=== PATIENT | male | born 1945 | race Caucasian/White ===

== ENCOUNTER 2018-03-26 10:48 | Inpatient (IN) ==
[2018-03-28] MEDS ORDERED: Dextrose 50% in Water 50 ML Vial IV.PUSH PRN
[2018-03-28] MEDS ORDERED: Acetaminophen 500 MG Tablet PO PRN
[2018-03-28] MEDS ORDERED: Sodium Chloride 0.9% Irr Bot 500 ML, ceFAZolin Inj 500 MG IRRIGATION SCH ×2
[2018-03-28] MEDS ORDERED: Sodium Chlor 0.9% Inj 77.5 ML, Papaverine Inj 60 MG, Nitroglycerin Inj 100 MCG, dilTIAZ... IRRIGATION SCH ×3
[2018-03-28] MEDS ORDERED: Metoprolol Tartrate 25 MG Tablet PO SCH
[2018-03-28] MEDS ORDERED: Insulin Regular (For Infusion) 100 UNIT in Sodium Chlor 0.9% Inj 99 ML IV.CONT PRN ×2
[2018-03-28] MEDS ORDERED: ceFAZolin 2 GM Premix Inj 2 GM/50 ML PIGGYBACK IV.SIG SCH
[2018-03-28] MEDS ORDERED: Chlorhexidine 4% Topical 120 APPLIC/120 ML Bottle TOPICAL SCH
[2018-03-28] MEDS: Methocarbamol 500 MG Tablet PO SCH ×3 (05:06→21:10)
[2018-03-28] MEDS: Metoprolol Tartrate 25 MG Tablet PO SCH ×2 (08:56→21:09)
[2018-03-28] MEDS: Aspirin 325 MG Tablet PO SCH (08:56)
[2018-03-28] MEDS: Heparin - SQ 10,000 UNITS/ML Vial SQ SCH ×2 (08:57→21:11)
--- NOTE | 2018-03-28 14:24 | P.PNCA ---
Subjective Interval history: Follow up for Dr. Lopez Overall doing well Did have a short episode of chest pain last night Physical Exam Vital signs: Vital Signs 03/28/18 00:00 03/28/18 02:15 03/28/18 03:00 Temperature 98 F Pulse Rate 60 60 65 Respiratory Rate 18 Blood Pressure 142/94 H Pulse Oximetry 97 03/28/18 04:00 03/28/18 05:00 03/28/18 06:00 Temperature 98 F Pulse Rate 70 72 74 Respiratory Rate 18 Blood Pressure 155/87 H Pulse Oximetry 97 03/28/18 07:00 03/28/18 08:00 03/28/18 09:00 Temperature 97.6 F Pulse Rate 76 69 71 Respiratory Rate 18 Blood Pressure 139/76 Pulse Oximetry 03/28/18 10:00 03/28/18 11:00 03/28/18 12:00 Temperature 97.6 F Pulse Rate 71 63 67 Respiratory Rate 18 Blood Pressure 148/76 H Pulse Oximetry 98 03/28/18 13:00 03/28/18 14:00 Temperature Pulse Rate 71 75 Respiratory Rate Blood Pressure Pulse Oximetry Intake & Output 03/27/18 03/28/18 03/28/18 18:59 06:59 18:59 Intake Total 240 / 240 Output Total 700 / 700 Balance -460 / -460 Weight 106.4 kg Intake: Oral 240 / 240 Output: Urine 700 / 700 Other: # Bowel Movements 0 Narrative: GENERAL: NAD, AAOx3 SKIN: Warm and dry. HEAD: Atraumatic. Normocephalic. EYES: Pupils equal and round. No scleral icterus. No injection or drainage. ENT: No nasal bleeding or discharge. Mucous membranes pink and moist. NECK: Trachea midline. No JVD. CARDIOVASCULAR: Regular rate and rhythm. RESPIRATORY: No accessory muscle use. Clear to auscultation. Breath sounds equal bilaterally. GASTROINTESTINAL: Abdomen soft, non-tender, nondistended. Hepatic and splenic margins not palpable. MUSCULOSKELETAL: Extremities without clubbing, cyanosis, or edema. No obvious deformities. Right femoral with no hematoma/bruit NEUROLOGICAL: Awake and alert. No obvious cranial nerve deficits. Motor grossly within normal limits. Five out of 5 muscle strength in the arms and legs. Normal speech. PSYCHIATRIC: Appropriate mood and affect; insight and judgment normal. Assessment and Plan - Assessment (1) CAD (coronary artery disease) Code(s): I25.10 - Atherosclerotic heart disease of [place] coronary artery without angina pectoris Status: Acute (2) Unstable angina Code(s): I20.0 - Unstable angina Status: Acute (3) NSTEMI (non-ST elevated myocardial infarction) Code(s): I21.4 - Non-ST elevation (NSTEMI) myocardial infarction Status: Acute (4) Multi-vessel coronary artery stenosis Code(s): I25.10 - Atherosclerotic heart disease of [place] coronary artery without angina pectoris Status: Acute (5) Hx of CABG Code(s): Z95.1 - Presence of aortocoronary bypass graft Status: Acute - Plan 1) CAD/NSTEMI Hx of CABG (1/3 grafts patent) Cardiac cath by Dr. Lopez Unable to intervene Plan for repeat CABG by Dr. Sylvester Planned for Thursday 2) Chest pain Unsure if last night was anginal, some what atyipcal but we know he has disease If further pain, then will need heparin drip and possible nitro drip
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
[2018-03-29] MEDS: Methocarbamol 500 MG Tablet PO SCH ×3 (06:25→22:22)
[2018-03-29] MEDS: Metoprolol Tartrate 25 MG Tablet PO SCH ×2 (08:55→22:22)
[2018-03-29] MEDS: Lisinopril 20 MG Tablet PO SCH (08:55)
[2018-03-29] MEDS: Aspirin 325 MG Tablet PO SCH (08:55)
[2018-03-29] MEDS: Heparin - SQ 10,000 UNITS/ML Vial SQ SCH ×2 (08:56→22:23)
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
--- NOTE | 2018-03-29 11:56 | P.PNCA ---
Subjective Interval history: No chest pain/SOB overnight Up to the chair, resting comfortably Physical Exam Vital signs: Vital Signs 03/28/18 12:00 03/28/18 13:00 03/28/18 14:00 Temperature Pulse Rate 67 71 75 Respiratory Rate Blood Pressure Pulse Oximetry 03/28/18 15:00 03/28/18 16:00 03/28/18 17:00 Temperature 97.7 F Pulse Rate 72 75 66 Respiratory Rate 18 Blood Pressure 153/89 H Pulse Oximetry 98 03/28/18 18:00 03/28/18 19:00 03/28/18 19:21 Temperature 98.4 F Pulse Rate 84 62 62 Respiratory Rate 16 Blood Pressure 122/68 Pulse Oximetry 99 03/28/18 20:00 03/28/18 21:00 03/28/18 22:00 Temperature Pulse Rate 72 66 77 Respiratory Rate Blood Pressure Pulse Oximetry 03/28/18 23:00 03/28/18 23:33 03/29/18 00:00 Temperature 97.8 F Pulse Rate 68 67 60 Respiratory Rate 18 Blood Pressure 148/87 H Pulse Oximetry 97 03/29/18 01:00 03/29/18 02:00 03/29/18 03:00 Temperature Pulse Rate 60 54 L 55 L Respiratory Rate Blood Pressure Pulse Oximetry 03/29/18 03:13 03/29/18 04:00 03/29/18 05:00 Temperature 97.7 F Pulse Rate 59 L 54 L 73 Respiratory Rate 18 Blood Pressure 143/80 H Pulse Oximetry 97 03/29/18 06:00 03/29/18 07:00 03/29/18 08:00 Temperature 97.8 F Pulse Rate 56 L 56 L 60 Respiratory Rate 18 Blood Pressure 138/84 Pulse Oximetry 03/29/18 09:00 03/29/18 10:00 03/29/18 11:00 Temperature 97.4 F L Pulse Rate 77 74 62 Respiratory Rate 18 Blood Pressure 138/87 Pulse Oximetry 95 Intake & Output 03/28/18 03/29/18 03/29/18 18:59 06:59 18:59 Intake Total 600 / 600 480 / 480 Balance 600 / 600 480 / 480 Weight 106.1 kg Intake: Oral 600 / 600 480 / 480 Other: # Voids 2 4 # Bowel Movements 0 Narrative: GENERAL: NAD, AAOx3 SKIN: Warm and dry. HEAD: Atraumatic. Normocephalic. EYES: Pupils equal and round. No scleral icterus. No injection or drainage. ENT: No nasal bleeding or discharge. Mucous membranes pink and moist. NECK: Trachea midline. No JVD. CARDIOVASCULAR: Regular rate and rhythm. RESPIRATORY: No accessory muscle use. Clear to auscultation. Breath sounds equal bilaterally. GASTROINTESTINAL: Abdomen soft, non-tender, nondistended. Hepatic and splenic margins not palpable. MUSCULOSKELETAL: Extremities without clubbing, cyanosis, or edema. No obvious deformities. NEUROLOGICAL: Awake and alert. No obvious cranial nerve deficits. Motor grossly within normal limits. Five out of 5 muscle strength in the arms and legs. Normal speech. PSYCHIATRIC: Appropriate mood and affect; insight and judgment normal. Assessment and Plan - Assessment (1) CAD (coronary artery disease) Code(s): I25.10 - Atherosclerotic heart disease of [place] coronary artery without angina pectoris Status: Acute (2) Unstable angina Code(s): I20.0 - Unstable angina Status: Acute (3) NSTEMI (non-ST elevated myocardial infarction) Code(s): I21.4 - Non-ST elevation (NSTEMI) myocardial infarction Status: Acute (4) Multi-vessel coronary artery stenosis Code(s): I25.10 - Atherosclerotic heart disease of [place] coronary artery without angina pectoris Status: Acute (5) Hx of CABG Code(s): Z95.1 - Presence of aortocoronary bypass graft Status: Acute - Plan 1) CAD/NSTEMI Hx of CABG (1/3 grafts patent) Cardiac cath by Dr. Lopez Unable to intervene Plan for repeat CABG by Dr. Sylvester Planned for tomorrow 2) Chest pain If further pain, then will need heparin drip and possible nitro drip
--- NOTE | 2018-03-29 13:01 | P.PNCA ---
- Note Subjective/Hospital Course:: 73-year-old gentleman with history of coronary artery bypass graft, hypertension , and hyperlipidemia, been experiencing chest pain for the past several days, pressure-like, moderate, relieved with nitroglycerin, also had some shortness of breath. He Denied fever, chills, cough, GI or bleeding, PND, orthopnea, syncope or dizziness. PAST MEDICAL HISTORY: CABG in 2007. He also has a history of permanent pacemaker, hypertension, polyp removed. cath: LAD has severe diffuse disease up to 95% in the proximal segment, occluded after the first diagonal artery. First diagonal artery has an ostial 95% stenosis There is filling of what appears to be a high OM/ramus which is a 4.0 mm vessel with retrograde filling into what appears to probably be the more distal segment of the occluded vein graft. Also, there is [id number] collaterals to the AV groove, left circumflex which supplies a small to medium- sized posterolateral artery, 1.5-2 mm. left to right collaterals to the right PDA from antegrade injection of the left main and also from antegrade injections of the CO[place] via the LAD. CONCLUSION: 1. [id number] myocardial infarction, culprit occluded vein graft to obtuse marginal which is indeterminate 2. Severe 3-vessel coronary artery disease as detailed above. 3. One of three grafts patent as detailed above. 4. Low-end normal left ventricular systolic function at 50% with mild hypokinesis of the posterior wall. 03/29/18 pt denies chest await PFT / carotid US 40% [place] ICA stable for surgery in am Objective:: Vital Signs - 24 hr 03/28/18 13:00 03/28/18 14:00 03/28/18 15:00 Temperature 97.7 F Pulse Rate 71 75 72 Respiratory Rate 18 Blood Pressure 153/89 H Pulse Oximetry 98 03/28/18 16:00 03/28/18 17:00 03/28/18 18:00 Temperature Pulse Rate 75 66 84 Respiratory Rate Blood Pressure Pulse Oximetry 03/28/18 19:00 03/28/18 19:21 03/28/18 20:00 Temperature 98.4 F Pulse Rate 62 62 72 Respiratory Rate 16 Blood Pressure 122/68 Pulse Oximetry 99 03/28/18 21:00 03/28/18 22:00 03/28/18 23:00 Temperature Pulse Rate 66 77 68 Respiratory Rate Blood Pressure Pulse Oximetry 03/28/18 23:33 03/29/18 00:00 03/29/18 01:00 Temperature 97.8 F Pulse Rate 67 60 60 Respiratory Rate 18 Blood Pressure 148/87 H Pulse Oximetry 97 03/29/18 02:00 03/29/18 03:00 03/29/18 03:13 Temperature 97.7 F Pulse Rate 54 L 55 L 59 L Respiratory Rate 18 Blood Pressure 143/80 H Pulse Oximetry 97 03/29/18 04:00 03/29/18 05:00 03/29/18 06:00 Temperature Pulse Rate 54 L 73 56 L Respiratory Rate Blood Pressure Pulse Oximetry 03/29/18 07:00 03/29/18 08:00 03/29/18 09:00 Temperature 97.8 F Pulse Rate 56 L 60 77 Respiratory Rate 18 Blood Pressure 138/84 Pulse Oximetry 03/29/18 10:00 03/29/18 11:00 03/29/18 12:00 Temperature 97.4 F L Pulse Rate 74 62 81 Respiratory Rate 18 Blood Pressure 138/87 Pulse Oximetry 95 GENERAL: A&O x 3 SKIN: Warm and dry. HEAD: Normocephalic. EYES: No scleral icterus. No injection or drainage. NECK: Supple, trachea midline. No JVD or lymphadenopathy. CARDIOVASCULAR: Regular rate and rhythm without murmurs, gallops, or rubs. RESPIRATORY: Breath sounds equal bilaterally. No accessory muscle use. GASTROINTESTINAL: Abdomen soft, non-tender, nondistended. MUSCULOSKELETAL: No cyanosis, or edema. BACK: Nontender without obvious deformity. No CVA tenderness. Result Diagrams: 03/27/18 05:37 03/27/18 05:37 - Plan (2) Unstable angina Plan:: ASA, statin , BB stop ISA for surgery surgery scheduled for 03/30 Redo sternotomy / CABG
[2018-03-30] MEDS ORDERED: Chlorhexidine Gluconate 2% 1 Pack (2 Cloths) TOPICAL SCH (05:15)
[2018-03-30] MEDS ORDERED: Sodium Chlor 0.9% Inj 500 ML IV.SIG SCH (06:00)
[2018-03-30] MEDS: Methocarbamol 500 MG Tablet PO SCH ×3 (06:15→21:41)
[2018-03-30] MEDS ORDERED: Heparin - SQ 10,000 UNITS/ML Vial SQ ONE ×2 (06:29→12:00)
[2018-03-30] MEDS ORDERED: MethylPREDNISolone Sod Succinate Inj 125 MG/2 ML Vial ONE ×2 (06:29→06:31)
[2018-03-30] MEDS ORDERED: ceFAZolin 2 GM Premix Inj 2 GM/50 ML PIGGYBACK IV.SIG ONE (06:30)
[2018-03-30] MEDS: Metoprolol Tartrate 25 MG Tablet PO SCH (10:13)
[2018-03-30] MEDS: Aspirin 325 MG Tablet PO SCH (10:13)
[2018-03-30] MEDS: Heparin - SQ 10,000 UNITS/ML Vial SQ SCH ×2 (10:13→21:41)
[2018-03-30] MEDS: Lisinopril 20 MG Tablet PO SCH (10:13)
[2018-03-30] MEDS ORDERED: Glycopyrrolate 0.2 MG/ML Vial IV.PUSH ONE (12:00)
[2018-03-30] MEDS ORDERED: Sodium Chlor 0.9% Inj 250 ML IV.SIG ONE (12:00)
[2018-03-30] MEDS ORDERED: Norepinephrine Inj 4 MG/4 ML Ampul IV.CONT ONE (12:00)
[2018-03-30] MEDS ORDERED: Dexmedetomidine Inj 200 MCG/2 ML Vial IV.CONT ONE (12:00)
[2018-03-30] MEDS ORDERED: Protamine Sulfate Inj 250 MG/25 ML Vial IV.PUSH ONE (12:00)
[2018-03-30] MEDS ORDERED: Sodium Chlor 0.9% Inj 200 ML IV.SIG ONE (12:00)
[2018-03-30] MEDS ORDERED: Phenylephrine/NS 1000 MCG/10ML Syringe IV.PUSH ONE (12:00)
[2018-03-30] MEDS ORDERED: Normosol-R pH 7.4 Inj 2,000 ML IV.CONT ONE (12:00)
[2018-03-30] MEDS ORDERED: Tranexamic Acid Inj 1,000 MG/10 ML Ampul IV.PUSH ONE (12:00)
[2018-03-30] MEDS ORDERED: Esmolol Bolus Inj 100 MG/10 ML Vial IV.PUSH ONE (12:00)
[2018-03-30] MEDS ORDERED: Lidocaine PF 1% Inj 5 ML Syringe INFILTRATN ONE ×2 (12:00)
[2018-03-30] MEDS ORDERED: Post-op Orders (for Pharmacy) OTHER STA (14:25)
[2018-03-30] MEDS ORDERED: Insulin Regular (For Infusion) 100 UNIT in Sodium Chlor 0.9% Inj 99 ML IV.CONT PRN (14:25)
[2018-03-30] MEDS ORDERED: hydrALAZINE HCl Inj 20 MG/ML Vial IV.PUSH PRN (14:25)
[2018-03-30] MEDS ORDERED: Magnesium Sulfate Inj 2 GM in Sodium Chlor 0.9% Inj 96 ML IV.SIG PRN ×4 (14:25)
[2018-03-30] MEDS ORDERED: RESP: Racemic Epinephrine 2.25% 0.5 ML Neb NEB PRN (14:25)
[2018-03-30] MEDS ORDERED: Clevidipine Inj 25 MG/50 ML VIAL IV.CONT PRN (14:25)
[2018-03-30] MEDS ORDERED: Dextrose 50% in Water 50 ML Vial IV.PUSH PRN (14:25)
[2018-03-30] MEDS ORDERED: Dexmedetomidine Inj 200 MCG/50 ML INFUS..BTL IV.CONT PRN (14:25)
[2018-03-30] MEDS ORDERED: Calcium Chloride Inj 1 GM in Sodium Chlor 0.9% Inj 100 ML IV.SIG PRN (14:25)
[2018-03-30] MEDS ORDERED: Albumin Human 5% Inj 250 ML IV.SIG PRN (14:25)
[2018-03-30] MEDS ORDERED: Potassium Chlor 20 mEq Premix 20 MEQ/100 ML PIGGYBACK IV.SIG PRN ×3 (14:25)
[2018-03-30] MEDS ORDERED: Calcium Chloride Inj 1 GM/10 ML Syringe IV.PUSH PRN (14:25)
[2018-03-30] MEDS ORDERED: Metoprolol Inj 5 MG/5 ML Vial IV.PUSH PRN (14:25)
--- NOTE | 2018-03-30 14:48 | P.OP ---
- Preoperative Diagnosis (1) CAD (coronary artery disease) (2) Hx of CABG (3) Multi-vessel coronary artery stenosis (4) NSTEMI (non-ST elevated myocardial infarction) - Postoperative Diagnosis (1) CAD (coronary artery disease) (2) Hx of CABG (3) Multi-vessel coronary artery stenosis (4) NSTEMI (non-ST elevated myocardial infarction) Date of procedure: 03/30/18 Procedure: REDO CABG x 3 SVG to PDA - good SVG to RI - fair SVG to D1 - fair EVH PAYAL Anesthesia: GETA Surgeon: Xochitl Sylvester MD Home Economist Consumer Service: Pavan Flores Operation and Findings: The risks, benefits, complications, treatment options, and expected outcomes were discussed with the patient. The possibilities of reaction to medication, pulmonary aspiration, perforation of viscus, bleeding, recurrent infection, the need for additional procedures, failure to diagnose a condition, and creating a complication requiring transfusion or operation were discussed with the patient. The patient concurred with the proposed plan, giving informed consent. The site of surgery properly noted/marked. The patient was taken to Operating Room, identified as Galen Hankins and the procedure verified as REDO CABG, EVH, PAYAL. A Time Out was held and the above information confirmed. Standard monitoring lines and Swenson catheter were placed. General anesthesia was induced. The patient was prepped and draped in a sterile fashion. The prior sternotomy incision was incised and electrocautery used to carry the dissection to the sternum. The previous wires were isolated and cut. They were left in place as a guide for the oscillating saw. After completing the sternotomy, the sternal tables were isolated from the mediastinum using electrocautery and blunt dissection. Dense adhesions were encountered in the mediastinum and surrounding the heart. The patient's previous vein grafts and COOPER graft were carefully isolated and not manipulated. Left greater saphenous vein was procured from the left leg using a minimally invasive endoscopic technique. The vein was prepared for anastomosis and the leg wound was irrigated and closed in 2 layers. The patient was heparinized for cardiopulmonary bypass and the heart was instrumented for cardiopulmonary bypass in the usual manner. Antegrade blood cardioplegia was employed. The patient was placed on cardiopulmonary bypass. Dissection was completed with the patient on pump due to some hypotension and ischemia. An aortic cross-clamp was applied and the heart was arrested using cold blood cardioplegia. The COOPER was temporarily occluded with an atraumatic clamp during the crossclamp period. Antegrade cardioplegia was administered after he each anastomosis. After adequate arrest, the distal right coronary circulation was investigated and the distal PDA was opened with a Atka blade and found to be a 1.5 millimeter good target. Saphenous vein was approximated to the PDA artery using a running 7 0 Prolene suture. The graft was measured for length and orientation and the proximal anastomosis was constructed to the ascending aorta using a running 5 0 Prolene suture after creating an aortotomy with a 5 millimeter punch. The Ramus Intermedius was opened with a Atka blade and found to be a 1 millimeter fair target with diffuse disease. Saphenous vein was approximated to the RI artery using a running 7 0 Prolene suture. The graft was measured for length and orientation and the proximal anastomosis was constructed to the ascending aorta using a running 5 0 Prolene suture after creating an aortotomy with a 5 millimeter punch.The 1st diagonal artery was then opened with a Atka blade and found to be a 1 millimeter fair target with diffuse disease. Saphenous vein was approximated to the D1 artery using a running 7 0 Prolene suture. The graft was measured for length and orientation and the patient received a hotshot dose of cardioplegia. The aorta was vented and the proximal anastomosis to the D1 graft was accomplished using a running 5 0 Prolene suture after creating an aortotomy was a 5 millimeter punch. The cross-clamp was removed and all proximal and distal anastomoses were examined for hemostasis. The patient was weaned from cardiopulmonary bypass. Protamine was given. There was no adverse reaction. Decannulation was carried out without incident. Wound was checked for hemostasis which was obtained using electrocautery. A 36 Bah[place]ian mediastinal and 2- 32 [place]amian bilateral pleural chest tubes were placed and secured to the skin with 0 silk suture. The sternum was closed with stainless steel wire. The fascia was closed with 1. PDS. The subcutaneous tissue was closed using a running 2-0 Vicryl suture. The skin was closed with 4-0 Monocryl. Sterile dressings were placed. At the end of the operation, all sponge, instruments, and needle counts were correct. The patient was transferred to the CVICU in stable condition. Findings: Diffuse CAD, no suitable OM targets XC: 101 min CPB: 172 min Drains: mediastinal x 1 pleural x 2 Complications: none Disposition: {to CVICU in stable condition
[2018-03-30] MEDS ORDERED: fentaNYL Citrate Inj 250 MCG/5 ML Ampul ONE ×2 (15:36→15:37)
--- NOTE | 2018-03-30 16:36 | XR ---
EXAM DATE: 03/30/2018 4:17 PM EDT AGE/SEX: 73 years / Male INDICATIONS: Status post CABG. CLINICAL DATA: This is the patient's subsequent encounter. Patient reports that signs and symptoms h ave been present for 1 day and indicates a pain score of Nonresponsive. MEDICAL/SURGICAL HISTORY: Hypertension. . CABG. Pacemaker. COMPAR[place] [facility] [place]. . FINDINGS: A single AP view of the chest demonstrates previous CABG. Mild cardiomegaly. Left perihilar and left basilar patchy densities. Endotracheal tube 4.5 cm above the kerry. Nasogastric tube with tip in sto mach. Right jugular line tip in the SVC. Bilateral chest tubes without pneumothorax. Left-sided pacem mika with 2 intact leads The cardiomediastinal contours are unremarkable. Osseous structures are int act. CONCLUSION: 1. Status post CABG. 2. Left perihilar and left lower lobe densities, likely atelectasis. 3. Support lines and tubes as described above. Electronically signed by: Cabrera Petty MD 03/30/2018 4:35 PM EDT
[2018-03-30] MEDS: fentaNYL Citrate Inj 100 MCG/2 ML Ampul IV.PUSH PRN ×3 (17:00→23:26)
--- NOTE | 2018-03-30 17:22 | P.PN ---
Subjective Interval history: Follow up for multivessel CAD s/p CABG x 3 today. Patient is currently doing well. No acute concerns. Patient's family is at bedside. No fever, chills. Hemodynamically stable. Physical Exam Vital signs: Vital Signs 03/29/18 17:52 03/29/18 19:00 03/29/18 20:00 Temperature 97.9 F Pulse Rate 67 70 72 Respiratory Rate 16 Blood Pressure 138/79 Pulse Oximetry 96 03/29/18 21:00 03/29/18 22:00 03/29/18 23:00 Temperature 98.0 F Pulse Rate 64 65 68 Respiratory Rate 15 Blood Pressure 146/88 H Pulse Oximetry 96 03/30/18 00:00 03/30/18 01:00 03/30/18 02:00 Temperature Pulse Rate 58 L 60 70 Respiratory Rate Blood Pressure Pulse Oximetry 03/30/18 03:00 03/30/18 04:00 03/30/18 05:00 Temperature Pulse Rate 71 67 71 Respiratory Rate Blood Pressure Pulse Oximetry 03/30/18 05:21 03/30/18 06:00 03/30/18 15:00 Temperature 97.9 F 98.5 F Pulse Rate 63 65 79 Respiratory Rate 17 16 Blood Pressure 143/83 H 119/65 Pulse Oximetry 92 L 03/30/18 15:08 03/30/18 16:18 03/30/18 17:16 Temperature Pulse Rate 68 Respiratory Rate 18 16 18 Blood Pressure Pulse Oximetry 95 95 Intake & Output 03/29/18 03/30/18 03/30/18 18:59 06:59 18:59 Intake Total 240 / 240 240 / 240 3900 / 3900 Output Total 200 / 200 1999 / 1999 Balance 240 / 240 40 / 40 1900 / 1900 Weight 104 kg Intake: IV 150 / 150 Ofirmev Inj 1,000 mg In 100 ml 100 / 100 @ 400 mls/hr IV.SIG Q6H MIKE Rx# :[id number] Ancef 2 GM Premix Inj 2 gm In 50 / 50 50 ml @ 150 mls/hr IV.SIG FINISHING TUNNEL OPERATOR MIKE Rx#:[id number] Oral 240 / 240 240 / 240 Anesthesia Amount 3000 / 3000 Cell Saver Amount 750 / 750 Output: Urine 200 / 200 Estimated Blood Loss 1400 / 1400 Urine Amount (Catheter) 600 / 600 Indwelling Temp Sensing 600 / 600 Catheter Other: # Voids 1 Narrative: GENERAL: Alert, NAD. SKIN: Warm and dry. HEAD: Normocephalic. EYES: No scleral icterus. No injection or drainage. NECK: Supple, trachea midline. No JVD or lymphadenopathy. CARDIOVASCULAR: Regular rate and rhythm without murmurs, gallops, or rubs. s/p CABG. RESPIRATORY: Breath sounds equal bilaterally. No accessory muscle use. GASTROINTESTINAL: Abdomen soft, non-tender, nondistended. MUSCULOSKELETAL: No cyanosis, or edema. BACK: Nontender without obvious deformity. No CVA tenderness. - Urinary Catheter Management Indwelling Temp Sensing Catheter Cath placed during this visit: yes Reason for continuing: Hourly intake/output Insertion date: 03/30/18 Insertion time: 07:40 Results - Labs CBC & Chem 7: 03/27/18 05:37 03/27/18 05:37 Laboratory Results - last 24 hr 03/28/18 03/30/18 03/30/18 04:24 08:06 16:04 POC Glucose 146 H Blood Type O Positive Antibody Screen Negative MTS Gel Crossmatch See Detail See Detail Bld Prod Order Comment 03/30/18 17:04 POC Glucose 122 H Blood Type Antibody Screen MTS Gel Crossmatch Bld Prod Order Comment - Imaging Impressions Chest X-Ray 03/30/18 14:25 CONCLUSION: 1. Status post CABG. 2. Left perihilar and left lower lobe densities, likely atelectasis. 3. Support lines and tubes as described above. - Procedures Cardiac catheterization Assessment and Plan - Assessment (1) NSTEMI (non-ST elevated myocardial infarction) Code(s): I21.4 - Non-ST elevation (NSTEMI) myocardial infarction Status: Acute (2) Multi-vessel coronary artery stenosis Code(s): I25.10 - Atherosclerotic heart disease of [place] coronary artery without angina pectoris Status: Acute - Plan 73-year-old white male being admitted for suspected NSTEMI. Cardiac cath showed multivessel CAD. Patient subsequently underwent CABG x3. Multivessel Coronary artery disease NSTEMI -Cardiac catheterization shows three-vessel disease not amenable for PCI. -Status post CABG x 3 on 03/30/2017. -Continue aspirin 81mg, Lipitor 40mg HS and Lopressor Acute kidney injury - ISA inhibitor on hold for now. Creatinine around 1.30. - Avoid nephrotoxins. 1.30 may be the baseline, we may consider re-starting. Full code.
--- NOTE | 2018-03-30 19:16 | P.PNCA ---
Subjective Interval history: Follow up for Dr. Lopez No events overnight s/p CABG x3 Extubated Physical Exam Vital signs: Vital Signs 03/29/18 20:00 03/29/18 21:00 03/29/18 22:00 Temperature Pulse Rate 72 64 65 Respiratory Rate Blood Pressure Pulse Oximetry 03/29/18 23:00 03/30/18 00:00 03/30/18 01:00 Temperature 98.0 F Pulse Rate 68 58 L 60 Respiratory Rate 15 Blood Pressure 146/88 H Pulse Oximetry 96 03/30/18 02:00 03/30/18 03:00 03/30/18 04:00 Temperature Pulse Rate 70 71 67 Respiratory Rate Blood Pressure Pulse Oximetry 03/30/18 05:00 03/30/18 05:21 03/30/18 06:00 Temperature 97.9 F Pulse Rate 71 63 65 Respiratory Rate 17 Blood Pressure 143/83 H Pulse Oximetry 03/30/18 15:00 03/30/18 15:08 03/30/18 16:18 Temperature 98.5 F Pulse Rate 79 Respiratory Rate 16 18 16 Blood Pressure 119/65 Pulse Oximetry 92 L 95 95 03/30/18 17:16 03/30/18 18:00 Temperature Pulse Rate 68 Respiratory Rate 18 Blood Pressure Pulse Oximetry 95 Intake & Output 03/30/18 03/30/18 03/31/18 06:59 18:59 06:59 Intake Total 240 / 240 4000 / 4000 Output Total 200 / 200 2630 / 2630 Balance 40 / 40 1370 / 1370 Weight 104 kg Intake: IV 250 / 250 Ofirmev Inj 1,000 mg In 100 ml 100 / 100 @ 400 mls/hr IV.SIG Q6H MIKE Rx# :[id number] KCl 20 mEq Premix Inj 20 meq In 100 / 100 100 ml @ 50 mls/hr IV.SIG PRN PRN Rx#:[id number] Ancef 2 GM Premix Inj 2 gm In 50 / 50 50 ml @ 150 mls/hr IV.SIG ENTRY CLERK MIKE Rx#:[id number] Oral 240 / 240 Anesthesia Amount 3000 / 3000 Cell Saver Amount 750 / 750 Output: Urine 200 / 200 Estimated Blood Loss 1400 / 1400 Urine Amount (Catheter) 1000 / 1000 Indwelling Temp Sensing 1000 / 1000 Catheter Gastric Drainage 0 / 0 Oral Orogastric Tube 0 / 0 Chest Tube Drainage 230 / 230 Anterior Y Connected 230 / 230 Other: # Voids 1 # Bowel Movements 0 - Constitutional no acute distress - Routine HEENT Exam Head: Present: normocephalic, atraumatic Eye: Present: EOMI, PERRL ENT: Present: mucous membranes moist - Routine Neck Exam Present: supple. Absent: JVD - Detailed Chest Wall Exam Comments: Sternotomy clean/dry - Routine Respiratory Exam Present: CTA bilaterally. Absent: accessory muscle use - Routine Cardiovascular Exam Present: RRR, S1, S2 - Routine Abdominal Exam Present: soft, normoactive bowel sounds. Absent: tenderness, guarding - Routine Extremities Exam Absent: cyanosis, clubbing, edema - Routine Skin Exam Present: intact, dry. Absent: cyanosis, erythema - Routine Neurological Exam Present: alert, oriented X3, CN II-XII intact - Routine Psychiatric Exam Present: normal affect - Urinary Catheter Management Indwelling Temp Sensing Catheter Cath placed during this visit: yes Reason for continuing: Hourly intake/output Insertion date: 03/30/18 Insertion time: 07:40 Assessment and Plan - Assessment (1) CAD (coronary artery disease) Code(s): I25.10 - Atherosclerotic heart disease of [place] coronary artery without angina pectoris Status: Acute (2) Unstable angina Code(s): I20.0 - Unstable angina Status: Acute (3) NSTEMI (non-ST elevated myocardial infarction) Code(s): I21.4 - Non-ST elevation (NSTEMI) myocardial infarction Status: Acute (4) Multi-vessel coronary artery stenosis Code(s): I25.10 - Atherosclerotic heart disease of [place] coronary artery without angina pectoris Status: Acute (5) Hx of CABG Code(s): Z95.1 - Presence of aortocoronary bypass graft Status: Acute - Plan 1) CAD/NSTEMI s/p CABG x3 POD #0 SVG to PDA SVG to Ramus SVG to Diagonal Previous Hx of CABG (1/3 grafts patent) COOPER to LAD patent 2) Supportive care 3) ASA/Statin/ISA Eventual BB therapy
[2018-03-31 04:33] LABS: Baso % (Auto) 0.2 % (0.0-2.0); Hematocrit 35.3 % (39.0-51.0); Hemoglobin 11.6 gm/dL (13.0-17.0); Lymph # (Auto) 0.9 th/mm3 (1.0-4.8); Lymph % (Auto) 8.1 % (9.0-44.0); Mean Corpuscular HGB Conc 32.8 % (32.0-36.0); Mean Corpuscular Hemoglobin 30.3 pg (27.0-34.0); Mean Corpuscular Volume 92.4 fL (80.0-100.0); Mean Platelet Volume 8.4 fL (7.0-11.0); Mono % (Auto) 9.5 % (0.0-8.0); Neut % (Auto) 82.2 % (16.0-70.0); Platelet Count 132 th/mm3 (150-450); Red Blood Count 3.82 mil/mm3 (4.50-5.90); Red Cell Distribution Width 15.1 % (11.6-17.2); White Blood Count 10.9 th/mm3 (4.0-11.0)
[2018-03-31 05:02] LABS: Calcium 8.5 mg/dL (8.5-10.1); Carbon Dioxide 22.3 meq/L (21.0-32.0); Magnesium 2.1 mg/dL (1.5-2.5); Potassium 4.4 meq/L (3.5-5.1)
--- NOTE | 2018-03-31 05:35 | XR ---
EXAM DATE: 03/31/2018 4:58 AM EDT AGE/SEX: 73 years / Male INDICATIONS: Status post CABG. CLINICAL DATA: This is the patient's subsequent encounter. Patient reports that signs and symptoms h ave been present for 4 - 6 days and indicates a pain score of 5/10. MEDICAL/SURGICAL HISTORY: Cardiovascular disease. CABG. COMPARISON: [facility], CHEST 1V SINGLE AP, 03/30/2018. . FINDINGS: Interval extubation. Bilateral chest tubes stable in position. Right internal jugular catheter tip pr ojects over the distal superior vena cava. Increasing consolidation in the left lower lung, now with loss of delineation of the entire left hemidiaphragm. Patchy areas of infiltrate in the right lower l adilene are also more prominent. Stable cardiomegaly. CONCLUSION: Increasing consolidation in the left lower lung and patchy infiltrates in the right lower lung. Electronically signed by: Johnnie Cutler MD 03/31/2018 5:34 AM EDT
[2018-03-31] MEDS: fentaNYL Citrate Inj 100 MCG/2 ML Ampul IV.PUSH PRN ×4 (05:41→15:20)
[2018-03-31] MEDS: Methocarbamol 500 MG Tablet PO SCH ×3 (06:27→21:07)
--- NOTE | 2018-03-31 09:42 | RSPPFT ---
DATE OF PROCEDURE: 03/29/18 COMMENTS: Spirometry shows FVC of 3.1 at 70% of predicted, FEV1 of 2.8 at 81%, FEV1/FVC ratio is normal. Flow is normal at FEF 25, FEF 50, FEF 75 and FEF 25-75. Flow volume loop indicates a normal pattern. IMPRESSION: 1. Normal spirometry. 2. Post-bronchodilator study was not done. MTDD
[2018-03-31] MEDS ORDERED: Acetaminophen 325 MG Tablet PO PRN (09:47)
[2018-03-31] MEDS ORDERED: Insulin Regular (For Infusion) 100 UNIT in Sodium Chlor 0.9% Inj 99 ML IV.CONT PRN (09:47)
[2018-03-31] MEDS ORDERED: Dextrose 50% in Water 50 ML Vial IV.PUSH PRN ×3 (09:47→10:29)
[2018-03-31] MEDS ORDERED: fentaNYL Citrate Inj 100 MCG/2 ML Ampul IV.PUSH PRN (09:47)
[2018-03-31] MEDS ORDERED: Sod Phosphate/Sod Biphosphate (Adult) Enema 133 ML Bottle RECTAL PRN (09:56)
[2018-03-31] MEDS ORDERED: Bisacodyl 10 MG Supp RECTAL PRN (09:56)
--- NOTE | 2018-03-31 10:03 | P.PN ---
Subjective Interval history: Follow up for multivessel CAD s/p CABG x 3. Patient is currently sitting in his chair. Complains of back pain. No fever or chills. No chest pain, shortness of breath. Physical Exam Vital signs: Vital Signs 03/30/18 15:00 03/30/18 15:08 03/30/18 16:18 Temperature 98.5 F Pulse Rate 79 Respiratory Rate 16 18 16 Blood Pressure 119/65 Pulse Oximetry 92 L 95 95 03/30/18 17:16 03/30/18 18:00 03/30/18 19:00 Temperature 97.4 F L Pulse Rate 68 79 Respiratory Rate 18 18 Blood Pressure 118/65 Pulse Oximetry 95 97 03/30/18 20:57 03/30/18 21:43 03/30/18 23:00 Temperature 98.5 F Pulse Rate 76 79 Respiratory Rate 18 18 18 Blood Pressure 133/82 Pulse Oximetry 98 03/31/18 00:30 03/31/18 03:00 03/31/18 03:07 Temperature Pulse Rate 84 Respiratory Rate 18 18 Blood Pressure Pulse Oximetry 03/31/18 03:20 03/31/18 03:55 03/31/18 07:50 Temperature 98.6 F Pulse Rate 85 86 Respiratory Rate 18 22 Blood Pressure 125/66 Pulse Oximetry 95 03/31/18 09:42 Temperature Pulse Rate Respiratory Rate 16 Blood Pressure Pulse Oximetry Intake & Output 03/30/18 03/31/18 03/31/18 18:59 06:59 18:59 Intake Total 4000 / 4000 1300 / 1300 200 / 200 Output Total 2630 / 2630 730 / 730 Balance 1370 / 1370 570 / 570 200 / 200 Weight 109.5 kg Intake: IV 250 / 250 1150 / 1150 200 / 200 Ofirmev Inj 1,000 mg In 100 ml 100 / 100 190 / 190 100 / 100 @ 400 mls/hr IV.SIG Q6H MIKE Rx# :[id number] Buminate 5% Inj 250 ML @ 250 250 / 250 mls/hr IV.SIG UNSCH PRN Rx#: [id number] Calcium Chloride Inj 1 GM In NS 110 / 110 Inj 100 ML @ 100 mls/hr IV.SIG PRN PRN Rx#:[id number] LR 1000 mL Inj 500 ML @ 500 mls 500 / 500 /hr IV.SIG .Q1H PRN Rx#: [id number] KCl 20 mEq Premix Inj 20 meq In 100 / 100 100 ml @ 50 mls/hr IV.SIG PRN PRN Rx#:[id number] Ancef 2 GM Premix Inj 2 gm In 50 / 50 50 ml @ 150 mls/hr IV.SIG SEO EXPERT MIKE Rx#:[id number] Ancef Inj 1,000 MG In NS Inj 100 / 100 100 / 100 100 ML @ 200 mls/hr IV.SIG Q8H MIKE Rx#:[id number] Oral 150 / 150 Anesthesia Amount 3000 / 3000 Cell Saver Amount 750 / 750 Output: Estimated Blood Loss 1400 / 1400 Urine Amount (Catheter) 1000 / 1000 730 / 730 Indwelling Temp Sensing 1000 / 1000 730 / 730 Catheter Gastric Drainage 0 / 0 Oral Orogastric Tube 0 / 0 Chest Tube Drainage 230 / 230 Anterior Y Connected 230 / 230 Other: # Bowel Movements 0 Narrative: GENERAL: Alert, NAD. SKIN: Warm and dry. HEAD: Normocephalic. EYES: No scleral icterus. No injection or drainage. NECK: Supple, trachea midline. No JVD or lymphadenopathy. CARDIOVASCULAR: Regular rate and rhythm without murmurs, gallops, or rubs. s/p CABG. RESPIRATORY: Breath sounds equal bilaterally. No accessory muscle use. GASTROINTESTINAL: Abdomen soft, non-tender, nondistended. MUSCULOSKELETAL: No cyanosis, or edema. BACK: Nontender without obvious deformity. No CVA tenderness. - Urinary Catheter Management Indwelling Temp Sensing Catheter Cath placed during this visit: yes, but has since been removed by the nurse Reason for continuing: Decision to DC catheter Insertion date: 03/30/18 Insertion time: 07:40 Removal date: 03/31/18 Removal time: 05:15 Results - Labs CBC & Chem 7: 03/31/18 04:08 03/31/18 04:08 Laboratory Results - last 24 hr 03/28/18 03/30/18 03/30/18 04:24 08:06 16:04 WBC RBC Hgb Hct MCV MCH MCHC RDW Plt Count MPV Prelim Diff (Auto) Neut % (Auto) Lymph % (Auto) [place] % (Auto) Eos % (Auto) Baso % (Auto) Neut # (Auto) Lymph # (Auto) [place] # (Auto) Eos # (Auto) Baso # (Auto) WBC Differential Diff Scan Differential Comment Sodium Potassium Chloride Carbon Dioxide Anion Gap BUN Creatinine Estimated GFR POC Glucose 146 H Random Glucose Calcium Magnesium Blood Type O Positive Antibody Screen Negative MTS Gel Crossmatch See Detail See Detail Bld Prod Order Comment 03/30/18 03/30/18 03/30/18 17:04 17:58 19:31 WBC RBC Hgb Hct MCV MCH MCHC RDW Plt Count MPV Prelim Diff (Auto) Neut % (Auto) Lymph % (Auto) [place] % (Auto) Eos % (Auto) Baso % (Auto) Neut # (Auto) Lymph # (Auto) [place] # (Auto) Eos # (Auto) Baso # (Auto) WBC Differential Diff Scan Differential Comment Sodium Potassium Chloride Carbon Dioxide Anion Gap BUN Creatinine Estimated GFR POC Glucose 122 H 108 112 H Random Glucose Calcium Magnesium Blood Type Antibody Screen MTS Gel Crossmatch Bld Prod Order Comment 03/30/18 03/30/18 03/30/18 20:38 22:28 23:31 WBC RBC Hgb Hct MCV MCH MCHC RDW Plt Count MPV Prelim Diff (Auto) Neut % (Auto) Lymph % (Auto) [place] % (Auto) Eos % (Auto) Baso % (Auto) Neut # (Auto) Lymph # (Auto) [place] # (Auto) Eos # (Auto) Baso # (Auto) WBC Differential Diff Scan Differential Comment Sodium Potassium Chloride Carbon Dioxide Anion Gap BUN Creatinine Estimated GFR POC Glucose 165 H 133 H 114 H Random Glucose Calcium Magnesium Blood Type Antibody Screen MTS Gel Crossmatch Bld Prod Order Comment 03/31/18 03/31/18 03/31/18 02:03 03:18 04:08 WBC 10.9 RBC 3.82 L Hgb 11.6 L Hct 35.3 L MCV 92.4 MCH 30.3 MCHC 32.8 RDW 15.1 Plt Count 132 L MPV 8.4 Prelim Diff (Auto) Slide review pending Neut % (Auto) 82.2 H Lymph % (Auto) 8.1 L [place] % (Auto) 9.5 H Eos % (Auto) 0.0 Baso % (Auto) 0.2 Neut # (Auto) 9.0 H Lymph # (Auto) 0.9 L [place] # (Auto) 1.0 H Eos # (Auto) 0.0 Baso # (Auto) 0.0 WBC Differential . Diff Scan Auto diff confirmed Differential Comment . Sodium Potassium Chloride Carbon Dioxide Anion Gap BUN Creatinine Estimated GFR POC Glucose 99 94 Random Glucose Calcium Magnesium Blood Type Antibody Screen MTS Gel Crossmatch Bld Prod Order Comment 03/31/18 03/31/18 03/31/18 04:08 06:23 07:23 WBC RBC Hgb Hct MCV MCH MCHC RDW Plt Count MPV Prelim Diff (Auto) Neut % (Auto) Lymph % (Auto) [place] % (Auto) Eos % (Auto) Baso % (Auto) Neut # (Auto) Lymph # (Auto) [place] # (Auto) Eos # (Auto) Baso # (Auto) WBC Differential Diff Scan Differential Comment Sodium 141 Potassium 4.4 Chloride 107 Carbon Dioxide 22.3 Anion Gap 12 BUN 21 H Creatinine 1.40 H Estimated GFR 50 L POC Glucose 142 H 170 H Random Glucose 111 H Calcium 8.5 Magnesium 2.1 Blood Type Antibody Screen MTS Gel Crossmatch Bld Prod Order Comment - Imaging Impressions Chest X-Ray 03/30/18 14:25 CONCLUSION: 1. Status post CABG. 2. Left perihilar and left lower lobe densities, likely atelectasis. 3. Support lines and tubes as described above. Chest X-Ray 03/31/18 05:00 CONCLUSION: Increasing consolidation in the left lower lung and patchy infiltrates in the right lower lung. - Procedures Echocardiogram The left ventricular systolic function is normal with an estimated ejection fraction in the range of 55-60%. Trace mitral valve regurgitation. There is trace tricuspid valve regurgitation. CABG x 3 on 03/30/2018. Assessment and Plan - Assessment (1) NSTEMI (non-ST elevated myocardial infarction) Code(s): I21.4 - Non-ST elevation (NSTEMI) myocardial infarction Status: Acute (2) Multi-vessel coronary artery stenosis Code(s): I25.10 - Atherosclerotic heart disease of [place] coronary artery without angina pectoris Status: Acute - Plan 73-year-old white male being admitted for suspected NSTEMI. Cardiac cath showed multivessel CAD. Patient subsequently underwent CABG x3. Multivessel Coronary artery disease NSTEMI -Cardiac catheterization shows three-vessel disease not amenable for PCI. -Status post CABG x 3 on 03/30/2017. -Continue aspirin 81mg, Lipitor 40mg HS and Lopressor Acute kidney injury - ISA inhibitor on hold for now. - Avoid nephrotoxins. Creatinine 1.40 today. Back pain - will initiate Percocet 7.5mg Q4hrs PRN Full code. Ambulation. Pharmacological prophylaxis when okay with cardiothoracic surgery.
--- NOTE | 2018-03-31 10:49 | P.PNCA ---
- Note Subjective/Hospital Course: 73-year-old gentleman with history of coronary artery bypass graft, hypertension, and hyperlipidemia, been experiencing chest pain for the past several days, pressure-like, moderate, relieved with nitroglycerin. cath report : multi vessel disease / EF 50% PAST MEDICAL HISTORY: CABG in 2007. He also has a history of permanent pacemaker, DDD lower rate 50 hypertension, polyp removed, CKD baseline creatinine 1.3 surgery 03/30 REDO CABG x 3 SVG to PDA - good SVG to RI - fair SVG to D1 - fair EVH extubated after surgery / 2 pleural tubes / one mediastinal tubes 03/31 painful , no toradol with CKD OOB pulm toileting pain med control transfer to stepdown Objective: Vital Signs - 24 hr 03/30/18 15:00 03/30/18 15:08 03/30/18 16:18 Temperature 98.5 F Pulse Rate 79 Respiratory Rate 16 18 16 Blood Pressure 119/65 Pulse Oximetry 92 L 95 95 03/30/18 17:16 03/30/18 18:00 03/30/18 19:00 Temperature 97.4 F L Pulse Rate 68 79 Respiratory Rate 18 18 Blood Pressure 118/65 Pulse Oximetry 95 97 03/30/18 20:57 03/30/18 21:43 03/30/18 23:00 Temperature 98.5 F Pulse Rate 76 79 Respiratory Rate 18 18 18 Blood Pressure 133/82 Pulse Oximetry 98 03/31/18 00:30 03/31/18 03:00 03/31/18 03:07 Temperature Pulse Rate 84 Respiratory Rate 18 18 Blood Pressure Pulse Oximetry 03/31/18 03:20 03/31/18 03:55 03/31/18 07:50 Temperature 98.6 F Pulse Rate 85 86 Respiratory Rate 18 22 Blood Pressure 125/66 Pulse Oximetry 95 03/31/18 09:42 Temperature Pulse Rate Respiratory Rate 16 Blood Pressure Pulse Oximetry GENERAL: A&O x 3 SKIN: Warm and dry. prevena dressing to chest , caity wrap left leg HEAD: Normocephalic. EYES: No scleral icterus. No injection or drainage. NECK: Supple, trachea midline. No JVD or lymphadenopathy. CARDIOVASCULAR: Regular rate and rhythm without murmurs, gallops, or + rub RESPIRATORY: Breath sounds equal bilaterally. No accessory muscle use. diminished in bases / chest tube to wall suction , no air leak / drained 230cc GASTROINTESTINAL: Abdomen soft, non-tender, nondistended. MUSCULOSKELETAL: No cyanosis, or edema. BACK: Nontender without obvious deformity. No CVA tenderness. Labs: Laboratory Results - last 12 hr 03/28/18 03/30/18 03/30/18 04:24 08:06 23:31 WBC RBC Hgb Hct MCV MCH MCHC RDW Plt Count MPV Prelim Diff (Auto) Neut % (Auto) Lymph % (Auto) [place] % (Auto) Eos % (Auto) Baso % (Auto) Neut # (Auto) Lymph # (Auto) [place] # (Auto) Eos # (Auto) Baso # (Auto) WBC Differential Diff Scan Differential Comment Sodium Potassium Chloride Carbon Dioxide Anion Gap BUN Creatinine Estimated GFR POC Glucose 114 H Random Glucose Calcium Magnesium MTS Gel Crossmatch See Detail See Detail 03/31/18 03/31/18 03/31/18 02:03 03:18 04:08 WBC 10.9 RBC 3.82 L Hgb 11.6 L Hct 35.3 L MCV 92.4 MCH 30.3 MCHC 32.8 RDW 15.1 Plt Count 132 L MPV 8.4 Prelim Diff (Auto) Slide review pending Neut % (Auto) 82.2 H Lymph % (Auto) 8.1 L [place] % (Auto) 9.5 H Eos % (Auto) 0.0 Baso % (Auto) 0.2 Neut # (Auto) 9.0 H Lymph # (Auto) 0.9 L [place] # (Auto) 1.0 H Eos # (Auto) 0.0 Baso # (Auto) 0.0 WBC Differential . Diff Scan Auto diff confirmed Differential Comment . Sodium Potassium Chloride Carbon Dioxide Anion Gap BUN Creatinine Estimated GFR POC Glucose 99 94 Random Glucose Calcium Magnesium MTS Gel Crossmatch 03/31/18 03/31/18 03/31/18 04:08 06:23 07:23 WBC RBC Hgb Hct MCV MCH MCHC RDW Plt Count MPV Prelim Diff (Auto) Neut % (Auto) Lymph % (Auto) [place] % (Auto) Eos % (Auto) Baso % (Auto) Neut # (Auto) Lymph # (Auto) [place] # (Auto) Eos # (Auto) Baso # (Auto) WBC Differential Diff Scan Differential Comment Sodium 141 Potassium 4.4 Chloride 107 Carbon Dioxide 22.3 Anion Gap 12 BUN 21 H Creatinine 1.40 H Estimated GFR 50 L POC Glucose 142 H 170 H Random Glucose 111 H Calcium 8.5 Magnesium 2.1 MTS Gel Crossmatch Result Diagrams: 03/31/18 04:08 03/31/18 04:08 Telemetry: NSR - Plan (1) S/P CABG x 3 Plan: ASA, statin , BB OOB no pressors off insulin gtt transfer to stepdown (2) CAD (coronary artery disease) (2) CAD (coronary artery disease) Qualifiers: Coronary Disease-Associated Artery/Lesion type: [place] artery Associated angina: with unstable angina
[2018-03-31] MEDS: Insulin NovoLOG Aspart Correctional Sugar Inj SQ SCH ×3 (12:27→21:03)
[2018-03-31] MEDS: Metoprolol Tartrate 25 MG Tablet PO SCH ×2 (12:28→21:07)
--- NOTE | 2018-03-31 13:40 | P.PNCA ---
Subjective Interval history: No events overnight Pain from chest tubes with deep breaths, only complaint Physical Exam Vital signs: Vital Signs 03/30/18 15:00 03/30/18 15:08 03/30/18 16:18 Temperature 98.5 F Pulse Rate 79 Respiratory Rate 16 18 16 Blood Pressure 119/65 Pulse Oximetry 92 L 95 95 03/30/18 17:16 03/30/18 18:00 03/30/18 19:00 Temperature 97.4 F L Pulse Rate 68 79 Respiratory Rate 18 18 Blood Pressure 118/65 Pulse Oximetry 95 97 03/30/18 20:57 03/30/18 21:43 03/30/18 23:00 Temperature 98.5 F Pulse Rate 76 79 Respiratory Rate 18 18 18 Blood Pressure 133/82 Pulse Oximetry 98 03/31/18 00:30 03/31/18 03:00 03/31/18 03:07 Temperature Pulse Rate 84 Respiratory Rate 18 18 Blood Pressure Pulse Oximetry 03/31/18 03:20 03/31/18 03:55 03/31/18 07:00 Temperature 98.6 F 98.6 F Pulse Rate 85 86 100 H Respiratory Rate 18 22 18 Blood Pressure 125/66 101/44 L Pulse Oximetry 03/31/18 07:50 03/31/18 09:42 03/31/18 11:00 Temperature 97.5 F L Pulse Rate 87 Respiratory Rate 16 16 Blood Pressure 122/61 Pulse Oximetry 95 Intake & Output 03/30/18 03/31/18 03/31/18 18:59 06:59 18:59 Intake Total 4000 / 4000 1300 / 1300 201 / 201 Output Total 2630 / 2630 730 / 730 Balance 1370 / 1370 570 / 570 201 / 201 Weight 109.5 kg Intake: IV 250 / 250 1150 / 1150 201 / 201 NovoLIN R (IV Infusion) 100 1 / 1 UNIT In NS Inj 99 ML @ 3 UNITS/ HR 3 mls/hr IV.CONT TITRATE PRN Rx#:[id number] Ofirmev Inj 1,000 mg In 100 ml 100 / 100 190 / 190 100 / 100 @ 400 mls/hr IV.SIG Q6H MIKE Rx# :[id number] Buminate 5% Inj 250 ML @ 250 250 / 250 mls/hr IV.SIG UNSCH PRN Rx#: [id number] Calcium Chloride Inj 1 GM In NS 110 / 110 Inj 100 ML @ 100 mls/hr IV.SIG PRN PRN Rx#:[id number] LR 1000 mL Inj 500 ML @ 500 mls 500 / 500 /hr IV.SIG .Q1H PRN Rx#: [id number] KCl 20 mEq Premix Inj 20 meq In 100 / 100 100 ml @ 50 mls/hr IV.SIG PRN PRN Rx#:[id number] Ancef 2 GM Premix Inj 2 gm In 50 / 50 50 ml @ 150 mls/hr IV.SIG MONKEY TRAINER MIKE Rx#:[id number] Ancef Inj 1,000 MG In NS Inj 100 / 100 100 / 100 100 ML @ 200 mls/hr IV.SIG Q8H MIKE Rx#:[id number] Oral 150 / 150 Anesthesia Amount 3000 / 3000 Cell Saver Amount 750 / 750 Output: Estimated Blood Loss 1400 / 1400 Urine Amount (Catheter) 1000 / 1000 730 / 730 Indwelling Temp Sensing 1000 / 1000 730 / 730 Catheter Gastric Drainage 0 / 0 Oral Orogastric Tube 0 / 0 Chest Tube Drainage 230 / 230 Anterior Y Connected 230 / 230 Other: # Bowel Movements 0 - Constitutional no acute distress - Routine HEENT Exam Head: Present: normocephalic, atraumatic Eye: Present: EOMI, PERRL ENT: Present: mucous membranes moist - Routine Neck Exam Present: supple. Absent: JVD - Detailed Chest Wall Exam Comments: Sternotomy clean/dry/intact - Routine Respiratory Exam Present: CTA bilaterally. Absent: accessory muscle use, decreased breath sounds - Routine Cardiovascular Exam Present: RRR, S1, S2 - Routine Abdominal Exam Present: soft, normoactive bowel sounds. Absent: tenderness, guarding - Routine Extremities Exam Absent: cyanosis, clubbing, edema - Routine Skin Exam Present: intact, dry. Absent: cyanosis, erythema - Routine Neurological Exam Present: alert, oriented X3, CN II-XII intact - Urinary Catheter Management Indwelling Temp Sensing Catheter Cath placed during this visit: yes, but has since been removed by the nurse Reason for continuing: Decision to DC catheter Insertion date: 03/30/18 Insertion time: 07:40 Removal date: 03/31/18 Removal time: 05:15 Assessment and Plan - Assessment (1) CAD (coronary artery disease) Code(s): I25.10 - Atherosclerotic heart disease of [place] coronary artery without angina pectoris Status: Acute (2) Unstable angina Code(s): I20.0 - Unstable angina Status: Acute (3) NSTEMI (non-ST elevated myocardial infarction) Code(s): I21.4 - Non-ST elevation (NSTEMI) myocardial infarction Status: Acute (4) Multi-vessel coronary artery stenosis Code(s): I25.10 - Atherosclerotic heart disease of [place] coronary artery without angina pectoris Status: Acute (5) Hx of CABG Code(s): Z95.1 - Presence of aortocoronary bypass graft Status: Acute - Plan 1) CAD/NSTEMI s/p CABG x3 POD #1 SVG to PDA SVG to Ramus SVG to Diagonal Previous Hx of CABG (1/3 grafts patent) COOPER to LAD patent 2) Supportive care 3) ASA/Statin Add BB therapy ISA-I on hold for now with CKD 4) Appropriate pain from chest tubes (1) CAD (coronary artery disease) Qualifiers: Coronary Disease-Associated Artery/Lesion type: [place] artery Associated angina: with unstable angina
--- NOTE | 2018-03-31 17:08 | P.DIET ---
Nutritional Evaluation Type of nutrition evaluation: initial Nutrition screening: [facility] [place] comments: 03/31/18 [facility] [place] Diet Education Objective - Objective % IBW: 129 Dietitian Reviewed in Medical Record: Current diet, Curent medications, Intake & Output, Labs, Medical history Diet Order: [id number] Objective Comments: PMH Includes: CAD, CABG, Multi , Vessel Coronary Artey Stenosis, NSTEMI 03/30/18 Redo CABG x 3 Assessment Assessment: [facility] [place] for Diet Education. Pt is s/p Redo CABG. Pt Navigator to provide education. Please Consult RD if complexities with diet education arise. Recommendations: 1.Pt Navigator to provide education 2.Please Consult RD if complexities with diet education arise
[2018-03-31] MEDS: Docusate Sodium 100 MG Capsule PO SCH (21:05)
--- NOTE | 2018-03-31 21:51 | ECG ---
Date Performed: 03/31/2018 Time Performed: 03:25:04 PTAGE: 73 years EKG: Sinus rhythm Left axis LAFB RBBB Abnormal ECG PREVIOUS TRACING : 03/27/2018 05.55 Since the previous tracing, no significant change noted DOCTOR: Arthur Joaquin Interpretating Date/Time 03/31/2018 21:49:45
[2018-04-01] MEDS: Insulin NovoLOG Aspart Correctional Sugar Inj SQ SCH ×6 (00:33→22:08)
[2018-04-01 04:37] LABS: Hematocrit 28.7 % (39.0-51.0); Hemoglobin 9.7 gm/dL (13.0-17.0); Mean Corpuscular HGB Conc 33.9 % (32.0-36.0); Mean Corpuscular Hemoglobin 31.2 pg (27.0-34.0); Mean Corpuscular Volume 92.2 fL (80.0-100.0); Mean Platelet Volume 8.3 fL (7.0-11.0); Platelet Count 119 th/mm3 (150-450); Red Blood Count 3.11 mil/mm3 (4.50-5.90); Red Cell Distribution Width 14.9 % (11.6-17.2); White Blood Count 8.2 th/mm3 (4.0-11.0)
[2018-04-01 04:56] LABS: Calcium 8.3 mg/dL (8.5-10.1); Carbon Dioxide 25.2 meq/L (21.0-32.0); Potassium 4.2 meq/L (3.5-5.1)
[2018-04-01] MEDS: Methocarbamol 500 MG Tablet PO SCH ×3 (05:34→21:53)
--- NOTE | 2018-04-01 06:09 | XR ---
THIS REPORT IS IN ERROR. PLEASE DISREGARD COPIES OF THIS REPORT. THIS REPORT IS IN ERROR. PLEASE DISREGARD COPIES OF THIS REPORT. THIS REPORT IS IN ERROR. PLEASE DISREGARD COPIES OF THIS REPORT. EXAM DATE: 04/01/2018 5:10 AM EDT AGE/SEX: 73 years / Male INDICATIONS: Short of breath. CLINICAL DATA: This is the patient's subsequent encounter. Patient reports that signs and symptoms have been present for 1 week and indicates a pain score of 0/10. MEDICAL/SURGICAL HISTORY: Hypertension. CABG. Pacemaker. COMPARISON: [facility] [place], [place], CHEST 1V SINGLE AP, 03/31/2018. . FINDINGS: Interval removal of bilateral chest tubes. No pneumothorax seen. Improved aeration of the left lower lung and right infrahilar region with some residual patchy infiltrates. Heart is enlarged. Interval placement of [id number] with tip at the cavoatrial junction. No evidence of pneumothorax. Median sternotomy with intact sternal wire sutures. CONCLUSION: Udrwbk-d-[id number] in good position. No evidence of pneumothorax. Improving bilateral lower lung infiltrates. Electronically signed by: Johnnie Cutler MD 04/01/2018 6:07 AM EDT THIS REPORT IS IN ERROR. PLEASE DISREGARD COPIES OF THIS REPORT. THIS REPORT IS IN ERROR. PLEASE DISREGARD COPIES OF THIS REPORT. THIS REPORT IS IN ERROR. PLEASE DISREGARD COPIES OF THIS REPORT. [facility]
[2018-04-01] MEDS: Docusate Sodium 100 MG Capsule PO SCH ×2 (08:03→21:54)
[2018-04-01] MEDS: Metoprolol Tartrate 25 MG Tablet PO SCH ×2 (08:03→21:53)
[2018-04-01] MEDS: Multivitamin/Minerals Therapeutic Tablet PO SCH (08:04)
[2018-04-01] MEDS: Polyethylene Glycol 3350 17 GM Packet PO SCH (08:04)
[2018-04-01] MEDS ORDERED: Metoprolol Tartrate 25 MG Tablet PO ONE (09:18)
[2018-04-01] MEDS: fentaNYL Citrate Inj 100 MCG/2 ML Ampul IV.PUSH PRN (10:32)
--- NOTE | 2018-04-01 10:42 | P.PNCA ---
- Note Subjective/Hospital Course: 73-year-old gentleman with history of coronary artery bypass graft, hypertension, and hyperlipidemia, been experiencing chest pain for the past several days, pressure-like, moderate, relieved with nitroglycerin. cath report : multi vessel disease / EF 50% PAST MEDICAL HISTORY: CABG in 2007. He also has a history of permanent pacemaker, DDD lower rate 50 hypertension, polyp removed, CKD baseline creatinine 1.3 surgery 03/30 REDO CABG x 3 SVG to PDA - good SVG to RI - fair SVG to D1 - fair EVH extubated after surgery / 2 pleural tubes / one mediastinal tubes 03/31 painful , no toradol with CKD OOB pulm toileting pain med control transfer to stepdown 04/01 still painful, but some improvement CT x 3 / drained 130/12 hrs and additional 150cc this am bloody drainage/ no air leak pain control pulm toileting creatinine improved 1.23 Objective: Vital Signs - 24 hr 03/31/18 11:00 03/31/18 12:00 03/31/18 13:00 Temperature 97.5 F L Pulse Rate 87 98 H 102 H Respiratory Rate 16 Blood Pressure 122/61 Pulse Oximetry 03/31/18 13:59 03/31/18 14:00 03/31/18 14:02 Temperature Pulse Rate 94 H 89 Respiratory Rate 16 18 Blood Pressure Pulse Oximetry 03/31/18 15:00 03/31/18 16:00 03/31/18 17:00 Temperature 97.9 F Pulse Rate 88 102 H 100 H Respiratory Rate 20 Blood Pressure 118/56 L Pulse Oximetry 93 L 03/31/18 18:33 03/31/18 19:00 03/31/18 20:00 Temperature 98.2 F Pulse Rate 94 H 96 H 86 Respiratory Rate 22 Blood Pressure 112/60 Pulse Oximetry 100 03/31/18 20:18 03/31/18 21:00 03/31/18 22:00 Temperature Pulse Rate 95 H 102 H 98 H Respiratory Rate 18 Blood Pressure Pulse Oximetry 99 03/31/18 23:00 04/01/18 00:00 04/01/18 01:00 Temperature 99.5 F Pulse Rate 92 H 92 H 92 H Respiratory Rate 22 Blood Pressure 110/58 L Pulse Oximetry 97 04/01/18 02:00 04/01/18 03:00 04/01/18 04:00 Temperature 98.7 F Pulse Rate 90 91 H 94 H Respiratory Rate 18 Blood Pressure 137/63 Pulse Oximetry 97 04/01/18 05:00 04/01/18 06:00 04/01/18 07:00 Temperature 97.8 F Pulse Rate 88 86 93 H Respiratory Rate 22 Blood Pressure 141/76 H Pulse Oximetry 95 04/01/18 08:00 04/01/18 08:17 04/01/18 09:00 Temperature Pulse Rate 95 H 101 H 90 Respiratory Rate 18 Blood Pressure Pulse Oximetry 94 L 04/01/18 10:00 Temperature Pulse Rate 95 H Respiratory Rate Blood Pressure Pulse Oximetry GENERAL: A&O x 3 SKIN: Warm and dry. prevena dressing to chest incision intact to leg HEAD: Normocephalic. EYES: No scleral icterus. No injection or drainage. NECK: Supple, trachea midline. No JVD or lymphadenopathy. CARDIOVASCULAR: Regular rate and rhythm without murmurs, gallops, or rubs. RESPIRATORY: Breath sounds equal bilaterally. No accessory muscle use. chest tube to wall suction/ no air leak GASTROINTESTINAL: Abdomen soft, non-tender, nondistended. MUSCULOSKELETAL: No cyanosis, or edema. BACK: Nontender without obvious deformity. No CVA tenderness. Labs: Laboratory Results - last 12 hr 04/01/18 04/01/18 04/01/18 00:23 03:49 04:25 WBC 8.2 RBC 3.11 L Hgb 9.7 L Hct 28.7 L MCV 92.2 MCH 31.2 MCHC 33.9 RDW 14.9 Plt Count 119 L MPV 8.3 Sodium Potassium Chloride Carbon Dioxide Anion Gap BUN Creatinine Estimated GFR POC Glucose 128 H 133 H Random Glucose Calcium 04/01/18 04/01/18 04:25 07:33 WBC RBC Hgb Hct MCV MCH MCHC RDW Plt Count MPV Sodium 142 Potassium 4.2 Chloride 107 Carbon Dioxide 25.2 Anion Gap 10 BUN 19 H Creatinine 1.23 Estimated GFR 58 L POC Glucose 128 H Random Glucose 129 H Calcium 8.3 L Result Diagrams: 04/01/18 04:25 04/01/18 04:25 Pulmonary: NSR - Plan (1) S/P CABG x 3 Plan: ASA, statin , increase BB OOB pulm toieling gentle diuresis on nasal cannula leave chest in (2) CAD (coronary artery disease) (2) CAD (coronary artery disease) Qualifiers: Coronary Disease-Associated Artery/Lesion type: [place] artery Associated angina: with unstable angina
--- NOTE | 2018-04-01 10:46 | P.DCO ---
- Home Health Nursing Order: Signs/symptoms of disease process, Wound care and dressing changes, Nursing assessment with vital signs Instructions: Heart and Vascular Surgery patients *Special attention to sternal dressing Mandatory frequency Assess and evaluation, 4 days in a row The next week 3X week 2 times a week for 4 weeks 1 time a week for 5 weeks Schedule Heart and Vascular patients for full 60 day certification period Initial visit Review Open Heart Surgery Discharge Instructions (Sternal precautions, Activity, Elastic hose, Incision care, Driving, Incentive spirometry, Smoking, [place], Work and other) Need Betadine to paint incision Medication reconciliation Importance of follow up care/ check on appointments Make calendar record temperature daily When to call [facility] nurse, review instructions, phone list Incentive Spirometry, demonstration Visit 1- Begin discharge instruction for patient family and/ or caregiver using teach back method- Signs and symptoms of infection Disease characteristics Medicines and side effects Foods and nutrition/ appetite Infection control/ hand washing/ hygiene Visit 2- Continue teaching Discharge instructions- include additional information on smoking cessation , sternal dressing (sternal vac) Visit 3- Continue teaching- Cough and deep breathing, incision monitoring. Choose my plate Visit 4- Continue teaching- Discuss limitations Discuss how they are feeling Discuss progress toward goals Remaining visits- continue teaching and monitoring For any questions please call : Thursday 8am-5pm Heart & Vascular Surgery Office ( Dr. Olson & Dr. Sylvester), After Hours / Nights (5pm -8am) Weekends and Holidays Please call [facility] Cardiac Intermediate Care Unit (CIC) Charge Nurse PREVENA Single Use Negative Wound Therapy System Caregiver Instruction Sheet 1. A Prevena dressing system was applied to the chest incision during surgery , to promote wound healing. It works via a suction device (negative pressure wound therapy) to remove low to moderate levels of exudate (drainage) and infectious materials. We recommend that the device stay in place for up to seven days, from day of surgery. 2. Day of Surgery__03/30/18 Day of Removal ___/07/15 3. The dressing should only be removed by a health career information specialist. Please arrange removal of device to coincide with Home Health visit and or with Nursing staff at Rehab 4. If skin reddening or irritation of skin occurs, or excessive drainage, please notify the Cardiovascular Surgeons office at [phone]. 5. Light showering is permissible; however the pump should be disconnected and placed in safe location, where it will not get wet. The dressing should not be exposed to direct spray or submerged in water. No bath tub / shower only. Ensure the end of the tubing attached to the dressing is facing down so that water does not enter the top of the tube. 6. To remove Prevena dressing: press purple button to turn off device / remove the suction. Then disconnect the tubing from the pump. The fixation strips should be stretched away from the skin and the dressing lifted at one corner and peeled back until it has been fully removed. 7. After removal, it is ok to shower daily using liquid dial soap and clean wash cloth, rinse and pat dry, and leave incision open to air dry. For any concerns regarding Prevena dressing, and or wounds, please contact Lindy Feliciano, patient navigator at [phone] or notify the Cardiovascular Surgeons office at [phone]. Incentive spirometry Q1 hr x 10, while awake, also use acapella device hourly whole awake Sternal Breast Bone Precautions: NO pushing or pulling, ( pt must use sternal pillow to support chest with all activities and with coughing ( takes up to 3 months breast bone to heal ) Daily incision care: ok to shower daily, no tub bath. Wash all incisions with liquid dial soap, clean wash cloth to each site, rinse and pat dry. Observe for any signs of infection, such as drainage which is dark yellow, lara, green or foul smelling. Immediately report to the surgeon any drainage from the chest incision, or legs, and for any abnormal drainage from the chest tube sites. Notify surgeon if any temp >101.5 degrees F. When specialty dressing removed/ or if you do not have one, continue to shower daily as above, then rinse and pat incision dry and paint with betadine daily x 5 days. Allow steri strips to fall off if you have any. Avoid lotions, creams, salves, oils, etc. for the first month Please see attached forms for additional instructions regarding post Open Heart specialty wound vacuum dressings. GISELLE or Prevena , Dressing to be removed by Nursing staff on ___04/06/18____ For Dr. Sylvester patients , please obtain CBC, BMP, PA & Lat CXR in 2 weeks, results to Dr. Sylvester ( prescription will be given) ( ) (Tele: [phone]) , F/U appointment: as per DC instructions: PCP in 2 weeks, CV surgeon 2 weeks, [place] Tender 3-4 weeks For any questions regarding incisions/ dressing / meds / post op care or above Symptoms, Thursday 8am-5pm Heart & Vascular Surgery Office ( Dr. Olson & Dr. Sylvester), After Hours / Nights (5pm -8am) Weekends and Holidays Please call [facility] Cardiac Intermediate Care Unit (CIC) Charge Nurse - Certification I have seen patient Galen Hankins on 04/01/18. My clinical findings support the need for the requested home health care services because: Deconditioned with increased weakness I certify that my clinical findings support that this patient is homebound because: Post-op weakness
--- NOTE | 2018-04-01 18:25 | P.PNCA ---
Subjective Interval history: No events overnight Feeling better now that he's up to the chair Physical Exam Vital signs: Vital Signs 03/31/18 18:33 03/31/18 19:00 03/31/18 20:00 Temperature 98.2 F Pulse Rate 94 H 96 H 86 Respiratory Rate 22 Blood Pressure 112/60 Pulse Oximetry 100 03/31/18 20:18 03/31/18 21:00 03/31/18 22:00 Temperature Pulse Rate 95 H 102 H 98 H Respiratory Rate 18 Blood Pressure Pulse Oximetry 99 03/31/18 23:00 04/01/18 00:00 04/01/18 01:00 Temperature 99.5 F Pulse Rate 92 H 92 H 92 H Respiratory Rate 22 Blood Pressure 110/58 L Pulse Oximetry 97 04/01/18 02:00 04/01/18 03:00 04/01/18 04:00 Temperature 98.7 F Pulse Rate 90 91 H 94 H Respiratory Rate 18 Blood Pressure 137/63 Pulse Oximetry 97 04/01/18 05:00 04/01/18 06:00 04/01/18 07:00 Temperature 97.8 F Pulse Rate 88 86 93 H Respiratory Rate 22 Blood Pressure 141/76 H Pulse Oximetry 95 04/01/18 08:00 04/01/18 08:17 04/01/18 09:00 Temperature Pulse Rate 95 H 101 H 90 Respiratory Rate 18 Blood Pressure Pulse Oximetry 94 L 04/01/18 10:00 04/01/18 11:00 04/01/18 12:00 Temperature 97.8 F Pulse Rate 95 H 94 H 62 Respiratory Rate 18 Blood Pressure 121/73 Pulse Oximetry 100 04/01/18 13:00 04/01/18 13:06 04/01/18 14:00 Temperature Pulse Rate 65 62 55 L Respiratory Rate 18 Blood Pressure Pulse Oximetry 04/01/18 15:00 04/01/18 16:00 04/01/18 17:00 Temperature 97.6 F Pulse Rate 102 H 102 H 107 H Respiratory Rate 18 Blood Pressure 111/55 L Pulse Oximetry 99 04/01/18 18:00 Temperature Pulse Rate 103 H Respiratory Rate Blood Pressure Pulse Oximetry Intake & Output 03/31/18 04/01/18 04/01/18 18:59 06:59 18:59 Intake Total 1671 / 1671 340 / 340 820 / 820 Output Total 740 / 740 430 / 430 1080 / 1080 Balance 931 / 931 -90 / -90 -260 / -260 Weight 107 kg Intake: IV 301 / 301 100 / 100 100 / 100 NovoLIN R (IV Infusion) 100 1 / 1 UNIT In NS Inj 99 ML @ 3 UNITS/ HR 3 mls/hr IV.CONT TITRATE PRN Rx#:[id number] Ofirmev Inj 1,000 mg In 100 ml 100 / 100 @ 400 mls/hr IV.SIG Q6H MIKE Rx# :[id number] Ancef Inj 1,000 MG In NS Inj 200 / 200 100 / 100 100 / 100 100 ML @ 200 mls/hr IV.SIG Q8H MIKE Rx#:[id number] Oral 1370 / 1370 240 / 240 720 / 720 Output: Urine 550 / 550 300 / 300 750 / 750 Chest Tube Drainage 190 / 190 130 / 130 330 / 330 Anterior Y Connected 190 / 190 130 / 130 330 / 330 Other: Date of Last Bowel Movement 03/29/18 03/29/18 # Bowel Movements 0 Narrative: GENERAL: NAD, AAOx3 SKIN: Warm and dry. HEAD: Normocephalic. EYES: No scleral icterus. No injection or drainage. NECK: Supple, trachea midline. No JVD or lymphadenopathy. CARDIOVASCULAR: Regular rate and rhythm without murmurs, gallops, or rubs. Sternotomy c/d/i RESPIRATORY: Breath sounds equal bilaterally. No accessory muscle use. GASTROINTESTINAL: Abdomen soft, non-tender, nondistended. MUSCULOSKELETAL: No cyanosis, or edema. BACK: Nontender without obvious deformity. No CVA tenderness. - Urinary Catheter Management Indwelling Temp Sensing Catheter Cath placed during this visit: yes, but has since been removed by the nurse Reason for continuing: Not indwelling catheter Insertion date: 03/30/18 Insertion time: 07:40 Removal date: 03/31/18 Removal time: 05:15 Assessment and Plan - Assessment (1) CAD (coronary artery disease) Code(s): I25.10 - Atherosclerotic heart disease of [place] coronary artery without angina pectoris Status: Acute (2) Unstable angina Code(s): I20.0 - Unstable angina Status: Acute (3) NSTEMI (non-ST elevated myocardial infarction) Code(s): I21.4 - Non-ST elevation (NSTEMI) myocardial infarction Status: Acute (4) Multi-vessel coronary artery stenosis Code(s): I25.10 - Atherosclerotic heart disease of [place] coronary artery without angina pectoris Status: Acute (5) Hx of CABG Code(s): Z95.1 - Presence of aortocoronary bypass graft Status: Acute - Plan 1) CAD/NSTEMI s/p CABG x3 POD #2 SVG to PDA SVG to Ramus SVG to Diagonal Previous Hx of CABG (1/3 grafts patent) COOPER to LAD patent 2) Supportive care 3) ASA/Statin Add BB therapy ISA-I on hold for now with CKD 4) Appropriate pain from chest tubes Hopefully out tomorrow (1) CAD (coronary artery disease) Qualifiers: Coronary Disease-Associated Artery/Lesion type: [place] artery Associated angina: with unstable angina
--- NOTE | 2018-04-01 18:45 | P.PN ---
Subjective Interval history: Follow up for multivessel CAD s/p CABG x 3. Patient is sitting in his chair. Feels much better today. He is also eating better. No fever or chills. Physical Exam Vital signs: Vital Signs 03/31/18 19:00 03/31/18 20:00 03/31/18 20:18 Temperature 98.2 F Pulse Rate 96 H 86 95 H Respiratory Rate 22 18 Blood Pressure 112/60 Pulse Oximetry 100 99 03/31/18 21:00 03/31/18 22:00 03/31/18 23:00 Temperature Pulse Rate 102 H 98 H 92 H Respiratory Rate Blood Pressure Pulse Oximetry 04/01/18 00:00 04/01/18 01:00 04/01/18 02:00 Temperature 99.5 F Pulse Rate 92 H 92 H 90 Respiratory Rate 22 Blood Pressure 110/58 L Pulse Oximetry 97 04/01/18 03:00 04/01/18 04:00 04/01/18 05:00 Temperature 98.7 F Pulse Rate 91 H 94 H 88 Respiratory Rate 18 Blood Pressure 137/63 Pulse Oximetry 97 04/01/18 06:00 04/01/18 07:00 04/01/18 08:00 Temperature 97.8 F Pulse Rate 86 93 H 95 H Respiratory Rate 22 Blood Pressure 141/76 H Pulse Oximetry 95 04/01/18 08:17 04/01/18 09:00 04/01/18 10:00 Temperature Pulse Rate 101 H 90 95 H Respiratory Rate 18 Blood Pressure Pulse Oximetry 94 L 04/01/18 11:00 04/01/18 12:00 04/01/18 13:00 Temperature 97.8 F Pulse Rate 94 H 62 65 Respiratory Rate 18 Blood Pressure 121/73 Pulse Oximetry 100 04/01/18 13:06 04/01/18 14:00 04/01/18 15:00 Temperature 97.6 F Pulse Rate 62 55 L 102 H Respiratory Rate 18 18 Blood Pressure 111/55 L Pulse Oximetry 99 04/01/18 16:00 04/01/18 17:00 04/01/18 18:00 Temperature Pulse Rate 102 H 107 H 103 H Respiratory Rate Blood Pressure Pulse Oximetry Intake & Output 03/31/18 04/01/18 04/01/18 18:59 06:59 18:59 Intake Total 1671 / 1671 340 / 340 820 / 820 Output Total 740 / 740 430 / 430 1080 / 1080 Balance 931 / 931 -90 / -90 -260 / -260 Weight 107 kg Intake: IV 301 / 301 100 / 100 100 / 100 NovoLIN R (IV Infusion) 100 1 / 1 UNIT In NS Inj 99 ML @ 3 UNITS/ HR 3 mls/hr IV.CONT TITRATE PRN Rx#:[id number] Ofirmev Inj 1,000 mg In 100 ml 100 / 100 @ 400 mls/hr IV.SIG Q6H MIKE Rx# :[id number] Ancef Inj 1,000 MG In NS Inj 200 / 200 100 / 100 100 / 100 100 ML @ 200 mls/hr IV.SIG Q8H MIKE Rx#:[id number] Oral 1370 / 1370 240 / 240 720 / 720 Output: Urine 550 / 550 300 / 300 750 / 750 Chest Tube Drainage 190 / 190 130 / 130 330 / 330 Anterior Y Connected 190 / 190 130 / 130 330 / 330 Other: Date of Last Bowel Movement 03/29/18 03/29/18 # Bowel Movements 0 Narrative: GENERAL: NAD, AAOx3 SKIN: Warm and dry. HEAD: Normocephalic. EYES: No scleral icterus. No injection or drainage. NECK: Supple, trachea midline. No JVD or lymphadenopathy. CARDIOVASCULAR: Regular rate and rhythm without murmurs, gallops, or rubs. Sternotomy c/d/i RESPIRATORY: Breath sounds equal bilaterally. No accessory muscle use. GASTROINTESTINAL: Abdomen soft, non-tender, nondistended. MUSCULOSKELETAL: No cyanosis, or edema. BACK: Nontender without obvious deformity. No CVA tenderness. - Urinary Catheter Management Indwelling Temp Sensing Catheter Cath placed during this visit: yes, but has since been removed by the nurse Reason for continuing: Not indwelling catheter Insertion date: 03/30/18 Insertion time: 07:40 Removal date: 03/31/18 Removal time: 05:15 Results - Labs CBC & Chem 7: 04/01/18 04:25 04/01/18 04:25 Laboratory Results - last 24 hr 03/31/18 04/01/18 04/01/18 20:13 00:23 03:49 WBC RBC Hgb Hct MCV MCH MCHC RDW Plt Count MPV Sodium Potassium Chloride Carbon Dioxide Anion Gap BUN Creatinine Estimated GFR POC Glucose 144 H 128 H 133 H Random Glucose Calcium 04/01/18 04/01/18 04/01/18 04:25 04:25 07:33 WBC 8.2 RBC 3.11 L Hgb 9.7 L Hct 28.7 L MCV 92.2 MCH 31.2 MCHC 33.9 RDW 14.9 Plt Count 119 L MPV 8.3 Sodium 142 Potassium 4.2 Chloride 107 Carbon Dioxide 25.2 Anion Gap 10 BUN 19 H Creatinine 1.23 Estimated GFR 58 L POC Glucose 128 H Random Glucose 129 H Calcium 8.3 L 04/01/18 04/01/18 12:18 17:10 WBC RBC Hgb Hct MCV MCH MCHC RDW Plt Count MPV Sodium Potassium Chloride Carbon Dioxide Anion Gap BUN Creatinine Estimated GFR POC Glucose 131 H 122 H Random Glucose Calcium - Imaging Impressions Chest X-Ray 04/01/18 06:00 CONCLUSION: [id number] in good position. No evidence of pneumothorax. Improving bilateral lower lung infiltrates. - Procedures Echocardiogram The left ventricular systolic function is normal with an estimated ejection fraction in the range of 55-60%. Trace mitral valve regurgitation. There is trace tricuspid valve regurgitation. CABG x 3 on 03/30/2018. Assessment and Plan - Assessment (1) NSTEMI (non-ST elevated myocardial infarction) Code(s): I21.4 - Non-ST elevation (NSTEMI) myocardial infarction Status: Acute (2) Multi-vessel coronary artery stenosis Code(s): I25.10 - Atherosclerotic heart disease of [place] coronary artery without angina pectoris Status: Acute - Plan 73-year-old white male being admitted for suspected NSTEMI. Cardiac cath showed multivessel CAD. Patient subsequently underwent CABG x3. Multivessel Coronary artery disease NSTEMI -Cardiac catheterization shows three-vessel disease not amenable for PCI. -Status post CABG x 3 on 03/30/2017. -Continue aspirin 81mg, Lipitor 40mg HS and Lopressor 25 mg twice daily -Chest tube will likely be discontinued tomorrow. Acute kidney injury - ISA inhibitor on hold for now. - Avoid nephrotoxins. Creatinine 1.40 --> 1.23. Back pain - Percocet 7.5mg Q4hrs PRN Full code. Ambulation.
[2018-04-02 06:20] LABS: Baso % (Auto) 0.2 % (0.0-2.0); Eos % (Auto) 0.2 % (0.0-4.0); Hematocrit 34.3 % (39.0-51.0); Hemoglobin 11.3 gm/dL (13.0-17.0); Lymph # (Auto) 1.8 th/mm3 (1.0-4.8); Lymph % (Auto) 13.6 % (9.0-44.0); Mean Corpuscular Hemoglobin 30.4 pg (27.0-34.0); Mean Corpuscular Volume 92.2 fL (80.0-100.0); Mean Platelet Volume 8.5 fL (7.0-11.0); Mono # (Auto) 1.3 th/mm3 (0.0-0.9); Neut # (Auto) 9.8 th/mm3 (1.8-7.7); Platelet Count 208 th/mm3 (150-450); Red Blood Count 3.72 mil/mm3 (4.50-5.90); Red Cell Distribution Width 14.6 % (11.6-17.2); White Blood Count 12.9 th/mm3 (4.0-11.0)
[2018-04-02] MEDS: Methocarbamol 500 MG Tablet PO SCH ×3 (06:22→21:38)
[2018-04-02 06:50] LABS: Calcium 8.9 mg/dL (8.5-10.1); Carbon Dioxide 28.3 meq/L (21.0-32.0); Magnesium 2.5 mg/dL (1.5-2.5); Potassium 4.3 meq/L (3.5-5.1)
[2018-04-02] MEDS: Insulin NovoLOG Aspart Correctional Sugar Inj SQ SCH ×4 (08:36→21:36)
[2018-04-02] MEDS: Multivitamin/Minerals Therapeutic Tablet PO SCH (09:08)
[2018-04-02] MEDS: Docusate Sodium 100 MG Capsule PO SCH ×2 (09:08→21:38)
[2018-04-02] MEDS: Metoprolol Tartrate 25 MG Tablet PO SCH ×2 (09:08→21:38)
--- NOTE | 2018-04-02 10:45 | P.PNCA ---
- Note Subjective/Hospital Course: 73-year-old gentleman with history of coronary artery bypass graft, hypertension, and hyperlipidemia, been experiencing chest pain for the past several days, pressure-like, moderate, relieved with nitroglycerin. cath report : multi vessel disease / EF 50% PAST MEDICAL HISTORY: CABG in 2007. He also has a history of permanent pacemaker, DDD lower rate 50 hypertension, polyp removed, CKD baseline creatinine 1.3 surgery 03/30 REDO CABG x 3 SVG to PDA - good SVG to RI - fair SVG to D1 - fair EVH extubated after surgery / 2 pleural tubes / one mediastinal tubes 03/31 painful , no toradol with CKD OOB pulm toileting pain med control transfer to stepdown 04/01 still painful, but some improvement CT x 3 / drained 130/12 hrs and additional 150cc this am bloody drainage/ no air leak pain control pulm toileting creatinine improved 1.23 04/02 c/o of constipation , mild nausea , abdomen distended , Hypoactive bowel sounds pt is passing flatus , narcotics dc , IV Ofirmev, po tylenol stat KUB pending / add reglan chest tube drained 320cc/ 12 hrs , dark old bloody drainage chest tube to suction / leave chest tubes in ambulate as much as possible Objective: Vital Signs - 24 hr 04/01/18 11:00 04/01/18 12:00 04/01/18 13:00 Temperature 97.8 F Pulse Rate 94 H 62 65 Respiratory Rate 18 Blood Pressure 121/73 Pulse Oximetry 100 04/01/18 13:06 04/01/18 14:00 04/01/18 15:00 Temperature 97.6 F Pulse Rate 62 55 L 102 H Respiratory Rate 18 18 Blood Pressure 111/55 L Pulse Oximetry 99 04/01/18 16:00 04/01/18 17:00 04/01/18 18:00 Temperature Pulse Rate 102 H 107 H 103 H Respiratory Rate Blood Pressure Pulse Oximetry 04/01/18 19:00 04/01/18 19:53 04/01/18 20:00 Temperature 97.5 F L Pulse Rate 106 H 104 H 102 H Respiratory Rate 20 Blood Pressure 132/66 Pulse Oximetry 98 98 98 04/01/18 21:00 04/01/18 22:00 04/01/18 23:00 Temperature 98.4 F Pulse Rate 84 84 72 Respiratory Rate Blood Pressure 105/56 L Pulse Oximetry 93 L 04/02/18 00:00 04/02/18 00:34 04/02/18 01:00 Temperature Pulse Rate 78 100 H Respiratory Rate Blood Pressure Pulse Oximetry 93 L 04/02/18 02:00 04/02/18 03:00 04/02/18 04:00 Temperature 98.9 F Pulse Rate 72 81 81 Respiratory Rate Blood Pressure 106/62 Pulse Oximetry 96 04/02/18 05:00 04/02/18 06:00 04/02/18 07:00 Temperature 99.4 F Pulse Rate 76 72 75 Respiratory Rate 16 Blood Pressure 134/66 Pulse Oximetry 04/02/18 08:17 Temperature Pulse Rate 78 Respiratory Rate 18 Blood Pressure Pulse Oximetry 95 GENERAL: A&O x 3 SKIN: Warm and dry. prevena dressing to chest incisionintact to leg HEAD: Normocephalic. EYES: No scleral icterus. No injection or drainage. NECK: Supple, trachea midline. No JVD or lymphadenopathy. CARDIOVASCULAR: Regular rate and rhythm without murmurs, gallops, or rubs. RESPIRATORY: Breath sounds equal bilaterally. No accessory muscle use. chest x [address] GASTROINTESTINAL: Abdomen soft, non-tender, nondistended. MUSCULOSKELETAL: No cyanosis, or edema. BACK: Nontender without obvious deformity. No CVA tenderness. Labs: Laboratory Results - last 12 hr 04/02/18 04/02/18 04/02/18 05:50 05:50 07:55 WBC 12.9 H RBC 3.72 L Hgb 11.3 L Hct 34.3 L MCV 92.2 MCH 30.4 MCHC 33.0 RDW 14.6 Plt Count 208 D MPV 8.5 Neut % (Auto) 76.0 H Lymph % (Auto) 13.6 [place] % (Auto) 10.0 H Eos % (Auto) 0.2 Baso % (Auto) 0.2 Neut # (Auto) 9.8 H Lymph # (Auto) 1.8 [place] # (Auto) 1.3 H Eos # (Auto) 0.0 Baso # (Auto) 0.0 WBC Differential . Differential Comment Auto diff final Sodium 139 Potassium 4.3 Chloride 100 Carbon Dioxide 28.3 Anion Gap 11 BUN 24 H Creatinine 1.49 H Estimated GFR 46 L POC Glucose 147 H Random Glucose 169 H Calcium 8.9 Magnesium 2.5 Result Diagrams: 04/02/18 05:50 04/02/18 05:50 Telemetry: NSR - Plan (1) S/P CABG x 3 Plan: ASA, statin , BB OOB pulm [place] on nasal cannula leave chest in ambulate (2) CAD (coronary artery disease) (7) Abdominal distention Plan: stat KUB dc narcotics (2) CAD (coronary artery disease) Qualifiers: Coronary Disease-Associated Artery/Lesion type: [place] artery Associated angina: with unstable angina
--- NOTE | 2018-04-02 11:32 | XR ---
EXAM DATE: 04/02/2018 11:17 AM EDT AGE/SEX: 73 years / Male INDICATIONS: Shortness of breath and chest pain. CLINICAL DATA: This is the patient's subsequent encounter. Patient reports that signs and symptoms h ave been present for 3 days and indicates a pain score of 5/10. MEDICAL/SURGICAL HISTORY: Cardiovascular disease. Hypertension. Myocardial infarction. . CABG X2. COMPARISON: [facility], CHEST 1V SINGLE AP, 03/31/2018. . FINDINGS: A pacing implement is present with control pack over left upper chest. Bilateral thoracostomy tubes a nd midline chest tube remain in place. There has been removal of right neck central catheter. A tiny left apical pneumothorax is present with about 6-7 mm separation of apical pleural layers. Aeration i s otherwise improved with decrease in hazy basilar opacities. Cardiac contours are satisfactory. CONCLUSION: Tiny left apical pneumothorax Electronically signed by: Pavan Anthony MD 04/02/2018 11:30 AM EDT
--- NOTE | 2018-04-02 11:33 | XR ---
EXAM DATE: 04/02/2018 11:19 AM EDT AGE/SEX: 73 years / Male INDICATIONS: Lower abdominal pain/distention. No bowel movement in 3 days. CLINICAL DATA: This is the patient's subsequent encounter. Patient reports that signs and symptoms h ave been present for 3 days and indicates a pain score of 8/10. MEDICAL/SURGICAL HISTORY: None. None. COMPARISON: [facility], CHEST 1V SINGLE AP, 04/02/2018. . FINDINGS: There is moderate gaseous distention of small bowel throughout the abdomen. CONCLUSION: Diffuse nonspecific gaseous distention of small bowel Electronically signed by: Pavan Anthony MD 04/02/2018 11:31 AM EDT
--- NOTE | 2018-04-02 12:22 | P.PNCA ---
Subjective Interval history: No events overnight Chest tube with 320 output overnight Physical Exam Vital signs: Vital Signs 04/01/18 13:00 04/01/18 13:06 04/01/18 14:00 Temperature Pulse Rate 65 62 55 L Respiratory Rate 18 Blood Pressure Pulse Oximetry 04/01/18 15:00 04/01/18 16:00 04/01/18 17:00 Temperature 97.6 F Pulse Rate 102 H 102 H 107 H Respiratory Rate 18 Blood Pressure 111/55 L Pulse Oximetry 99 04/01/18 18:00 04/01/18 19:00 04/01/18 19:53 Temperature 97.5 F L Pulse Rate 103 H 106 H 104 H Respiratory Rate 20 Blood Pressure 132/66 Pulse Oximetry 98 98 04/01/18 20:00 04/01/18 21:00 04/01/18 22:00 Temperature Pulse Rate 102 H 84 84 Respiratory Rate Blood Pressure Pulse Oximetry 98 04/01/18 23:00 04/02/18 00:00 04/02/18 00:34 Temperature 98.4 F Pulse Rate 72 78 Respiratory Rate Blood Pressure 105/56 L Pulse Oximetry 93 L 93 L 04/02/18 01:00 04/02/18 02:00 04/02/18 03:00 Temperature 98.9 F Pulse Rate 100 H 72 81 Respiratory Rate Blood Pressure 106/62 Pulse Oximetry 96 04/02/18 04:00 04/02/18 05:00 04/02/18 06:00 Temperature Pulse Rate 81 76 72 Respiratory Rate Blood Pressure Pulse Oximetry 04/02/18 07:00 04/02/18 08:17 Temperature 99.4 F Pulse Rate 75 78 Respiratory Rate 16 18 Blood Pressure 134/66 Pulse Oximetry 95 Intake & Output 04/01/18 04/02/18 04/02/18 18:59 06:59 18:59 Intake Total 820 / 820 600 / 600 Output Total 1080 / 1080 1100 / 1100 Balance -260 / -260 -500 / -500 Weight 108.5 kg Intake: IV 100 / 100 Ancef Inj 1,000 MG In NS Inj 100 / 100 100 ML @ 200 mls/hr IV.SIG Q8H MIKE Rx#:[id number] Oral 720 / 720 600 / 600 Output: Urine 750 / 750 750 / 750 Chest Tube Drainage 330 / 330 350 / 350 Anterior Y Connected 330 / 330 350 / 350 Other: Date of Last Bowel Movement 03/29/18 Narrative: GENERAL: NAD, AAOx3 SKIN: Warm and dry. HEAD: Normocephalic. EYES: No scleral icterus. No injection or drainage. NECK: Supple, trachea midline. No JVD or lymphadenopathy. CARDIOVASCULAR: Regular rate and rhythm without murmurs, gallops, or rubs. Sternotomy c/d/i RESPIRATORY: Breath sounds equal bilaterally. No accessory muscle use. GASTROINTESTINAL: Abdomen soft, non-tender, nondistended. MUSCULOSKELETAL: No cyanosis, or edema. BACK: Nontender without obvious deformity. No CVA tenderness. - Urinary Catheter Management Indwelling Temp Sensing Catheter Cath placed during this visit: yes, but has since been removed by the nurse Reason for continuing: Not indwelling catheter Insertion date: 03/30/18 Insertion time: 07:40 Removal date: 03/31/18 Removal time: 05:15 Assessment and Plan - Assessment (1) CAD (coronary artery disease) Code(s): I25.10 - Atherosclerotic heart disease of [place] coronary artery without angina pectoris Status: Acute (2) Unstable angina Code(s): I20.0 - Unstable angina Status: Acute (3) NSTEMI (non-ST elevated myocardial infarction) Code(s): I21.4 - Non-ST elevation (NSTEMI) myocardial infarction Status: Acute (4) Multi-vessel coronary artery stenosis Code(s): I25.10 - Atherosclerotic heart disease of [place] coronary artery without angina pectoris Status: Acute (5) Hx of CABG Code(s): Z95.1 - Presence of aortocoronary bypass graft Status: Acute - Plan 1) CAD/NSTEMI s/p CABG x3 POD #3 SVG to PDA SVG to Ramus SVG to Diagonal Previous Hx of CABG (1/3 grafts patent) COOPER to LAD patent 2) Supportive care 3) ASA/Statin/BB ISA-I on hold for now with CKD 4) Appropriate pain from chest tubes Hopefully out tomorrow 5) Will see PRN, call with questions Dr. Garcia available over the weekend PRN (1) CAD (coronary artery disease) Qualifiers: Coronary Disease-Associated Artery/Lesion type: [place] artery Associated angina: with unstable angina
[2018-04-02] MEDS: Polyethylene Glycol 3350 17 GM Packet PO SCH (13:11)
--- NOTE | 2018-04-02 22:05 | P.PN ---
Subjective Interval history: Follow up for multivessel CAD s/p CABG x 3. Patient is resting in bed, chest tube is discontinued. No fever, chills. Physical Exam Vital signs: Vital Signs 04/01/18 22:00 04/01/18 23:00 04/02/18 00:00 Temperature 98.4 F Pulse Rate 84 72 78 Respiratory Rate Blood Pressure 105/56 L Pulse Oximetry 93 L 04/02/18 00:34 04/02/18 01:00 04/02/18 02:00 Temperature Pulse Rate 100 H 72 Respiratory Rate Blood Pressure Pulse Oximetry 93 L 04/02/18 03:00 04/02/18 04:00 04/02/18 05:00 Temperature 98.9 F Pulse Rate 81 81 76 Respiratory Rate Blood Pressure 106/62 Pulse Oximetry 96 04/02/18 06:00 04/02/18 07:00 04/02/18 08:00 Temperature 99.4 F Pulse Rate 72 75 83 Respiratory Rate 16 Blood Pressure 134/66 Pulse Oximetry 04/02/18 08:17 04/02/18 11:00 04/02/18 12:00 Temperature 98.4 F Pulse Rate 78 83 70 Respiratory Rate 18 18 Blood Pressure 119/53 L Pulse Oximetry 95 95 04/02/18 15:00 04/02/18 16:00 04/02/18 17:00 Temperature 98.3 F Pulse Rate 78 78 71 Respiratory Rate 16 Blood Pressure 109/58 L Pulse Oximetry 97 04/02/18 17:49 Temperature Pulse Rate 82 Respiratory Rate Blood Pressure Pulse Oximetry Intake & Output 04/02/18 04/02/18 04/03/18 06:59 18:59 06:59 Intake Total 600 / 600 480 / 480 Output Total 1100 / 1100 71 / 71 Balance -500 / -500 409 / 409 Weight 108.5 kg Intake: Oral 600 / 600 480 / 480 Output: Urine 750 / 750 Stool 1 / Chest Tube Drainage 350 / 350 70 / 70 Anterior Y Connected 350 / 350 70 / 70 Other: Date of Last Bowel Movement 04/02/18 # Bowel Movements 2 Narrative: GENERAL: Alert, Oriented x 3, NAD. SKIN: Warm and dry. HEAD: Normocephalic. EYES: No scleral icterus. No injection or drainage. NECK: Supple, trachea midline. No JVD or lymphadenopathy. CARDIOVASCULAR: Regular rate and rhythm without murmurs, gallops, or rubs. RESPIRATORY: Breath sounds equal bilaterally. No accessory muscle use. GASTROINTESTINAL: Abdomen soft, non-tender, nondistended. MUSCULOSKELETAL: No cyanosis, or edema. BACK: Nontender without obvious deformity. No CVA tenderness. - Urinary Catheter Management Indwelling Temp Sensing Catheter Cath placed during this visit: yes, but has since been removed by the nurse Reason for continuing: Not indwelling catheter Insertion date: 03/30/18 Insertion time: 07:40 Removal date: 03/31/18 Removal time: 05:15 Results - Labs CBC & Chem 7: 04/02/18 05:50 04/02/18 05:50 Laboratory Results - last 24 hr 04/01/18 04/02/18 04/02/18 21:59 05:50 05:50 WBC 12.9 H RBC 3.72 L Hgb 11.3 L Hct 34.3 L MCV 92.2 MCH 30.4 MCHC 33.0 RDW 14.6 Plt Count 208 D MPV 8.5 Neut % (Auto) 76.0 H Lymph % (Auto) 13.6 [place] % (Auto) 10.0 H Eos % (Auto) 0.2 Baso % (Auto) 0.2 Neut # (Auto) 9.8 H Lymph # (Auto) 1.8 [place] # (Auto) 1.3 H Eos # (Auto) 0.0 Baso # (Auto) 0.0 WBC Differential . Differential Comment Auto diff final Sodium 139 Potassium 4.3 Chloride 100 Carbon Dioxide 28.3 Anion Gap 11 BUN 24 H Creatinine 1.49 H Estimated GFR 46 L POC Glucose 152 H Random Glucose 169 H Calcium 8.9 Magnesium 2.5 04/02/18 04/02/18 04/02/18 07:55 11:30 17:22 WBC RBC Hgb Hct MCV MCH MCHC RDW Plt Count MPV Neut % (Auto) Lymph % (Auto) [place] % (Auto) Eos % (Auto) Baso % (Auto) Neut # (Auto) Lymph # (Auto) [place] # (Auto) Eos # (Auto) Baso # (Auto) WBC Differential Differential Comment Sodium Potassium Chloride Carbon Dioxide Anion Gap BUN Creatinine Estimated GFR POC Glucose 147 H 154 H 132 H Random Glucose Calcium Magnesium 04/02/18 20:26 WBC RBC Hgb Hct MCV MCH MCHC RDW Plt Count MPV Neut % (Auto) Lymph % (Auto) [place] % (Auto) Eos % (Auto) Baso % (Auto) Neut # (Auto) Lymph # (Auto) [place] # (Auto) Eos # (Auto) Baso # (Auto) WBC Differential Differential Comment Sodium Potassium Chloride Carbon Dioxide Anion Gap BUN Creatinine Estimated GFR POC Glucose 124 H Random Glucose Calcium Magnesium - Imaging Impressions Chest X-Ray 04/02/18 00:00 CONCLUSION: Tiny left apical pneumothorax Abdomen X-Ray 04/02/18 10:19 CONCLUSION: Diffuse nonspecific gaseous distention of small bowel - Procedures Echocardiogram The left ventricular systolic function is normal with an estimated ejection fraction in the range of 55-60%. Trace mitral valve regurgitation. There is trace tricuspid valve regurgitation. CABG x 3 on 03/30/2018. Assessment and Plan - Assessment (1) NSTEMI (non-ST elevated myocardial infarction) Code(s): I21.4 - Non-ST elevation (NSTEMI) myocardial infarction Status: Acute (2) Multi-vessel coronary artery stenosis Code(s): I25.10 - Atherosclerotic heart disease of [place] coronary artery without angina pectoris Status: Acute - Plan 73-year-old white male being admitted for suspected NSTEMI. Cardiac cath showed multivessel CAD. Patient subsequently underwent CABG x3. Multivessel Coronary artery disease NSTEMI -Cardiac catheterization shows three-vessel disease not amenable for PCI. -Status post CABG x 3 on 03/30/2017. -Continue aspirin 81mg, Lipitor 40mg HS and Lopressor 25 mg twice daily, Plavix. -Chest tube discontinued 04/02/2018. -Possible discharge home tomorrow 04/03/2018. Acute kidney injury - ISA inhibitor on hold for now. - Avoid nephrotoxins. Creatinine 1.40 --> 1.23. Back pain - Percocet 7.5mg Q4hrs PRN Full code. Ambulation.
--- NOTE | 2018-04-03 04:50 | XR ---
EXAM DATE: 04/03/2018 4:40 AM EDT AGE/SEX: 73 years / Male INDICATIONS: Chest tube removal, rule out pneumothorax. CLINICAL DATA: This is the patient's initial encounter. Patient reports that signs and symptoms have been present for 1 day and indicates a pain score of Nonresponsive. MEDICAL/SURGICAL HISTORY: . Cardiovascular disease. Hypertension. Myocardial infarction. . CAB G X2. COMPARISON: [facility] – [place], CHEST 1V SINGLE AP, 04/02/2018. . FINDINGS: Single AP view of the chest. Median sternotomy wires. Cardiac pacemaker place. Bilateral chest tubes no longer seen. Left lung base parenchymal opacity is unchanged. 3 mm pneumothorax seen at the left l [place] apex, decreased from 7 mm on the prior study. Cardiomediastinal silhouette unchanged. CONCLUSION: 1. Chest tubes no longer seen. Decrease in size of small left apical pneumothorax. 2. Left lung base parenchymal opacity unchanged. Electronically signed by: Nithin Mcnulty MD 04/03/2018 4:49 AM EDT
[2018-04-03] MEDS: Methocarbamol 500 MG Tablet PO SCH ×3 (06:02→22:03)
[2018-04-03 06:08] LABS: Baso % (Auto) 0.1 % (0.0-2.0); Eos # (Auto) 0.1 th/mm3 (0.0-0.4); Hematocrit 33.6 % (39.0-51.0); Hemoglobin 11.2 gm/dL (13.0-17.0); Lymph # (Auto) 0.9 th/mm3 (1.0-4.8); Lymph % (Auto) 10.9 % (9.0-44.0); Mean Corpuscular HGB Conc 33.2 % (32.0-36.0); Mean Corpuscular Hemoglobin 30.3 pg (27.0-34.0); Mean Corpuscular Volume 91.1 fL (80.0-100.0); Mono # (Auto) 1.1 th/mm3 (0.0-0.9); Mono % (Auto) 13.4 % (0.0-8.0); Neut # (Auto) 6.1 th/mm3 (1.8-7.7); Neut % (Auto) 74.6 % (16.0-70.0); Platelet Count 243 th/mm3 (150-450); Red Blood Count 3.69 mil/mm3 (4.50-5.90); Red Cell Distribution Width 14.4 % (11.6-17.2); White Blood Count 8.2 th/mm3 (4.0-11.0)
[2018-04-03 06:35] LABS: Alanine Aminotransferase 27 U/L (12-78); Albumin 2.9 g/dL (3.4-5.0); Alkaline Phosphatase 41 U/L (45-117); Anion Gap 13 meq/L (5-15); Aspartate Aminotransferase 34 U/L (15-37); Blood Urea Nitrogen 41 mg/dL (7-18); Calcium 9.1 mg/dL (8.5-10.1); Carbon Dioxide 26.9 meq/L (21.0-32.0); Chloride 97 meq/L (98-107); Glomerular Filtration Rate 39 mL/min (>89); Glucose,Random 130 mg/dL (74-106); Potassium 3.8 meq/L (3.5-5.1); Sodium 137 meq/L (136-145); Total Protein 6.4 g/dL (6.4-8.2)
[2018-04-03] MEDS: Insulin NovoLOG Aspart Correctional Sugar Inj SQ SCH ×4 (08:55→22:03)
--- NOTE | 2018-04-03 09:27 | P.PNCA ---
- Note Subjective/Hospital Course: 73-year-old gentleman with history of coronary artery bypass graft, hypertension, and hyperlipidemia, been experiencing chest pain for the past several days, pressure-like, moderate, relieved with nitroglycerin. cath report : multi vessel disease / EF 50% PAST MEDICAL HISTORY: CABG in 2007. He also has a history of permanent pacemaker, DDD lower rate 50 hypertension, polyp removed, CKD baseline creatinine 1.3 surgery 03/30 REDO CABG x 3 SVG to PDA - good SVG to RI - fair SVG to D1 - fair EVH extubated after surgery / 2 pleural tubes / one mediastinal tubes 03/31 painful , no toradol with CKD OOB pulm toileting pain med control transfer to stepdown 04/01 still painful, but some improvement CT x 3 / drained 130/12 hrs and additional 150cc this am bloody drainage/ no air leak pain control pulm toileting creatinine improved 1.23 04/02 c/o of constipation , mild nausea , abdomen distended , Hypoactive bowel sounds pt is passing flatus , narcotics dc , IV Ofirmev, po tylenol stat KUB pending / add reglan chest tube drained 320cc/ 12 hrs , dark old bloody drainage chest tube to suction / leave chest tubes in ambulate as much as possible 04/03 Nauseated and vomiting this morning, otherwise doing well Had BM and flatus Abdomen soft but distended to my exam. No tenderness or guarding KUB with nonspecific distended SB Ambulate NPO except ice-chips May need GI eval if not improved Objective: Vital Signs - 24 hr 04/02/18 11:00 04/02/18 12:00 04/02/18 15:00 Temperature 98.4 F 98.3 F Pulse Rate 83 70 78 Respiratory Rate 18 16 Blood Pressure 119/53 L 109/58 L Pulse Oximetry 95 04/02/18 16:00 04/02/18 17:00 04/02/18 17:49 Temperature Pulse Rate 78 71 82 Respiratory Rate Blood Pressure Pulse Oximetry 97 04/02/18 19:00 04/02/18 20:00 04/02/18 21:00 Temperature 97.6 F Pulse Rate 75 72 70 Respiratory Rate Blood Pressure 136/69 Pulse Oximetry 94 L 94 L 04/02/18 22:00 04/02/18 23:00 04/03/18 00:00 Temperature 97.8 F Pulse Rate 84 72 70 Respiratory Rate Blood Pressure 123/67 Pulse Oximetry 96 04/03/18 01:00 04/03/18 02:00 04/03/18 03:00 Temperature 98.3 F Pulse Rate 72 70 70 Respiratory Rate Blood Pressure 115/67 Pulse Oximetry 92 L 04/03/18 03:28 04/03/18 04:00 04/03/18 05:00 Temperature Pulse Rate 70 72 Respiratory Rate 20 Blood Pressure Pulse Oximetry 04/03/18 06:00 04/03/18 07:31 Temperature 97.9 F Pulse Rate 72 72 Respiratory Rate 16 Blood Pressure 120/57 L Pulse Oximetry 96 Labs: Laboratory Results - last 12 hr 04/03/18 04/03/18 04/03/18 05:11 05:11 07:40 WBC 8.2 RBC 3.69 L Hgb 11.2 L Hct 33.6 L MCV 91.1 MCH 30.3 MCHC 33.2 RDW 14.4 Plt Count 243 MPV 9.0 Neut % (Auto) 74.6 H Lymph % (Auto) 10.9 [place] % (Auto) 13.4 H Eos % (Auto) 1.0 Baso % (Auto) 0.1 Neut # (Auto) 6.1 Lymph # (Auto) 0.9 L [place] # (Auto) 1.1 H Eos # (Auto) 0.1 Baso # (Auto) 0.0 WBC Differential . Differential Comment Auto diff final Sodium 137 Potassium 3.8 Chloride 97 L Carbon Dioxide 26.9 Anion Gap 13 BUN 41 H Creatinine 1.72 H Estimated GFR 39 L POC Glucose 168 H Random Glucose 130 H Calcium 9.1 Total Bilirubin 1.2 H AST 34 ALT 27 Alkaline Phosphatase 41 L Total Protein 6.4 Albumin 2.9 L Result Diagrams: 04/03/18 05:11 04/03/18 05:11 - Plan (1) S/P CABG x 3 Plan: ASA, statin , BB OOB pulm [place]ing on nasal cannula leave chest in ambulate (2) CAD (coronary artery disease) (7) Abdominal distention Plan: stat KUB dc narcotics (2) CAD (coronary artery disease) Qualifiers: Coronary Disease-Associated Artery/Lesion type: [place] artery Associated angina: with unstable angina
[2018-04-03] MEDS: Polyethylene Glycol 3350 17 GM Packet PO SCH (09:55)
[2018-04-03] MEDS: Docusate Sodium 100 MG Capsule PO SCH ×2 (09:55→21:29)
[2018-04-03] MEDS: Multivitamin/Minerals Therapeutic Tablet PO SCH (12:31)
[2018-04-03] MEDS: Metoprolol Tartrate 25 MG Tablet PO SCH ×2 (12:40→21:29)
--- NOTE | 2018-04-03 15:25 | XR ---
EXAM DATE: 04/03/2018 3:18 PM EDT AGE/SEX: 73 years / Male INDICATIONS: Distention. CLINICAL DATA: This is the patient's subsequent encounter. Patient reports that signs and symptoms h ave been present for 2 days and indicates a pain score of 5/10. MEDICAL/SURGICAL HISTORY: . Cardiovascular disease. Hypertension. Myocardial infarction. . C ABG X2. COMPARISON: [facility], ABDOMEN 1V KUB, 04/02/2018. . FINDINGS: The abdominal bowel gas pattern demonstrates ileus. No free air. No acute bony abnormalities. CONCLUSION: Diffuse ileus. Electronically signed by: Edison Woo MD 04/03/2018 3:24 PM EDT
[2018-04-03 16:07] LABS: Calcium 8.7 mg/dL (8.5-10.1); Carbon Dioxide 28.5 meq/L (21.0-32.0); Potassium 3.9 meq/L (3.5-5.1)
--- NOTE | 2018-04-03 16:55 | P.CONGI ---
History of Present Illness Consult date: 04/03/08 Consult reason: Vomiting Chief complaint: Nstemi History of Present Illness: This is a 73-year-old male day 3 status post CABG and being managed in the cardiac area. Currently patient is resting in the bed awake and answering simple questions. Patient was being aggressively treated on 04/02/2018 for constipation and states normal large formed bowel movement after receiving a suppository. This a.m. at approximately 08 100 patient had acute onset of green bilious nausea and vomiting 2 with approximate total of 350 cc of green bile fluid. Onset of symptoms were acute, no further nausea vomiting since. Patient does note some occasional symptoms of dyspepsia and has noted some since in the hospital. No previous EGD but did note colonoscopy in the past. Patient is being maintained on Plavix and aspirin, daily MiraLAX or lactulose, vitamins and Zofran as needed. Current hemoglobin 11.2, WBC count normalized at 8.2,. Bilirubin 1.2. Patient had abdominal x-rays KUB noted on 04/02/2018 which showed diffuse distention of the small bowel. KUB abdominal x-rays has been repeated again today and pending. On exam patient's abdomen was round, taut, with very soft bowel sounds in all 4 quadrants. Currently patient denies any abdominal pain, no headache, no fever, and no current nausea vomiting. Patient does note some dyspepsia in his pass timing unknown and has noted some mild dyspepsia postop, unknown duration and onset, severity mild to moderate. <María Osorio - Last Filed: 04/03/18 16:39> Review of Systems All other systems reviewed negative except as stated in HPI <María Osorio - Last Filed: 04/03/18 16:39> Medications and Allergies Active Medications: Active Medications Acetaminophen (Tylenol) 500 mg PO Q4H PRN PRN Reason: TEMP>101F Al Hydroxide/Mg Hydroxide (Milk Of Magnsarika Liq) 30 ml PO DAILY [facility] Last Admin: 04/03/18 09:54 Dose: Not Given Albuterol (Duoneb Neb (Prn)) 1 ampul NEB Q2HR NEB PRN PRN Reason: WHEEZING Aspirin (Aspirin Chew) 81 mg PO DAILY [facility] Last Admin: 04/03/18 12:40 Dose: 81 mg Atorvastatin Calcium (Lipitor) 40 mg PO HS [facility] Last Admin: 04/02/18 21:38 Dose: 40 mg Clopidogrel Bisulfate (Plavix) 75 mg PO DAILY [facility] Last Admin: 04/03/18 12:40 Dose: 75 mg Dextrose (D50w Vial) 50 ml IV.PUSH UNSCH PRN PRN Reason: PER HYPOGLYCEMIA PROTOCOL Docusate Sodium (Colace) 100 mg PO BID [facility] Last Admin: 04/03/18 09:55 Dose: Not Given Glucagon (Glucagon Inj) 1 mg OTHER UNSCH PRN PRN Reason: for Hypoglycemia Protocol Acetaminophen (Ofirmev Inj) 1,000 mg in 100 mls @ 400 mls/hr IV.SIG Q6H PRN PRN Reason: PAIN SCALE 1 TO 10 Last Infusion: 04/03/18 03:29 Dose: Infused Insulin Aspart (Novolog Insulin Suppl Scale Inj) 0 unit SQ [facility]; Protocol Last Admin: 04/03/18 12:30 Dose: Not Given Lactulose (Lactulose Liq) 30 ml PO DAILY [facility] Last Admin: 04/03/18 09:53 Dose: Not Given Methocarbamol (Robaxin) 500 mg PO Q8HR [facility] Last Admin: 04/03/18 13:45 Dose: Not Given Metoclopramide HCl (Reglan Inj) 5 mg IV.PUSH Q8HR [facility]; Protocol Stop: 04/03/18 22:01 Last Admin: 04/03/18 13:44 Dose: 5 mg Metoprolol Tartrate (Lopressor) 25 mg PO BID [facility] Last Admin: 04/03/18 12:40 Dose: 25 mg Miscellaneous (Pill Splitter) 1 each [facility] Multivitamins/Minerals (Theragran-M) 1 tab PO DAILY [facility] Last Admin: 04/03/18 12:31 Dose: Not Given Ondansetron HCl (Zofran Odt) 4 mg PO Q4H PRN PRN Reason: NAUSEA OR VOMITING Last Admin: 04/03/18 10:34 Dose: 4 mg Pantoprazole Sodium (Protonix) 40 mg PO DAILY@06 [facility] Last Admin: 04/03/18 06:02 Dose: Not Given Phenazopyridine HCl (Pyridium) 100 mg PO Q8H PRN PRN Reason: PAINFUL URINATION Last Admin: 03/31/18 14:02 Dose: 100 mg Polyethylene Glycol (Miralax) 17 gm PO DAILY [facility] Last Admin: 04/03/18 09:55 Dose: Not Given Sennosides (Senokot) 8.6 mg PO HS [facility] Last Admin: 04/02/18 21:38 Dose: 8.6 mg Sodium Biphosphate/Sodium Phosphate (Fleets Enema (Adult)) 118 ml RECTAL UNSCH PRN PRN Reason: SEE LABEL COMMENTS Sodium Chloride (Ns Flush) 2 ml IV.FLUSH BID [facility] Last Admin: 04/03/18 12:31 Dose: 2 ml Sodium Chloride (Ns Flush) 2 ml IV.FLUSH PRN PRN PRN Reason: FLUSH AFTER USING IV ACCESS <María Osorio M - Last Filed: 04/03/18 16:39> Active Medications: Active Medications Acetaminophen (Tylenol) 500 mg PO Q4H PRN PRN Reason: TEMP>101F Al Hydroxide/Mg Hydroxide (Milk Of Magnesia Liq) 30 ml PO DAILY [facility] Last Admin: 04/03/18 09:54 Dose: Not Given Albuterol (Duoneb Neb (Prn)) 1 ampul NEB Q2HR NEB PRN PRN Reason: WHEEZING Aspirin (Aspirin Chew) 81 mg PO DAILY [facility] Last Admin: 04/03/18 12:40 Dose: 81 mg Atorvastatin Calcium (Lipitor) 40 mg PO HS [facility] Last Admin: 04/02/18 21:38 Dose: 40 mg Bisacodyl (Dulcolax Supp) 10 mg RECTAL DAILY [facility] Clopidogrel Bisulfate (Plavix) 75 mg PO DAILY [facility] Last Admin: 04/03/18 12:40 Dose: 75 mg Dextrose (D50w Vial) 50 ml IV.PUSH UNSCH PRN PRN Reason: PER HYPOGLYCEMIA PROTOCOL Docusate Sodium (Colace) 100 mg PO BID [facility] Last Admin: 04/03/18 09:55 Dose: Not Given Glucagon (Glucagon Inj) 1 mg OTHER UNSCH PRN PRN Reason: for Hypoglycemia Protocol Acetaminophen (Ofirmev Inj) 1,000 mg in 100 mls @ 400 mls/hr IV.SIG Q6H PRN PRN Reason: PAIN SCALE 1 TO 10 Last Infusion: 04/03/18 03:29 Dose: Infused Insulin Aspart (Novolog Insulin Suppl Scale Inj) 0 unit SQ ACHS [facility]; Protocol Last Admin: 04/03/18 12:30 Dose: Not Given Lactulose (Lactulose Liq) 30 ml PO DAILY [facility] Last Admin: 04/03/18 09:53 Dose: Not Given Methocarbamol (Robaxin) 500 mg PO Q8HR [facility] Last Admin: 04/03/18 13:45 Dose: Not Given Metoclopramide HCl (Reglan Inj) 5 mg IV.PUSH Q8HR [facility]; Protocol Stop: 04/03/18 22:01 Last Admin: 04/03/18 13:44 Dose: 5 mg Metoprolol Tartrate (Lopressor) 25 mg PO BID [facility] Last Admin: 04/03/18 12:40 Dose: 25 mg Miscellaneous (Pill Splitter) 1 each [facility] Multivitamins/Minerals (Theragran-M) 1 tab PO DAILY [facility] Last Admin: 04/03/18 12:31 Dose: Not Given Ondansetron HCl (Zofran Odt) 4 mg PO Q4H PRN PRN Reason: NAUSEA OR VOMITING Last Admin: 04/03/18 17:57 Dose: 4 mg Pantoprazole Sodium (Protonix) 40 mg PO DAILY@06 [facility] Last Admin: 04/03/18 06:02 Dose: Not Given Phenazopyridine HCl (Pyridium) 100 mg PO Q8H PRN PRN Reason: PAINFUL URINATION Last Admin: 03/31/18 14:02 Dose: 100 mg Polyethylene Glycol (Miralax) 17 gm PO DAILY [facility] Last Admin: 04/03/18 09:55 Dose: Not Given Sennosides (Senokot) 8.6 mg PO HS [facility] Last Admin: 04/02/18 21:38 Dose: 8.6 mg Sodium Biphosphate/Sodium Phosphate (Fleets Enema (Adult)) 118 ml RECTAL UNSCH PRN PRN Reason: SEE LABEL COMMENTS Sodium Chloride (Ns Flush) 2 ml IV.FLUSH BID [facility] Last Admin: 04/03/18 12:31 Dose: 2 ml Sodium Chloride (Ns Flush) 2 ml IV.FLUSH PRN PRN PRN Reason: FLUSH AFTER USING IV ACCESS <Nadya Thomas - Last Filed: 04/03/18 18:38> Allergies Allergy/AdvReac Type Severity Reaction Status Date / Time No Known Allergies Allergy Unverified 03/26/18 11:04 Home Medications Medication Instructions Recorded Confirmed Type allopurinol 300 mg PO DAILY 03/27/18 03/27/18 History aspirin 81 mg PO DAILY 03/27/18 03/27/18 History hydrochlorothiazide 25 mg PO DAILY 03/27/18 03/27/18 History lisinopril 20 mg PO DAILY 03/27/18 03/27/18 History omeprazole 40 mg PO DAILY 03/27/18 03/27/18 History rosuvastatin 10 mg PO HS 03/27/18 03/27/18 History sildenafil 100 mg PO DAILY PRN 03/27/18 03/27/18 History Exam Vital signs: Vital Signs 04/02/18 17:00 04/02/18 17:49 04/02/18 19:00 Temperature 97.6 F Pulse Rate 71 82 75 Respiratory Rate Blood Pressure 136/69 Pulse Oximetry 94 L 04/02/18 20:00 04/02/18 21:00 04/02/18 22:00 Temperature Pulse Rate 72 70 84 Respiratory Rate Blood Pressure Pulse Oximetry 94 L 04/02/18 23:00 04/03/18 00:00 04/03/18 01:00 Temperature 97.8 F Pulse Rate 72 70 72 Respiratory Rate Blood Pressure 123/67 Pulse Oximetry 96 04/03/18 02:00 04/03/18 03:00 04/03/18 03:28 Temperature 98.3 F Pulse Rate 70 70 Respiratory Rate 20 Blood Pressure 115/67 Pulse Oximetry 92 L 04/03/18 04:00 04/03/18 05:00 04/03/18 06:00 Temperature Pulse Rate 70 72 72 Respiratory Rate Blood Pressure Pulse Oximetry 04/03/18 07:00 04/03/18 07:31 04/03/18 08:00 Temperature 97.9 F Pulse Rate 74 72 76 Respiratory Rate 16 Blood Pressure 120/57 L Pulse Oximetry 96 04/03/18 09:00 04/03/18 10:00 04/03/18 11:00 Temperature 97.8 F Pulse Rate 74 78 72 Respiratory Rate 18 Blood Pressure 134/62 Pulse Oximetry 95 04/03/18 12:00 04/03/18 13:00 04/03/18 14:00 Temperature Pulse Rate 72 74 72 Respiratory Rate Blood Pressure Pulse Oximetry 04/03/18 15:00 04/03/18 16:03 Temperature 97.6 F Pulse Rate 70 74 Respiratory Rate 18 Blood Pressure 149/66 H Pulse Oximetry 96 Intake & Output 04/02/18 04/03/18 04/03/18 18:59 06:59 18:59 Intake Total 480 / 480 580 / 580 Output Total 71 / 71 200 / 200 Balance 409 / 409 380 / 380 Weight 109 kg Intake: IV 100 / 100 Ofirmev Inj 1,000 mg In 100 ml 100 / 100 @ 400 mls/hr IV.SIG Q6H PRN Rx# :[id number] Oral 480 / 480 480 / 480 Output: Urine 200 / 200 Stool 1 / 1 Chest Tube Drainage 70 / 70 Anterior Y Connected 70 / 70 Other: # Incontinent Voids 2 Date of Last Bowel Movement 04/02/18 # Bowel Movements 2 - Constitutional no acute distress, mild distress - Routine HEENT Exam Head: Present: normocephalic, atraumatic Eye: Present: EOMI ENT: Present: mucous membranes dry - Routine Neck Exam Present: supple - Routine Respiratory Exam Present: decreased breath sounds (But no obvious rhonchi or wheezing) - Routine Cardiovascular Exam Present: RRR (Chest midline dressing clean dry and intact ) - Routine Abdominal Exam Present: soft, normoactive bowel sounds (Very soft minimal), distended - Routine Extremities Exam Present: full ROM - Routine Skin Exam Present: intact - Routine Neurological Exam Present: alert (Answering simple questions appropriately) <María Osorio - Last Filed: 04/03/18 16:39> Vital signs: Vital Signs 04/02/18 19:00 04/02/18 20:00 04/02/18 21:00 Temperature 97.6 F Pulse Rate 75 72 70 Respiratory Rate Blood Pressure 136/69 Pulse Oximetry 94 L 94 L 04/02/18 22:00 04/02/18 23:00 04/03/18 00:00 Temperature 97.8 F Pulse Rate 84 72 70 Respiratory Rate Blood Pressure 123/67 Pulse Oximetry 96 04/03/18 01:00 04/03/18 02:00 04/03/18 03:00 Temperature 98.3 F Pulse Rate 72 70 70 Respiratory Rate Blood Pressure 115/67 Pulse Oximetry 92 L 04/03/18 03:28 04/03/18 04:00 04/03/18 05:00 Temperature Pulse Rate 70 72 Respiratory Rate 20 Blood Pressure Pulse Oximetry 04/03/18 06:00 04/03/18 07:00 04/03/18 07:31 Temperature 97.9 F Pulse Rate 72 74 72 Respiratory Rate 16 Blood Pressure 120/57 L Pulse Oximetry 96 04/03/18 08:00 04/03/18 09:00 04/03/18 10:00 Temperature Pulse Rate 76 74 78 Respiratory Rate Blood Pressure Pulse Oximetry 04/03/18 11:00 04/03/18 12:00 04/03/18 13:00 Temperature 97.8 F Pulse Rate 72 72 74 Respiratory Rate 18 Blood Pressure 134/62 Pulse Oximetry 95 04/03/18 14:00 04/03/18 15:00 04/03/18 16:00 Temperature Pulse Rate 72 70 72 Respiratory Rate Blood Pressure Pulse Oximetry 04/03/18 16:03 Temperature 97.6 F Pulse Rate 74 Respiratory Rate 18 Blood Pressure 149/66 H Pulse Oximetry 96 Intake & Output 04/02/18 04/03/18 04/03/18 18:59 06:59 18:59 Intake Total 480 / 480 580 / 580 480 / 480 Output Total 71 / 71 200 / 200 875 / 875 Balance 409 / 409 380 / 380 -395 / -395 Weight 109 kg Intake: IV 100 / 100 Ofirmev Inj 1,000 mg In 100 ml 100 / 100 @ 400 mls/hr IV.SIG Q6H PRN Rx# :[id number] Oral 480 / 480 480 / 480 480 / 480 Output: Urine 200 / 200 550 / 550 Stool Emesis 325 / 325 Chest Tube Drainage 70 / 70 Anterior Y Connected 70 / 70 Other: # Incontinent Voids 2 Date of Last Bowel Movement 04/02/18 # Bowel Movements 2 <Nadya Thomas - Last Filed: 04/03/18 18:38> Results - Labs CBC & Chem 7: 04/03/18 05:11 04/03/18 15:15 Labs: Laboratory Results - last 24 hr 04/02/18 04/02/18 04/03/18 17:22 20:26 05:11 WBC 8.2 RBC 3.69 L Hgb 11.2 L Hct 33.6 L MCV 91.1 MCH 30.3 MCHC 33.2 RDW 14.4 Plt Count 243 MPV 9.0 Neut % (Auto) 74.6 H Lymph % (Auto) 10.9 Candler % (Auto) 13.4 H Eos % (Auto) 1.0 Baso % (Auto) 0.1 Neut # (Auto) 6.1 Lymph # (Auto) 0.9 L Candler # (Auto) 1.1 H Eos # (Auto) 0.1 Baso # (Auto) 0.0 WBC Differential . Differential Comment Auto diff final Sodium Potassium Chloride Carbon Dioxide Anion Gap BUN Creatinine Estimated GFR POC Glucose 132 H 124 H Random Glucose Calcium Total Bilirubin AST ALT Alkaline Phosphatase Total Protein Albumin 04/03/18 04/03/18 04/03/18 05:11 07:40 11:19 WBC RBC Hgb Hct MCV MCH MCHC RDW Plt Count MPV Neut % (Auto) Lymph % (Auto) Candler % (Auto) Eos % (Auto) Baso % (Auto) Neut # (Auto) Lymph # (Auto) Candler # (Auto) Eos # (Auto) Baso # (Auto) WBC Differential Differential Comment Sodium 137 Potassium 3.8 Chloride 97 L Carbon Dioxide 26.9 Anion Gap 13 BUN 41 H Creatinine 1.72 H Estimated GFR 39 L POC Glucose 168 H 149 H Random Glucose 130 H Calcium 9.1 Total Bilirubin 1.2 H AST 34 ALT 27 Alkaline Phosphatase 41 L Total Protein 6.4 Albumin 2.9 L 04/03/18 15:15 WBC RBC Hgb Hct MCV MCH MCHC RDW Plt Count MPV Neut % (Auto) Lymph % (Auto) Candler % (Auto) Eos % (Auto) Baso % (Auto) Neut # (Auto) Lymph # (Auto) Candler # (Auto) Eos # (Auto) Baso # (Auto) WBC Differential Differential Comment Sodium 137 Potassium 3.9 Chloride 95 L Carbon Dioxide 28.5 Anion Gap 14 BUN 44 H Creatinine 1.81 H Estimated GFR 37 L POC Glucose Random Glucose 129 H Calcium 8.7 Total Bilirubin AST ALT Alkaline Phosphatase Total Protein Albumin - Imaging Impressions Abdomen X-Ray 04/03/18 00:00 CONCLUSION: Diffuse ileus. Chest X-Ray 04/03/18 06:00 CONCLUSION: 1. Chest tubes no longer seen. Decrease in size of small left apical pneumothorax. 2. Left lung base parenchymal opacity unchanged. <María Osorio - Last Filed: 04/03/18 16:39> - Labs CBC & Chem 7: 04/03/18 05:11 04/03/18 15:15 Labs: Laboratory Results - last 24 hr 04/02/18 04/03/1804/03/18 20:26 05:11 05:11 WBC 8.2 RBC 3.69 L Hgb 11.2 L Hct 33.6 L MCV 91.1 MCH 30.3 MCHC 33.2 RDW 14.4 Plt Count 243 MPV 9.0 Neut % (Auto) 74.6 H Lymph % (Auto) 10.9 Candler % (Auto) 13.4 H Eos % (Auto) 1.0 Baso % (Auto) 0.1 Neut # (Auto) 6.1 Lymph # (Auto) 0.9 L Candler # (Auto) 1.1 H Eos # (Auto) 0.1 Baso # (Auto) 0.0 WBC Differential . Differential Comment Auto diff final Sodium 137 Potassium 3.8 Chloride 97 L Carbon Dioxide 26.9 Anion Gap 13 BUN 41 H Creatinine 1.72 H Estimated GFR 39 L POC Glucose 124 H Random Glucose 130 H Calcium 9.1 Total Bilirubin 1.2 H AST 34 ALT 27 Alkaline Phosphatase 41 L Total Protein 6.4 Albumin 2.9 L 04/03/18 04/03/18 04/03/18 07:40 11:19 15:15 WBC RBC Hgb Hct MCV MCH MCHC RDW Plt Count MPV Neut % (Auto) Lymph % (Auto) Candler % (Auto) Eos % (Auto) Baso % (Auto) Neut # (Auto) Lymph # (Auto) Candler # (Auto) Eos # (Auto) Baso # (Auto) WBC Differential Differential Comment Sodium 137 Potassium 3.9 Chloride 95 L Carbon Dioxide 28.5 Anion Gap 14 BUN 44 H Creatinine 1.81 H Estimated GFR 37 L POC Glucose 168 H 149 H Random Glucose 129 H Calcium 8.7 Total Bilirubin AST ALT Alkaline Phosphatase Total Protein Albumin 04/03/18 18:00 WBC RBC Hgb Hct MCV MCH MCHC RDW Plt Count MPV Neut % (Auto) Lymph % (Auto) Candler % (Auto) Eos % (Auto) Baso % (Auto) Neut # (Auto) Lymph # (Auto) Candler # (Auto) Eos # (Auto) Baso # (Auto) WBC Differential Differential Comment Sodium Potassium Chloride Carbon Dioxide Anion Gap BUN Creatinine Estimated GFR POC Glucose 144 H Random Glucose Calcium Total Bilirubin AST ALT Alkaline Phosphatase Total Protein Albumin - Imaging Impressions Abdomen X-Ray 04/03/18 00:00 CONCLUSION: Diffuse ileus. Chest X-Ray 04/03/18 06:00 CONCLUSION: 1. Chest tubes no longer seen. Decrease in size of small left apical pneumothorax. 2. Left lung base parenchymal opacity unchanged. <Nadya Thomas - Last Filed: 04/03/18 18:38> Assessment and Plan (1) Abdominal distention Status: Acute Code(s): R14.0 - Abdominal distension (gaseous) (2) Ileus, postoperative Status: Acute Code(s): K91.89 - Other postprocedural complications and disorders of digestive system; K56.7 - Ileus, unspecified - Plan Possible postop small bowel ileus. Patient is day 3 postop from CABG, currently being managed in the cardiac floor. Was treated aggressively on 2017 for constipation, large BM noted after suppository 04/03/2018 without any obvious blood. Patient's currently being managed with Plavix and aspirin 81 mg daily Symptoms of acute onset of nausea and vomiting green bilious fluid at 08 100 04/03. KUB abdominal x-rays on 04/02/2018 showed diffuse distention of the small bowel concerning for ileus. X-rays repeated today and pending. Patient had approximately 350 cc of green bilious bile this a.m. but none since. Patient has large abdomen distended,taut, mild minimal bowel sounds heard in all 4 quadrants Note bilirubin 1.2 normal LFTs. No known hepatocellular disease. Previous colonoscopy out-of-town results unknown. Labs show current hemoglobin 11.2 anemia which is probably secondary postop. Patient has no obvious bleeding. Patient will need colonoscopy time TBA. And EGD. Dyspepsia, acute on chronic Plan N.p.o. Change PPI to IV Small NG tube to low intermittent suction Dulcolax suppository daily until patient is able to take p.o. Monitor labs with special attention to hemoglobin and bilirubin Further recommendations to follow Patient was seen per myself and Dr. Thomas, this note was written on her behalf <María Osorio - Last Filed: 04/03/18 16:39> (1) Abdominal distention Status: Acute Code(s): R14.0 - Abdominal distension (gaseous) (2) Ileus, postoperative Status: Acute Code(s): K91.89 - Other postprocedural complications and disorders of digestive system; K56.7 - Ileus, unspecified - Attending Attestation seen, examined agree with above if no improvement consider ct abdomen/pelvis <Nadya Thomas - Last Filed: 04/03/18 18:38>
--- NOTE | 2018-04-03 22:21 | P.PN ---
Subjective Interval history: Follow up for multivessel CAD s/p CABG x 3. Patient was doing well until this morning around 10:30AM when he started having abdominal pain, nausea, vomiting. Abdominal x-ray confirmed Ileus. No fever, chills. No chest pain. Physical Exam Vital signs: Vital Signs 04/02/18 23:00 04/03/18 00:00 04/03/18 01:00 Temperature 97.8 F Pulse Rate 72 70 72 Respiratory Rate Blood Pressure 123/67 Pulse Oximetry 96 04/03/18 02:00 04/03/18 03:00 04/03/18 03:28 Temperature 98.3 F Pulse Rate 70 70 Respiratory Rate 20 Blood Pressure 115/67 Pulse Oximetry 92 L 04/03/18 04:00 04/03/18 05:00 04/03/18 06:00 Temperature Pulse Rate 70 72 72 Respiratory Rate Blood Pressure Pulse Oximetry 04/03/18 07:00 04/03/18 07:31 04/03/18 08:00 Temperature 97.9 F Pulse Rate 74 72 76 Respiratory Rate 16 Blood Pressure 120/57 L Pulse Oximetry 96 04/03/18 09:00 04/03/18 10:00 04/03/18 11:00 Temperature 97.8 F Pulse Rate 74 78 72 Respiratory Rate 18 Blood Pressure 134/62 Pulse Oximetry 95 04/03/18 12:00 04/03/18 13:00 04/03/18 14:00 Temperature Pulse Rate 72 74 72 Respiratory Rate Blood Pressure Pulse Oximetry 04/03/18 15:00 04/03/18 16:00 04/03/18 16:03 Temperature 97.6 F Pulse Rate 70 72 74 Respiratory Rate 18 Blood Pressure 149/66 H Pulse Oximetry 96 04/03/18 18:00 Temperature Pulse Rate 72 Respiratory Rate Blood Pressure Pulse Oximetry Intake & Output 04/03/18 04/03/18 04/04/18 06:59 18:59 06:59 Intake Total 580 / 580 480 / 480 Output Total 200 / 200 875 / 875 Balance 380 / 380 -395 / -395 Weight 109 kg Intake: IV 100 / 100 Ofirmev Inj 1,000 mg In 100 ml 100 / 100 @ 400 mls/hr IV.SIG Q6H PRN Rx# :[id number] Oral 480 / 480 480 / 480 Output: Urine 200 / 200 550 / 550 Emesis 325 / 325 Other: # Incontinent Voids 2 Narrative: GENERAL: Alert, Oriented x 3, NAD. SKIN: Warm and dry. HEAD: Normocephalic. EYES: No scleral icterus. No injection or drainage. NECK: Supple, trachea midline. No JVD or lymphadenopathy. CARDIOVASCULAR: Regular rate and rhythm without murmurs, gallops, or rubs. RESPIRATORY: Breath sounds equal bilaterally. No accessory muscle use. GASTROINTESTINAL: Abdomen soft, non-tender, nondistended. MUSCULOSKELETAL: No cyanosis, or edema. BACK: Nontender without obvious deformity. No CVA tenderness. - Urinary Catheter Management Indwelling Temp Sensing Catheter Cath placed during this visit: yes, but has since been removed by the nurse Reason for continuing: Not indwelling catheter Insertion date: 03/30/18 Insertion time: 07:40 Removal date: 03/31/18 Removal time: 05:15 Results - Labs CBC & Chem 7: 04/03/18 05:11 04/03/18 15:15 Laboratory Results - last 24 hr 04/03/18 04/03/18 04/03/18 05:11 05:11 07:40 WBC 8.2 RBC 3.69 L Hgb 11.2 L Hct 33.6 L MCV 91.1 MCH 30.3 MCHC 33.2 RDW 14.4 Plt Count 243 MPV 9.0 Neut % (Auto) 74.6 H Lymph % (Auto) 10.9 [place] % (Auto) 13.4 H Eos % (Auto) 1.0 Baso % (Auto) 0.1 Neut # (Auto) 6.1 Lymph # (Auto) 0.9 L [place] # (Auto) 1.1 H Eos # (Auto) 0.1 Baso # (Auto) 0.0 WBC Differential . Differential Comment Auto diff final Sodium 137 Potassium 3.8 Chloride 97 L Carbon Dioxide 26.9 Anion Gap 13 BUN 41 H Creatinine 1.72 H Estimated GFR 39 L POC Glucose 168 H Random Glucose 130 H Calcium 9.1 Total Bilirubin 1.2 H AST 34 ALT 27 Alkaline Phosphatase 41 L Total Protein 6.4 Albumin 2.9 L 04/03/18 04/03/18 04/03/18 11:19 15:15 18:00 WBC RBC Hgb Hct MCV MCH MCHC RDW Plt Count MPV Neut % (Auto) Lymph % (Auto) [place] % (Auto) Eos % (Auto) Baso % (Auto) Neut # (Auto) Lymph # (Auto) [place] # (Auto) Eos # (Auto) Baso # (Auto) WBC Differential Differential Comment Sodium 137 Potassium 3.9 Chloride 95 L Carbon Dioxide 28.5 Anion Gap 14 BUN 44 H Creatinine 1.81 H Estimated GFR 37 L POC Glucose 149 H 144 H Random Glucose 129 H Calcium 8.7 Total Bilirubin AST ALT Alkaline Phosphatase Total Protein Albumin 04/03/18 21:24 WBC RBC Hgb Hct MCV MCH MCHC RDW Plt Count MPV Neut % (Auto) Lymph % (Auto) [place] % (Auto) Eos % (Auto) Baso % (Auto) Neut # (Auto) Lymph # (Auto) [place] # (Auto) Eos # (Auto) Baso # (Auto) WBC Differential Differential Comment Sodium Potassium Chloride Carbon Dioxide Anion Gap BUN Creatinine Estimated GFR POC Glucose 127 H Random Glucose Calcium Total Bilirubin AST ALT Alkaline Phosphatase Total Protein Albumin - Imaging Impressions Abdomen X-Ray 04/03/18 00:00 CONCLUSION: Diffuse ileus. Chest X-Ray 04/03/18 06:00 CONCLUSION: 1. Chest tubes no longer seen. Decrease in size of small left apical pneumothorax. 2. Left lung base parenchymal opacity unchanged. - Procedures Echocardiogram The left ventricular systolic function is normal with an estimated ejection fraction in the range of 55-60%. Trace mitral valve regurgitation. There is trace tricuspid valve regurgitation. CABG x 3 on 03/30/2018. Assessment and Plan - Assessment (1) NSTEMI (non-ST elevated myocardial infarction) Code(s): I21.4 - Non-ST elevation (NSTEMI) myocardial infarction Status: Acute (2) Multi-vessel coronary artery stenosis Code(s): I25.10 - Atherosclerotic heart disease of [place] coronary artery without angina pectoris Status: Acute - Plan 73-year-old white male being admitted for suspected NSTEMI. Cardiac cath showed multivessel CAD. Patient subsequently underwent CABG x3. Multivessel Coronary artery disease NSTEMI -Cardiac catheterization shows three-vessel disease not amenable for PCI. -Status post CABG x 3 on 03/30/2017. -Continue aspirin 81mg, Lipitor 40mg HS and Lopressor 25 mg twice daily, Plavix. -Chest tube discontinued 04/02/2018. Ileus - GI consulted. Nausea, vomiting improved. We can likely hold off placing NG tube for now. Acute kidney injury - ISA inhibitor on hold for now. - Avoid nephrotoxins. Creatinine 1.40 --> 1.23. Back pain - Percocet 7.5mg Q4hrs PRN Full code. Ambulation. Discharge: Once Ileus resolves, patient can likely go home.
[2018-04-04] MEDS: Methocarbamol 500 MG Tablet PO SCH ×3 (06:36→22:31)
[2018-04-04] MEDS: Insulin NovoLOG Aspart Correctional Sugar Inj SQ SCH ×4 (08:23→20:40)
[2018-04-04] MEDS: Polyethylene Glycol 3350 17 GM Packet PO SCH (09:09)
[2018-04-04] MEDS: Bisacodyl 10 MG Supp RECTAL SCH (09:09)
--- NOTE | 2018-04-04 09:13 | XR ---
EXAM DATE: 04/04/2018 9:07 AM EDT AGE/SEX: 73 years / Male INDICATIONS: Distention CLINICAL DATA: This is the patient's subsequent encounter. Patient reports that signs and symptoms h ave been present for 2 weeks and indicates a pain score of 2/10. MEDICAL/SURGICAL HISTORY: . Cardiovascular disease. Hypertension. Myocardial infarction. . . CABG X2. COMPARISON: [facility], ABDOMEN 1V KUB, 04/03/2018. . FINDINGS: Dilated loops again seen slightly less prominent. No abnormal masses, calcifications, or organomega ly is seen. The osseous structures are unremarkable. CONCLUSION: Persistent dilatation of multiple bowel loops appears less prominent. Electronically signed by: Cabrera Petty MD 04/04/2018 9:12 AM EDT
[2018-04-04] MEDS: Multivitamin/Minerals Therapeutic Tablet PO SCH (09:14)
[2018-04-04] MEDS: Metoprolol Tartrate 25 MG Tablet PO SCH ×2 (09:15→20:39)
[2018-04-04] MEDS: Docusate Sodium 100 MG Capsule PO SCH ×2 (09:15→20:39)
--- NOTE | 2018-04-04 12:05 | P.PNCA ---
- Note Subjective/Hospital Course: 73-year-old gentleman with history of coronary artery bypass graft, hypertension, and hyperlipidemia, been experiencing chest pain for the past several days, pressure-like, moderate, relieved with nitroglycerin. cath report : multi vessel disease / EF 50% PAST MEDICAL HISTORY: CABG in 2007. He also has a history of permanent pacemaker, DDD lower rate 50 hypertension, polyp removed, CKD baseline creatinine 1.3 surgery 03/30 REDO CABG x 3 SVG to PDA - good SVG to RI - fair SVG to D1 - fair EVH extubated after surgery / 2 pleural tubes / one mediastinal tubes 03/31 painful , no toradol with CKD OOB pulm toileting pain med control transfer to stepdown 04/01 still painful, but some improvement CT x 3 / drained 130/12 hrs and additional 150cc this am bloody drainage/ no air leak pain control pulm toileting creatinine improved 1.23 04/02 c/o of constipation , mild nausea , abdomen distended , Hypoactive bowel sounds pt is passing flatus , narcotics dc , IV Ofirmev, po tylenol stat KUB pending / add reglan chest tube drained 320cc/ 12 hrs , dark old bloody drainage chest tube to suction / leave chest tubes in ambulate as much as possible 04/03 Nauseated and vomiting this morning, otherwise doing well Had BM and flatus Abdomen soft but distended to my exam. No tenderness or guarding KUB with nonspecific distended SB Ambulate NPO except ice-chips May need GI eval if not improved 04/04 Doing better. NGT inadvertently removed. No further N/V Greatly appreciate GI input Feels thirsty and hungry Abdomen soft and less distended OK to advance diet when ok with GI Ambulate Objective: Vital Signs - 24 hr 04/03/18 13:00 04/03/18 14:00 04/03/18 15:00 Temperature Pulse Rate 74 72 70 Respiratory Rate Blood Pressure Pulse Oximetry 04/03/18 16:00 04/03/18 16:03 04/03/18 18:00 Temperature 97.6 F Pulse Rate 72 74 72 Respiratory Rate 18 Blood Pressure 149/66 H Pulse Oximetry 96 04/03/18 19:00 04/03/18 20:00 04/03/18 21:00 Temperature Pulse Rate 78 72 70 Respiratory Rate Blood Pressure Pulse Oximetry 04/03/18 22:00 04/03/18 23:00 04/03/18 23:25 Temperature 98.2 F Pulse Rate 72 70 70 Respiratory Rate 20 Blood Pressure 126/74 Pulse Oximetry 92 L 04/04/18 00:00 04/04/18 01:00 04/04/18 01:03 Temperature Pulse Rate 71 70 Respiratory Rate 18 Blood Pressure Pulse Oximetry 04/04/18 02:00 04/04/18 03:00 04/04/18 04:00 Temperature 97.8 F Pulse Rate 70 70 70 Respiratory Rate 18 Blood Pressure 114/67 Pulse Oximetry 92 L 04/04/18 05:00 04/04/18 06:00 04/04/18 07:14 Temperature 98.3 F Pulse Rate 70 71 72 Respiratory Rate 16 Blood Pressure 110/59 L Pulse Oximetry 97 04/04/18 08:17 04/04/18 09:00 04/04/18 10:00 Temperature Pulse Rate 70 70 72 Respiratory Rate Blood Pressure Pulse Oximetry 04/04/18 11:00 04/04/18 11:49 Temperature 98.0 F Pulse Rate 70 70 Respiratory Rate 17 Blood Pressure 100/56 L Pulse Oximetry 95 Labs: Laboratory Results - last 12 hr 04/04/18 04/04/18 08:10 11:31 POC Glucose 135 H 139 H Result Diagrams: 04/03/18 05:11 04/03/18 15:15 - Plan (2) CAD (coronary artery disease) (7) Abdominal distention Plan: stat KUB dc narcotics (2) CAD (coronary artery disease) Qualifiers: Coronary Disease-Associated Artery/Lesion type: [place] artery Associated angina: with unstable angina
--- NOTE | 2018-04-04 15:15 | P.PN ---
Subjective Interval history: Follow up for multivessel CAD s/p CABG x 3. Patient feels much better today. Abdominal discomfort resolved. No fever, chills. Had BM. Tolerating clear liquids. Eager to go home tomorrow. Physical Exam Vital signs: Vital Signs 04/03/18 16:00 04/03/18 16:03 04/03/18 18:00 Temperature 97.6 F Pulse Rate 72 74 72 Respiratory Rate 18 Blood Pressure 149/66 H Pulse Oximetry 96 04/03/18 19:00 04/03/18 20:00 04/03/18 21:00 Temperature Pulse Rate 78 72 70 Respiratory Rate Blood Pressure Pulse Oximetry 04/03/18 22:00 04/03/18 23:00 04/03/18 23:25 Temperature 98.2 F Pulse Rate 72 70 70 Respiratory Rate 20 Blood Pressure 126/74 Pulse Oximetry 92 L 04/04/18 00:00 04/04/18 01:00 04/04/18 01:03 Temperature Pulse Rate 71 70 Respiratory Rate 18 Blood Pressure Pulse Oximetry 04/04/18 02:00 04/04/18 03:00 04/04/18 04:00 Temperature 97.8 F Pulse Rate 70 70 70 Respiratory Rate 18 Blood Pressure 114/67 Pulse Oximetry 92 L 04/04/18 05:00 04/04/18 06:00 04/04/18 07:14 Temperature 98.3 F Pulse Rate 70 71 72 Respiratory Rate 16 Blood Pressure 110/59 L Pulse Oximetry 97 04/04/18 08:17 04/04/18 09:00 04/04/18 10:00 Temperature Pulse Rate 70 70 72 Respiratory Rate Blood Pressure Pulse Oximetry 04/04/18 11:00 04/04/18 11:49 04/04/18 12:00 Temperature 98.0 F Pulse Rate 70 70 70 Respiratory Rate 17 Blood Pressure 100/56 L Pulse Oximetry 95 04/04/18 13:00 04/04/18 13:19 04/04/18 15:00 Temperature 97.5 F L Pulse Rate 70 71 Respiratory Rate 17 Blood Pressure 101/58 L Pulse Oximetry 95 97 Intake & Output 04/03/18 04/04/18 04/04/18 18:59 06:59 18:59 Intake Total 480 / 480 130 / 130 Output Total 875 / 875 2024 Balance -395 / -395 -1895 / -1895 Weight 104.5 kg Intake: IV 100 / 100 Ofirmev Inj 1,000 mg In 100 ml 100 / 100 @ 400 mls/hr IV.SIG Q6H PRN Rx# :[id number] Oral 480 / 480 30 / 30 Output: Urine 550 / 550 300 / 300 Emesis 325 / 325 Gastric Drainage 1725 / 1725 Right Nare 1725 / 1725 Other: Date of Last Bowel Movement 04/04/18 Narrative: GENERAL: Alert, Oriented x 3, NAD. SKIN: Warm and dry. HEAD: Normocephalic. EYES: No scleral icterus. No injection or drainage. NECK: Supple, trachea midline. No JVD or lymphadenopathy. CARDIOVASCULAR: Regular rate and rhythm without murmurs, gallops, or rubs. RESPIRATORY: Breath sounds equal bilaterally. No accessory muscle use. GASTROINTESTINAL: Abdomen soft, non-tender, nondistended. MUSCULOSKELETAL: No cyanosis, or edema. BACK: Nontender without obvious deformity. No CVA tenderness. - Urinary Catheter Management Indwelling Temp Sensing Catheter Cath placed during this visit: yes, but has since been removed by the nurse Reason for continuing: Not indwelling catheter Insertion date: 03/30/18 Insertion time: 07:40 Removal date: 03/31/18 Removal time: 05:15 Results - Labs CBC & Chem 7: 04/03/18 05:11 04/03/18 15:15 Laboratory Results - last 24 hr 04/03/18 04/03/18 04/03/18 15:15 18:00 21:24 Sodium 137 Potassium 3.9 Chloride 95 L Carbon Dioxide 28.5 Anion Gap 14 BUN 44 H Creatinine 1.81 H Estimated GFR 37 L POC Glucose 144 H 127 H Random Glucose 129 H Calcium 8.7 04/04/18 04/04/18 08:10 11:31 Sodium Potassium Chloride Carbon Dioxide Anion Gap BUN Creatinine Estimated GFR POC Glucose 135 H 139 H Random Glucose Calcium - Imaging Impressions Abdomen X-Ray 04/03/18 00:00 CONCLUSION: Diffuse ileus. Abdomen X-Ray 04/04/18 00:00 CONCLUSION: Persistent dilatation of multiple bowel loops appears less prominent. - Procedures Echocardiogram The left ventricular systolic function is normal with an estimated ejection fraction in the range of 55-60%. Trace mitral valve regurgitation. There is trace tricuspid valve regurgitation. CABG x 3 on 03/30/2018. Assessment and Plan - Assessment (1) NSTEMI (non-ST elevated myocardial infarction) Code(s): I21.4 - Non-ST elevation (NSTEMI) myocardial infarction Status: Acute (2) Multi-vessel coronary artery stenosis Code(s): I25.10 - Atherosclerotic heart disease of [place] coronary artery without angina pectoris Status: Acute - Plan 73-year-old white male being admitted for suspected NSTEMI. Cardiac cath showed multivessel CAD. Patient subsequently underwent CABG x3. Multivessel Coronary artery disease NSTEMI -Cardiac catheterization shows three-vessel disease not amenable for PCI. -Status post CABG x 3 on 03/30/2017. -Continue aspirin 81mg, Lipitor 40mg HS and Lopressor 25 mg twice daily, Plavix. -Chest tube discontinued 04/02/2018. Ileus - Abdominal pain improved. Tolerating clear liquid diet. Will advance to full liquid. If he tolerates full liquid, we will advance diet in the AM. Acute kidney injury - ISA inhibitor on hold for now. - Avoid nephrotoxins. Creatinine 1.40 --> 1.23. Back pain - Percocet 7.5mg Q4hrs PRN Full code. Ambulation. Discharge: Likely discharge on 04/05/2018.
--- NOTE | 2018-04-04 16:28 | P.PNGI ---
Subjective Interval history: Patient is sitting up in the chair alert oriented and feeling so much better Patient has been tolerating water and ice chips all day Diet has been increased to full liquids for supper NG tube out, patient denies any nausea vomiting 2 liquid stools noted today abdomen less distention Day 4 status post CABG Physical Exam Vital signs: Vital Signs 04/03/18 18:00 04/03/18 19:00 04/03/18 20:00 Temperature Pulse Rate 72 78 72 Respiratory Rate Blood Pressure Pulse Oximetry 04/03/18 21:00 04/03/18 22:00 04/03/18 23:00 Temperature Pulse Rate 70 72 70 Respiratory Rate Blood Pressure Pulse Oximetry 04/03/18 23:25 04/04/18 00:00 04/04/18 01:00 Temperature 98.2 F Pulse Rate 70 71 70 Respiratory Rate 20 Blood Pressure 126/74 Pulse Oximetry 92 L 04/04/18 01:03 04/04/18 02:00 04/04/18 03:00 Temperature 97.8 F Pulse Rate 70 70 Respiratory Rate 18 18 Blood Pressure 114/67 Pulse Oximetry 92 L 04/04/18 04:00 04/04/18 05:00 04/04/18 06:00 Temperature Pulse Rate 70 70 71 Respiratory Rate Blood Pressure Pulse Oximetry 04/04/18 07:14 04/04/18 08:17 04/04/18 09:00 Temperature 98.3 F Pulse Rate 72 70 70 Respiratory Rate 16 Blood Pressure 110/59 L Pulse Oximetry 97 04/04/18 10:00 04/04/18 11:00 04/04/18 11:49 Temperature 98.0 F Pulse Rate 72 70 70 Respiratory Rate 17 Blood Pressure 100/56 L Pulse Oximetry 95 04/04/18 12:00 04/04/18 13:00 04/04/18 13:19 Temperature Pulse Rate 70 70 Respiratory Rate Blood Pressure Pulse Oximetry 95 04/04/18 14:00 04/04/18 15:00 04/04/18 16:00 Temperature 97.5 F L Pulse Rate 70 70 70 Respiratory Rate 17 Blood Pressure 101/58 L Pulse Oximetry 97 Intake & Output 04/03/18 04/04/18 04/04/18 18:59 06:59 18:59 Intake Total 480 / 480 130 / 130 Output Total 875 / 875 2024 Balance -395 / -395 -1895 / -1895 Weight 104.5 kg Intake: IV 100 / 100 Ofirmev Inj 1,000 mg In 100 ml 100 / 100 @ 400 mls/hr IV.SIG Q6H PRN Rx# :[id number] Oral 480 / 480 30 / 30 Output: Urine 550 / 550 300 / 300 Emesis 325 / 325 Gastric Drainage 1725 / 1725 Right Nare 1725 / 1725 Other: Date of Last Bowel Movement 04/04/18 - Constitutional no acute distress - Routine HEENT Exam Head: Present: normocephalic, atraumatic Eye: Present: EOMI ENT: Present: mucous membranes moist - Routine Neck Exam Present: supple - Routine Respiratory Exam Present: CTA bilaterally (Even, unlabored) - Routine Cardiovascular Exam Present: RRR - Routine Abdominal Exam Present: normoactive bowel sounds, distended (Mild, taut) - Routine Skin Exam Present: intact (Midline chest incision clean dry and intact) - Routine Neurological Exam Present: alert, oriented X3 - Detailed Neurological Exam: Coma Scale Eye Opening: Spontaneous Verbal Response: Oriented Motor Response: Obey commands [place] Coma Scale Total: 15 - Urinary Catheter Management Indwelling Temp Sensing Catheter Cath placed during this visit: yes, but has since been removed by the nurse Reason for continuing: Not indwelling catheter Insertion date: 03/30/18 Insertion time: 07:40 Removal date: 03/31/18 Removal time: 05:15 Results - Labs CBC & Chem 7: 04/03/18 05:11 04/03/18 15:15 Laboratory Results - last 24 hr 04/03/18 04/03/18 04/04/18 18:00 21:24 08:10 POC Glucose 144 H 127 H 135 H 04/04/18 04/04/18 11:31 16:07 POC Glucose 139 H 134 H - Imaging Impressions Abdomen X-Ray 04/04/18 00:00 CONCLUSION: Persistent dilatation of multiple bowel loops appears less prominent. - Procedures Echocardiogram The left ventricular systolic function is normal with an estimated ejection fraction in the range of 55-60%. Trace mitral valve regurgitation. There is trace tricuspid valve regurgitation. CABG x 3 on 03/30/2018. Assessment and Plan (1) Abdominal distention Status: Acute Code(s): R14.0 - Abdominal distension (gaseous) (2) Ileus, postoperative Status: Acute Code(s): K91.89 - Other postprocedural complications and disorders of digestive system; K56.7 - Ileus, unspecified - Plan Possible postop small bowel ileus. Patient is day 3 postop from CABG, currently being managed in the cardiac floor. Was treated aggressively on 2017 for constipation, large BM noted after suppository 04/03/2018 without any obvious blood. Patient's currently being managed with Plavix and aspirin 81 mg daily Symptoms of acute onset of nausea and vomiting green bilious fluid at 08 100 04/03. KUB abdominal x-rays on 04/02/2018 showed diffuse distention of the small bowel concerning for ileus. X-rays repeated today and pending. Patient had approximately 350 cc of green bilious bile this a.m. but none since. Patient has large abdomen distended,taut, mild minimal bowel sounds heard in all 4 quadrants Note bilirubin 1.2 normal LFTs. No known hepatocellular disease. Previous colonoscopy out-of-town results unknown. Labs show current hemoglobin 11.2 anemia which is probably secondary postop. Patient has no obvious bleeding. Patient will need colonoscopy time TBA. And EGD. Dyspepsia, acute on chronic 04/04/2018 patient continues to have improvement today. Currently denies any nausea or vomiting NG tube came out accidentally and was not replaced. Patient is tolerating ice chips and water most of the day and diet has been upgraded to full liquids this p.m. per his attending. Repeat KUB abdominal x-rays this morning showed less prominent distention of multiple bowel loops. Patient does have active bowel sounds and continues to show gradual improvement. Patient is ambulating and is currently sitting up in chair. Patient is hoping for discharge tomorrow will need to evaluate in the a.m. if patient continues to tolerate food without nausea and vomiting. Plan Diet upgraded to full liquids for supper Change PPI to IV, can transition to p.o. in a.m. bowel regimen Monitor labs with special attention to hemoglobin and bilirubin Patient was seen per myself and Dr. Thomas, this note was written on her behalf
[2018-04-05] MEDS: Methocarbamol 500 MG Tablet PO SCH ×3 (06:21→22:19)
[2018-04-05] MEDS: Insulin NovoLOG Aspart Correctional Sugar Inj SQ SCH ×4 (08:24→22:17)
[2018-04-05] MEDS: Metoprolol Tartrate 25 MG Tablet PO SCH ×2 (08:25→22:17)
[2018-04-05] MEDS: Multivitamin/Minerals Therapeutic Tablet PO SCH (08:25)
[2018-04-05] MEDS: Docusate Sodium 100 MG Capsule PO SCH ×2 (08:26→22:17)
[2018-04-05] MEDS: Polyethylene Glycol 3350 17 GM Packet PO SCH (08:26)
[2018-04-05] MEDS: Bisacodyl 10 MG Supp RECTAL SCH (08:26)
--- NOTE | 2018-04-05 09:51 | P.PNCA ---
- Note Subjective/Hospital Course: 73-year-old gentleman with history of coronary artery bypass graft, hypertension, and hyperlipidemia, been experiencing chest pain for the past several days, pressure-like, moderate, relieved with nitroglycerin. cath report : multi vessel disease / EF 50% PAST MEDICAL HISTORY: CABG in 2007. He also has a history of permanent pacemaker, DDD lower rate 50 hypertension, polyp removed, CKD baseline creatinine 1.3 surgery 03/30 REDO CABG x 3 SVG to PDA - good SVG to RI - fair SVG to D1 - fair EVH extubated after surgery / 2 pleural tubes / one mediastinal tubes 03/31 painful , no toradol with CKD OOB pulm toileting pain med control transfer to stepdown 04/01 still painful, but some improvement CT x 3 / drained 130/12 hrs and additional 150cc this am bloody drainage/ no air leak pain control pulm toileting creatinine improved 1.23 04/02 c/o of constipation , mild nausea , abdomen distended , Hypoactive bowel sounds pt is passing flatus , narcotics dc , IV Ofirmev, po tylenol stat KUB pending / add reglan chest tube drained 320cc/ 12 hrs , dark old bloody drainage chest tube to suction / leave chest tubes in ambulate as much as possible 04/03 Nauseated and vomiting this morning, otherwise doing well Had BM and flatus Abdomen soft but distended to my exam. No tenderness or guarding KUB with nonspecific distended SB Ambulate NPO except ice-chips May need GI eval if not improved 04/04 Doing better. NGT inadvertently removed. No further N/V Greatly appreciate GI input Feels thirsty and hungry Abdomen soft and less distended OK to advance diet when ok with GI Ambulate 04/05 pt c/o of abdominal pain, worsening from yesterday , also nausea abdomen very distended , hypoactive bowel sounds NG tube replaced, labs and KUB ordered/ NPO except meds / ice chips GI following Objective: Vital Signs - 24 hr 04/04/18 10:00 04/04/18 11:00 04/04/18 11:49 Temperature 98.0 F Pulse Rate 72 70 70 Respiratory Rate 17 Blood Pressure 100/56 L Pulse Oximetry 95 04/04/18 12:00 04/04/18 13:00 04/04/18 13:19 Temperature Pulse Rate 70 70 Respiratory Rate Blood Pressure Pulse Oximetry 95 04/04/18 14:00 04/04/18 15:00 04/04/18 16:00 Temperature 97.5 F L Pulse Rate 70 69 70 Respiratory Rate 17 Blood Pressure 101/58 L Pulse Oximetry 97 04/04/18 17:01 04/04/18 18:00 04/04/18 19:00 Temperature 99.0 F Pulse Rate 73 74 70 Respiratory Rate 16 Blood Pressure 111/59 L Pulse Oximetry 04/04/18 20:00 04/04/18 20:32 04/04/18 21:00 Temperature Pulse Rate 70 70 Respiratory Rate Blood Pressure Pulse Oximetry 95 04/04/18 22:00 04/04/18 23:00 04/05/18 00:00 Temperature 98.8 F Pulse Rate 70 71 70 Respiratory Rate 14 Blood Pressure 107/57 L Pulse Oximetry 04/05/18 00:57 04/05/18 01:00 04/05/18 01:53 Temperature Pulse Rate 70 70 71 Respiratory Rate Blood Pressure Pulse Oximetry 04/05/18 03:00 04/05/18 03:55 04/05/18 05:00 Temperature 97.8 F Pulse Rate 70 71 71 Respiratory Rate 16 Blood Pressure 105/58 L Pulse Oximetry 04/05/18 05:45 04/05/18 07:15 04/05/18 07:59 Temperature 97.7 F Pulse Rate 71 72 76 Respiratory Rate 20 Blood Pressure 106/62 Pulse Oximetry 94 L 04/05/18 09:00 Temperature Pulse Rate 71 Respiratory Rate Blood Pressure Pulse Oximetry GENERAL: SKIN: Warm and dry. prevena dressing to chest HEAD: Normocephalic. EYES: No scleral icterus. No injection or drainage. NECK: Supple, trachea midline. No JVD or lymphadenopathy. CARDIOVASCULAR: Regular rate and rhythm without murmurs, gallops, or rubs. RESPIRATORY: Breath sounds equal bilaterally. No accessory muscle use. GASTROINTESTINAL: Abdomen distended , hypoactive bowel sounds NG tube replaced MUSCULOSKELETAL: No cyanosis, or edema. BACK: Nontender without obvious deformity. No CVA tenderness. Labs: Laboratory Results - last 12 hr 04/05/18 07:45 POC Glucose 157 H Result Diagrams: 04/03/18 05:11 04/03/18 15:15 - Plan (1) S/P CABG x 3 Plan: ASA, statin , BB OOB pulm toieling on nasal cannula leave chest in ambulate (2) CAD (coronary artery disease) (6) Hx of CABG Plan: ASA, statin , BB OOB ambulate (7) Abdominal distention Plan: stat KUB NG tube replaced npo except meds and ice chips (2) CAD (coronary artery disease) Qualifiers: Coronary Disease-Associated Artery/Lesion type: [place] artery Associated angina: with unstable angina
[2018-04-05 10:43] LABS: Baso % (Auto) 0.1 % (0.0-2.0); Eos # (Auto) 0.1 th/mm3 (0.0-0.4); Eos % (Auto) 0.8 % (0.0-4.0); Hematocrit 36.4 % (39.0-51.0); Hemoglobin 12.3 gm/dL (13.0-17.0); Lymph % (Auto) 12.3 % (9.0-44.0); Mean Corpuscular HGB Conc 33.8 % (32.0-36.0); Mean Corpuscular Hemoglobin 30.1 pg (27.0-34.0); Mean Corpuscular Volume 89.1 fL (80.0-100.0); Mean Platelet Volume 7.7 fL (7.0-11.0); Mono # (Auto) 0.8 th/mm3 (0.0-0.9); Mono % (Auto) 9.7 % (0.0-8.0); Neut # (Auto) 6.5 th/mm3 (1.8-7.7); Neut % (Auto) 77.1 % (16.0-70.0); Platelet Count 442 th/mm3 (150-450); Red Blood Count 4.08 mil/mm3 (4.50-5.90); Red Cell Distribution Width 14.2 % (11.6-17.2); White Blood Count 8.5 th/mm3 (4.0-11.0)
--- NOTE | 2018-04-05 11:00 | XR ---
EXAM DATE: 04/05/2018 10:56 AM EDT AGE/SEX: 73 years / Male INDICATIONS: Distention. CLINICAL DATA: This is the patient's initial encounter. Patient reports that signs and symptoms have been present for 4 - 6 days and indicates a pain score of 0/10. MEDICAL/SURGICAL HISTORY: . vomiting today. CABG. COMPARISON: [facility], ABDOMEN 1V KUB, 04/04/2018. . FINDINGS: Moderate gaseous distention of mid small bowel. Scattered nondilated colon. Lung bases clear. Mild d egenerative changes lumbar spine. CONCLUSION: Moderate gaseous distention of proximal small bowel as above. Electronically signed by: Josesito Horton MD 04/05/2018 10:59 AM EDT
--- NOTE | 2018-04-05 11:09 | P.PNGI ---
Subjective Interval history: Pt resting in bed, family at bedside. Per RN pt began vomiting this morning, over 300 cc of emesis. Now with NG tube to LIWS. KUB ordered, shows distention, no transition point. Pt with no BM in two days. Abdomen distended. <Mary Julien - Last Filed: 04/05/18 14:49> Physical Exam Vital signs: Vital Signs 04/04/18 11:49 04/04/18 12:00 04/04/18 13:00 Temperature 98.0 F Pulse Rate 70 70 70 Respiratory Rate 17 Blood Pressure 100/56 L Pulse Oximetry 95 04/04/18 13:19 04/04/18 14:00 04/04/18 15:00 Temperature 97.5 F L Pulse Rate 70 69 Respiratory Rate 17 Blood Pressure 101/58 L Pulse Oximetry 95 97 04/04/18 16:00 04/04/18 17:01 04/04/18 18:00 Temperature Pulse Rate 70 73 74 Respiratory Rate Blood Pressure Pulse Oximetry 04/04/18 19:00 04/04/18 20:00 04/04/18 20:32 Temperature 99.0 F Pulse Rate 70 70 Respiratory Rate 16 Blood Pressure 111/59 L Pulse Oximetry 95 04/04/18 21:00 04/04/18 22:00 04/04/18 23:00 Temperature 98.8 F Pulse Rate 70 70 71 Respiratory Rate 14 Blood Pressure 107/57 L Pulse Oximetry 04/05/18 00:00 04/05/18 00:57 04/05/18 01:00 Temperature Pulse Rate 70 70 70 Respiratory Rate Blood Pressure Pulse Oximetry 04/05/18 01:53 04/05/18 03:00 04/05/18 03:55 Temperature 97.8 F Pulse Rate 71 70 71 Respiratory Rate 16 Blood Pressure 105/58 L Pulse Oximetry 04/05/18 05:00 04/05/18 05:45 04/05/18 07:15 Temperature 97.7 F Pulse Rate 71 71 72 Respiratory Rate 20 Blood Pressure 106/62 Pulse Oximetry 94 L 04/05/18 07:59 04/05/18 09:00 04/05/18 10:00 Temperature Pulse Rate 76 71 70 Respiratory Rate Blood Pressure Pulse Oximetry Intake & Output 04/04/18 04/05/18 04/05/18 18:59 06:59 18:59 Intake Total 701 / 701 480 / 480 Output Total 603 / 603 650 / 650 Balance 98 / 98 -170 / -170 Weight 104.3 kg Intake: Oral 701 / 701 480 / 480 Output: Urine 600 / 600 650 / 650 Stool 3 / 3 Other: Date of Last Bowel Movement 04/04/18 04/04/18 04/04/18 - Constitutional mild distress - Routine HEENT Exam Head: Present: normocephalic, atraumatic - Routine Respiratory Exam Absent: accessory muscle use - Routine Abdominal Exam Present: soft, normoactive bowel sounds, distended. Absent: tenderness, rebound , guarding - Routine Skin Exam Present: dry, warm - Routine Neurological Exam Present: alert - Urinary Catheter Management Indwelling Temp Sensing Catheter Cath placed during this visit: yes, but has since been removed by the nurse Reason for continuing: Not indwelling catheter Insertion date: 03/30/18 Insertion time: 07:40 Removal date: 03/31/18 Removal time: 05:15 <Mary Julien - Last Filed: 04/05/18 14:49> Vital signs: Vital Signs 04/04/18 18:00 04/04/18 19:00 04/04/18 20:00 Temperature 99.0 F Pulse Rate 74 70 70 Respiratory Rate 16 Blood Pressure 111/59 L Pulse Oximetry 04/04/18 20:32 04/04/18 21:00 04/04/18 22:00 Temperature Pulse Rate 70 70 Respiratory Rate Blood Pressure Pulse Oximetry 95 04/04/18 23:00 04/05/18 00:00 04/05/18 00:04 Temperature 98.8 F Pulse Rate 71 70 Respiratory Rate 14 Blood Pressure 107/57 L Pulse Oximetry 92 L 04/05/18 00:57 04/05/18 01:00 04/05/18 01:53 Temperature Pulse Rate 70 70 71 Respiratory Rate Blood Pressure Pulse Oximetry 04/05/18 03:00 04/05/18 03:55 04/05/18 05:00 Temperature 97.8 F Pulse Rate 70 71 71 Respiratory Rate 16 Blood Pressure 105/58 L Pulse Oximetry 04/05/18 05:45 04/05/18 07:15 04/05/18 07:59 Temperature 97.7 F Pulse Rate 71 72 76 Respiratory Rate 20 Blood Pressure 106/62 Pulse Oximetry 94 L 07/09/18 09:00 04/05/18 10:00 04/05/18 11:00 Temperature 97.7 F Pulse Rate 71 70 72 Respiratory Rate 20 Blood Pressure 106/62 Pulse Oximetry 94 L 04/05/18 12:00 04/05/18 13:00 04/05/18 14:00 Temperature Pulse Rate 73 85 69 Respiratory Rate Blood Pressure Pulse Oximetry 04/05/18 14:30 04/05/18 15:00 04/05/18 16:00 Temperature 98.6 F Pulse Rate 60 78 Respiratory Rate Blood Pressure 100/58 L Pulse Oximetry 94 L 94 L 04/05/18 17:00 Temperature Pulse Rate 75 Respiratory Rate Blood Pressure Pulse Oximetry Intake & Output 04/04/18 04/05/18 04/05/18 18:59 06:59 18:59 Intake Total 701 / 701 480 / 480 850 / 850 Output Total 603 / 603 650 / 650 400 / 400 Balance 98 / 98 -170 / -170 450 / 450 Weight 104.3 kg Intake: IV 250 / 250 NS Inj 250 ML @ Wide Open IV. 250 / 250 SIG BOLUS ONE Rx#:[id number] Oral 701 / 701 480 / 480 600 / 600 Output: Urine 600 / 600 650 / 650 Stool 3 / 3 Emesis 300 / 300 Gastric Drainage 100 / 100 Right Nare 100 / 100 Other: Date of Last Bowel Movement 04/04/18 04/04/18 04/04/18 # Bowel Movements 0 - Urinary Catheter Management Indwelling Temp Sensing Catheter Cath placed during this visit: no <Lg Goldstein A - Last Filed: 04/05/18 17:12> Results - Labs CBC & Chem 7: 04/05/18 10:24 04/05/18 10:24 Laboratory Results - last 24 hr 04/04/18 04/04/18 04/04/18 11:31 16:07 20:08 WBC RBC Hgb Hct MCV MCH MCHC RDW Plt Count MPV Neut % (Auto) Lymph % (Auto) [place] % (Auto) Eos % (Auto) Baso % (Auto) Neut # (Auto) Lymph # (Auto) [place] # (Auto) Eos # (Auto) Baso # (Auto) WBC Differential Differential Comment POC Glucose 139 H 134 H 163 H 07/06/1504/05/18 04/05/18 07:45 10:24 10:59 WBC 8.5 RBC 4.08 L Hgb 12.3 L Hct 36.4 L MCV 89.1 MCH 30.1 MCHC 33.8 RDW 14.2 Plt Count 442 D MPV 7.7 Neut % (Auto) 77.1 H Lymph % (Auto) 12.3 [place] % (Auto) 9.7 H Eos % (Auto) 0.8 Baso % (Auto) 0.1 Neut # (Auto) 6.5 Lymph # (Auto) 1.0 [place] # (Auto) 0.8 Eos # (Auto) 0.1 Baso # (Auto) 0.0 WBC Differential . Differential Comment Auto diff final POC Glucose 157 H 146 H - Imaging Impressions Abdomen X-Ray 04/05/18 09:46 CONCLUSION: Moderate gaseous distention of proximal small bowel as above. - Procedures Echocardiogram The left ventricular systolic function is normal with an estimated ejection fraction in the range of 55-60%. Trace mitral valve regurgitation. There is trace tricuspid valve regurgitation. CABG x 3 on 03/30/2018. <Mary Julien - Last Filed: 04/05/18 14:49> - Labs CBC & Chem 7: 04/05/18 10:24 04/05/18 10:24 Laboratory Results - last 24 hr 04/04/18 04/05/18 04/05/18 20:08 07:45 10:24 WBC 8.5 RBC 4.08 L Hgb 12.3 L Hct 36.4 L MCV 89.1 MCH 30.1 MCHC 33.8 RDW 14.2 Plt Count 442 D MPV 7.7 Neut % (Auto) 77.1 H Lymph % (Auto) 12.3 [place] % (Auto) 9.7 H Eos % (Auto) 0.8 Baso % (Auto) 0.1 Neut # (Auto) 6.5 Lymph # (Auto) 1.0 [place] # (Auto) 0.8 Eos # (Auto) 0.1 Baso # (Auto) 0.0 WBC Differential . Differential Comment Auto diff final Sodium Potassium Chloride Carbon Dioxide Anion Gap BUN Creatinine Estimated GFR POC Glucose 163 H 157 H Random Glucose Calcium Total Bilirubin AST ALT Alkaline Phosphatase Total Protein Albumin Amylase Lipase 04/05/18 04/05/18 04/05/18 10:24 10:59 16:06 WBC RBC Hgb Hct MCV MCH MCHC RDW Plt Count MPV Neut % (Auto) Lymph % (Auto) [place] % (Auto) Eos % (Auto) Baso % (Auto) Neut # (Auto) Lymph # (Auto) [place] # (Auto) Eos # (Auto) Baso # (Auto) WBC Differential Differential Comment Sodium 132 L Potassium 3.5 Chloride 90 L Carbon Dioxide 29.7 Anion Gap 12 BUN 69 H Creatinine 2.07 H Estimated GFR 32 L POC Glucose 146 H 130 H Random Glucose 149 H Calcium 8.9 Total Bilirubin 1.4 H AST 24 ALT 29 Alkaline Phosphatase 53 Total Protein 7.2 D Albumin 3.4 Amylase 126 H Lipase 1689 H - Imaging Impressions Abdomen X-Ray 04/05/18 09:46 CONCLUSION: Moderate gaseous distention of proximal small bowel as above. <Lg Goldstein - Last Filed: 04/05/18 17:12> Assessment and Plan (1) Abdominal distention Status: Acute Code(s): R14.0 - Abdominal distension (gaseous) (2) Ileus, postoperative Status: Acute Code(s): K91.89 - Other postprocedural complications and disorders of digestive system; K56.7 - Ileus, unspecified - Plan Assessment: - Ileus S/P CABG Pt began vomiting this morning, according to RN approximately 300 cc of emesis. Now with NG to LIWS. Repeat KUB revealed moderate gaseous distention of proximal small bowel as above, no transition point noted by radiologist. - Elevated lipase-Lipase 1689 Pt denies history of pancreatitis. Does reports daily ETOH, wine with dinner but has not had any alcohol since day prior to admission 11 days ago. Denies family history and personal history of pancreatic and liver issues. Pt still has his gallbladder ? medication induced Plan: CT abdomen and pelvis WO contrast (poor renal function and will not tolerate PO contrast) Add Reglan Relistor x 1 Phenergan on hold NG to LIWS NPO now Can have ice chips Bowel regimen Repeat KUB in AM Further recommendations based on clinical course Patient has been seen and examined by myself and Dr. Goldstein and this note is written on his behalf <Mary Julien - Last Filed: 04/05/18 14:49> (1) Abdominal distention Status: Acute Code(s): R14.0 - Abdominal distension (gaseous) (2) Ileus, postoperative Status: Acute Code(s): K91.89 - Other postprocedural complications and disorders of digestive system; K56.7 - Ileus, unspecified - Attending Attestation Seen and examined, plan as above, discussed with and nursing staff. Will recheck KUB in AM, rectal tube if no improvement by tomorrow. Further recommendations to follow. <Lg Goldstein - Last Filed: 04/05/18 17:12>
[2018-04-05 11:19] LABS: Alanine Aminotransferase 29 U/L (12-78); Albumin 3.4 g/dL (3.4-5.0); Alkaline Phosphatase 53 U/L (45-117); Amylase 126 U/L (25-115); Anion Gap 12 meq/L (5-15); Aspartate Aminotransferase 24 U/L (15-37); Blood Urea Nitrogen 69 mg/dL (7-18); Calcium 8.9 mg/dL (8.5-10.1); Carbon Dioxide 29.7 meq/L (21.0-32.0); Chloride 90 meq/L (98-107); Glomerular Filtration Rate 32 mL/min (>89); Glucose,Random 149 mg/dL (74-106); Lipase 1689 U/L (73-393); Potassium 3.5 meq/L (3.5-5.1); Sodium 132 meq/L (136-145); Total Protein 7.2 g/dL (6.4-8.2)
[2018-04-05] MEDS ORDERED: Potassium Chlor 20 mEq Premix 20 MEQ/100 ML PIGGYBACK IV.SIG ONE ×2 (13:03→13:15)
[2018-04-05] MEDS ORDERED: Sodium Chlor 0.9% Inj 250 ML IV.SIG ONE (13:10)
[2018-04-05] MEDS ORDERED: Methylnaltrexone Inj 12 MG/0.6 ML Vial SQ ONE (16:00)
--- NOTE | 2018-04-05 18:14 | P.PN ---
Subjective Interval history: Follow up for multivessel CAD s/p CABG x 3. Patient, unfortunately, started having abdominal distension, nausea, vomiting again. NG tube again placed. Currently NPO. He reports no abdominal pain, however. Physical Exam Vital signs: Vital Signs 04/04/18 19:00 04/04/18 20:00 04/04/18 20:32 Temperature 99.0 F Pulse Rate 70 70 Respiratory Rate 16 Blood Pressure 111/59 L Pulse Oximetry 95 04/04/18 21:00 04/04/18 22:00 04/04/18 23:00 Temperature 98.8 F Pulse Rate 70 70 71 Respiratory Rate 14 Blood Pressure 107/57 L Pulse Oximetry 04/05/18 00:00 04/05/18 00:04 04/05/18 00:57 Temperature Pulse Rate 70 70 Respiratory Rate Blood Pressure Pulse Oximetry 92 L 04/05/18 01:00 04/05/18 01:53 04/05/18 03:00 Temperature 97.8 F Pulse Rate 70 71 70 Respiratory Rate 16 Blood Pressure 105/58 L Pulse Oximetry 04/05/18 03:55 04/05/18 05:00 04/05/18 05:45 Temperature Pulse Rate 71 71 71 Respiratory Rate Blood Pressure Pulse Oximetry 04/05/18 07:15 04/05/18 07:59 04/05/18 09:00 Temperature 97.7 F Pulse Rate 72 76 71 Respiratory Rate 20 Blood Pressure 106/62 Pulse Oximetry 94 L 04/05/18 10:00 04/05/18 11:00 04/05/18 12:00 Temperature 97.7 F Pulse Rate 70 72 73 Respiratory Rate 20 Blood Pressure 106/62 Pulse Oximetry 94 L 04/05/18 13:00 04/05/18 14:00 04/05/18 14:30 Temperature Pulse Rate 85 69 Respiratory Rate Blood Pressure Pulse Oximetry 94 L 04/05/18 15:00 04/05/18 16:00 04/05/18 17:00 Temperature 98.6 F Pulse Rate 60 78 75 Respiratory Rate Blood Pressure 100/58 L Pulse Oximetry 94 L 94 L 04/05/18 17:10 Temperature Pulse Rate Respiratory Rate Blood Pressure Pulse Oximetry 95 Intake & Output 04/04/18 04/05/18 04/05/18 18:59 06:59 18:59 Intake Total 701 / 701 480 / 480 850 / 850 Output Total 603 / 603 650 / 650 400 / 400 Balance 98 / 98 -170 / -170 450 / 450 Weight 104.3 kg Intake: IV 250 / 250 NS Inj 250 ML @ Wide Open IV. 250 / 250 SIG BOLUS ONE Rx#:[id number] Oral 701 / 701 480 / 480 600 / 600 Output: Urine 600 / 600 650 / 650 Stool 3 / 3 Emesis 300 / 300 Gastric Drainage 100 / 100 Right Nare 100 / 100 Other: Date of Last Bowel Movement 04/04/18 04/04/18 04/04/18 # Bowel Movements 0 Narrative: GENERAL: Alert, Oriented x 3, NAD. Appears exhausted. SKIN: Warm and dry. HEAD: Normocephalic. EYES: No scleral icterus. No injection or drainage. NECK: Supple, trachea midline. No JVD or lymphadenopathy. CARDIOVASCULAR: Regular rate and rhythm without murmurs, gallops, or rubs. RESPIRATORY: Breath sounds equal bilaterally. No accessory muscle use. s/p CABG. GASTROINTESTINAL: Abdomen firm, distended but not tender to palpation. MUSCULOSKELETAL: No cyanosis, or edema. BACK: Nontender without obvious deformity. No CVA tenderness. - Urinary Catheter Management Indwelling Temp Sensing Catheter Cath placed during this visit: yes, but has since been removed by the nurse Reason for continuing: Not indwelling catheter Insertion date: 03/30/18 Insertion time: 07:40 Removal date: 03/31/18 Removal time: 05:15 Results - Labs CBC & Chem 7: 04/05/18 10:24 04/05/18 10:24 Laboratory Results - last 24 hr 04/04/18 04/05/18 04/05/18 20:08 07:45 10:24 WBC 8.5 RBC 4.08 L Hgb 12.3 L Hct 36.4 L MCV 89.1 MCH 30.1 MCHC 33.8 RDW 14.2 Plt Count 442 D MPV 7.7 Neut % (Auto) 77.1 H Lymph % (Auto) 12.3 [place] % (Auto) 9.7 H Eos % (Auto) 0.8 Baso % (Auto) 0.1 Neut # (Auto) 6.5 Lymph # (Auto) 1.0 [place] # (Auto) 0.8 Eos # (Auto) 0.1 Baso # (Auto) 0.0 WBC Differential . Differential Comment Auto diff final Sodium Potassium Chloride Carbon Dioxide Anion Gap BUN Creatinine Estimated GFR POC Glucose 163 H 157 H Random Glucose Calcium Total Bilirubin AST ALT Alkaline Phosphatase Total Protein Albumin Amylase Lipase 04/05/18 04/05/18 04/05/18 10:24 10:59 16:06 WBC RBC Hgb Hct MCV MCH MCHC RDW Plt Count MPV Neut % (Auto) Lymph % (Auto) [place] % (Auto) Eos % (Auto) Baso % (Auto) Neut # (Auto) Lymph # (Auto) [place] # (Auto) Eos # (Auto) Baso # (Auto) WBC Differential Differential Comment Sodium 132 L Potassium 3.5 Chloride 90 L Carbon Dioxide 29.7 Anion Gap 12 BUN 69 H Creatinine 2.07 H Estimated GFR 32 L POC Glucose 146 H 130 H Random Glucose 149 H Calcium 8.9 Total Bilirubin 1.4 H AST 24 ALT 29 Alkaline Phosphatase 53 Total Protein 7.2 D Albumin 3.4 Amylase 126 H Lipase 1689 H - Imaging Impressions Abdomen X-Ray 04/05/18 09:46 CONCLUSION: Moderate gaseous distention of proximal small bowel as above. - Procedures Echocardiogram The left ventricular systolic function is normal with an estimated ejection fraction in the range of 55-60%. Trace mitral valve regurgitation. There is trace tricuspid valve regurgitation. CABG x 3 on 03/30/2018. Assessment and Plan - Assessment (1) NSTEMI (non-ST elevated myocardial infarction) Code(s): I21.4 - Non-ST elevation (NSTEMI) myocardial infarction Status: Acute (2) Multi-vessel coronary artery stenosis Code(s): I25.10 - Atherosclerotic heart disease of [place] coronary artery without angina pectoris Status: Acute - Plan 73-year-old white male being admitted for suspected NSTEMI. Cardiac cath showed multivessel CAD. Patient subsequently underwent CABG x3. Multivessel Coronary artery disease NSTEMI -Cardiac catheterization shows three-vessel disease not amenable for PCI. -Status post CABG x 3 on 03/30/2017. -Continue aspirin 81mg, Lipitor 40mg HS and Lopressor 25 mg twice daily, Plavix. -Chest tube discontinued 04/02/2018. Ileus - Abdominal distention, nausea, vomiting again developed today. GI is following and and ordered CT Abdomen. - Continue NG tube suction. Acute kidney injury - ISA inhibitor on hold for now. - Avoid nephrotoxins. Creatinine 1.40 --> 1.23 ==> 2.07. Currently getting gentle hydration. Back pain - Percocet 7.5mg Q4hrs PRN Full code. Ambulation.
--- NOTE | 2018-04-05 18:49 | P.PNCA ---
Subjective Interval history: Patient was seen earlier today No chest pain/SOB Abdominal distention/nauseated Physical Exam Vital signs: Vital Signs 04/04/18 19:00 04/04/18 20:00 04/04/18 20:32 Temperature 99.0 F Pulse Rate 70 70 Respiratory Rate 16 Blood Pressure 111/59 L Pulse Oximetry 95 04/04/18 21:00 04/04/18 22:00 04/04/18 23:00 Temperature 98.8 F Pulse Rate 70 70 71 Respiratory Rate 14 Blood Pressure 107/57 L Pulse Oximetry 04/05/18 00:00 04/05/18 00:04 04/05/18 00:57 Temperature Pulse Rate 70 70 Respiratory Rate Blood Pressure Pulse Oximetry 92 L 04/05/18 01:00 04/05/18 01:53 04/05/18 03:00 Temperature 97.8 F Pulse Rate 70 71 70 Respiratory Rate 16 Blood Pressure 105/58 L Pulse Oximetry 04/05/18 03:55 04/05/18 05:00 04/05/18 05:45 Temperature Pulse Rate 71 71 71 Respiratory Rate Blood Pressure Pulse Oximetry 04/05/18 07:15 04/05/18 07:59 04/05/18 09:00 Temperature 97.7 F Pulse Rate 72 76 71 Respiratory Rate 20 Blood Pressure 106/62 Pulse Oximetry 94 L 04/05/18 10:00 04/05/18 11:00 04/05/18 12:00 Temperature 97.7 F Pulse Rate 70 72 73 Respiratory Rate 20 Blood Pressure 106/62 Pulse Oximetry 94 L 04/05/18 13:00 04/05/18 14:00 04/05/18 14:30 Temperature Pulse Rate 85 69 Respiratory Rate Blood Pressure Pulse Oximetry 94 L 04/05/18 15:00 04/05/18 16:00 04/05/18 17:00 Temperature 98.6 F Pulse Rate 60 78 75 Respiratory Rate Blood Pressure 100/58 L Pulse Oximetry 94 L 94 L 04/05/18 17:10 04/05/18 18:00 Temperature Pulse Rate 71 Respiratory Rate Blood Pressure Pulse Oximetry 95 Intake & Output 04/04/18 04/05/18 04/05/18 18:59 06:59 18:59 Intake Total 701 / 701 480 / 480 850 / 850 Output Total 603 / 603 650 / 650 400 / 400 Balance 98 / 98 -170 / -170 450 / 450 Weight 104.3 kg Intake: IV 250 / 250 NS Inj 250 ML @ Wide Open IV. 250 / 250 SIG BOLUS ONE Rx#:[id number] Oral 701 / 701 480 / 480 600 / 600 Output: Urine 600 / 600 650 / 650 Stool 3 / 3 Emesis 300 / 300 Gastric Drainage 100 / 100 Right Nare 100 / 100 Other: Date of Last Bowel Movement 04/04/18 04/04/18 04/04/18 # Bowel Movements 0 Narrative: GENERAL: Alert, Oriented x 3, NAD. SKIN: Warm and dry. HEAD: Normocephalic. EYES: No scleral icterus. No injection or drainage. NECK: Supple, trachea midline. No JVD or lymphadenopathy. CARDIOVASCULAR: Regular rate and rhythm without murmurs, gallops, or rubs. Sternotomy C/D/I RESPIRATORY: Breath sounds equal bilaterally. No accessory muscle use. GASTROINTESTINAL: Abdomen firm, distended but not tender to palpation. MUSCULOSKELETAL: No cyanosis, or edema. BACK: Nontender without obvious deformity. No CVA tenderness. - Urinary Catheter Management Indwelling Temp Sensing Catheter Cath placed during this visit: yes, but has since been removed by the nurse Reason for continuing: Not indwelling catheter Insertion date: 03/30/18 Insertion time: 07:40 Removal date: 03/31/18 Removal time: 05:15 Assessment and Plan - Assessment (1) CAD (coronary artery disease) Code(s): I25.10 - Atherosclerotic heart disease of [place] coronary artery without angina pectoris Status: Acute (2) Unstable angina Code(s): I20.0 - Unstable angina Status: Acute (3) NSTEMI (non-ST elevated myocardial infarction) Code(s): I21.4 - Non-ST elevation (NSTEMI) myocardial infarction Status: Acute (4) Multi-vessel coronary artery stenosis Code(s): I25.10 - Atherosclerotic heart disease of [place] coronary artery without angina pectoris Status: Acute (5) Hx of CABG Code(s): Z95.1 - Presence of aortocoronary bypass graft Status: Acute - Plan 1) CAD/NSTEMI s/p CABG x3 POD #6 SVG to PDA SVG to Ramus SVG to Diagonal Previous Hx of CABG (1/3 grafts patent) COOPER to LAD patent 2) Supportive care 3) ASA/Statin/BB ISA-I on hold for now with CKD 4) Post-op ileus Followed by GI (1) CAD (coronary artery disease) Qualifiers: Coronary Disease-Associated Artery/Lesion type: [place] artery Associated angina: with unstable angina
[2018-04-06 02:38] LABS: Bilirubin,Urine Negative (Negative); Clarity,Urine Cloudy (Clear); Color,Urine Amber (Yellw/Straw); Glucose,Urine (UA) Negative (Negative); Hyaline Casts,Urine 76 /lpf (0-3); Leukocyte Esterase,Urine Negative (Negative); Mucus,Urine Few /lpf (Occasional); Nitrite,Urine Negative (Negative); Squamous Epithelial Cell,Urine 1 /hpf (0-5)
[2018-04-06] MEDS ORDERED: Atropine Inj 1 MG/10 ML Syringe ONE (04:39)
--- NOTE | 2018-04-06 05:28 | CT ---
EXAM DATE: 04/06/2018 5:01 AM EDT AGE/SEX: 73 years / Male INDICATIONS: Abdomen pain; increased distention. CLINICAL DATA: This is the patient's initial encounter. Patient reports that signs and symptoms have been present for 1 day and indicates a pain score of 7/10. MEDICAL/SURGICAL HISTORY: Cardiovascular disease. None. RADIATION DOSE: 9.96 CTDI (mGy) COMPARISON: [facility], ABDOMEN 1V KUB, 04/06/2018. . TECHNIQUE: Multiple contiguous axial images were obtained through the abdomen. Images were obtained using multiple row detector helical technique. Using automated exposure control and adjustment of the mA and/or kV according to patient size, radiation dose was kept as low as reasonably achievable to o btain optimal diagnostic quality images. DICOM format image data is available electronically for rev iew and comparison. FINDINGS: LOWER LUNGS: Airspace consolidation at the lung bases bilaterally. There is a partially imaged cristhian ter in the right mainstem bronchus. LIVER: The liver has a homogeneous density without space-occupying lesion. There is no dilation of t he biliary tree. Gallbladder is distended but otherwise unremarkable by CT. SPLEEN: Homogeneous density without enlargement. PANCREAS: Unremarkable without mass or calcification. KIDNEYS: 2.4 cm cyst in the mid right kidney. No radiopaque renal calculi or hydronephrosis. ADRENAL GLANDS: Unremarkable. AORTA: [place]-aneurysmal. BOWEL/MESENTERY: Mild sigmoid diverticulosis. The colon is decompressed. Small bowel are diffusely f luid-filled and distended to the distal ileum with a relative transition point in the right lower steve drant. Stomach is also fluid-filled and significantly distended. No free fluid or drainable fluid col lections. No pneumatosis or free air. ABDOMINAL WALL: Intact. RETROPERITONEUM: No evidence of adenopathy in the retrocrural, para-aortic, or deep pelvic regions. BLADDER: Contours are smooth. REPRODUCTIVE: No abnormal masses or calcifications seen. BONY STRUCTURES: Degenerative spondylosis of the lower lumbar spine. CONCLUSION: 1. Findings most consistent with distal small bowel obstruction. Significantly distended stomach and diffuse small bowel distention with relative transition point in the distal ileum in the right lower quadrant. No bowel infarction or perforation at this time. 2. NG tube is in the right mainstem bronchus. 3. Bilateral lower lobe lobe airspace consolidation. 4. Additional ancillary findings, as above. Findings were personally discussed with the patient's nurse, Lennie, at the time of this dictation. Electronically signed by: Modesto Benson MD 04/06/2018 5:27 AM EDT
--- NOTE | 2018-04-06 06:26 | XR ---
EXAM DATE: 04/06/2018 5:34 AM EDT AGE/SEX: 73 years / Male INDICATIONS: Ileus, NG tube placement. CLINICAL DATA: This is the patient's subsequent encounter. Patient reports that signs and symptoms h ave been present for 1 week and indicates a pain score of 0/10. MEDICAL/SURGICAL HISTORY: Non-responsive. CABG. Pacemaker. COMPARISON: [facility] [place] & [place]ELVIS W/O CONTRAST, 04/06/2018. . FINDINGS: NGT is in the right lung. Distended air-filled loops of small bowel throughout the abdomen. Stool is seen in the colon. No gross free air or pneumatosis. No abnormal calcifications. Osseous structures are intact. CONCLUSION: 1. NGT in the right lung. 2. Findings consistent with distal small bowel obstruction. Patient's nurse, Lennie, is aware of findings. Electronically signed by: Modesto Benson MD 04/06/2018 6:24 AM EDT
--- NOTE | 2018-04-06 07:07 | XR ---
EXAM DATE: 04/06/2018 6:57 AM EDT AGE/SEX: 73 years / Male INDICATIONS: NG tube placement. CLINICAL DATA: This is the patient's subsequent encounter. Patient reports that signs and symptoms h ave been present for 4 - 6 days and indicates a pain score of 5/10. MEDICAL/SURGICAL HISTORY: None. CABG. Pacemaker. COMPARISON: [facility], ABDOMEN 1V KUB, 04/06/2018. . FINDINGS: Median sternotomy wires and CABG markers are noted as well as a pacer device from a left subclavian t ransvenous approach. There is gaseous distention of the stomach. An enteric tube is suspected overlyi ng the mid esophagus, distal tip terminating over the expected location of the mid esophagus. Basilar airspace disease. CONCLUSION: Enteric tube as above. Electronically signed by: August Estrada MD 04/06/2018 7:06 AM EDT
[2018-04-06 08:06] LABS: Hematocrit 33.6 % (39.0-51.0); Hemoglobin 11.3 gm/dL (13.0-17.0); Lymph # (Auto) 0.5 th/mm3 (1.0-4.8); Lymph % (Auto) 4.2 % (9.0-44.0); Mean Corpuscular HGB Conc 33.7 % (32.0-36.0); Mean Corpuscular Hemoglobin 30.2 pg (27.0-34.0); Mean Corpuscular Volume 89.5 fL (80.0-100.0); Mean Platelet Volume 7.9 fL (7.0-11.0); Mono # (Auto) 0.7 th/mm3 (0.0-0.9); Mono % (Auto) 5.7 % (0.0-8.0); Neut # (Auto) 11.4 th/mm3 (1.8-7.7); Neut % (Auto) 90.1 % (16.0-70.0); Platelet Count 467 th/mm3 (150-450); Red Blood Count 3.76 mil/mm3 (4.50-5.90); Red Cell Distribution Width 14.5 % (11.6-17.2); White Blood Count 12.6 th/mm3 (4.0-11.0)
[2018-04-06] MEDS: Methocarbamol 500 MG Tablet PO SCH ×3 (08:25→21:29)
[2018-04-06] MEDS: Insulin NovoLOG Aspart Correctional Sugar Inj SQ SCH ×4 (08:26→21:30)
[2018-04-06 08:41] LABS: Alanine Aminotransferase 22 U/L (12-78); Albumin 2.9 g/dL (3.4-5.0); Alkaline Phosphatase 50 U/L (45-117); Anion Gap 14 meq/L (5-15); Aspartate Aminotransferase 16 U/L (15-37); Blood Urea Nitrogen 89 mg/dL (7-18); Calcium 7.7 mg/dL (8.5-10.1); Carbon Dioxide 30.6 meq/L (21.0-32.0); Chloride 89 meq/L (98-107); Glomerular Filtration Rate 14 mL/min (>89); Glucose,Random 153 mg/dL (74-106); Lipase 881 U/L (73-393); Sodium 134 meq/L (136-145); Total Protein 6.7 g/dL (6.4-8.2)
--- NOTE | 2018-04-06 10:36 | P.PNIM ---
Subjective Interval history: 7-9 Follow up for multivessel CAD s/p CABG x 3. Patient, unfortunately, started having abdominal distension, nausea, vomiting again. NG tube again placed. Currently NPO. He reports no abdominal pain, however. 7-10 LOTS OF OUTPUT FROM NGT TO GO FOR RADIOLOGICAL STUDIES TODAY NOT PASSING ANY GAS HYPOACTIVE BOWEL SOUNDS DW RN AND PT AND FAMILY AND CM Physical Exam Vital signs: Vital Signs 04/05/18 11:00 04/05/18 12:00 04/05/18 13:00 Temperature 97.7 F Pulse Rate 72 73 85 Respiratory Rate 20 Blood Pressure 106/62 Pulse Oximetry 94 L 04/05/18 14:00 04/05/18 14:30 04/05/18 15:00 Temperature 98.6 F Pulse Rate 69 60 Respiratory Rate Blood Pressure 100/58 L Pulse Oximetry 94 L 94 L 04/05/18 16:00 04/05/18 17:00 04/05/18 17:10 Temperature Pulse Rate 78 75 Respiratory Rate Blood Pressure Pulse Oximetry 94 L 95 04/05/18 18:00 04/05/18 19:00 04/05/18 20:00 Temperature 98.8 F Pulse Rate 71 74 70 Respiratory Rate 16 Blood Pressure 98/56 L Pulse Oximetry 04/05/18 21:00 04/05/18 22:00 04/05/18 23:00 Temperature 97.9 F Pulse Rate 76 72 72 Respiratory Rate 14 Blood Pressure 101/57 L Pulse Oximetry 93 L 04/06/18 00:00 04/06/18 01:00 04/06/18 02:00 Temperature Pulse Rate 74 72 76 Respiratory Rate Blood Pressure Pulse Oximetry 04/06/18 03:00 04/06/18 03:55 04/06/18 04:00 Temperature 98.2 F Pulse Rate 73 79 72 Respiratory Rate 18 Blood Pressure 127/57 L Pulse Oximetry 04/06/18 05:00 04/06/18 06:00 04/06/18 07:51 Temperature 97.9 F Pulse Rate 78 75 80 Respiratory Rate 16 Blood Pressure 103/51 L Pulse Oximetry 94 L Intake & Output 04/05/18 04/06/18 04/06/18 18:59 06:59 18:59 Intake Total 850 / 850 1000 / 1000 Output Total 400 / 400 600 / 600 Balance 450 / 450 400 / 400 Weight 105.8 kg Intake: IV 250 / 250 1000 / 1000 NS + KCl 20 mEq Inj 1,000 ML @ 1000 / 1000 100 mls/hr IV.CONT .Q10H MIKE Rx #:[id number] NS Inj 250 ML @ Wide Open IV. 250 / 250 SIG BOLUS ONE Rx#:[id number] Oral 600 / 600 Output: Urine 600 / 600 Emesis 300 / 300 Gastric Drainage 100 / 100 Right Nare 100 / 100 Other: Date of Last Bowel Movement 04/04/18 # Bowel Movements 0 Narrative: GENERAL: Alert, Oriented x 3, NAD. SKIN: Warm and dry. HEAD: Normocephalic. Atraumatic EYES: No scleral icterus. No injection or drainage. PERRLA extraocular muscles intact NECK: Supple, trachea midline. No JVD or lymphadenopathy. CARDIOVASCULAR: Regular rate and rhythm without murmurs, gallops, or rubs. Sternotomy C/D/I S1-S2 no S3 or S4 RESPIRATORY: Breath sounds equal bilaterally. No accessory muscle use. GASTROINTESTINAL: Abdomen firm, distended but not tender to palpation. Hypoactive bowel sounds MUSCULOSKELETAL: No cyanosis, or edema. Motor strength is 4 out of 5 in upper extremity lower extremity bilaterally BACK: Nontender without obvious deformity. No CVA tenderness. Insight and judgment is good Mood and behaviors are appropriate - Urinary Catheter Management Indwelling Temp Sensing Catheter Cath placed during this visit: yes, but has since been removed by the nurse Reason for continuing: Not indwelling catheter Insertion date: 03/30/18 Insertion time: 07:40 Removal date: 03/31/18 Removal time: 05:15 Results - Labs CBC & Chem 7: 04/06/18 07:35 04/06/18 07:35 Laboratory Results - last 24 hr 04/05/18 04/05/18 04/05/18 10:24 10:24 10:59 WBC 8.5 RBC 4.08 L Hgb 12.3 L Hct 36.4 L MCV 89.1 MCH 30.1 MCHC 33.8 RDW 14.2 Plt Count 442 D MPV 7.7 Neut % (Auto) 77.1 H Lymph % (Auto) 12.3 [place] % (Auto) 9.7 H Eos % (Auto) 0.8 Baso % (Auto) 0.1 Neut # (Auto) 6.5 Lymph # (Auto) 1.0 [place] # (Auto) 0.8 Eos # (Auto) 0.1 Baso # (Auto) 0.0 WBC Differential . Differential Comment Auto diff final Sodium 132 L Potassium 3.5 Chloride 90 L Carbon Dioxide 29.7 Anion Gap 12 BUN 69 H Creatinine 2.07 H Estimated GFR 32 L POC Glucose 146 H Random Glucose 149 H Calcium 8.9 Total Bilirubin 1.4 H AST 24 ALT 29 Alkaline Phosphatase 53 Total Protein 7.2 D Albumin 3.4 Amylase 126 H Lipase 1689 H Urine Color Urine Clarity Urine pH Ur Specific [place] Urine Protein Urine Glucose (UA) Urine Ketones Urine Occult Blood Urine Nitrate Urine Bilirubin Urine Urobilinogen Ur Leukocyte Esterase Urine RBC Urine WBC Ur Squamous Epith Cells Hyaline Casts Granular Casts Urine Mucus 04/05/18 04/05/18 04/06/18 16:06 21:50 02:15 WBC RBC Hgb Hct MCV MCH MCHC RDW Plt Count MPV Neut % (Auto) Lymph % (Auto) [place] % (Auto) Eos % (Auto) Baso % (Auto) Neut # (Auto) Lymph # (Auto) [place] # (Auto) Eos # (Auto) Baso # (Auto) WBC Differential Differential Comment Sodium Potassium Chloride Carbon Dioxide Anion Gap BUN Creatinine Estimated GFR POC Glucose 130 H 148 H Random Glucose Calcium Total Bilirubin AST ALT Alkaline Phosphatase Total Protein Albumin Amylase Lipase Urine Color [place] Urine Clarity Cloudy H Urine pH 5.0 Ur Specific [place] 1.020 Urine Protein Negative Urine Glucose (UA) Negative Urine Ketones Trace Urine Occult Blood Negative Urine Nitrate Negative Urine Bilirubin Negative Urine Urobilinogen 2.0 H Ur Leukocyte Esterase Negative Urine RBC 1 Urine WBC 3 Ur Squamous Epith Cells 1 Hyaline Casts 76 Granular Casts 24 Urine Mucus Few H 04/06/18 04/06/18 04/06/18 07:35 07:35 08:11 WBC 12.6 H RBC 3.76 L Hgb 11.3 L Hct 33.6 L MCV 89.5 MCH 30.2 MCHC 33.7 RDW 14.5 Plt Count 467 H MPV 7.9 Neut % (Auto) 90.1 H Lymph % (Auto) 4.2 L [place] % (Auto) 5.7 Eos % (Auto) 0.0 Baso % (Auto) 0.0 Neut # (Auto) 11.4 H Lymph # (Auto) 0.5 L [place] # (Auto) 0.7 Eos # (Auto) 0.0 Baso # (Auto) 0.0 WBC Differential . Differential Comment Auto diff final Sodium 134 L Potassium 4.0 Chloride 89 L Carbon Dioxide 30.6 Anion Gap 14 BUN 89 H Creatinine 4.16 H Estimated GFR 14 L POC Glucose 170 H Random Glucose 153 H Calcium 7.7 L D Total Bilirubin 1.4 H AST 16 ALT 22 Alkaline Phosphatase 50 Total Protein 6.7 Albumin 2.9 L Amylase Lipase 881 H Urine Color Urine Clarity Urine pH Ur Specific [place] Urine Protein Urine Glucose (UA) Urine Ketones Urine Occult Blood Urine Nitrate Urine Bilirubin Urine Urobilinogen Ur Leukocyte Esterase Urine RBC Urine WBC Ur Squamous Epith Cells Hyaline Casts Granular Casts Urine Mucus - Imaging Impressions Abdomen X-Ray 04/05/18 09:46 CONCLUSION: Moderate gaseous distention of proximal small bowel as above. Abdomen X-Ray 04/06/18 00:00 CONCLUSION: Enteric tube as above. Abdomen/Pelvis CT 04/06/18 00:00 CONCLUSION: 1. Findings most consistent with distal small bowel obstruction. Significantly distended stomach and diffuse small bowel distention with relative transition point in the distal ileum in the right lower quadrant. No bowel infarction or perforation at this time. 2. NG tube is in the right mainstem bronchus. 3. Bilateral lower lobe lobe airspace consolidation. 4. Additional ancillary findings, as above. Findings were personally discussed with the patient's nurse, Lennie, at the time of this dictation. Abdomen X-Ray 04/06/18 08:00 CONCLUSION: 1. NGT in the right lung. 2. Findings consistent with distal small bowel obstruction. Patient's nurse, Lennie, is aware of findings. - Procedures Echocardiogram The left ventricular systolic function is normal with an estimated ejection fraction in the range of 55-60%. Trace mitral valve regurgitation. There is trace tricuspid valve regurgitation. CABG x 3 on 03/30/2018. Assessment and Plan - Assessment (1) NSTEMI (non-ST elevated myocardial infarction) Code(s): I21.4 - Non-ST elevation (NSTEMI) myocardial infarction Status: Acute (2) Multi-vessel coronary artery stenosis Code(s): I25.10 - Atherosclerotic heart disease of [place] coronary artery without angina pectoris Status: Acute - Plan 73-year-old white male being admitted for suspected NSTEMI. Cardiac cath showed multivessel CAD. Patient subsequently underwent CABG x3. Multivessel Coronary artery disease NSTEMI -Cardiac catheterization shows three-vessel disease not amenable for PCI. -Status post CABG x 3 on 03/30/2017. -Continue aspirin 81mg, Lipitor 40mg HS and Lopressor 25 mg twice daily, Plavix. -Chest tube discontinued 04/02/2018. Hyperlipidemia continue on Lipitor Hypertension continue on Lopressor Ileus - Abdominal distention, nausea, vomiting again developed today. GI is following and and ordered CT Abdomen. - Continue NG tube suction. Acute kidney injury - ISA inhibitor on hold for now. - Avoid nephrotoxins. Creatinine 1.40 --> 1.23 ==> 2.07. Currently getting gentle hydration. Renal insufficiency continue to monitor Back pain - Percocet 7.5mg Q4hrs PRN Full code. Ambulation. Code Status: Full code Discussed Condition With: RN and patient and case management and family Discharge Planning: Once tolerating a diet able to have bowel movements again
[2018-04-06] MEDS: Metoprolol Tartrate 25 MG Tablet PO SCH ×2 (10:38→21:29)
[2018-04-06] MEDS: Multivitamin/Minerals Therapeutic Tablet PO SCH (10:38)
--- NOTE | 2018-04-06 11:01 | P.CONGS ---
[facility] Gen Surgery Consult Note Consult date: 04/06/18 Reason for consult: abdominal pain Requesting physician: Xochitl Sylvester Narrative: This is a 73 year old male with a past medical history of hypertension, dyslipidemia, constipation and CABG in 2007 who presented to the ED about 12 days ago with chest pressure and pain. He was seen by Cardiology and Cardiothoracic surgery. He was taken to the OR for a re-do CABG on March 30. He was doing well post operatively until about Thursday when he complained of abdominal distention and no bowel movement for several days. He was given lactulose and Relistor with positive results. His diet was advanced to a full liquid diet and he developed the distention once again. He complains of hiccups. GI has been following the patient. A CT abdomen/pelvis was obtained which shows a distal small bowel obstruction and distended stomach. The NGT at that time was found to be in the RIGHT mainstem bronchus. It has since been repositioned and now with 4L output in about 3 hours. The patient reports he now feels better and less distended. He reports he is not passing any flatus. He does have a history of an abdominal surgery about 10-15 years ago but unsure for what. A General Surgery consultation has been requested. <Jonna Pineda - Last Filed: 04/07/18 12:18> Narrative: CONSULTATION NOTE FOR SURGICAL ATTENDING, DR. EDISON SALINAS <Edison Salinas - Last Filed: 04/07/18 16:03> Review of Systems Constitutional: Denies chills, Denies weight gain Eyes: Denies change in vision Ears, Nose, Mouth, and Throat: Denies difficulty swallowing Cardiovascular: Reports chest pain (on admission ) Respiratory: Denies shortness of breath, Denies shortness of breath with activity Gastrointestinal: Reports abdominal pain, Reports bloating Genitourinary: Denies urinary frequency Musculoskeletal: Denies abnormal walking Skin/Breast: Denies rash Neurologic: Denies abnormal hearing Psychiatric: Denies anxiety Endocrine: Denies cold intolerance, Denies flushing Hematologic/Lymphatic: Denies easy bleeding Allergic/Immunologic: Denies throat swelling, Denies tongue swelling <Jonna Pineda - Last Filed: 04/07/18 12:18> PMFSH - History History Provided By: Patient - Medical History Medical History: Medical History (Last Updated 04/06/18 @ 11:09 by AURORA Hayden) Constipation Dyslipidemia Hypertension Pacemaker - Surgical History Surgical History: Surgical History (Last Updated 04/07/18 @ 12:21 by AURORA Hayden) H/O exploratory laparotomy Hx of CABG - Tobacco History Second Hand Smoke Exposure: No Tobacco Use In Past 30 Days: No Smoking Status: Never smoker - Alcohol History How Often Do You Have a Drink Containing Alcohol: 4 or more times a week (daily glass of wine with dinner) - Substance Use History Substance History: No History of Abuse - Travel History History of Recent Travel: No Recent Travel in the [place] Within the Last 8 Weeks: No Recent Travel Out of the Country Within the Last 8 Weeks: No <Jonna Pineda - Last Filed: 04/07/18 12:18> - Medical History Medical History: Medical History (Last Updated 04/06/18 @ 11:09 by AURORA Hayden) Constipation Dyslipidemia Hypertension Pacemaker - Surgical History Surgical History: Surgical History (Last Updated 04/07/18 @ 12:21 by AURORA Hayden) H/O exploratory laparotomy Hx of CABG <Edison Salinas - Last Filed: 04/07/18 16:03> Medications and Allergies Active Medications: Active Medications Acetaminophen (Tylenol) 500 mg PO Q4H PRN PRN Reason: TEMP>101F Al Hydroxide/Mg Hydroxide (Milk Of Magnesia Liq) 30 ml PO DAILY [facility] Last Admin: 04/05/18 08:26 Dose: Not Given Albuterol (Duoneb Neb (Prn)) 1 ampul NEB Q2HR NEB PRN PRN Reason: WHEEZING Aspirin (Aspirin Chew) 81 mg PO DAILY [facility] Last Admin: 04/06/18 10:38 Dose: 81 mg Atorvastatin Calcium (Lipitor) 40 mg PO HS [facility] Last Admin: 04/05/18 22:16 Dose: 40 mg Bisacodyl (Dulcolax Supp) 10 mg RECTAL DAILY [facility] Last Admin: 04/05/18 08:26 Dose: 10 mg Clopidogrel Bisulfate (Plavix) 75 mg PO DAILY [facility] Last Admin: 04/06/18 10:39 Dose: 75 mg Dextrose (D50w Vial) 50 ml IV.PUSH UNSCH PRN PRN Reason: PER HYPOGLYCEMIA PROTOCOL Docusate Sodium (Colace) 100 mg PO BID [facility] Last Admin: 04/05/18 22:17 Dose: Not Given Glucagon (Glucagon Inj) 1 mg OTHER UNSCH PRN PRN Reason: for Hypoglycemia Protocol Acetaminophen (Ofirmev Inj) 1,000 mg in 100 mls @ 400 mls/hr IV.SIG Q6H PRN PRN Reason: PAIN SCALE 1 TO 10 Last Infusion: 04/04/18 00:45 Dose: Infused Potassium Chloride/Sodium Chloride (Ns + Kcl 20 Meq Inj) 1,000 mls @ 100 mls/ hr IV.CONT .Q10H [facility] Last Admin: 04/06/18 00:21 Dose: 100 mls/hr Insulin Aspart (Novolog Insulin Suppl Scale Inj) 0 unit SQ ACHS [facility]; Protocol Last Admin: 04/06/18 08:26 Dose: Not Given Lactulose (Lactulose Liq) 30 ml PO DAILY [facility] Last Admin: 04/05/18 08:25 Dose: 30 ml Methocarbamol (Robaxin) 500 mg PO Q8HR [facility] Last Admin: 04/06/18 08:25 Dose: Not Given Metoclopramide HCl (Reglan Inj) 5 mg IV.PUSH Q8HR [facility]; Protocol Last Admin: 04/06/18 06:40 Dose: 5 mg Metoprolol Tartrate (Lopressor) 25 mg PO BID [facility] Last Admin: 04/06/18 10:38 Dose: 25 mg Miscellaneous (Pill Splitter) 1 each OTHER UNSCH [facility] Multivitamins/Minerals (Theragran-M) 1 tab PO DAILY [facility] Last Admin: 04/06/18 10:38 Dose: 1 tab Ondansetron HCl (Zofran Odt) 4 mg PO Q6H PRN PRN Reason: NAUSEA/VOMITING Last Admin: 04/06/18 07:50 Dose: 4 mg Pantoprazole Sodium (Protonix) 40 mg PO DAILY@06 [facility] Last Admin: 04/06/18 06:44 Dose: Not Given Phenazopyridine HCl (Pyridium) 100 mg PO Q8H PRN PRN Reason: PAINFUL URINATION Last Admin: 03/31/18 14:02 Dose: 100 mg Polyethylene Glycol (Miralax) 17 gm PO DAILY [facility] Last Admin: 04/05/18 08:26 Dose: 17 gm Promethazine HCl (Phenergan Inj) 25 mg IM Q6H PRN PRN Reason: Nausea/Vomiting Last Admin: 04/05/18 10:53 Dose: 25 mg Sennosides (Senokot) 8.6 mg PO HS [facility] Last Admin: 04/05/18 22:17 Dose: 8.6 mg Sodium Biphosphate/Sodium Phosphate (Fleets Enema (Adult)) 118 ml RECTAL UNSCH PRN PRN Reason: SEE LABEL COMMENTS Sodium Chloride (Ns Flush) 2 ml IV.FLUSH BID [facility] Last Admin: 04/05/18 22:18 Dose: Not Given Sodium Chloride (Ns Flush) 2 ml IV.FLUSH PRN PRN PRN Reason: FLUSH AFTER USING IV ACCESS <Jonna Pineda - Last Filed: 04/07/18 12:18> Active Medications: Active Medications Acetaminophen (Tylenol) 500 mg PO Q4H PRN PRN Reason: TEMP>101F Al Hydroxide/Mg Hydroxide (Milk Of Magnesia Liq) 30 ml PO DAILY [facility] Last Admin: 04/07/18 10:09 Dose: Not Given Albuterol (Duoneb Neb (Prn)) 1 ampul NEB Q2HR NEB PRN PRN Reason: WHEEZING Aspirin (Aspirin Chew) 81 mg PO DAILY [facility] Last Admin: 04/07/18 10:05 Dose: 81 mg Atorvastatin Calcium (Lipitor) 20 mg PO [facility] Bisacodyl (Dulcolax Supp) 10 mg RECTAL DAILY [facility] Last Admin: 04/07/18 10:07 Dose: 10 mg Clopidogrel Bisulfate (Plavix) 75 mg PO DAILY [facility] Last Admin: 04/07/18 10:05 Dose: 75 mg Dextrose (D50w Vial) 50 ml IV.PUSH UNSCH PRN PRN Reason: PER HYPOGLYCEMIA PROTOCOL Docusate Sodium (Colace) 100 mg PO BID [facility] Last Admin: 04/07/18 10:08 Dose: Not Given Glucagon (Glucagon Inj) 1 mg OTHER UNSCH PRN PRN Reason: for Hypoglycemia Protocol Acetaminophen (Ofirmev Inj) 1,000 mg in 100 mls @ 400 mls/hr IV.SIG Q6H PRN PRN Reason: PAIN SCALE 1 TO 10 Last Infusion: 04/07/18 13:03 Dose: Infused Potassium Chloride/Sodium Chloride (Ns + Kcl 20 Meq Inj) 1,000 mls @ 100 mls/ hr IV.CONT .Q10H [facility] Last Admin: 04/07/18 10:07 Dose: 100 mls/hr Albumin Human (Flexbumin 25% Inj) 100 mls @ 60 mls/hr IV.SIG Q8H [facility] Last Admin: 04/07/18 14:40 Dose: 60 mls/hr Insulin Aspart (Novolog Insulin Suppl Scale Inj) 0 unit SQ ACHS [facility]; Protocol Last Admin: 04/07/18 11:54 Dose: Not Given Lactulose (Lactulose Liq) 30 ml PO DAILY [facility] Last Admin: 04/07/18 10:09 Dose: Not Given Methocarbamol (Robaxin) 500 mg PO Q8HR [facility] Last Admin: 04/07/18 14:30 Dose: Not Given Metoclopramide HCl (Reglan Inj) 5 mg IV.PUSH Q8HR [facility]; Protocol Last Admin: 04/07/18 14:43 Dose: 5 mg Metoprolol Tartrate (Lopressor) 12.5 mg PO BID [facility] Last Admin: 04/07/18 10:06 Dose: 12.5 mg Miscellaneous (Pill Splitter) 1 each OTHER UNSCH [facility] Multivitamins/Minerals (Theragran-M) 1 tab PO DAILY [facility] Last Admin: 04/07/18 10:06 Dose: 1 tab Ondansetron HCl (Zofran Odt) 4 mg PO Q6H PRN PRN Reason: NAUSEA/VOMITING Last Admin: 04/06/18 07:50 Dose: 4 mg Pantoprazole Sodium (Protonix) 20 mg PO DAILY@06 [facility] Polyethylene Glycol (Miralax) 17 gm PO DAILY [facility] Last Admin: 04/07/18 10:09 Dose: Not Given Promethazine HCl (Phenergan Inj) 25 mg IM Q6H PRN PRN Reason: Nausea/Vomiting Last Admin: 04/05/18 10:53 Dose: 25 mg Sennosides (Senokot) 8.6 mg PO HS [facility] Last Admin: 04/06/18 21:29 Dose: 8.6 mg Sodium Biphosphate/Sodium Phosphate (Fleets Enema (Adult)) 118 ml RECTAL UNSCH PRN PRN Reason: SEE LABEL COMMENTS Sodium Chloride (Ns Flush) 2 ml IV.FLUSH BID [facility] Last Admin: 04/07/18 10:09 Dose: 2 ml Sodium Chloride (Ns Flush) 2 ml IV.FLUSH PRN PRN PRN Reason: FLUSH AFTER USING IV ACCESS Last Admin: 04/07/18 10:09 Dose: 2 ml <Edison Salinas - Last Filed: 04/07/18 16:03> Allergies Allergy/AdvReac Type Severity Reaction Status Date / Time No Known Allergies Allergy Unverified 03/26/18 11:04 Home Medications Medication Instructions Recorded Confirmed Type allopurinol 300 mg PO DAILY 03/27/18 03/27/18 History aspirin 81 mg PO DAILY 03/27/18 03/27/18 History hydrochlorothiazide 25 mg PO DAILY 03/27/18 03/27/18 History lisinopril 20 mg PO DAILY 03/27/18 03/27/18 History omeprazole 40 mg PO DAILY 03/27/18 03/27/18 History rosuvastatin 10 mg PO HS 03/27/18 03/27/18 History sildenafil 100 mg PO DAILY PRN 03/27/18 03/27/18 History Exam Vital signs: Vital Signs 04/05/18 11:00 04/05/18 12:00 04/05/18 13:00 Temperature 97.7 F Pulse Rate 72 73 85 Respiratory Rate 20 Blood Pressure 106/62 Pulse Oximetry 94 L 04/05/18 14:00 07/09/18 14:30 04/05/18 15:00 Temperature 98.6 F Pulse Rate 69 60 Respiratory Rate Blood Pressure 100/58 L Pulse Oximetry 94 L 94 L 04/05/18 16:00 04/05/18 17:00 04/05/18 17:10 Temperature Pulse Rate 78 75 Respiratory Rate Blood Pressure Pulse Oximetry 94 L 95 04/05/18 18:00 04/05/18 19:00 04/05/18 20:00 Temperature 98.8 F Pulse Rate 71 74 70 Respiratory Rate 16 Blood Pressure 98/56 L Pulse Oximetry 04/05/18 21:00 04/05/18 22:00 04/05/18 23:00 Temperature 97.9 F Pulse Rate 76 72 72 Respiratory Rate 14 Blood Pressure 101/57 L Pulse Oximetry 93 L 04/06/18 00:00 04/06/18 01:00 04/06/18 02:00 Temperature Pulse Rate 74 72 76 Respiratory Rate Blood Pressure Pulse Oximetry 04/06/18 03:00 04/06/18 03:55 04/06/18 04:00 Temperature 98.2 F Pulse Rate 73 79 72 Respiratory Rate 18 Blood Pressure 127/57 L Pulse Oximetry 04/06/18 05:00 04/06/18 06:00 04/06/18 07:51 Temperature 97.9 F Pulse Rate 78 75 80 Respiratory Rate 16 Blood Pressure 103/51 L Pulse Oximetry 94 L Intake & Output 04/05/18 04/06/18 04/06/18 18:59 06:59 18:59 Intake Total 850 / 850 1000 / 1000 Output Total 400 / 400 600 / 600 Balance 450 / 450 400 / 400 Weight 105.8 kg Intake: IV 250 / 250 1000 / 1000 NS + KCl 20 mEq Inj 1,000 ML @ 1000 / 1000 100 mls/hr IV.CONT .Q10H [facility] Rx #:[id number] NS Inj 250 ML @ Wide Open IV. 250 / 250 SIG BOLUS ONE Rx#:[id number] Oral 600 / 600 Output: Urine 600 / 600 Emesis 300 / 300 Gastric Drainage 100 / 100 Right Nare 100 / 100 Other: Date of Last Bowel Movement 04/04/18 # Bowel Movements 0 Narrative: GENERAL: Pleasant 73 year old male resting in bed in no acute distress. SKIN: Warm and dry. HEAD: Atraumatic. Normocephalic. EYES: Pupils equal and round. No scleral icterus. No injection or drainage. ENT: No nasal bleeding or discharge. Mucous membranes pink and moist. NECK: Trachea midline. CARDIOVASCULAR: Regular rate and rhythm. CABG dressing in place. Prior CT with dry dressing in place. RESPIRATORY: No accessory muscle use. Clear to auscultation. Breath sounds equal bilaterally. GASTROINTESTINAL: Abdomen soft, distended; minimally tender throughout; faint midline scar --well healed. MUSCULOSKELETAL: Extremities without clubbing, cyanosis, or edema. LEFT leg with medial site from vein harvest--- no evidence of infection. NEUROLOGICAL: Awake and alert. No obvious cranial nerve deficits. Motor grossly within normal limits. Five out of 5 muscle strength in the arms and legs. Normal speech. PSYCHIATRIC: Appropriate mood and affect; insight and judgment normal <Jonna Pineda - Last Filed: 04/07/18 12:18> Vital signs: Vital Signs 04/06/18 16:00 04/06/18 17:00 04/06/18 18:00 Temperature Pulse Rate 70 70 74 Respiratory Rate Blood Pressure Pulse Oximetry 04/06/18 19:50 04/06/18 20:30 04/06/18 21:40 Temperature 97.5 F L Pulse Rate 72 62 69 Respiratory Rate 18 Blood Pressure 93/55 L Pulse Oximetry 92 L 04/06/18 22:00 04/06/18 23:11 04/07/18 00:00 Temperature 98.0 F Pulse Rate 59 L 71 70 Respiratory Rate 19 Blood Pressure 120/59 L Pulse Oximetry 93 L 04/07/18 01:00 04/07/18 02:08 04/07/18 03:40 Temperature 97.3 F L Pulse Rate 67 73 70 Respiratory Rate 18 Blood Pressure 107/58 L Pulse Oximetry 95 04/07/18 04:00 04/07/18 05:00 04/07/18 06:00 Temperature Pulse Rate 70 70 81 Respiratory Rate Blood Pressure Pulse Oximetry 04/07/18 07:00 04/07/18 08:00 04/07/18 08:10 Temperature 96.2 F L Pulse Rate 69 70 81 Respiratory Rate 18 Blood Pressure 110/59 L Pulse Oximetry 95 04/07/18 09:00 04/07/18 10:00 04/07/18 11:00 Temperature 96.8 F L Pulse Rate 70 70 70 Respiratory Rate 18 Blood Pressure 102/58 L Pulse Oximetry 98 04/07/18 12:00 04/07/18 13:00 04/07/18 14:00 Temperature Pulse Rate 70 60 70 Respiratory Rate Blood Pressure Pulse Oximetry Intake & Output 04/06/18 04/07/18 04/07/18 18:59 06:59 18:59 Intake Total 1500 / 1500 1360 / 1360 1300 / 1300 Output Total 4700 / 4700 2225 / 2225 Balance -3200 / -3200 -865 / -865 1300 / 1300 Weight 105.8 kg 101.5 kg Intake: IV 1500 / 1500 1000 / 1000 1300 / 1300 NS + KCl 20 mEq Inj 1,000 ML @ 1000 / 1000 1000 / 1000 1000 / 1000 100 mls/hr IV.CONT .Q10H [facility] Rx #:[id number] Ofirmev Inj 1,000 mg In 100 ml 100 / 100 @ 400 mls/hr IV.SIG Q6H PRN Rx# :[id number] KCl 20 mEq Premix Inj 20 meq In 100 / 100 100 ml @ 50 mls/hr IV.SIG ONCE ONE Rx#:[id number] NS Inj 500 ML @ Wide Open IV. 500 / 500 SIG BOLUS ONE Rx#:[id number] Oral 360 / 360 Output: Urine 325 / 325 Gastric Drainage 4700 / 4700 1900 / 1900 Right Nare 4700 / 4700 1900 / 1900 Other: # Voids 3 <Edison Salinas - Last Filed: 04/07/18 16:03> Results - Labs 04/07/18 03:51 04/07/18 03:51 Abnormal lab results 04/05/18 04/05/18 04/05/18 Range/Units 10:24 10:59 16:06 WBC (4.0-11.0) th/mm3 RBC (4.50-5.90) mil/mm3 Hgb (13.0-17.0) gm/dL Hct (39.0-51.0) % Plt Count (150-450) th/mm3 Neut % (Auto) (16.0-70.0) % Lymph % (Auto) (9.0-44.0) % Neut # (Auto) (1.8-7.7) th/mm3 Lymph # (Auto) (1.0-4.8) th/mm3 Sodium 132 L (136-145) meq/L Chloride 90 L (98-107) meq/L BUN 69 H (7-18) mg/dL Creatinine 2.07 H (0.60-1.30) mg/dL Estimated GFR 32 L (>89) mL/min POC Glucose 146 H 130 H (68-110) mg/dl Random Glucose 149 H (74-106) mg/dL Calcium (8.5-10.1) mg/dL Total Bilirubin 1.4 H (0.2-1.0) mg/dL Albumin (3.4-5.0) g/dL Amylase 126 H (25-115) U/L Lipase 1689 H (73-393) U/L Urine Clarity (Clear) Urine Urobilinogen (Less than 2) mg/dL Urine Mucus (Occasional) /lpf 04/05/18 04/06/18 04/06/18 Range/Units 21:50 02:15 07:35 WBC 12.6 H (4.0-11.0) th/mm3 RBC 3.76 L (4.50-5.90) mil/mm3 Hgb 11.3 L (13.0-17.0) gm/dL Hct 33.6 L (39.0-51.0) % Plt Count 467 H (150-450) th/mm3 Neut % (Auto) 90.1 H (16.0-70.0) % Lymph % (Auto) 4.2 L (9.0-44.0) % Neut # (Auto) 11.4 H (1.8-7.7) th/mm3 Lymph # (Auto) 0.5 L (1.0-4.8) th/mm3 Sodium (136-145) meq/L Chloride (98-107) meq/L BUN (7-18) mg/dL Creatinine (0.60-1.30) mg/dL Estimated GFR (>89) mL/min POC Glucose 148 H (68-110) mg/dl Random Glucose (74-106) mg/dL Calcium (8.5-10.1) mg/dL Total Bilirubin (0.2-1.0) mg/dL Albumin (3.4-5.0) g/dL Amylase (25-115) U/L Lipase (73-393) U/L Urine Clarity Cloudy H (Clear) Urine Urobilinogen 2.0 H (Less than 2) mg/dL Urine Mucus Few H (Occasional) /lpf 04/06/18 04/06/18 Range/Units 07:35 08:11 WBC (4.0-11.0) th/mm3 RBC (4.50-5.90) mil/mm3 Hgb (13.0-17.0) gm/dL Hct (39.0-51.0) % Plt Count (150-450) th/mm3 Neut % (Auto) (16.0-70.0) % Lymph % (Auto) (9.0-44.0) % Neut # (Auto) (1.8-7.7) th/mm3 Lymph # (Auto) (1.0-4.8) th/mm3 Sodium 134 L (136-145) meq/L Chloride 89 L (98-107) meq/L BUN 89 H (7-18) mg/dL Creatinine 4.16 H (0.60-1.30) mg/dL Estimated GFR 14 L (>89) mL/min POC Glucose 170 H (68-110) mg/dl Random Glucose 153 H (74-106) mg/dL Calcium 7.7 L D (8.5-10.1) mg/dL Total Bilirubin 1.4 H (0.2-1.0) mg/dL Albumin 2.9 L (3.4-5.0) g/dL Amylase (25-115) U/L Lipase 881 H (73-393) U/L Urine Clarity (Clear) Urine Urobilinogen (Less than 2) mg/dL Urine Mucus (Occasional) /lpf Diabetes panel 04/05/18 04/06/18 Range/Units 10:24 07:35 Sodium 132 L 134 L (136-145) meq/L Potassium 3.5 4.0 (3.5-5.1) meq/L Chloride 90 L 89 L (98-107) meq/L Carbon Dioxide 29.7 30.6 (21.0-32.0) meq/L BUN 69 H 89 H (7-18) mg/dL Creatinine 2.07 H 4.16 H (0.60-1.30) mg/dL Calcium 8.9 7.7 L D (8.5-10.1) mg/dL AST 24 16 (15-37) U/L ALT 29 22 (12-78) U/L Alkaline Phosphatase 53 50 (45-117) U/L Total Protein 7.2 D 6.7 (6.4-8.2) g/dL Albumin 3.4 2.9 L (3.4-5.0) g/dL Calcium panel 04/05/18 04/06/18 Range/Units 10:24 07:35 Calcium 8.9 7.7 L D (8.5-10.1) mg/dL Albumin 3.4 2.9 L (3.4-5.0) g/dL Pituitary panel 04/05/18 04/06/18 Range/Units 10:24 07:35 Sodium 132 L 134 L (136-145) meq/L Potassium 3.5 4.0 (3.5-5.1) meq/L Chloride 90 L 89 L (98-107) meq/L Carbon Dioxide 29.7 30.6 (21.0-32.0) meq/L BUN 69 H 89 H (7-18) mg/dL Creatinine 2.07 H 4.16 H (0.60-1.30) mg/dL Calcium 8.9 7.7 L D (8.5-10.1) mg/dL Adrenal panel 04/05/18 04/06/18 Range/Units 10:24 07:35 Sodium 132 L 134 L (136-145) meq/L Potassium 3.5 4.0 (3.5-5.1) meq/L Chloride 90 L 89 L (98-107) meq/L Carbon Dioxide 29.7 30.6 (21.0-32.0) meq/L BUN 69 H 89 H (7-18) mg/dL Creatinine 2.07 H 4.16 H (0.60-1.30) mg/dL Calcium 8.9 7.7 L D (8.5-10.1) mg/dL Total Bilirubin 1.4 H 1.4 H (0.2-1.0) mg/dL AST 24 16 (15-37) U/L ALT 29 22 (12-78) U/L Alkaline Phosphatase 53 50 (45-117) U/L Total Protein 7.2 D 6.7 (6.4-8.2) g/dL Albumin 3.4 2.9 L (3.4-5.0) g/dL All other labs normal. <Jonna Pineda - Last Filed: 04/07/18 12:18> - Labs 04/07/18 03:51 04/07/18 03:51 Abnormal lab results 04/06/18 04/06/18 04/06/18 Range/Units 16:27 20:01 20:45 RBC (4.50-5.90) mil/mm3 Hgb (13.0-17.0) gm/dL Hct (39.0-51.0) % Neut % (Auto) (16.0-70.0) % Lymph % (Auto) (9.0-44.0) % [place] % (Auto) (0.0-8.0) % Neut # (Auto) (1.8-7.7) th/mm3 Lymph # (Auto) (1.0-4.8) th/mm3 Sodium 133 L (136-145) meq/L Potassium (3.5-5.1) meq/L Chloride 90 L (98-107) meq/L Anion Gap (5-15) meq/L BUN 96 H (7-18) mg/dL Creatinine 3.58 H (0.60-1.30) mg/dL Estimated GFR 17 L (>89) mL/min POC Glucose 161 H 123 H (68-110) mg/dl Random Glucose 141 H (74-106) mg/dL Calcium 8.0 L (8.5-10.1) mg/dL Magnesium (1.5-2.5) mg/dL Total Bilirubin (0.2-1.0) mg/dL Albumin (3.4-5.0) g/dL Lipase (73-393) U/L 04/07/18 04/07/18 04/07/18 Range/Units 03:51 03:51 08:18 RBC 3.63 L (4.50-5.90) mil/mm3 Hgb 10.9 L (13.0-17.0) gm/dL Hct 32.7 L (39.0-51.0) % Neut % (Auto) 85.9 H (16.0-70.0) % Lymph % (Auto) 5.6 L (9.0-44.0) % [place] % (Auto) 8.1 H (0.0-8.0) % Neut # (Auto) 8.2 H (1.8-7.7) th/mm3 Lymph # (Auto) 0.5 L (1.0-4.8) th/mm3 Sodium (136-145) meq/L Potassium 3.4 L (3.5-5.1) meq/L Chloride 90 L (98-107) meq/L Anion Gap 16 H (5-15) meq/L BUN 105 H (7-18) mg/dL Creatinine 3.34 H (0.60-1.30) mg/dL Estimated GFR 18 L (>89) mL/min POC Glucose 143 H (68-110) mg/dl Random Glucose 139 H (74-106) mg/dL Calcium 7.6 L (8.5-10.1) mg/dL Magnesium 3.8 H (1.5-2.5) mg/dL Total Bilirubin 1.4 H (0.2-1.0) mg/dL Albumin 2.7 L (3.4-5.0) g/dL Lipase 1182 H (73-393) U/L 04/07/18 Range/Units 11:48 RBC (4.50-5.90) mil/mm3 Hgb (13.0-17.0) gm/dL Hct (39.0-51.0) % Neut % (Auto) (16.0-70.0) % Lymph % (Auto) (9.0-44.0) % [place] % (Auto) (0.0-8.0) % Neut # (Auto) (1.8-7.7) th/mm3 Lymph # (Auto) (1.0-4.8) th/mm3 Sodium (136-145) meq/L Potassium (3.5-5.1) meq/L Chloride (98-107) meq/L Anion Gap (5-15) meq/L BUN (7-18) mg/dL Creatinine (0.60-1.30) mg/dL Estimated GFR (>89) mL/min POC Glucose 159 H (68-110) mg/dl Random Glucose (74-106) mg/dL Calcium (8.5-10.1) mg/dL Magnesium (1.5-2.5) mg/dL Total Bilirubin (0.2-1.0) mg/dL Albumin (3.4-5.0) g/dL Lipase (73-393) U/L Diabetes panel 04/06/18 04/07/18 Range/Units 20:01 03:51 Sodium 133 L 136 (136-145) meq/L Potassium 3.5 3.4 L (3.5-5.1) meq/L Chloride 90 L 90 L (98-107) meq/L Carbon Dioxide 27.9 30.5 (21.0-32.0) meq/L BUN 96 H 105 H (7-18) mg/dL Creatinine 3.58 H 3.34 H (0.60-1.30) mg/dL Calcium 8.0 L 7.6 L (8.5-10.1) mg/dL AST 22 (15-37) U/L ALT 21 (12-78) U/L Alkaline Phosphatase 60 (45-117) U/L Total Protein 6.7 (6.4-8.2) g/dL Albumin 2.7 L (3.4-5.0) g/dL Thyroid panel 04/07/18 Range/Units 03:51 TSH 1.980 (0.358-3.740) uIU/mL Calcium panel 04/06/18 04/07/18 Range/Units 20:01 03:51 Calcium 8.0 L 7.6 L (8.5-10.1) mg/dL Phosphorus 4.7 (2.5-4.9) mg/dL Albumin 2.7 L (3.4-5.0) g/dL Pituitary panel 04/06/18 04/07/18 Range/Units 20:01 03:51 Sodium 133 L 136 (136-145) meq/L Potassium 3.5 3.4 L (3.5-5.1) meq/L Chloride 90 L 90 L (98-107) meq/L Carbon Dioxide 27.9 30.5 (21.0-32.0) meq/L BUN 96 H 105 H (7-18) mg/dL Creatinine 3.58 H 3.34 H (0.60-1.30) mg/dL Calcium 8.0 L 7.6 L (8.5-10.1) mg/dL TSH 1.980 (0.358-3.740) uIU/mL Adrenal panel 04/06/18 04/07/18 Range/Units 20:01 03:51 Sodium 133 L 136 (136-145) meq/L Potassium 3.5 3.4 L (3.5-5.1) meq/L Chloride 90 L 90 L (98-107) meq/L Carbon Dioxide 27.9 30.5 (21.0-32.0) meq/L BUN 96 H 105 H (7-18) mg/dL Creatinine 3.58 H 3.34 H (0.60-1.30) mg/dL Calcium 8.0 L 7.6 L (8.5-10.1) mg/dL Total Bilirubin 1.4 H (0.2-1.0) mg/dL AST 22 (15-37) U/L ALT 21 (12-78) U/L Alkaline Phosphatase 60 (45-117) U/L Total Protein 6.7 (6.4-8.2) g/dL Albumin 2.7 L (3.4-5.0) g/dL All other labs normal. - Imaging Abdominal x-ray: report reviewed, image reviewed CT scan - abdomen: report reviewed, image reviewed CT scan - chest: report reviewed, image reviewed CT scan - pelvis: report reviewed, image reviewed <Edison Salinas - Last Filed: 04/07/18 16:03> Assessment and Plan - Assessment (1) Ileus, postoperative Code(s): K91.89 - Other postprocedural complications and disorders of digestive system; K56.7 - Ileus, unspecified Status: Acute (2) S/P CABG x 3 Code(s): Z95.1 - Presence of aortocoronary bypass graft Status: Acute - Plan 73 year old male with recent CABG on March 30, post operative abdominal pain; distention -Likely ileus -Lipase elevated; now trending down but will need to monitor -Continue NGT to LIWS -NPO -Will obtain UGI -OOB and mobilize as tolerated -Will continue nonoperative treatment -Thank you for this consult; We will continue to follow Discussed Condition With: Dr. Brad SIMON Mr. and Mrs. Hankins <Jonna Pineda - Last Filed: 04/07/18 12:18> - Assessment (1) Ileus, postoperative Code(s): K91.89 - Other postprocedural complications and disorders of digestive system; K56.7 - Ileus, unspecified Status: Acute (2) S/P CABG x 3 Code(s): Z95.1 - Presence of aortocoronary bypass graft Status: Acute - Plan Patient does have a midline incision below the xiphoid he does not recall what type of surgery was done He had a similar episode during his first CABG We will treat conservatively at this time follow-up x-ray studies Continue IV fluids Discussed Condition With: Discussed with Dr. Zavala cardiothoracic surgeon - Attending Attestation CONSULTATION NOTE FOR SURGICAL ATTENDING, DR. EDISON SALINAS I agree with above assessment and plan. Patient feels better after having NG tube placed and getting almost 3 L of gastric contents removed Abdomen is much softer as reported by patient his family and nursing staff Will order small bowel follow-through series The exam, history, and the medical decision-making described in the above note were completed with the assistance of the mid-level provider. I reviewed and agree with the findings presented. I attest that I had a pagn-is-cfuh encounter with the patient on the same day, and personally performed and documented my assessment and findings in the medical record. The following services were provided during this hospital visit: Chart data review, vital sign assessments/reviewing monitor data Review of consultations notes if present. Medication orders/review and/or management Ordering and/or reviewing lab tests Ordering and/or interpreting/reviewing x-rays and/or diagnostic studies Care of the patient and discussion of the patient with the care team Documentation time To help prompt me to consider important information that might be impacting today's encounter and assessment, Information from prior notes written by myself or my colleagues may have been "brought forward/copy and pasted" into today's note. <Edison Salinas - Last Filed: 04/07/18 16:03>
[2018-04-06] MEDS: Polyethylene Glycol 3350 17 GM Packet PO SCH (11:30)
[2018-04-06] MEDS: Docusate Sodium 100 MG Capsule PO SCH ×2 (11:31→21:29)
--- NOTE | 2018-04-06 13:57 | P.PNCA ---
Subjective Interval history: Abdominal pain/distention worse NGT with bilious output Physical Exam Vital signs: Vital Signs 04/05/18 14:00 04/05/18 14:30 04/05/18 15:00 Temperature 98.6 F Pulse Rate 69 60 Respiratory Rate Blood Pressure 100/58 L Pulse Oximetry 94 L 94 L 04/05/18 16:00 04/05/18 17:00 04/05/18 17:10 Temperature Pulse Rate 78 75 Respiratory Rate Blood Pressure Pulse Oximetry 94 L 95 04/05/18 18:00 04/05/18 19:00 04/05/18 20:00 Temperature 98.8 F Pulse Rate 71 74 70 Respiratory Rate 16 Blood Pressure 98/56 L Pulse Oximetry 04/05/18 21:00 04/05/18 22:00 04/05/18 23:00 Temperature 97.9 F Pulse Rate 76 72 72 Respiratory Rate 14 Blood Pressure 101/57 L Pulse Oximetry 93 L 04/06/18 00:00 04/06/18 01:00 04/06/18 02:00 Temperature Pulse Rate 74 72 76 Respiratory Rate Blood Pressure Pulse Oximetry 04/06/18 03:00 04/06/18 03:55 04/06/18 04:00 Temperature 98.2 F Pulse Rate 73 79 72 Respiratory Rate 18 Blood Pressure 127/57 L Pulse Oximetry 04/06/18 05:00 04/06/18 06:00 04/06/18 07:00 Temperature Pulse Rate 78 75 74 Respiratory Rate Blood Pressure Pulse Oximetry 04/06/18 07:51 04/06/18 08:00 04/06/18 09:00 Temperature 97.9 F Pulse Rate 80 72 72 Respiratory Rate 16 Blood Pressure 103/51 L Pulse Oximetry 94 L 04/06/18 10:00 04/06/18 11:00 04/06/18 12:00 Temperature Pulse Rate 72 74 72 Respiratory Rate Blood Pressure Pulse Oximetry 04/06/18 13:00 Temperature Pulse Rate 70 Respiratory Rate Blood Pressure Pulse Oximetry Intake & Output 04/05/18 04/06/18 04/06/18 18:59 06:59 18:59 Intake Total 850 / 850 1000 / 1000 1000 / 1000 Output Total 400 / 400 600 / 600 Balance 450 / 450 400 / 400 1000 / 1000 Weight 105.8 kg Intake: IV 250 / 250 1000 / 1000 1000 / 1000 NS + KCl 20 mEq Inj 1,000 ML @ 1000 / 1000 1000 / 1000 100 mls/hr IV.CONT .Q10H MIKE Rx #:[id number] NS Inj 250 ML @ Wide Open IV. 250 / 250 SIG BOLUS ONE Rx#:[id number] Oral 600 / 600 Output: Urine 600 / 600 Emesis 300 / 300 Gastric Drainage 100 / 100 Right Nare 100 / 100 Other: Date of Last Bowel Movement 04/04/18 # Bowel Movements 0 Narrative: GENERAL: Alert, Oriented x 3, NAD. SKIN: Warm and dry. HEAD: Normocephalic. Atraumatic EYES: No scleral icterus. No injection or drainage. PERRLA extraocular muscles intact NECK: Supple, trachea midline. No JVD or lymphadenopathy. CARDIOVASCULAR: Regular rate and rhythm without murmurs, gallops, or rubs. Sternotomy C/D/I RESPIRATORY: Breath sounds equal bilaterally. No accessory muscle use. GASTROINTESTINAL: Abdomen firm, distended but not tender to palpation. Hypoactive bowel sounds MUSCULOSKELETAL: No cyanosis, or edema. Motor strength is 4 out of 5 in upper extremity lower extremity bilaterally BACK: Nontender without obvious deformity. No CVA tenderness. Insight and judgment is good Mood and behaviors are appropriate - Urinary Catheter Management Indwelling Temp Sensing Catheter Cath placed during this visit: yes, but has since been removed by the nurse Reason for continuing: Not indwelling catheter Insertion date: 03/30/18 Insertion time: 07:40 Removal date: 03/31/18 Removal time: 05:15 Assessment and Plan - Assessment (1) CAD (coronary artery disease) Code(s): I25.10 - Atherosclerotic heart disease of [place] coronary artery without angina pectoris Status: Acute (2) Unstable angina Code(s): I20.0 - Unstable angina Status: Acute (3) NSTEMI (non-ST elevated myocardial infarction) Code(s): I21.4 - Non-ST elevation (NSTEMI) myocardial infarction Status: Acute (4) Multi-vessel coronary artery stenosis Code(s): I25.10 - Atherosclerotic heart disease of [place] coronary artery without angina pectoris Status: Acute (5) Hx of CABG Code(s): Z95.1 - Presence of aortocoronary bypass graft Status: Acute - Plan 1) CAD/NSTEMI s/p CABG x3 POD #7 SVG to PDA SVG to Ramus SVG to Diagonal Previous Hx of CABG (1/3 grafts patent) COOPER to LAD patent 2) Supportive care 3) ASA/Statin/BB ISA-I on hold for now with BAM/CKD 4) Post-op ileus Followed by GI/surgery NGT in place (1) CAD (coronary artery disease) Qualifiers: Coronary Disease-Associated Artery/Lesion type: [place] artery Associated angina: with unstable angina
[2018-04-06] MEDS: Bisacodyl 10 MG Supp RECTAL SCH (14:22)
[2018-04-06] MEDS ORDERED: Sodium Chlor 0.9% Inj 500 ML IV.SIG ONE (14:42)
--- NOTE | 2018-04-06 15:14 | P.PNCA ---
- Note Subjective/Hospital Course: 73-year-old gentleman with history of coronary artery bypass graft, hypertension, and hyperlipidemia, been experiencing chest pain for the past several days, pressure-like, moderate, relieved with nitroglycerin. cath report : multi vessel disease / EF 50% PAST MEDICAL HISTORY: CABG in 2007. He also has a history of permanent pacemaker, DDD lower rate 50 hypertension, polyp removed, CKD baseline creatinine 1.3 surgery 03/30 REDO CABG x 3 SVG to PDA - good SVG to RI - fair SVG to D1 - fair EVH extubated after surgery / 2 pleural tubes / one mediastinal tubes 03/31 painful , no toradol with CKD OOB pulm toileting pain med control transfer to stepdown 04/01 still painful, but some improvement CT x 3 / drained 130/12 hrs and additional 150cc this am bloody drainage/ no air leak pain control pulm toileting creatinine improved 1.23 04/02 c/o of constipation , mild nausea , abdomen distended , Hypoactive bowel sounds pt is passing flatus , narcotics dc , IV Ofirmev, po tylenol stat KUB pending / add reglan chest tube drained 320cc/ 12 hrs , dark old bloody drainage chest tube to suction / leave chest tubes in ambulate as much as possible 04/03 Nauseated and vomiting this morning, otherwise doing well Had BM and flatus Abdomen soft but distended to my exam. No tenderness or guarding KUB with nonspecific distended SB Ambulate NPO except ice-chips May need GI eval if not improved 04/04 Doing better. NGT inadvertently removed. No further N/V Greatly appreciate GI input Feels thirsty and hungry Abdomen soft and less distended OK to advance diet when ok with GI Ambulate 04/05 pt c/o of abdominal pain, worsening from yesterday , also nausea abdomen very distended , hypoactive bowel sounds NG tube replaced, labs and KUB ordered/ NPO except meds / ice chips GI following 04/06 pt with worsening distention/ nausea worsening BAM / nephrology consulted on IV fluids, leukocytosis with left shift General surgery consulted / high GI output/ NG placement verified also at bedside yellow/ kumari drainage / on intermittent suction continue IV fluids, IV fluid bolus given Objective: Vital Signs - 24 hr 04/05/18 15:00 04/05/18 16:00 04/05/18 17:00 Temperature 98.6 F Pulse Rate 60 78 75 Respiratory Rate Blood Pressure 100/58 L Pulse Oximetry 94 L 94 L 04/05/18 17:10 04/05/18 18:00 04/05/18 19:00 Temperature 98.8 F Pulse Rate 71 74 Respiratory Rate 16 Blood Pressure 98/56 L Pulse Oximetry 95 04/05/18 20:00 04/05/18 21:00 04/05/18 22:00 Temperature Pulse Rate 70 76 72 Respiratory Rate Blood Pressure Pulse Oximetry 04/05/18 23:00 04/06/18 00:00 04/06/18 01:00 Temperature 97.9 F Pulse Rate 72 74 72 Respiratory Rate 14 Blood Pressure 101/57 L Pulse Oximetry 93 L 04/06/18 02:00 04/06/18 03:00 04/06/18 03:55 Temperature 98.2 F Pulse Rate 76 73 79 Respiratory Rate 18 Blood Pressure 127/57 L Pulse Oximetry 04/06/18 04:00 04/06/18 05:00 04/06/18 06:00 Temperature Pulse Rate 72 78 75 Respiratory Rate Blood Pressure Pulse Oximetry 04/06/18 07:00 04/06/18 07:51 04/06/18 08:00 Temperature 97.9 F Pulse Rate 74 80 72 Respiratory Rate 16 Blood Pressure 103/51 L Pulse Oximetry 94 L 04/06/18 09:00 04/06/18 10:00 04/06/18 11:00 Temperature Pulse Rate 72 72 74 Respiratory Rate Blood Pressure Pulse Oximetry 04/06/18 12:00 04/06/18 13:00 Temperature Pulse Rate 72 70 Respiratory Rate Blood Pressure Pulse Oximetry GENERAL: A&O x 3 SKIN: Warm and dry. Prevena dressing to chest incision intact to leg HEAD: Normocephalic. EYES: No scleral icterus. No injection or drainage. NECK: Supple, trachea midline. No JVD or lymphadenopathy. CARDIOVASCULAR: Regular rate and rhythm without murmurs, gallops, or rubs RESPIRATORY: Breath sounds equal bilaterally. No accessory muscle use. diminished in bases R>L, GASTROINTESTINAL: Abdomen distended firm , no audible bowel sounds NG tube in place, placement verified MUSCULOSKELETAL: No cyanosis, or edema. BACK: Nontender without obvious deformity. No CVA tenderness. Labs: Laboratory Results - last 12 hr 04/06/18 04/06/18 04/06/18 02:15 07:35 07:35 WBC 12.6 H RBC 3.76 L Hgb 11.3 L Hct 33.6 L MCV 89.5 MCH 30.2 MCHC 33.7 RDW 14.5 Plt Count 467 H MPV 7.9 Neut % (Auto) 90.1 H Lymph % (Auto) 4.2 L [place] % (Auto) 5.7 Eos % (Auto) 0.0 Baso % (Auto) 0.0 Neut # (Auto) 11.4 H Lymph # (Auto) 0.5 L [place] # (Auto) 0.7 Eos # (Auto) 0.0 Baso # (Auto) 0.0 WBC Differential . Differential Comment Auto diff final Sodium 134 L Potassium 4.0 Chloride 89 L Carbon Dioxide 30.6 Anion Gap 14 BUN 89 H Creatinine 4.16 H Estimated GFR 14 L POC Glucose Random Glucose 153 H Calcium 7.7 L D Total Bilirubin 1.4 H AST 16 ALT 22 Alkaline Phosphatase 50 Total Protein 6.7 Albumin 2.9 L Lipase 881 H Urine Color [place] Urine Clarity Cloudy H Urine pH 5.0 Ur Specific [place] 1.020 Urine Protein Negative Urine Glucose (UA) Negative Urine Ketones Trace Urine Occult Blood Negative Urine Nitrate Negative Urine Bilirubin Negative Urine Urobilinogen 2.0 H Ur Leukocyte Esterase Negative Urine RBC 1 Urine WBC 3 Ur Squamous Epith Cells 1 Hyaline Casts 76 Granular Casts 24 Urine Mucus Few H 04/06/18 08:11 WBC RBC Hgb Hct MCV MCH MCHC RDW Plt Count MPV Neut % (Auto) Lymph % (Auto) [place] % (Auto) Eos % (Auto) Baso % (Auto) Neut # (Auto) Lymph # (Auto) [place] # (Auto) Eos # (Auto) Baso # (Auto) WBC Differential Differential Comment Sodium Potassium Chloride Carbon Dioxide Anion Gap BUN Creatinine Estimated GFR POC Glucose 170 H Random Glucose Calcium Total Bilirubin AST ALT Alkaline Phosphatase Total Protein Albumin Lipase Urine Color Urine Clarity Urine pH Ur Specific [place] Urine Protein Urine Glucose (UA) Urine Ketones Urine Occult Blood Urine Nitrate Urine Bilirubin Urine Urobilinogen Ur Leukocyte Esterase Urine RBC Urine WBC Ur Squamous Epith Cells Hyaline Casts Granular Casts Urine Mucus Result Diagrams: 04/06/18 07:35 04/06/18 07:35 - Plan (1) S/P CABG x 3 Plan: ASA, statin , BB OOB pulm [place]ieling on nasal cannula leave chest in ambulate (2) CAD (coronary artery disease) (6) Hx of CABG Plan: ASA, statin , BB OOB ambulate (7) Abdominal distention Plan: stat KUB NG tube replaced GI workup in progress barium swallow general surgery following (8) Acute kidney injury Plan: on continuous IV fluid fluid bolus given nephrology consulted (2) CAD (coronary artery disease) Qualifiers: Coronary Disease-Associated Artery/Lesion type: [place] artery Associated angina: with unstable angina
--- NOTE | 2018-04-06 15:45 | P.PNGI ---
Subjective Interval history: Patient is sitting up in the chair today NG tube remains clamped to low intermittent suction present Patient nods head but appears very weak and drowsy Current yellow, thickened bilious output per NG current hemoglobin 11.3 <María Osorio - Last Filed: 04/06/18 15:31> Physical Exam Vital signs: Vital Signs 04/05/18 16:00 04/05/18 17:00 04/05/18 17:10 Temperature Pulse Rate 78 75 Respiratory Rate Blood Pressure Pulse Oximetry 94 L 95 04/05/18 18:00 04/05/18 19:00 04/05/18 20:00 Temperature 98.8 F Pulse Rate 71 74 70 Respiratory Rate 16 Blood Pressure 98/56 L Pulse Oximetry 04/05/18 21:00 04/05/18 22:00 04/05/18 23:00 Temperature 97.9 F Pulse Rate 76 72 72 Respiratory Rate 14 Blood Pressure 101/57 L Pulse Oximetry 93 L 04/06/18 00:00 04/06/18 01:00 04/06/18 02:00 Temperature Pulse Rate 74 72 76 Respiratory Rate Blood Pressure Pulse Oximetry 04/06/18 03:00 04/06/18 03:55 04/06/18 04:00 Temperature 98.2 F Pulse Rate 73 79 72 Respiratory Rate 18 Blood Pressure 127/57 L Pulse Oximetry 04/06/18 05:00 04/06/18 06:00 04/06/18 07:00 Temperature Pulse Rate 78 75 74 Respiratory Rate Blood Pressure Pulse Oximetry 04/06/18 07:51 04/06/18 08:00 04/06/18 09:00 Temperature 97.9 F Pulse Rate 80 72 72 Respiratory Rate 16 Blood Pressure 103/51 L Pulse Oximetry 94 L 04/06/18 10:00 04/06/18 11:00 04/06/18 12:00 Temperature Pulse Rate 72 74 72 Respiratory Rate Blood Pressure Pulse Oximetry 04/06/18 13:00 Temperature Pulse Rate 70 Respiratory Rate Blood Pressure Pulse Oximetry Intake & Output 04/05/18 04/06/18 04/06/18 18:59 06:59 18:59 Intake Total 850 / 850 1000 / 1000 1000 / 1000 Output Total 400 / 400 600 / 600 Balance 450 / 450 400 / 400 1000 / 1000 Weight 105.8 kg Intake: IV 250 / 250 1000 / 1000 1000 / 1000 NS + KCl 20 mEq Inj 1,000 ML @ 1000 / 1000 1000 / 1000 100 mls/hr IV.CONT .Q10H MIKE Rx #:[id number] NS Inj 250 ML @ Wide Open IV. 250 / 250 SIG BOLUS ONE Rx#:[id number] Oral 600 / 600 Output: Urine 600 / 600 Emesis 300 / 300 Gastric Drainage 100 / 100 Right Nare 100 / 100 Other: Date of Last Bowel Movement 04/04/18 # Bowel Movements 0 - Constitutional moderate distress - Routine HEENT Exam Head: Present: normocephalic, atraumatic (Pale) ENT: Present: mucous membranes moist (Pale, NG tube connected to low intermittent suction) - Routine Cardiovascular Exam Present: S1, S2 - Routine Abdominal Exam Present: distended (Moderate with minimal if any bowel sounds heard today, NG tube to low intermittent suction) - Routine Skin Exam Present: intact - Detailed Neurological Exam: Coma Scale Eye Opening: To sound - Urinary Catheter Management Indwelling Temp Sensing Catheter Cath placed during this visit: yes, but has since been removed by the nurse Reason for continuing: Not indwelling catheter Insertion date: 03/30/18 Insertion time: 07:40 Removal date: 03/31/18 Removal time: 05:15 <María Osorio - Last Filed: 04/06/18 15:31> Vital signs: Vital Signs 04/05/18 16:00 04/05/18 17:00 04/05/18 17:10 Temperature Pulse Rate 78 75 Respiratory Rate Blood Pressure Pulse Oximetry 94 L 95 04/05/18 18:00 04/05/18 19:00 04/05/18 20:00 Temperature 98.8 F Pulse Rate 71 74 70 Respiratory Rate 16 Blood Pressure 98/56 L Pulse Oximetry 04/05/18 21:00 04/05/18 22:00 04/05/18 23:00 Temperature 97.9 F Pulse Rate 76 72 72 Respiratory Rate 14 Blood Pressure 101/57 L Pulse Oximetry 93 L 04/06/18 00:00 04/06/18 01:00 04/06/18 02:00 Temperature Pulse Rate 74 72 76 Respiratory Rate Blood Pressure Pulse Oximetry 04/06/18 03:00 04/06/18 03:55 04/06/18 04:00 Temperature 98.2 F Pulse Rate 73 79 72 Respiratory Rate 18 Blood Pressure 127/57 L Pulse Oximetry 04/06/18 05:00 04/06/18 06:00 04/06/18 07:00 Temperature Pulse Rate 78 75 74 Respiratory Rate Blood Pressure Pulse Oximetry 04/06/18 07:51 04/06/18 08:00 04/06/18 09:00 Temperature 97.9 F Pulse Rate 80 72 72 Respiratory Rate 16 Blood Pressure 103/51 L Pulse Oximetry 94 L 04/06/18 10:00 04/06/18 11:00 04/06/18 12:00 Temperature Pulse Rate 72 74 72 Respiratory Rate Blood Pressure Pulse Oximetry 04/06/18 13:00 04/06/18 15:00 Temperature 96.9 F L Pulse Rate 70 69 Respiratory Rate 16 Blood Pressure 90/52 L Pulse Oximetry 95 Intake & Output 04/05/18 04/06/18 04/06/18 18:59 06:59 18:59 Intake Total 850 / 850 1000 / 1000 1000 / 1000 Output Total 400 / 400 600 / 600 Balance 450 / 450 400 / 400 1000 / 1000 Weight 105.8 kg Intake: IV 250 / 250 1000 / 1000 1000 / 1000 NS + KCl 20 mEq Inj 1,000 ML @ 1000 / 1000 1000 / 1000 100 mls/hr IV.CONT .Q10H MIKE Rx #:[id number] NS Inj 250 ML @ Wide Open IV. 250 / 250 SIG BOLUS ONE Rx#:[id number] Oral 600 / 600 Output: Urine 600 / 600 Emesis 300 / 300 Gastric Drainage 100 / 100 Right Nare 100 / 100 Other: Date of Last Bowel Movement 04/04/18 # Bowel Movements 0 - Urinary Catheter Management Indwelling Temp Sensing Catheter Cath placed during this visit: no <Lg Goldstein A - Last Filed: 04/06/18 15:55> Results - Labs CBC & Chem 7: 04/06/18 07:35 04/06/18 07:35 Laboratory Results - last 24 hr 04/05/18 04/05/18 04/06/18 16:06 21:50 02:15 WBC RBC Hgb Hct MCV MCH MCHC RDW Plt Count MPV Neut % (Auto) Lymph % (Auto) Sanders % (Auto) Eos % (Auto) Baso % (Auto) Neut # (Auto) Lymph # (Auto) Sanders # (Auto) Eos # (Auto) Baso # (Auto) WBC Differential Differential Comment Sodium Potassium Chloride Carbon Dioxide Anion Gap BUN Creatinine Estimated GFR POC Glucose 130 H 148 H Random Glucose Calcium Total Bilirubin AST ALT Alkaline Phosphatase Total Protein Albumin Lipase Urine Color Aida Urine Clarity Cloudy H Urine pH 5.0 Ur Specific [place] 1.020 Urine Protein Negative Urine Glucose (UA) Negative Urine Ketones Trace Urine Occult Blood Negative Urine Nitrate Negative Urine Bilirubin Negative Urine Urobilinogen 2.0 H Ur Leukocyte Esterase Negative Urine RBC 1 Urine WBC 3 Ur Squamous Epith Cells 1 Hyaline Casts 76 Granular Casts 24 Urine Mucus Few H 04/06/18 04/06/18 04/06/18 07:35 07:35 08:11 WBC 12.6 H RBC 3.76 L Hgb 11.3 L Hct 33.6 L MCV 89.5 MCH 30.2 MCHC 33.7 RDW 14.5 Plt Count 467 H MPV 7.9 Neut % (Auto) 90.1 H Lymph % (Auto) 4.2 L Sanders % (Auto) 5.7 Eos % (Auto) 0.0 Baso % (Auto) 0.0 Neut # (Auto) 11.4 H Lymph # (Auto) 0.5 L Sanders # (Auto) 0.7 Eos # (Auto) 0.0 Baso # (Auto) 0.0 WBC Differential . Differential Comment Auto diff final Sodium 134 L Potassium 4.0 Chloride 89 L Carbon Dioxide 30.6 Anion Gap 14 BUN 89 H Creatinine 4.16 H Estimated GFR 14 L POC Glucose 170 H Random Glucose 153 H Calcium 7.7 L D Total Bilirubin 1.4 H AST 16 ALT 22 Alkaline Phosphatase 50 Total Protein 6.7 Albumin 2.9 L Lipase 881 H Urine Color Urine Clarity Urine pH Ur Specific [place] Urine Protein Urine Glucose (UA) Urine Ketones Urine Occult Blood Urine Nitrate Urine Bilirubin Urine Urobilinogen Ur Leukocyte Esterase Urine RBC Urine WBC Ur Squamous Epith Cells Hyaline Casts Granular Casts Urine Mucus - Imaging Impressions Abdomen X-Ray 04/06/18 00:00 CONCLUSION: Enteric tube as above. Abdomen/Pelvis CT 04/06/18 00:00 CONCLUSION: 1. Findings most consistent with distal small bowel obstruction. Significantly distended stomach and diffuse small bowel distention with relative transition point in the distal ileum in the right lower quadrant. No bowel infarction or perforation at this time. 2. NG tube is in the right mainstem bronchus. 3. Bilateral lower lobe lobe airspace consolidation. 4. Additional ancillary findings, as above. Findings were personally discussed with the patient's nurse, Lennie, at the time of this dictation. Abdomen X-Ray 04/06/18 08:00 CONCLUSION: 1. NGT in the right lung. 2. Findings consistent with distal small bowel obstruction. Patient's nurse, Lennie, is aware of findings. - Procedures Echocardiogram The left ventricular systolic function is normal with an estimated ejection fraction in the range of 55-60%. Trace mitral valve regurgitation. There is trace tricuspid valve regurgitation. CABG x 3 on 03/30/2018. <María Osorio - Last Filed: 04/06/18 15:31> - Labs CBC & Chem 7: 04/06/18 07:35 04/06/18 07:35 Laboratory Results - last 24 hr 04/05/18 04/05/18 04/06/18 16:06 21:50 02:15 WBC RBC Hgb Hct MCV MCH MCHC RDW Plt Count MPV Neut % (Auto) Lymph % (Auto) Sanders % (Auto) Eos % (Auto) Baso % (Auto) Neut # (Auto) Lymph # (Auto) Sanders # (Auto) Eos # (Auto) Baso # (Auto) WBC Differential Differential Comment Sodium Potassium Chloride Carbon Dioxide Anion Gap BUN Creatinine Estimated GFR POC Glucose 130 H 148 H Random Glucose Calcium Total Bilirubin AST ALT Alkaline Phosphatase Total Protein Albumin Lipase Urine Color [place] Urine Clarity Cloudy H Urine pH 5.0 Ur Specific [place] 1.020 Urine Protein Negative Urine Glucose (UA) Negative Urine Ketones Trace Urine Occult Blood Negative Urine Nitrate Negative Urine Bilirubin Negative Urine Urobilinogen 2.0 H Ur Leukocyte Esterase Negative Urine RBC 1 Urine WBC 3 Ur Squamous Epith Cells 1 Hyaline Casts 76 Granular Casts 24 Urine Mucus Few H 04/06/18 04/06/18 04/06/18 07:35 07:35 08:11 WBC 12.6 H RBC 3.76 L Hgb 11.3 L Hct 33.6 L MCV 89.5 MCH 30.2 MCHC 33.7 RDW 14.5 Plt Count 467 H MPV 7.9 Neut % (Auto) 90.1 H Lymph % (Auto) 4.2 L Sanders % (Auto) 5.7 Eos % (Auto) 0.0 Baso % (Auto) 0.0 Neut # (Auto) 11.4 H Lymph # (Auto) 0.5 L Sanders # (Auto) 0.7 Eos # (Auto) 0.0 Baso # (Auto) 0.0 WBC Differential . Differential Comment Auto diff final Sodium 134 L Potassium 4.0 Chloride 89 L Carbon Dioxide 30.6 Anion Gap 14 BUN 89 H Creatinine 4.16 H Estimated GFR 14 L POC Glucose 170 H Random Glucose 153 H Calcium 7.7 L D Total Bilirubin 1.4 H AST 16 ALT 22 Alkaline Phosphatase 50 Total Protein 6.7 Albumin 2.9 L Lipase 881 H Urine Color Urine Clarity Urine pH Ur Specific [place] Urine Protein Urine Glucose (UA) Urine Ketones Urine Occult Blood Urine Nitrate Urine Bilirubin Urine Urobilinogen Ur Leukocyte Esterase Urine RBC Urine WBC Ur Squamous Epith Cells Hyaline Casts Granular Casts Urine Mucus - Imaging Impressions Abdomen X-Ray 04/06/18 00:00 CONCLUSION: Enteric tube as above. Abdomen/Pelvis CT 04/06/18 00:00 CONCLUSION: 1. Findings most consistent with distal small bowel obstruction. Significantly distended stomach and diffuse small bowel distention with relative transition point in the distal ileum in the right lower quadrant. No bowel infarction or perforation at this time. 2. NG tube is in the right mainstem bronchus. 3. Bilateral lower lobe lobe airspace consolidation. 4. Additional ancillary findings, as above. Findings were personally discussed with the patient's nurse, Lennie, at the time of this dictation. Abdomen X-Ray 04/06/18 08:00 CONCLUSION: 1. NGT in the right lung. 2. Findings consistent with distal small bowel obstruction. Patient's nurse, Lennie, is aware of findings. <Lg Goldstein - Last Filed: 04/06/18 15:55> Assessment and Plan (1) Abdominal distention Status: Acute Code(s): R14.0 - Abdominal distension (gaseous) (2) Ileus, postoperative Status: Acute Code(s): K91.89 - Other postprocedural complications and disorders of digestive system; K56.7 - Ileus, unspecified - Plan Assessment: - Ileus S/P CABG Pt began vomiting this morning, according to RN approximately 300 cc of emesis. Now with NG to LIWS. Repeat KUB revealed moderate gaseous distention of proximal small bowel as above, no transition point noted by radiologist. - Elevated lipase-Lipase 1689 Pt denies history of pancreatitis. Does reports daily ETOH, wine with dinner but has not had any alcohol since day prior to admission 11 days ago. Denies family history and personal history of pancreatic and liver issues. Pt still has his gallbladder ? medication induced 04/06/2018 patient is resting up in the chair with NG tube connected to low intermittent suction he does arouse and answer some simple questions but appears more lethargic. is in the room with him. CT scan of the abdomen and pelvis which are consistent with distal small bowel obstruction and significantly distended stomach and profuse small bowel distention with relative transition point in the distal ileum of the lower quadrant NG tube. No bowel infarction or perforation at this time. Plan: NG to LIWS NPO Can have ice chips Bowel regimen Antiemetics Further recommendations based on clinical course Patient has been seen and examined by myself and Dr. Goldstein and this note is written on his behalf <María Osorio - Last Filed: 04/06/18 15:31> (1) Abdominal distention Status: Acute Code(s): R14.0 - Abdominal distension (gaseous) (2) Ileus, postoperative Status: Acute Code(s): K91.89 - Other postprocedural complications and disorders of digestive system; K56.7 - Ileus, unspecified - Attending Attestation Seen with [place], discussed with patient and family. Improvement since yesterday, will check SBFT results. Will hold off on rectal tube for now. <Lg Goldstein - Last Filed: 04/06/18 15:55>
--- NOTE | 2018-04-06 18:23 | P.CONNP ---
History of Present Illness Consult date: 04/06/18 Reason for Consult: Acute on chronic renal insufficiency. Primary Care Provider: UNKNOWN History of Present Illness: This patient is a 73-year-old [place] male with a history of coronary artery disease, patent chronic kidney disease stage III with a baseline creatinine level of about 1.3 with an estimated GFR in the 50s based on laboratory studies on admission. Patient was admitted to this institution with NSTEM. Patient subsequently underwent cardiac catheterization and then a redo CABG February 28, 2018. Post operative course complicated by ileus versus small bowel obstruction with continuous NG drainage. Patient's creatinine initially elevated postoperative day improved and subsequently deteriorating progressively. CAT scan without contrast performed day of consultation showing no hydronephrosis. Review of Systems All other systems reviewed negative except as stated in HPI [facility] - History History Provided By: Patient - Medical History Medical History: Medical History (Last Updated 04/06/18 @ 18:43 by John Bardales MD) Chronic kidney disease Constipation Dyslipidemia Hypertension Pacemaker - Surgical History Surgical History: Surgical History (Last Updated 04/06/18 @ 11:09 by AURORA Hayden) Hx of CABG - Tobacco History Second Hand Smoke Exposure: No Tobacco Use In Past 30 Days: No Smoking Status: Never smoker - Alcohol History How Often Do You Have a Drink Containing Alcohol: 4 or more times a week (daily glass of wine with dinner) - Substance Use History Substance History: No History of Abuse - Travel History History of Recent Travel: No Recent Travel in the [place] Within the Last 8 Weeks: No Recent Travel Out of the Country Within the Last 8 Weeks: No Medications and Allergies Active Medications: Active Medications Acetaminophen (Tylenol) 500 mg PO Q4H PRN PRN Reason: TEMP>101F Al Hydroxide/Mg Hydroxide (Milk Of Charis Liq) 30 ml PO DAILY [facility] Last Admin: 04/06/18 11:30 Dose: Not Given Albuterol (Duoneb Neb (Prn)) 1 ampul NEB Q2HR NEB PRN PRN Reason: WHEEZING Aspirin (Aspirin Chew) 81 mg PO DAILY [facility] Last Admin: 04/06/18 10:38 Dose: 81 mg Atorvastatin Calcium (Lipitor) 40 mg PO HS [facility] Last Admin: 04/05/18 22:16 Dose: 40 mg Bisacodyl (Dulcolax Supp) 10 mg RECTAL DAILY [facility] Last Admin: 04/06/18 14:22 Dose: 10 mg Clopidogrel Bisulfate (Plavix) 75 mg PO DAILY [facility] Last Admin: 04/06/18 10:39 Dose: 75 mg Dextrose (D50w Vial) 50 ml IV.PUSH UNSCH PRN PRN Reason: PER HYPOGLYCEMIA PROTOCOL Docusate Sodium (Colace) 100 mg PO BID [facility] Last Admin: 04/06/18 11:31 Dose: Not Given Glucagon (Glucagon Inj) 1 mg OTHER UNSCH PRN PRN Reason: for Hypoglycemia Protocol Acetaminophen (Ofirmev Inj) 1,000 mg in 100 mls @ 400 mls/hr IV.SIG Q6H PRN PRN Reason: PAIN SCALE 1 TO 10 Last Infusion: 04/04/18 00:45 Dose: Infused Potassium Chloride/Sodium Chloride (Ns + Kcl 20 Meq Inj) 1,000 mls @ 100 mls/ hr IV.CONT .Q10H [facility] Last Admin: 04/06/18 12:34 Dose: 100 mls/hr Insulin Aspart (Novolog Insulin Suppl Scale Inj) 0 unit SQ ACHS [facility]; Protocol Last Admin: 04/06/18 16:58 Dose: Not Given Lactulose (Lactulose Liq) 30 ml PO DAILY [facility] Last Admin: 04/06/18 11:30 Dose: Not Given Methocarbamol (Robaxin) 500 mg PO Q8HR [facility] Last Admin: 04/06/18 14:21 Dose: 500 mg Metoclopramide HCl (Reglan Inj) 5 mg IV.PUSH Q8HR [facility]; Protocol Last Admin: 04/06/18 14:21 Dose: 5 mg Metoprolol Tartrate (Lopressor) 25 mg PO BID [facility] Last Admin: 04/06/18 10:38 Dose: 25 mg Miscellaneous (Pill Splitter) 1 each OTHER UNSCH [facility] Multivitamins/Minerals (Theragran-M) 1 tab PO DAILY [facility] Last Admin: 04/06/18 10:38 Dose: 1 tab Ondansetron HCl (Zofran Odt) 4 mg PO Q6H PRN PRN Reason: NAUSEA/VOMITING Last Admin: 04/06/18 07:50 Dose: 4 mg Pantoprazole Sodium (Protonix) 40 mg PO DAILY@06 [facility] Last Admin: 04/06/18 06:44 Dose: Not Given Phenazopyridine HCl (Pyridium) 100 mg PO Q8H PRN PRN Reason: PAINFUL URINATION Last Admin: 03/31/18 14:02 Dose: 100 mg Polyethylene Glycol (Miralax) 17 gm PO DAILY [facility] Last Admin: 04/06/18 11:30 Dose: Not Given Promethazine HCl (Phenergan Inj) 25 mg IM Q6H PRN PRN Reason: Nausea/Vomiting Last Admin: 04/05/18 10:53 Dose: 25 mg Sennosides (Senokot) 8.6 mg PO [facility] Last Admin: 04/05/18 22:17 Dose: 8.6 mg Sodium Biphosphate/Sodium Phosphate (Fleets Enema (Adult)) 118 ml RECTAL UNSCH PRN PRN Reason: SEE LABEL COMMENTS Sodium Chloride (Ns Flush) 2 ml IV.FLUSH BID [facility] Last Admin: 04/06/18 11:31 Dose: 2 ml Sodium Chloride (Ns Flush) 2 ml IV.FLUSH PRN PRN PRN Reason: FLUSH AFTER USING IV ACCESS Allergies Allergy/AdvReac Type Severity Reaction Status Date / Time No Known Allergies Allergy Unverified 03/26/18 11:04 Home Medications Medication Instructions Recorded Confirmed Type allopurinol 300 mg PO DAILY 03/27/18 03/27/18 History aspirin 81 mg PO DAILY 03/27/18 03/27/18 History hydrochlorothiazide 25 mg PO DAILY 03/27/18 03/27/18 History lisinopril 20 mg PO DAILY 03/27/18 03/27/18 History omeprazole 40 mg PO DAILY 03/27/18 03/27/18 History rosuvastatin 10 mg PO HS 03/27/18 03/27/18 History sildenafil 100 mg PO DAILY PRN 03/27/18 03/27/18 History Exam Vital signs: Vital Signs 04/05/18 19:00 04/05/18 20:00 04/05/18 21:00 Temperature 98.8 F Pulse Rate 74 70 76 Respiratory Rate 16 Blood Pressure 98/56 L Pulse Oximetry 04/05/18 22:00 04/05/18 23:00 04/06/18 00:00 Temperature 97.9 F Pulse Rate 72 72 74 Respiratory Rate 14 Blood Pressure 101/57 L Pulse Oximetry 93 L 04/06/18 01:00 04/06/18 02:00 04/06/18 03:00 Temperature 98.2 F Pulse Rate 72 76 73 Respiratory Rate 18 Blood Pressure 127/57 L Pulse Oximetry 04/06/18 03:55 04/06/18 04:00 04/06/18 05:00 Temperature Pulse Rate 79 72 78 Respiratory Rate Blood Pressure Pulse Oximetry 04/06/18 06:00 04/06/18 07:00 04/06/18 07:51 Temperature 97.9 F Pulse Rate 75 74 80 Respiratory Rate 16 Blood Pressure 103/51 L Pulse Oximetry 94 L 04/06/18 08:00 04/06/18 09:00 04/06/18 10:00 Temperature Pulse Rate 72 72 72 Respiratory Rate Blood Pressure Pulse Oximetry 04/06/18 11:00 04/06/18 12:00 04/06/18 13:00 Temperature Pulse Rate 74 72 70 Respiratory Rate Blood Pressure Pulse Oximetry 04/06/18 14:00 04/06/18 15:00 04/06/18 16:00 Temperature 96.9 F L Pulse Rate 70 70 70 Respiratory Rate 16 Blood Pressure 90/52 L Pulse Oximetry 95 04/06/18 17:00 Temperature Pulse Rate 70 Respiratory Rate Blood Pressure Pulse Oximetry Intake & Output 04/05/18 04/06/18 04/06/18 18:59 06:59 18:59 Intake Total 850 / 850 1000 / 1000 1500 / 1500 Output Total 400 / 400 600 / 600 4700 / 4700 Balance 450 / 450 400 / 400 -3200 / -3200 Weight 105.8 kg Intake: IV 250 / 250 1000 / 1000 1500 / 1500 NS + KCl 20 mEq Inj 1,000 ML @ 1000 / 1000 1000 / 1000 100 mls/hr IV.CONT .Q10H MIKE Rx #:[id number] NS Inj 250 ML @ Wide Open IV. 250 / 250 SIG BOLUS ONE Rx#:[id number] NS Inj 500 ML @ Wide Open IV. 500 / 500 SIG BOLUS ONE Rx#:[id number] Oral 600 / 600 Output: Urine 600 / 600 Emesis 300 / 300 Gastric Drainage 100 / 100 4700 / 4700 Right Nare 100 / 100 4700 / 4700 Other: # Voids 3 Date of Last Bowel Movement 04/04/18 # Bowel Movements 0 - Constitutional no acute distress, cooperative - Routine HEENT Exam Head: Present: normocephalic - Routine Respiratory Exam Present: CTA bilaterally - Routine Cardiovascular Exam Present: RRR, irregular rhythm - Routine Abdominal Exam Present: distended (But presently not tense.) - Routine Extremities Exam Comments: No peripheral edema noted. - Routine Skin Exam Present: dry Results - Lab Results 04/06/18 07:35 04/06/18 07:35 Most recent lab results Calcium 7.7 mg/dL (8.5-10.1) L D 04/06/18 07:35 Magnesium 2.5 mg/dL (1.5-2.5) 04/02/18 05:50 Assessment and Plan - Assessment (1) Acute kidney injury Code(s): N17.9 - Acute kidney failure, unspecified Status: Acute Plan: Probably superimposed on some degree of chronic kidney disease given renal indices on presentation. Patient does indeed have chronic kidney disease most likely related to nephrosclerosis of hypertension and aging. Acute renal insufficiency most likely related to ATN possibly multifactorial in origin. Contributory factors include recent CABG with subsequent development of ileus with third spacing of fluid resulting in intravascular volume depletion. Abdomen is distended but not presently tense and abdominal compartment syndrome not a primary consideration presently. Patient undergoing nasogastric tube drainage for decompression. Lesser consideration would be possible development of atheroembolic disease with renal involvement. Will check serum complement levels as well as urine eosinophils. There is no evidence of obstruction as per CT scan done today. Recommend continuance of IV hydration to compensate for fluid losses via NG tube. BMP today to recheck electrolytes. Agree with discontinuance of ISA inhibitor. If the patient does have established ATN his renal indices may continue to deteriorate as discussed with patient and his in which case his azotemia may continue to worsen and we may have to consider renal replacement therapy i.e. dialysis. If dialysis is required patient was advised that hopefully would only be required temporarily pending recovery of renal function but this cannot be guaranteed. Medications should be adjusted for the patient's estimated GFR if clinically indicated. Avoid agents with significant potential for nephrotoxicity possible including NSAIDs for analgesia, iodine contrast agents. Gadolinium is contraindicated if the GFR is below 30. (2) S/P CABG x 3 Code(s): Z95.1 - Presence of aortocoronary bypass graft Status: Acute
[2018-04-06 20:03] LABS: Creatinine,Urine Random 180 mg/dL (27-300)
[2018-04-06 20:46] LABS: Carbon Dioxide 27.9 meq/L (21.0-32.0); Potassium 3.5 meq/L (3.5-5.1)
[2018-04-07 04:25] LABS: Baso % (Auto) 0.2 % (0.0-2.0); Eos % (Auto) 0.2 % (0.0-4.0); Hematocrit 32.7 % (39.0-51.0); Hemoglobin 10.9 gm/dL (13.0-17.0); Lymph # (Auto) 0.5 th/mm3 (1.0-4.8); Lymph % (Auto) 5.6 % (9.0-44.0); Mean Corpuscular HGB Conc 33.3 % (32.0-36.0); Mean Corpuscular Volume 90.1 fL (80.0-100.0); Mean Platelet Volume 7.8 fL (7.0-11.0); Mono # (Auto) 0.8 th/mm3 (0.0-0.9); Mono % (Auto) 8.1 % (0.0-8.0); Neut # (Auto) 8.2 th/mm3 (1.8-7.7); Neut % (Auto) 85.9 % (16.0-70.0); Platelet Count 446 th/mm3 (150-450); Red Blood Count 3.63 mil/mm3 (4.50-5.90); Red Cell Distribution Width 14.9 % (11.6-17.2); White Blood Count 9.5 th/mm3 (4.0-11.0)
[2018-04-07 04:57] LABS: Alanine Aminotransferase 21 U/L (12-78); Albumin 2.7 g/dL (3.4-5.0); Anion Gap 16 meq/L (5-15); Aspartate Aminotransferase 22 U/L (15-37); Blood Urea Nitrogen 105 mg/dL (7-18); Calcium 7.6 mg/dL (8.5-10.1); Carbon Dioxide 30.5 meq/L (21.0-32.0); Chloride 90 meq/L (98-107); Glomerular Filtration Rate 18 mL/min (>89); Glucose,Random 139 mg/dL (74-106); Lipase 1182 U/L (73-393); Magnesium 3.8 mg/dL (1.5-2.5); Phosphorus 4.7 mg/dL (2.5-4.9); Potassium 3.4 meq/L (3.5-5.1); Sodium 136 meq/L (136-145)
[2018-04-07 05:06] LABS: Alkaline Phosphatase 60 U/L (45-117); Complement C3 116 mg/dL (90-180); Free T4 (Free Thyroxine) 1.31 ng/dL (0.76-1.46); Total Protein 6.7 g/dL (6.4-8.2)
--- NOTE | 2018-04-07 05:36 | XR ---
EXAM DATE: 04/07/2018 5:15 AM EDT AGE/SEX: 73 years / Male INDICATIONS: Shortness of breath. CLINICAL DATA: This is the patient's subsequent encounter. Patient reports that signs and symptoms h ave been present for 1 week and indicates a pain score of Nonresponsive. MEDICAL/SURGICAL HISTORY: . Cardiovascular disease. Hypertension. Myocardial infarction. CABG. COMPARISON: C, CHEST 1V SINGLE AP, 04/03/2018. . FINDINGS: NGT coursing beyond the GE junction with tip omitted from the image. Persistent left lower lung zone airspace disease. Cardiac silhouette is enlarged with interstitial prominence and indistinct central pulmonary vascularity. Tiny left apical pneumothorax noted on prior exam is not well demonstrated. Re mainder of exam is unchanged. CONCLUSION: 1. Stable left lower lung zone airspace disease. 2. Tiny left apical pneumothorax noted on previous exams not well demonstrated. 3. Cardiomegaly with pulmonary vascular congestion. 4. NGT coursing beyond the GE junction. Electronically signed by: Modesto Benson MD 04/07/2018 5:34 AM EDT
[2018-04-07] MEDS: Methocarbamol 500 MG Tablet PO SCH ×3 (05:57→21:31)
[2018-04-07] MEDS: Insulin NovoLOG Aspart Correctional Sugar Inj SQ SCH ×4 (09:45→21:32)
[2018-04-07] MEDS: Multivitamin/Minerals Therapeutic Tablet PO SCH (10:06)
[2018-04-07] MEDS: Metoprolol Tartrate 25 MG Tablet PO SCH ×2 (10:06→21:32)
[2018-04-07] MEDS: Bisacodyl 10 MG Supp RECTAL SCH (10:07)
[2018-04-07] MEDS: Docusate Sodium 100 MG Capsule PO SCH ×2 (10:08→21:32)
[2018-04-07] MEDS: Polyethylene Glycol 3350 17 GM Packet PO SCH (10:09)
[2018-04-07] MEDS ORDERED: Potassium Chlor 20 mEq Premix 20 MEQ/100 ML PIGGYBACK IV.SIG ONE (10:17)
[2018-04-07] MEDS ORDERED: Sodium Chlor 0.9% Inj 500 ML IV.SIG ONE (10:22)
--- NOTE | 2018-04-07 10:55 | P.PNIM ---
Subjective Interval history: 7-9 Follow up for multivessel CAD s/p CABG x 3. Patient, unfortunately, started having abdominal distension, nausea, vomiting again. NG tube again placed. Currently NPO. He reports no abdominal pain, however. 7-10 LOTS OF OUTPUT FROM NGT TO GO FOR RADIOLOGICAL STUDIES TODAY NOT PASSING ANY GAS HYPOACTIVE BOWEL SOUNDS DW RN AND PT AND FAMILY AND CM 7-11 STATES HAVING FLATUS STILL HAS NGT IN PLACE WANTS TO EAT DW RN AND PT RENAL FUNCTIONS IMPROVED TO CR OF 3 WILL GET AM LABS STILL NEEDS MORE FLUIDS- APPEARS BEHIND A FEW LITERS STILL Physical Exam Vital signs: Vital Signs 04/06/18 11:00 04/06/18 12:00 04/06/18 13:00 Temperature Pulse Rate 74 72 70 Respiratory Rate Blood Pressure Pulse Oximetry 04/06/18 14:00 04/06/18 15:00 04/06/18 16:00 Temperature 96.9 F L Pulse Rate 70 70 70 Respiratory Rate 16 Blood Pressure 90/52 L Pulse Oximetry 95 04/06/18 17:00 04/06/18 18:00 04/06/18 19:50 Temperature 97.5 F L Pulse Rate 70 74 72 Respiratory Rate 18 Blood Pressure 93/55 L Pulse Oximetry 92 L 04/06/18 20:30 04/06/18 21:40 04/06/18 22:00 Temperature Pulse Rate 62 69 59 L Respiratory Rate Blood Pressure Pulse Oximetry 04/06/18 23:11 04/07/18 00:00 04/07/18 01:00 Temperature 98.0 F Pulse Rate 71 70 67 Respiratory Rate 19 Blood Pressure 120/59 L Pulse Oximetry 93 L 04/07/18 02:08 04/07/18 03:40 04/07/18 04:00 Temperature 97.3 F L Pulse Rate 73 70 70 Respiratory Rate 18 Blood Pressure 107/58 L Pulse Oximetry 95 04/07/18 05:00 04/07/18 06:00 04/07/18 07:00 Temperature Pulse Rate 70 81 69 Respiratory Rate Blood Pressure Pulse Oximetry 04/07/18 08:00 04/07/18 08:10 Temperature 96.2 F L Pulse Rate 70 81 Respiratory Rate 18 Blood Pressure 110/59 L Pulse Oximetry 95 Intake & Output 04/06/18 04/07/18 04/07/18 18:59 06:59 18:59 Intake Total 1500 / 1500 1360 / 1360 1000 / 1000 Output Total 4700 / 4700 2225 / 2225 Balance -3200 / -3200 -865 / -865 1000 / 1000 Weight 105.8 kg 101.5 kg Intake: IV 1500 / 1500 1000 / 1000 1000 / 1000 NS + KCl 20 mEq Inj 1,000 ML @ 1000 / 1000 1000 / 1000 1000 / 1000 100 mls/hr IV.CONT .Q10H MIKE Rx #:[id number] NS Inj 500 ML @ Wide Open IV. 500 / 500 SIG BOLUS ONE Rx#:[id number] Oral 360 / 360 Output: Urine 325 / 325 Gastric Drainage 4700 / 4700 1900 / 1900 Right Nare 4700 / 4700 1900 / 1900 Other: # Voids 3 Narrative: GENERAL: Alert, Oriented x 3, NAD. SKIN: Warm and dry. HEAD: Normocephalic. Atraumatic EYES: No scleral icterus. No injection or drainage. PERRLA extraocular muscles intact NECK: Supple, trachea midline. No JVD or lymphadenopathy. CARDIOVASCULAR: Regular rate and rhythm without murmurs, gallops, or rubs. Sternotomy C/D/I RESPIRATORY: Breath sounds equal bilaterally. No accessory muscle use. GASTROINTESTINAL: Abdomen firm, distended but not tender to palpation. Hypoactive bowel sounds MUSCULOSKELETAL: No cyanosis, or edema. Motor strength is 4 out of 5 in upper extremity lower extremity bilaterally BACK: Nontender without obvious deformity. No CVA tenderness. Insight and judgment is good Mood and behaviors are appropriate - Urinary Catheter Management Indwelling Temp Sensing Catheter Cath placed during this visit: yes, but has since been removed by the nurse Reason for continuing: Not indwelling catheter Insertion date: 03/30/18 Insertion time: 07:40 Removal date: 03/31/18 Removal time: 05:15 Results - Labs CBC & Chem 7: 04/07/18 03:51 04/07/18 03:51 Laboratory Results - last 24 hr 04/06/18 04/06/18 04/06/18 16:27 19:36 19:36 WBC RBC Hgb Hct MCV MCH MCHC RDW Plt Count MPV Neut % (Auto) Lymph % (Auto) [place] % (Auto) Eos % (Auto) Baso % (Auto) Neut # (Auto) Lymph # (Auto) [place] # (Auto) Eos # (Auto) Baso # (Auto) WBC Differential Differential Comment Sodium Potassium Chloride Carbon Dioxide Anion Gap BUN Creatinine Estimated GFR POC Glucose 161 H Random Glucose Calcium Phosphorus Magnesium Total Bilirubin AST ALT Alkaline Phosphatase Total Protein Albumin Lipase TSH Free T4 Urine Osmolality 526 Ur Random Creatinine 180 Ur Random Sodium 9 Complement C3 Complement C4 04/06/18 04/06/18 04/07/18 20:01 20:45 03:51 WBC 9.5 RBC 3.63 L Hgb 10.9 L Hct 32.7 L MCV 90.1 MCH 30.0 MCHC 33.3 RDW 14.9 Plt Count 446 MPV 7.8 Neut % (Auto) 85.9 H Lymph % (Auto) 5.6 L [place] % (Auto) 8.1 H Eos % (Auto) 0.2 Baso % (Auto) 0.2 Neut # (Auto) 8.2 H Lymph # (Auto) 0.5 L [place] # (Auto) 0.8 Eos # (Auto) 0.0 Baso # (Auto) 0.0 WBC Differential . Differential Comment Auto diff final Sodium 133 L Potassium 3.5 Chloride 90 L Carbon Dioxide 27.9 Anion Gap 15 BUN 96 H Creatinine 3.58 H Estimated GFR 17 L POC Glucose 123 H Random Glucose 141 H Calcium 8.0 L Phosphorus Magnesium Total Bilirubin AST ALT Alkaline Phosphatase Total Protein Albumin Lipase TSH Free T4 Urine Osmolality Ur Random Creatinine Ur Random Sodium Complement C3 Complement C4 04/07/18 04/07/18 03:51 08:18 WBC RBC Hgb Hct MCV MCH MCHC RDW Plt Count MPV Neut % (Auto) Lymph % (Auto) [place] % (Auto) Eos % (Auto) Baso % (Auto) Neut # (Auto) Lymph # (Auto) [place] # (Auto) Eos # (Auto) Baso # (Auto) WBC Differential Differential Comment Sodium 136 Potassium 3.4 L Chloride 90 L Carbon Dioxide 30.5 Anion Gap 16 H BUN 105 H Creatinine 3.34 H Estimated GFR 18 L POC Glucose 143 H Random Glucose 139 H Calcium 7.6 L Phosphorus 4.7 Magnesium 3.8 H Total Bilirubin 1.4 H AST 22 ALT 21 Alkaline Phosphatase 60 Total Protein 6.7 Albumin 2.7 L Lipase 1182 H TSH 1.980 Free T4 1.31 Urine Osmolality Ur Random Creatinine Ur Random Sodium Complement C3 116 Complement C4 32 - Imaging Impressions Chest X-Ray 04/07/18 06:00 CONCLUSION: 1. Stable left lower lung zone airspace disease. 2. Tiny left apical pneumothorax noted on previous exams not well demonstrated. 3. Cardiomegaly with pulmonary vascular congestion. 4. NGT coursing beyond the GE junction. - Procedures Echocardiogram The left ventricular systolic function is normal with an estimated ejection fraction in the range of 55-60%. Trace mitral valve regurgitation. There is trace tricuspid valve regurgitation. CABG x 3 on 03/30/2018. Assessment and Plan - Assessment (1) NSTEMI (non-ST elevated myocardial infarction) Code(s): I21.4 - Non-ST elevation (NSTEMI) myocardial infarction Status: Acute (2) Multi-vessel coronary artery stenosis Code(s): I25.10 - Atherosclerotic heart disease of [place] coronary artery without angina pectoris Status: Acute - Plan 73-year-old white male being admitted for suspected NSTEMI. Cardiac cath showed multivessel CAD. Patient subsequently underwent CABG x3. Multivessel Coronary artery disease NSTEMI -Cardiac catheterization shows three-vessel disease not amenable for PCI. -Status post CABG x 3 on 03/30/2017. -Continue aspirin 81mg, Lipitor 40mg HS and Lopressor 25 mg twice daily, Plavix. -Chest tube discontinued 04/02/2018. Hyperlipidemia continue on Lipitor Hypertension continue on Lopressor Ileus - Abdominal distention, nausea, vomiting again developed today. GI is following and and ordered CT Abdomen. - Continue NG tube suction. Acute kidney injury - ISA inhibitor on hold for now. - Avoid nephrotoxins. Creatinine 1.40 --> 1.23 ==> 2.07.WENT HIGH 4 NOW DOWN TO 3 -NEEDS TO CONTINUE ON FLUIDS HYPOKALEMIA WILL REPLACE WITH IV Renal insufficiency continue to monitor Back pain - Percocet 7.5mg Q4hrs PRN Full code. Ambulation. Code Status: FULL CODE Discussed Condition With: RN AND PT AND CM AND [facility] Discharge Planning: Once tolerating a diet able to have bowel movements again
--- NOTE | 2018-04-07 12:24 | P.PNGS ---
Subjective Patient reports: other (Wants to get up to the BSC; did not sleep well last night ) Physical Exam Vital signs: Vital Signs 04/06/18 13:00 04/06/18 14:00 04/06/18 15:00 Temperature 96.9 F L Pulse Rate 70 70 70 Respiratory Rate 16 Blood Pressure 90/52 L Pulse Oximetry 95 04/06/18 16:00 04/06/18 17:00 04/06/18 18:00 Temperature Pulse Rate 70 70 74 Respiratory Rate Blood Pressure Pulse Oximetry 04/06/18 19:50 04/06/18 20:30 04/06/18 21:40 Temperature 97.5 F L Pulse Rate 72 62 69 Respiratory Rate 18 Blood Pressure 93/55 L Pulse Oximetry 92 L 04/06/18 22:00 04/06/18 23:11 04/07/18 00:00 Temperature 98.0 F Pulse Rate 59 L 71 70 Respiratory Rate 19 Blood Pressure 120/59 L Pulse Oximetry 93 L 04/07/18 01:00 04/07/18 02:08 04/07/18 03:40 Temperature 97.3 F L Pulse Rate 67 73 70 Respiratory Rate 18 Blood Pressure 107/58 L Pulse Oximetry 95 04/07/18 04:00 04/07/18 05:00 04/07/18 06:00 Temperature Pulse Rate 70 70 81 Respiratory Rate Blood Pressure Pulse Oximetry 04/07/18 07:00 04/07/18 08:00 04/07/18 08:10 Temperature 96.2 F L Pulse Rate 69 70 81 Respiratory Rate 18 Blood Pressure 110/59 L Pulse Oximetry 95 Intake & Output 04/06/18 04/07/18 04/07/18 18:59 06:59 18:59 Intake Total 1500 / 1500 1360 / 1360 1000 / 1000 Output Total 4700 / 4700 2225 / 2225 Balance -3200 / -3200 -865 / -865 1000 / 1000 Weight 105.8 kg 101.5 kg Intake: IV 1500 / 1500 1000 / 1000 1000 / 1000 NS + KCl 20 mEq Inj 1,000 ML @ 1000 / 1000 1000 / 1000 1000 / 1000 100 mls/hr IV.CONT .Q10H MIKE Rx #:[id number] NS Inj 500 ML @ Wide Open IV. 500 / 500 SIG BOLUS ONE Rx#:[id number] Oral 360 / 360 Output: Urine 325 / 325 Gastric Drainage 4700 / 4700 1900 / 1900 Right Nare 4700 / 4700 1900 / 1900 Other: # Voids 3 Narrative: Alert and awake Cardio: RRR Resp: CTAB Abd: much softer today; still with some distention; NGT in place - Urinary Catheter Management Indwelling Temp Sensing Catheter Cath placed during this visit: yes, but has since been removed by the nurse Reason for continuing: Not indwelling catheter Insertion date: 03/30/18 Insertion time: 07:40 Removal date: 03/31/18 Removal time: 05:15 Assessment and Plan - Assessment (1) Ileus, postoperative Code(s): K91.89 - Other postprocedural complications and disorders of digestive system; K56.7 - Ileus, unspecified Status: Acute (2) S/P CABG x 3 Code(s): Z95.1 - Presence of aortocoronary bypass graft Status: Acute - Plan 73 year old male with recent CABG on March 30, post operative abdominal pain; distention -Likely ileus -Lipase elevated trending down -Continue NGT to LIWS -NPO -Await last images of UGI/SBFT -OOB and mobilize as tolerated -Will continue nonoperative treatment
--- NOTE | 2018-04-07 13:28 | FL ---
EXAM DATE: 04/06/2018 10:43 PM EDT AGE/SEX: 73 years / Male INDICATIONS: Obstruction. CLINICAL DATA: This is the patient's initial encounter. Patient reports that signs and symptoms have been present for 3 days and indicates a pain score of 8/10. MEDICAL/SURGICAL HISTORY: Hypertension. CABG. Pacemaker. COMPARISON: [facility] [place], CT ABDOMEN & PELVIS W/O CONTRAST, 04/06/2018. . FLUORO TIME: 0 IMAGE COUNT: 15 CONTRAST: Barium sulfate FINDINGS: Minimal bibasilar parenchymal changes are seen in both lung bases worse on the left. Following oral ingestion of barium there is persistent dilatation of proximal small bowel with decomp ression of distal small bowel and colon. Point of obstruction is in the distal jejunum, proximal ileu m symmetrical was seen on the CT scan of 710. .. CONCLUSION: Mid to distal small bowel obstruction as above. Electronically signed by: Josesito Horton MD 04/07/2018 1:26 PM EDT
--- NOTE | 2018-04-07 14:06 | P.PNCA ---
- Note Subjective/Hospital Course: 73-year-old gentleman with history of coronary artery bypass graft, hypertension, and hyperlipidemia, been experiencing chest pain for the past several days, pressure-like, moderate, relieved with nitroglycerin. cath report : multi vessel disease / EF 50% PAST MEDICAL HISTORY: CABG in 2007. He also has a history of permanent pacemaker, DDD lower rate 50 hypertension, polyp removed, CKD baseline creatinine 1.3 surgery 03/30 REDO CABG x 3 SVG to PDA - good SVG to RI - fair SVG to D1 - fair EVH extubated after surgery / 2 pleural tubes / one mediastinal tubes 03/31 painful , no toradol with CKD OOB pulm toileting pain med control transfer to stepdown 04/01 still painful, but some improvement CT x 3 / drained 130/12 hrs and additional 150cc this am bloody drainage/ no air leak pain control pulm toileting creatinine improved 1.23 04/02 c/o of constipation , mild nausea , abdomen distended , Hypoactive bowel sounds pt is passing flatus , narcotics dc , IV Ofirmev, po tylenol stat KUB pending / add reglan chest tube drained 320cc/ 12 hrs , dark old bloody drainage chest tube to suction / leave chest tubes in ambulate as much as possible 04/03 Nauseated and vomiting this morning, otherwise doing well Had BM and flatus Abdomen soft but distended to my exam. No tenderness or guarding KUB with nonspecific distended SB Ambulate NPO except ice-chips May need GI eval if not improved 04/04 Doing better. NGT inadvertently removed. No further N/V Greatly appreciate GI input Feels thirsty and hungry Abdomen soft and less distended OK to advance diet when ok with GI Ambulate 04/05 pt c/o of abdominal pain, worsening from yesterday , also nausea abdomen very distended , hypoactive bowel sounds NG tube replaced, labs and KUB ordered/ NPO except meds / ice chips GI following 04/06 pt with worsening distention/ nausea worsening BAM / nephrology consulted on IV fluids, leukocytosis with left shift General surgery consulted / high GI output/ NG placement verified also at bedside yellow/ kumari drainage / on intermittent suction continue IV fluids, IV fluid bolus given 04/07 still with distended abdomen faint tinkling bowel sounds noted NG to low intermittent suction Small series report noted / will re- notify General Surgery NPO creatinine with some improvement / replace with 500cc NS , continue IV fluids Objective: Vital Signs - 24 hr 04/06/18 15:00 04/06/18 16:00 04/06/18 17:00 Temperature 96.9 F L Pulse Rate 70 70 70 Respiratory Rate 16 Blood Pressure 90/52 L Pulse Oximetry 95 04/06/18 18:00 04/06/18 19:50 04/06/18 20:30 Temperature 97.5 F L Pulse Rate 74 72 62 Respiratory Rate 18 Blood Pressure 93/55 L Pulse Oximetry 92 L 04/06/18 21:40 04/06/18 22:00 04/06/18 23:11 Temperature 98.0 F Pulse Rate 69 59 L 71 Respiratory Rate 19 Blood Pressure 120/59 L Pulse Oximetry 93 L 04/07/18 00:00 04/07/18 01:00 04/07/18 02:08 Temperature Pulse Rate 70 67 73 Respiratory Rate Blood Pressure Pulse Oximetry 04/07/18 03:40 04/07/18 04:00 04/07/18 05:00 Temperature 97.3 F L Pulse Rate 70 70 70 Respiratory Rate 18 Blood Pressure 107/58 L Pulse Oximetry 95 04/07/18 06:00 04/07/18 07:00 04/07/18 08:00 Temperature Pulse Rate 81 69 70 Respiratory Rate Blood Pressure Pulse Oximetry 04/07/18 08:10 04/07/18 09:00 04/07/18 10:00 Temperature 96.2 F L Pulse Rate 81 70 70 Respiratory Rate 18 Blood Pressure 110/59 L Pulse Oximetry 95 04/07/18 11:00 04/07/18 12:00 04/07/18 13:00 Temperature Pulse Rate 70 70 60 Respiratory Rate Blood Pressure Pulse Oximetry GENERAL: SKIN: Warm and dry. sternal incision intact and well approximated HEAD: Normocephalic. EYES: No scleral icterus. No injection or drainage. NECK: Supple, trachea midline. No JVD or lymphadenopathy. CARDIOVASCULAR: Regular rate and rhythm without murmurs, gallops, or rubs. RESPIRATORY: Breath sounds equal bilaterally. No accessory muscle use. GASTROINTESTINAL: Abdomen distended , slightly firm , very hypoactive bowel sounds NG tube in place to low intermittent suction. soft, non-tender, nondistended. MUSCULOSKELETAL: No cyanosis, or edema. BACK: Nontender without obvious deformity. No CVA tenderness. Labs: Laboratory Results - last 12 hr 04/06/18 04/07/18 04/07/18 19:36 03:51 03:51 WBC 9.5 RBC 3.63 L Hgb 10.9 L Hct 32.7 L MCV 90.1 MCH 30.0 MCHC 33.3 RDW 14.9 Plt Count 446 MPV 7.8 Neut % (Auto) 85.9 H Lymph % (Auto) 5.6 L [place] % (Auto) 8.1 H Eos % (Auto) 0.2 Baso % (Auto) 0.2 Neut # (Auto) 8.2 H Lymph # (Auto) 0.5 L [place] # (Auto) 0.8 Eos # (Auto) 0.0 Baso # (Auto) 0.0 WBC Differential . Differential Comment Auto diff final Sodium 136 Potassium 3.4 L Chloride 90 L Carbon Dioxide 30.5 Anion Gap 16 H BUN 105 H Creatinine 3.34 H Estimated GFR 18 L POC Glucose Random Glucose 139 H Calcium 7.6 L Phosphorus 4.7 Magnesium 3.8 H Total Bilirubin 1.4 H AST 22 ALT 21 Alkaline Phosphatase 60 Total Protein 6.7 Albumin 2.7 L Lipase 1182 H TSH 1.980 Free T4 1.31 Urine Osmolality 526 Complement C3 116 Complement C4 32 04/07/18 04/07/18 08:18 11:48 WBC RBC Hgb Hct MCV MCH MCHC RDW Plt Count MPV Neut % (Auto) Lymph % (Auto) [place] % (Auto) Eos % (Auto) Baso % (Auto) Neut # (Auto) Lymph # (Auto) [place] # (Auto) Eos # (Auto) Baso # (Auto) WBC Differential Differential Comment Sodium Potassium Chloride Carbon Dioxide Anion Gap BUN Creatinine Estimated GFR POC Glucose 143 H 159 H Random Glucose Calcium Phosphorus Magnesium Total Bilirubin AST ALT Alkaline Phosphatase Total Protein Albumin Lipase TSH Free T4 Urine Osmolality Complement C3 Complement C4 Result Diagrams: 04/07/18 03:51 04/07/18 03:51 - Plan (1) S/P CABG x 3 Plan: ASA, statin , BB OOB hold plavix pulm [place]ieling on nasal cannula ambulate (2) CAD (coronary artery disease) (6) Hx of CABG Plan: ASA, statin , BB OOB ambulate (7) Abdominal distention Plan: stat KUB NG tube in place final small bowel series noted will-notify General surgery elevated Lipase, some improvement (8) Acute kidney injury Plan: on continuous IV fluid fluid bolus given nephrology following (2) CAD (coronary artery disease) Qualifiers: Coronary Disease-Associated Artery/Lesion type: [place] artery Associated angina: with unstable angina
[2018-04-07] MEDS: Albumin Human 25% Inj 100 ML IV.SIG SCH ×2 (14:40→21:31)
--- NOTE | 2018-04-07 16:51 | P.PNGI ---
Subjective Interval history: Patient is sitting up in the chair again today seems more alert family present Patient is hungry ends with so much like to eat but is able to tromp on some ice chips Still putting out yellowish thick opaque yellowish brown fluid. NG tube connected to low intermittent suction Status post CABG <JoMaría M - Last Filed: 04/07/18 16:43> Physical Exam Vital signs: Vital Signs 04/06/18 17:00 04/06/18 18:00 04/06/18 19:50 Temperature 97.5 F L Pulse Rate 70 74 72 Respiratory Rate 18 Blood Pressure 93/55 L Pulse Oximetry 92 L 04/06/18 20:30 04/06/18 21:40 04/06/18 22:00 Temperature Pulse Rate 62 69 59 L Respiratory Rate Blood Pressure Pulse Oximetry 04/06/18 23:11 04/07/18 00:00 04/07/18 01:00 Temperature 98.0 F Pulse Rate 71 70 67 Respiratory Rate 19 Blood Pressure 120/59 L Pulse Oximetry 93 L 04/07/18 02:08 04/07/18 03:40 04/07/18 04:00 Temperature 97.3 F L Pulse Rate 73 70 70 Respiratory Rate 18 Blood Pressure 107/58 L Pulse Oximetry 95 04/07/18 05:00 04/07/18 06:00 04/07/18 07:00 Temperature Pulse Rate 70 81 69 Respiratory Rate Blood Pressure Pulse Oximetry 04/07/18 08:00 04/07/18 08:10 04/07/18 09:00 Temperature 96.2 F L Pulse Rate 70 81 70 Respiratory Rate 18 Blood Pressure 110/59 L Pulse Oximetry 95 04/07/18 10:00 04/07/18 11:00 04/07/18 12:00 Temperature 96.8 F L Pulse Rate 70 70 70 Respiratory Rate 18 Blood Pressure 102/58 L Pulse Oximetry 98 04/07/18 13:00 04/07/18 14:00 04/07/18 15:00 Temperature Pulse Rate 60 70 70 Respiratory Rate Blood Pressure Pulse Oximetry 04/07/18 15:41 04/07/18 16:00 Temperature 96.7 F L Pulse Rate 68 70 Respiratory Rate 16 Blood Pressure 101/55 L Pulse Oximetry 97 Intake & Output 04/06/18 04/07/18 04/07/18 18:59 06:59 18:59 Intake Total 1500 / 1500 1360 / 1360 1300 / 1300 Output Total 4700 / 4700 2225 / 2225 Balance -3200 / -3200 -865 / -865 1300 / 1300 Weight 105.8 kg 101.5 kg Intake: IV 1500 / 1500 1000 / 1000 1300 / 1300 NS + KCl 20 mEq Inj 1,000 ML @ 1000 / 1000 1000 / 1000 1000 / 1000 100 mls/hr IV.CONT .Q10H MIKE Rx #:[id number] Ofirmev Inj 1,000 mg In 100 ml 100 / 100 @ 400 mls/hr IV.SIG Q6H PRN Rx# :[id number] KCl 20 mEq Premix Inj 20 meq In 100 / 100 100 ml @ 50 mls/hr IV.SIG ONCE ONE Rx#:[id number] NS Inj 500 ML @ Wide Open IV. 500 / 500 SIG BOLUS ONE Rx#:[id number] Oral 360 / 360 Output: Urine 325 / 325 Gastric Drainage 4700 / 4700 1900 / 1900 Right Nare 4700 / 4700 1900 / 1900 Other: # Voids 3 - Constitutional mild distress - Routine HEENT Exam Head: Present: normocephalic, atraumatic Eye: Present: conjunctivae pink ENT: Present: mucous membranes moist - Routine Neck Exam Present: supple - Routine Respiratory Exam Present: CTA bilaterally (Even, unlabored without any wheezing or rhonchi) - Routine Cardiovascular Exam Present: RRR - Routine Abdominal Exam Present: distended (Moderate, denies any tenderness to light palpation mild increase in soft bowel sounds over the past 24 hours), drain (NG tube connected to low intermittent suction) - Routine Skin Exam Present: intact - Routine Neurological Exam Present: alert (Awake and nodding head) - Detailed Neurological Exam: Coma Scale Eye Opening: Spontaneous Verbal Response: Oriented - Routine Psychiatric Exam Present: normal affect - Urinary Catheter Management Indwelling Temp Sensing Catheter Cath placed during this visit: yes, but has since been removed by the nurse Reason for continuing: Not indwelling catheter Insertion date: 03/30/18 Insertion time: 07:40 Removal date: 03/31/18 Removal time: 05:15 <María Osorio - Last Filed: 04/07/18 16:43> Vital signs: Vital Signs 04/06/18 21:40 04/06/18 22:00 04/06/18 23:11 Temperature 98.0 F Pulse Rate 69 59 L 71 Respiratory Rate 19 Blood Pressure 120/59 L Pulse Oximetry 93 L 04/07/18 00:00 04/07/18 01:00 04/07/18 02:08 Temperature Pulse Rate 70 67 73 Respiratory Rate Blood Pressure Pulse Oximetry 04/07/18 03:40 04/07/18 04:00 04/07/18 05:00 Temperature 97.3 F L Pulse Rate 70 70 70 Respiratory Rate 18 Blood Pressure 107/58 L Pulse Oximetry 95 04/07/18 06:00 04/07/18 07:00 04/07/18 08:00 Temperature Pulse Rate 81 69 70 Respiratory Rate Blood Pressure Pulse Oximetry 04/07/18 08:10 04/07/18 09:00 04/07/18 10:00 Temperature 96.2 F L Pulse Rate 81 70 70 Respiratory Rate 18 Blood Pressure 110/59 L Pulse Oximetry 95 04/07/18 11:00 04/07/18 12:00 04/07/18 13:00 Temperature 96.8 F L Pulse Rate 70 70 60 Respiratory Rate 18 Blood Pressure 102/58 L Pulse Oximetry 98 04/07/18 14:00 04/07/18 15:00 04/07/18 15:41 Temperature 96.7 F L Pulse Rate 70 70 68 Respiratory Rate 16 Blood Pressure 101/55 L Pulse Oximetry 97 04/07/18 16:00 04/07/18 17:00 04/07/18 18:00 Temperature Pulse Rate 70 70 70 Respiratory Rate Blood Pressure Pulse Oximetry Intake & Output 04/07/18 04/07/18 04/08/18 06:59 18:59 06:59 Intake Total 1360 / 1360 1900 / 1900 Output Total 2225 / 2225 2700 / 2700 Balance -865 / -865 -800 / -800 Weight 101.5 kg Intake: IV 1000 / 1000 1900 / 1900 NS + KCl 20 mEq Inj 1,000 ML @ 1000 / 1000 1000 / 1000 100 mls/hr IV.CONT .Q10H MIKE Rx #:[id number] Ofirmev Inj 1,000 mg In 100 ml 100 / 100 @ 400 mls/hr IV.SIG Q6H PRN Rx# :[id number] Flexbumin 25% Inj 100 ML @ 60 100 / 100 mls/hr IV.SIG Q8H MIKE Rx#: [id number] KCl 20 mEq Premix Inj 20 meq In 100 / 100 100 ml @ 50 mls/hr IV.SIG ONCE ONE Rx#:[id number] NS Inj 500 ML @ Wide Open IV. 500 / 500 SIG BOLUS ONE Rx#:[id number] Oral 360 / 360 Output: Urine 325 / 325 1100 / 1100 Gastric Drainage 1900 / 1900 1600 / 1600 Right Nare 1900 / 1900 1600 / 1600 - Urinary Catheter Management Indwelling Temp Sensing Catheter Cath placed during this visit: no <Lg Goldstein A - Last Filed: 04/07/18 21:16> Results - Labs CBC & Chem 7: 04/07/18 03:51 04/07/18 03:51 Laboratory Results - last 24 hr 04/06/18 04/06/18 04/06/18 19:36 19:36 20:01 WBC RBC Hgb Hct MCV MCH MCHC RDW Plt Count MPV Neut % (Auto) Lymph % (Auto) Elk % (Auto) Eos % (Auto) Baso % (Auto) Neut # (Auto) Lymph # (Auto) Elk # (Auto) Eos # (Auto) Baso # (Auto) WBC Differential Differential Comment Sodium 133 L Potassium 3.5 Chloride 90 L Carbon Dioxide 27.9 Anion Gap 15 BUN 96 H Creatinine 3.58 H Estimated GFR 17 L POC Glucose Random Glucose 141 H Calcium 8.0 L Phosphorus Magnesium Total Bilirubin AST ALT Alkaline Phosphatase Total Protein Albumin Lipase TSH Free T4 Urine Osmolality 526 Ur Random Creatinine 180 Ur Random Sodium 9 Complement C3 Complement C4 04/06/18 04/07/18 04/07/18 20:45 03:51 03:51 WBC 9.5 RBC 3.63 L Hgb 10.9 L Hct 32.7 L MCV 90.1 MCH 30.0 MCHC 33.3 RDW 14.9 Plt Count 446 MPV 7.8 Neut % (Auto) 85.9 H Lymph % (Auto) 5.6 L Elk % (Auto) 8.1 H Eos % (Auto) 0.2 Baso % (Auto) 0.2 Neut # (Auto) 8.2 H Lymph # (Auto) 0.5 L Elk # (Auto) 0.8 Eos # (Auto) 0.0 Baso # (Auto) 0.0 WBC Differential . Differential Comment Auto diff final Sodium 136 Potassium 3.4 L Chloride 90 L Carbon Dioxide 30.5 Anion Gap 16 H BUN 105 H Creatinine 3.34 H Estimated GFR 18 L POC Glucose 123 H Random Glucose 139 H Calcium 7.6 L Phosphorus 4.7 Magnesium 3.8 H Total Bilirubin 1.4 H AST 22 ALT 21 Alkaline Phosphatase 60 Total Protein 6.7 Albumin 2.7 L Lipase 1182 H TSH 1.980 Free T4 1.31 Urine Osmolality Ur Random Creatinine Ur Random Sodium Complement C3 116 Complement C4 32 04/07/18 04/07/18 04/07/18 08:18 11:48 16:18 WBC RBC Hgb Hct MCV MCH MCHC RDW Plt Count MPV Neut % (Auto) Lymph % (Auto) Elk % (Auto) Eos % (Auto) Baso % (Auto) Neut # (Auto) Lymph # (Auto) Elk # (Auto) Eos # (Auto) Baso # (Auto) WBC Differential Differential Comment Sodium Potassium Chloride Carbon Dioxide Anion Gap BUN Creatinine Estimated GFR POC Glucose 143 H 159 H 156 H Random Glucose Calcium Phosphorus Magnesium Total Bilirubin AST ALT Alkaline Phosphatase Total Protein Albumin Lipase TSH Free T4 Urine Osmolality Ur Random Creatinine Ur Random Sodium Complement C3 Complement C4 - Imaging Impressions Upper GI and Small Bowel X-Ray 04/06/18 08:58 .. CONCLUSION: Mid to distal small bowel obstruction as above. Chest X-Ray 04/07/18 06:00 CONCLUSION: 1. Stable left lower lung zone airspace disease. 2. Tiny left apical pneumothorax noted on previous exams not well demonstrated. 3. Cardiomegaly with pulmonary vascular congestion. 4. NGT coursing beyond the GE junction. - Procedures Echocardiogram The left ventricular systolic function is normal with an estimated ejection fraction in the range of 55-60%. Trace mitral valve regurgitation. There is trace tricuspid valve regurgitation. CABG x 3 on 03/30/2018. <María Osorio - Last Filed: 04/07/18 16:43> - Labs CBC & Chem 7: 04/07/18 03:51 04/07/18 03:51 Laboratory Results - last 24 hr 04/06/18 04/07/18 04/07/18 19:36 03:51 03:51 WBC 9.5 RBC 3.63 L Hgb 10.9 L Hct 32.7 L MCV 90.1 MCH 30.0 MCHC 33.3 RDW 14.9 Plt Count 446 MPV 7.8 Neut % (Auto) 85.9 H Lymph % (Auto) 5.6 L Elk % (Auto) 8.1 H Eos % (Auto) 0.2 Baso % (Auto) 0.2 Neut # (Auto) 8.2 H Lymph # (Auto) 0.5 L Elk # (Auto) 0.8 Eos # (Auto) 0.0 Baso # (Auto) 0.0 WBC Differential . Differential Comment Auto diff final Sodium Potassium Chloride Carbon Dioxide Anion Gap BUN Creatinine Estimated GFR POC Glucose Random Glucose Hemoglobin A1c 6.0 Calcium Phosphorus Magnesium Total Bilirubin AST ALT Alkaline Phosphatase Total Protein Albumin Lipase TSH Free T4 Urine Osmolality 526 Complement C3 Complement C4 04/07/18 04/07/18 04/07/18 03:51 08:18 11:48 WBC RBC Hgb Hct MCV MCH MCHC RDW Plt Count MPV Neut % (Auto) Lymph % (Auto) Elk % (Auto) Eos % (Auto) Baso % (Auto) Neut # (Auto) Lymph # (Auto) Elk # (Auto) Eos # (Auto) Baso # (Auto) WBC Differential Differential Comment Sodium 136 Potassium 3.4 L Chloride 90 L Carbon Dioxide 30.5 Anion Gap 16 H BUN 105 H Creatinine 3.34 H Estimated GFR 18 L POC Glucose 143 H 159 H Random Glucose 139 H Hemoglobin A1c Calcium 7.6 L Phosphorus 4.7 Magnesium 3.8 H Total Bilirubin 1.4 H AST 22 ALT 21 Alkaline Phosphatase 60 Total Protein 6.7 Albumin 2.7 L Lipase 1182 H TSH 1.980 Free T4 1.31 Urine Osmolality Complement C3 116 Complement C4 32 04/07/18 16:18 WBC RBC Hgb Hct MCV MCH MCHC RDW Plt Count MPV Neut % (Auto) Lymph % (Auto) Elk % (Auto) Eos % (Auto) Baso % (Auto) Neut # (Auto) Lymph # (Auto) Elk # (Auto) Eos # (Auto) Baso # (Auto) WBC Differential Differential Comment Sodium Potassium Chloride Carbon Dioxide Anion Gap BUN Creatinine Estimated GFR POC Glucose 156 H Random Glucose Hemoglobin A1c Calcium Phosphorus Magnesium Total Bilirubin AST ALT Alkaline Phosphatase Total Protein Albumin Lipase TSH Free T4 Urine Osmolality Complement C3 Complement C4 - Imaging Impressions Upper GI and Small Bowel X-Ray 04/06/18 08:58 .. CONCLUSION: Mid to distal small bowel obstruction as above. Chest X-Ray 04/07/18 06:00 CONCLUSION: 1. Stable left lower lung zone airspace disease. 2. Tiny left apical pneumothorax noted on previous exams not well demonstrated. 3. Cardiomegaly with pulmonary vascular congestion. 4. NGT coursing beyond the GE junction. <Lg Goldstein - Last Filed: 04/07/18 21:16> Assessment and Plan (1) Abdominal distention Status: Acute Code(s): R14.0 - Abdominal distension (gaseous) (2) Ileus, postoperative Status: Acute Code(s): K91.89 - Other postprocedural complications and disorders of digestive system; K56.7 - Ileus, unspecified - Plan Assessment: - Ileus S/P CABG Pt began vomiting this morning, according to RN approximately 300 cc of emesis. Now with NG to LIWS. Repeat KUB revealed moderate gaseous distention of proximal small bowel as above, no transition point noted by radiologist. - Elevated lipase-Lipase 1689 Pt denies history of pancreatitis. Does reports daily ETOH, wine with dinner but has not had any alcohol since day prior to admission 11 days ago. Denies family history and personal history of pancreatic and liver issues. Pt still has his gallbladder ? medication induced 04/06/2018 patient is resting up in the chair with NG tube connected to low intermittent suction he does arouse and answer some simple questions but appears more lethargic. is in the room with him. CT scan of the abdomen and pelvis which are consistent with distal small bowel obstruction and significantly distended stomach and profuse small bowel distention with relative transition point in the distal ileum of the lower quadrant NG tube. No bowel infarction or perforation at this time. 04/07/2018 patient is sitting up in the chair more awake today and responding to simple questions by nodding his head. Does attempt to whisper at times. Family members at the bedside. Patient is hungry and is taking in ice chips and water. Still having GI output with opaque yellow brown bilious fluids noted. NG tube still connected to low intermittent suction. Upper GI and small bowel x-ray on 04/06/2018 shows mild to distal small bowel obstruction as above. NG tube is noted beyond the GE junction. Appreciate surgical input and at this time plan is for non-operative plan of care and monitor his distention. Supportive care to patient and family. Discussed patient plan of care of IV hydration, ice chips only and maintain NG tube. Patient does have mild increase in bowel sounds today and will continue suppositories daily Plan: NG to LIWS NPO Can have ice chips Daily suppositories PPI IV Antiemetics Further recommendations based on clinical course Patient has been seen per myself and Dr. Goldstein, note written on his behalf <María Osorio - Last Filed: 04/07/18 16:43> (1) Abdominal distention Status: Acute Code(s): R14.0 - Abdominal distension (gaseous) (2) Ileus, postoperative Status: Acute Code(s): K91.89 - Other postprocedural complications and disorders of digestive system; K56.7 - Ileus, unspecified - Attending Attestation Seen and evaluated, discussed with nursing staff. Passing flatus but minimal, KUB pending and SBFT in progress. Will check results before any further recommendations. <Lg Goldstein - Last Filed: 04/07/18 21:16>
--- NOTE | 2018-04-07 18:22 | P.PNNP ---
Subjective Interval history: Pt still with significant abdominal distention. Output less as per RN UOP increasing with reported 1100mL today. Pt says he is feeling overall OK. No specific complaints today. present in room. Physical Exam Vital signs: Vital Signs 04/06/18 19:50 04/06/18 20:30 04/06/18 21:40 Temperature 97.5 F L Pulse Rate 72 62 69 Respiratory Rate 18 Blood Pressure 93/55 L Pulse Oximetry 92 L 04/06/18 22:00 04/06/18 23:11 04/07/18 00:00 Temperature 98.0 F Pulse Rate 59 L 71 70 Respiratory Rate 19 Blood Pressure 120/59 L Pulse Oximetry 93 L 04/07/18 01:00 04/07/18 02:08 04/07/18 03:40 Temperature 97.3 F L Pulse Rate 67 73 70 Respiratory Rate 18 Blood Pressure 107/58 L Pulse Oximetry 95 04/07/18 04:00 04/07/18 05:00 04/07/18 06:00 Temperature Pulse Rate 70 70 81 Respiratory Rate Blood Pressure Pulse Oximetry 04/07/18 07:00 04/07/18 08:00 04/07/18 08:10 Temperature 96.2 F L Pulse Rate 69 70 81 Respiratory Rate 18 Blood Pressure 110/59 L Pulse Oximetry 95 04/07/18 09:00 04/07/18 10:00 04/07/18 11:00 Temperature 96.8 F L Pulse Rate 70 70 70 Respiratory Rate 18 Blood Pressure 102/58 L Pulse Oximetry 98 04/07/18 12:00 04/07/18 13:00 04/07/18 14:00 Temperature Pulse Rate 70 60 70 Respiratory Rate Blood Pressure Pulse Oximetry 04/07/18 15:00 04/07/18 15:41 04/07/18 16:00 Temperature 96.7 F L Pulse Rate 70 68 70 Respiratory Rate 16 Blood Pressure 101/55 L Pulse Oximetry 97 04/07/18 17:00 Temperature Pulse Rate 70 Respiratory Rate Blood Pressure Pulse Oximetry Intake & Output 04/06/18 04/07/18 04/07/18 18:59 06:59 18:59 Intake Total 1500 / 1500 1360 / 1360 1900 / 1900 Output Total 4700 / 4700 2225 / 2225 2700 / 2700 Balance -3200 / -3200 -865 / -865 -800 / -800 Weight 105.8 kg 101.5 kg Intake: IV 1500 / 1500 1000 / 1000 1900 / 1900 NS + KCl 20 mEq Inj 1,000 ML @ 1000 / 1000 1000 / 1000 1000 / 1000 100 mls/hr IV.CONT .Q10H MIKE Rx #:[id number] Ofirmev Inj 1,000 mg In 100 ml 100 / 100 @ 400 mls/hr IV.SIG Q6H PRN Rx# :[id number] Flexbumin 25% Inj 100 ML @ 60 100 / 100 mls/hr IV.SIG Q8H MIKE Rx#: [id number] KCl 20 mEq Premix Inj 20 meq In 100 / 100 100 ml @ 50 mls/hr IV.SIG ONCE ONE Rx#:[id number] NS Inj 500 ML @ Wide Open IV. 500 / 500 500 / 500 SIG BOLUS ONE Rx#:[id number] Oral 360 / 360 Output: Urine 325 / 325 1100 / 1100 Gastric Drainage 4700 / 4700 1900 / 1900 1600 / 1600 Right Nare 4700 / 4700 1900 / 1900 1600 / 1600 Other: # Voids 3 - Constitutional no acute distress - Routine HEENT Exam Head: Present: normocephalic, atraumatic - Routine Neck Exam Present: supple - Routine Respiratory Exam Present: CTA bilaterally - Routine Cardiovascular Exam Present: RRR, S1, S2 - Routine Abdominal Exam Present: distended, firm Comments: NG tube present with suction with significant output. - Routine Skin Exam Present: intact - Routine Neurological Exam Present: alert, oriented X3 - Detailed Neurological Exam: Coma Scale Verbal Response: Oriented - Routine Psychiatric Exam Present: cooperative - Urinary Catheter Management Indwelling Temp Sensing Catheter Cath placed during this visit: yes, but has since been removed by the nurse Reason for continuing: Not indwelling catheter Insertion date: 03/30/18 Insertion time: 07:40 Removal date: 03/31/18 Removal time: 05:15 Assessment and Plan - Assessment (1) Acute kidney injury Code(s): N17.9 - Acute kidney failure, unspecified Status: Acute Plan: Probably superimposed on some degree of chronic kidney disease given renal indices on presentation. Patient does indeed have chronic kidney disease most likely related to nephrosclerosis of hypertension and aging. Acute renal insufficiency most likely related to ATN possibly multifactorial in origin. Contributory factors include recent CABG with subsequent development of ileus with third spacing of fluid resulting in intravascular volume depletion. Renal functions have improved slightly overnight and urine output improved. Continue on IVF and increase rate to 125mL/hr given significant GI output. Will continue to monitor. Hopefully renal functions will continue to improve. Medications should be adjusted for the patient's estimated GFR if clinically indicated. Avoid agents with significant potential for nephrotoxicity possible including NSAIDs for analgesia, iodine contrast agents. Gadolinium is contraindicated if the GFR is below 30. (2) S/P CABG x 3 Code(s): Z95.1 - Presence of aortocoronary bypass graft Status: Acute (3) Hypokalemia Code(s): E87.6 - Hypokalemia Status: Acute Plan: Related to GI losses. Repletion as ordered. (4) Ileus, postoperative Code(s): K91.89 - Other postprocedural complications and disorders of digestive system; K56.7 - Ileus, unspecified Status: Acute Plan: Mgmt as per GI
[2018-04-07] MEDS: Temazepam 15 MG Capsule PO PRN (21:32)
[2018-04-08 04:14] LABS: Baso % (Auto) 0.1 % (0.0-2.0); Eos # (Auto) 0.1 th/mm3 (0.0-0.4); Hematocrit 29.9 % (39.0-51.0); Hemoglobin 10.1 gm/dL (13.0-17.0); Lymph # (Auto) 0.6 th/mm3 (1.0-4.8); Lymph % (Auto) 7.7 % (9.0-44.0); Mean Corpuscular HGB Conc 33.8 % (32.0-36.0); Mean Corpuscular Hemoglobin 30.1 pg (27.0-34.0); Mean Corpuscular Volume 89.1 fL (80.0-100.0); Mean Platelet Volume 7.5 fL (7.0-11.0); Mono # (Auto) 0.7 th/mm3 (0.0-0.9); Mono % (Auto) 9.8 % (0.0-8.0); Neut # (Auto) 5.9 th/mm3 (1.8-7.7); Neut % (Auto) 81.4 % (16.0-70.0); Platelet Count 429 th/mm3 (150-450); Red Blood Count 3.36 mil/mm3 (4.50-5.90); Red Cell Distribution Width 14.6 % (11.6-17.2); White Blood Count 7.2 th/mm3 (4.0-11.0)
[2018-04-08 04:33] LABS: Albumin 3.2 g/dL (3.4-5.0); Calcium 7.2 mg/dL (8.5-10.1); Potassium 3.2 meq/L (3.5-5.1); Total Protein 6.8 g/dL (6.4-8.2)
[2018-04-08] MEDS: Albumin Human 25% Inj 100 ML IV.SIG SCH ×3 (06:32→21:10)
[2018-04-08] MEDS: Methocarbamol 500 MG Tablet PO SCH ×3 (06:33→21:07)
[2018-04-08] MEDS: Pantoprazole Sodium 20 MG DR Tablet PO SCH (06:33)
[2018-04-08] MEDS: Metoprolol Tartrate 25 MG Tablet PO SCH ×2 (08:47→21:07)
[2018-04-08] MEDS: Multivitamin/Minerals Therapeutic Tablet PO SCH (08:47)
[2018-04-08] MEDS: Docusate Sodium 100 MG Capsule PO SCH ×2 (08:47→21:07)
[2018-04-08] MEDS: Polyethylene Glycol 3350 17 GM Packet PO SCH (08:48)
[2018-04-08] MEDS: Insulin NovoLOG Aspart Correctional Sugar Inj SQ SCH ×4 (08:48→21:09)
[2018-04-08] MEDS: Bisacodyl 10 MG Supp RECTAL SCH (08:48)
[2018-04-08] MEDS ORDERED: Calcium Chloride Inj 0.34 GM in Dextrose 5% in Water Inj 100 ML IV.SIG ONE ×2 (09:00)
--- NOTE | 2018-04-08 10:13 | P.PNIM ---
Subjective Interval history: 7-9 Follow up for multivessel CAD s/p CABG x 3. Patient, unfortunately, started having abdominal distension, nausea, vomiting again. NG tube again placed. Currently NPO. He reports no abdominal pain, however. 7-10 LOTS OF OUTPUT FROM NGT TO GO FOR RADIOLOGICAL STUDIES TODAY NOT PASSING ANY GAS HYPOACTIVE BOWEL SOUNDS DW RN AND PT AND FAMILY AND CM 7- STATES HAVING FLATUS STILL HAS NGT IN PLACE WANTS TO EAT DW RN AND PT RENAL FUNCTIONS IMPROVED TO CR OF 3 WILL GET AM LABS STILL NEEDS MORE FLUIDS- APPEARS BEHIND A FEW LITERS STILL 7-12 NO BM POSSIBLE FLATUS STILL HAS NGT IN PLACE RENAL FUNCTIONS IMPROVED TO CR OF 2 AM LABS HAVING ABDOMINAL XRAY TODAY DW RN AND PT AND CM Physical Exam Vital signs: Vital Signs 04/07/18 11:00 04/07/18 12:00 04/07/18 13:00 Temperature 96.8 F L Pulse Rate 70 70 60 Respiratory Rate 18 Blood Pressure 102/58 L Pulse Oximetry 98 04/07/18 14:00 04/07/18 15:00 04/07/18 15:41 Temperature 96.7 F L Pulse Rate 70 70 68 Respiratory Rate 16 Blood Pressure 101/55 L Pulse Oximetry 97 04/07/18 16:00 04/07/18 17:00 04/07/18 18:00 Temperature Pulse Rate 70 70 70 Respiratory Rate Blood Pressure Pulse Oximetry 04/07/18 19:32 04/07/18 20:00 04/07/18 21:00 Temperature 97.8 F Pulse Rate 70 68 72 Respiratory Rate 18 Blood Pressure 121/63 Pulse Oximetry 97 04/07/18 22:00 04/07/18 23:44 04/07/18 23:56 Temperature 98.0 F Pulse Rate 67 69 70 Respiratory Rate 19 Blood Pressure 108/57 L Pulse Oximetry 97 04/08/18 00:03 04/08/18 01:00 04/08/18 02:00 Temperature Pulse Rate 72 70 71 Respiratory Rate Blood Pressure Pulse Oximetry 04/08/18 03:40 04/08/18 04:00 04/08/18 05:00 Temperature 97.9 F Pulse Rate 70 67 68 Respiratory Rate 18 Blood Pressure 102/52 L Pulse Oximetry 96 04/08/18 06:00 Temperature Pulse Rate 70 Respiratory Rate Blood Pressure Pulse Oximetry Intake & Output 0704/08/18 04/08/18 18:59 06:59 18:59 Intake Total 1900 / 1900 2580 / 2580 200 / 200 Output Total 2700 / 2700 2125 / 2125 Balance -800 / -800 455 / 455 200 / 200 Weight 98.4 kg Intake: IV 1900 / 1900 2100 / 2100 200 / 200 NS + KCl 20 mEq Inj 1,000 ML @ 1000 / 1000 2000 / 2000 100 / 100 125 mls/hr IV.CONT .Q8H MIKE Rx# :[id number] Ofirmev Inj 1,000 mg In 100 ml 100 / 100 @ 400 mls/hr IV.SIG Q6H PRN Rx# :[id number] Flexbumin 25% Inj 100 ML @ 60 100 / 100 100 / 100 100 / 100 mls/hr IV.SIG Q8H MIKE Rx#: [id number] KCl 20 mEq Premix Inj 20 meq In 100 / 100 100 ml @ 50 mls/hr IV.SIG ONCE ONE Rx#:[id number] NS Inj 500 ML @ Wide Open IV. 500 / 500 SIG BOLUS ONE Rx#:[id number] Oral 480 / 480 Output: Urine 1100 / 1100 825 / 825 Gastric Drainage 1600 / 1600 1300 / 1300 Right Nare 1600 / 1600 1300 / 1300 Narrative: GENERAL: Alert, Oriented x 3, NAD. SKIN: Warm and dry. HEAD: Normocephalic. Atraumatic EYES: No scleral icterus. No injection or drainage. PERRLA extraocular muscles intact ORAL MUCOSA MOIST- NGT IN PLACE NECK: Supple, trachea midline. No JVD or lymphadenopathy. CARDIOVASCULAR: Regular rate and rhythm without murmurs, gallops, or rubs. Sternotomy C/D/I RESPIRATORY: Breath sounds equal bilaterally. No accessory muscle use. GASTROINTESTINAL: Abdomen LESS FIRM, LESS distended but not tender to palpation. Hypoactive bowel sounds MUSCULOSKELETAL: No cyanosis, or edema. Motor strength is 4 out of 5 in upper extremity lower extremity bilaterally BACK: Nontender without obvious deformity. No CVA tenderness. Insight and judgment is good Mood and behaviors are appropriate - Urinary Catheter Management Indwelling Temp Sensing Catheter Cath placed during this visit: yes, but has since been removed by the nurse Reason for continuing: Not indwelling catheter Insertion date: 03/30/18 Insertion time: 07:40 Removal date: 07/04/18 Removal time: 05:15 Results - Labs CBC & Chem 7: 04/08/18 03:35 04/08/18 03:35 Laboratory Results - last 24 hr 04/07/18 04/07/18 04/07/18 03:51 11:48 16:18 WBC RBC Hgb Hct MCV MCH MCHC RDW Plt Count MPV Neut % (Auto) Lymph % (Auto) [place] % (Auto) Eos % (Auto) Baso % (Auto) Neut # (Auto) Lymph # (Auto) [place] # (Auto) Eos # (Auto) Baso # (Auto) WBC Differential Differential Comment Sodium Potassium Chloride Carbon Dioxide Anion Gap BUN Creatinine Estimated GFR POC Glucose 159 H 156 H Random Glucose Hemoglobin A1c 6.0 Calcium Prot Corrected Calcium Phosphorus Magnesium Total Bilirubin AST ALT Alkaline Phosphatase Total Protein Albumin Lipase 04/07/18 04/08/18 04/08/18 21:25 03:35 03:35 WBC 7.2 RBC 3.36 L Hgb 10.1 L Hct 29.9 L MCV 89.1 MCH 30.1 MCHC 33.8 RDW 14.6 Plt Count 429 MPV 7.5 Neut % (Auto) 81.4 H Lymph % (Auto) 7.7 L [place] % (Auto) 9.8 H Eos % (Auto) 1.0 Baso % (Auto) 0.1 Neut # (Auto) 5.9 Lymph # (Auto) 0.6 L [place] # (Auto) 0.7 Eos # (Auto) 0.1 Baso # (Auto) 0.0 WBC Differential . Differential Comment Auto diff final Sodium 141 Potassium 3.2 L Chloride 100 D Carbon Dioxide 28.0 Anion Gap 13 BUN 90 H Creatinine 2.04 H Estimated GFR 32 L POC Glucose 136 H Random Glucose 125 H Hemoglobin A1c Calcium 7.2 L* Prot Corrected Calcium 7.4 L* Phosphorus 3.0 D Magnesium 4.0 H Total Bilirubin 1.2 H AST 22 ALT 27 Alkaline Phosphatase 60 Total Protein 6.8 Albumin 3.2 L Lipase 1382 H - Imaging Impressions Upper GI and Small Bowel X-Ray 04/06/18 08:58 .. CONCLUSION: Mid to distal small bowel obstruction as above. - Procedures Echocardiogram The left ventricular systolic function is normal with an estimated ejection fraction in the range of 55-60%. Trace mitral valve regurgitation. There is trace tricuspid valve regurgitation. CABG x 3 on 03/30/2018. Assessment and Plan - Assessment (1) NSTEMI (non-ST elevated myocardial infarction) Code(s): I21.4 - Non-ST elevation (NSTEMI) myocardial infarction Status: Acute (2) Multi-vessel coronary artery stenosis Code(s): I25.10 - Atherosclerotic heart disease of [place] coronary artery without angina pectoris Status: Acute - Plan 73-year-old white male being admitted for suspected NSTEMI. Cardiac cath showed multivessel CAD. Patient subsequently underwent CABG x3. Multivessel Coronary artery disease NSTEMI -Cardiac catheterization shows three-vessel disease not amenable for PCI. -Status post CABG x 3 on 03/30/2017. -Continue aspirin 81mg, Lipitor 40mg HS and Lopressor 25 mg twice daily, Plavix. -Chest tube discontinued 04/02/2018. Hyperlipidemia continue on Lipitor Hypertension continue on Lopressor Ileus - Abdominal distention, nausea, vomiting again developed today. GI is following and and ordered CT Abdomen. - Continue NG tube suction. Acute kidney injury - ISA inhibitor on hold for now. - Avoid nephrotoxins. Creatinine 1.40 --> 1.23 ==> 2.07.WENT HIGH 4 NOW DOWN TO 3 NOW DOWN TO 2 -NEEDS TO CONTINUE ON FLUIDS HYPOKALEMIA WILL REPLACE WITH IV- WILL REPLACE AGAIN Renal insufficiency continue to monitor Back pain - Percocet 7.5mg Q4hrs PRN AM LABS Full code. Ambulation. Code Status: FULL CODE Discussed Condition With: RN AND PT AND CASE MANAGEMENT Discharge Planning: Once tolerating a diet able to have bowel movements again
--- NOTE | 2018-04-08 10:32 | XR ---
EXAM DATE: 04/08/2018 10:27 AM EDT AGE/SEX: 73 years / Male INDICATIONS: Evaluate small bowel obstruction. CLINICAL DATA: This is the patient's subsequent encounter. Patient reports that signs and symptoms h ave been present for 3 days and indicates a pain score of 3/10. MEDICAL/SURGICAL HISTORY: . Hypertension. . CABG. Pacemaker. [place] [facility] [place]. . FINDINGS: There is continued small bowel dilatation characteristic of distal obstruction. Contrast is identifi ed in the small bowel but not in the colon. No organomegaly is evident. No free air is identified. CONCLUSION: Findings of distal small bowel obstruction. There has been no significant change when compared to the prior exam. Electronically signed by: Hermes Smith MD 04/08/2018 10:31 AM EDT
[2018-04-08] MEDS: Potassium Chlor 10 mEq Premix 10 MEQ/100 ML PIGGYBACK IV.SIG SCH ×6 (10:58→18:54)
--- NOTE | 2018-04-08 13:38 | P.PNGI ---
Subjective Interval history: Pt still with no BM but states he feels he needs to have one today, just returned from bathroom and was not able to have a BM. Denies nausea, vomiting. Still with NG, clamped because he was walking to the bathroom but was prior to that to LIWS. Denies abdominal pain. Reports passing flatus. <Mary Julien - Last Filed: 04/08/18 13:30> Physical Exam Vital signs: Vital Signs 04/07/18 14:00 04/07/18 15:00 04/07/18 15:41 Temperature 96.7 F L Pulse Rate 70 70 68 Respiratory Rate 16 Blood Pressure 101/55 L Pulse Oximetry 97 04/07/18 16:00 04/07/18 17:00 04/07/18 18:00 Temperature Pulse Rate 70 70 70 Respiratory Rate Blood Pressure Pulse Oximetry 04/07/18 19:32 04/07/18 20:00 04/07/18 21:00 Temperature 97.8 F Pulse Rate 70 68 72 Respiratory Rate 18 Blood Pressure 121/63 Pulse Oximetry 97 04/07/18 22:00 04/07/18 23:44 04/07/18 23:56 Temperature 98.0 F Pulse Rate 67 69 70 Respiratory Rate 19 Blood Pressure 108/57 L Pulse Oximetry 97 04/08/18 00:03 04/08/18 01:00 04/08/18 02:00 Temperature Pulse Rate 72 70 71 Respiratory Rate Blood Pressure Pulse Oximetry 04/08/18 03:40 04/08/18 04:00 04/08/18 05:00 Temperature 97.9 F Pulse Rate 70 67 68 Respiratory Rate 18 Blood Pressure 102/52 L Pulse Oximetry 96 04/08/18 06:00 04/08/18 07:00 04/08/18 08:00 Temperature 97.5 F L Pulse Rate 70 73 85 Respiratory Rate 16 Blood Pressure 118/63 Pulse Oximetry 98 04/08/18 09:00 04/08/18 10:00 04/08/18 11:00 Temperature 97.5 F L Pulse Rate 87 84 89 Respiratory Rate 16 Blood Pressure 134/71 Pulse Oximetry 100 04/08/18 12:00 04/08/18 13:00 Temperature Pulse Rate 98 H 97 H Respiratory Rate Blood Pressure Pulse Oximetry Intake & Output 04/07/18 04/08/18 04/08/18 18:59 06:59 18:59 Intake Total 1900 / 1900 2580 / 2580 403.4 / 403.4 Output Total 2700 / 2700 2125 / 2125 Balance -800 / -800 455 / 455 403.4 / 403.4 Weight 98.4 kg Intake: IV 1900 / 1900 2100 / 2100 403.4 / 403.4 NS + KCl 20 mEq Inj 1,000 ML @ 1000 / 1000 2000 / 2000 100 / 100 125 mls/hr IV.CONT .Q8H MIKE Rx# :[id number] Ofirmev Inj 1,000 mg In 100 ml 100 / 100 @ 400 mls/hr IV.SIG Q6H PRN Rx# :[id number] Flexbumin 25% Inj 100 ML @ 60 100 / 100 100 / 100 100 / 100 mls/hr IV.SIG Q8H MIKE Rx#: [id number] Calcium Chloride Inj 0.34 GM In 103.4 / 103.4 D5W Inj 100 ML @ 103.4 mls/hr IV.SIG ONCE ONE Rx#:[id number] KCl 10 mEq Premix Inj 10 meq In 100 / 100 100 ml @ 100 mls/hr IV.SIG Q1H MIKE Rx#:[id number] KCl 20 mEq Premix Inj 20 meq In 100 / 100 100 ml @ 50 mls/hr IV.SIG ONCE ONE Rx#:[id number] NS Inj 500 ML @ Wide Open IV. 500 / 500 SIG BOLUS ONE Rx#:[id number] Oral 480 / 480 Output: Urine 1100 / 1100 825 / 825 Gastric Drainage 1600 / 1600 1300 / 1300 Right Nare 1600 / 1600 1300 / 1300 - Constitutional no acute distress - Routine HEENT Exam Head: Present: normocephalic, atraumatic - Routine Respiratory Exam Absent: accessory muscle use - Routine Abdominal Exam Present: soft, normoactive bowel sounds, distended. Absent: tenderness - Routine Skin Exam Present: dry, warm - Routine Neurological Exam Present: alert, oriented X3 - Urinary Catheter Management Indwelling Temp Sensing Catheter Cath placed during this visit: yes, but has since been removed by the nurse Reason for continuing: Not indwelling catheter Insertion date: 03/30/18 Insertion time: 07:40 Removal date: 03/31/18 Removal time: 05:15 <Mary Julien - Last Filed: 07/12/18 13:30> Vital signs: Vital Signs 04/07/18 21:00 04/07/18 22:00 04/07/18 23:44 Temperature Pulse Rate 72 67 69 Respiratory Rate Blood Pressure Pulse Oximetry 04/07/18 23:56 04/08/18 00:03 04/08/18 01:00 Temperature 98.0 F Pulse Rate 70 72 70 Respiratory Rate 19 Blood Pressure 108/57 L Pulse Oximetry 97 04/08/18 02:00 04/08/18 03:40 04/08/18 04:00 Temperature 97.9 F Pulse Rate 71 70 67 Respiratory Rate 18 Blood Pressure 102/52 L Pulse Oximetry 96 04/08/18 05:00 04/08/18 06:00 04/08/18 07:00 Temperature 97.5 F L Pulse Rate 68 70 73 Respiratory Rate 16 Blood Pressure 118/63 Pulse Oximetry 98 04/08/18 08:00 04/08/18 09:00 04/08/18 10:00 Temperature Pulse Rate 85 87 84 Respiratory Rate Blood Pressure Pulse Oximetry 04/08/18 11:00 04/08/18 12:00 04/08/18 13:00 Temperature 97.5 F L Pulse Rate 89 98 H 97 H Respiratory Rate 16 Blood Pressure 134/71 Pulse Oximetry 100 04/08/18 14:00 04/08/18 15:00 04/08/18 16:00 Temperature 97.5 F L Pulse Rate 92 H 95 H 62 Respiratory Rate 16 Blood Pressure 150/78 H Pulse Oximetry 100 04/08/18 17:00 04/08/18 18:00 Temperature Pulse Rate 71 81 Respiratory Rate Blood Pressure Pulse Oximetry Intake & Output 04/08/18 04/08/18 04/09/18 06:59 18:59 06:59 Intake Total 2580 / 2580 3050.4 / 3050.4 Output Total 2125 / 2125 4100 / 4100 Balance 455 / 455 -1049.6 / -1049.6 Weight 98.4 kg Intake: IV 2099 / 2099 2330.4 / 2330.4 NS + KCl 20 mEq Inj 1,000 ML @ 1999 / 1999 1527 / 1527 125 mls/hr IV.CONT .Q8H MIKE Rx# :[id number] Flexbumin 25% Inj 100 ML @ 60 100 / 100 200 / 200 mls/hr IV.SIG Q8H MIKE Rx#: [id number] Calcium Chloride Inj 0.34 GM In 103.4 / 103.4 D5W Inj 100 ML @ 103.4 mls/hr IV.SIG ONCE ONE Rx#:[id number] KCl 10 mEq Premix Inj 10 meq In 500 / 500 100 ml @ 100 mls/hr IV.SIG Q1H MIKE Rx#:[id number] Oral 480 / 480 720 / 720 Output: Urine 825 / 825 1300 / 1300 Gastric Drainage 1300 / 1300 2800 / 2800 Right Nare 1300 / 1300 2800 / 2800 - Urinary Catheter Management Indwelling Temp Sensing Catheter Cath placed during this visit: no <Lg Goldstein A - Last Filed: 04/08/18 20:18> Results - Labs CBC & Chem 7: 04/08/18 03:35 04/08/18 03:35 Laboratory Results - last 24 hr 04/07/18 04/07/18 04/07/18 03:51 16:18 21:25 WBC RBC Hgb Hct MCV MCH MCHC RDW Plt Count MPV Neut % (Auto) Lymph % (Auto) [place] % (Auto) Eos % (Auto) Baso % (Auto) Neut # (Auto) Lymph # (Auto) [place] # (Auto) Eos # (Auto) Baso # (Auto) WBC Differential Differential Comment Sodium Potassium Chloride Carbon Dioxide Anion Gap BUN Creatinine Estimated GFR POC Glucose 156 H 136 H Random Glucose Hemoglobin A1c 6.0 Calcium Prot Corrected Calcium Phosphorus Magnesium Total Bilirubin AST ALT Alkaline Phosphatase Total Protein Albumin Lipase 04/08/18 04/08/18 04/08/18 03:35 03:35 11:03 WBC 7.2 RBC 3.36 L Hgb 10.1 L Hct 29.9 L MCV 89.1 MCH 30.1 MCHC 33.8 RDW 14.6 Plt Count 429 MPV 7.5 Neut % (Auto) 81.4 H Lymph % (Auto) 7.7 L [place] % (Auto) 9.8 H Eos % (Auto) 1.0 Baso % (Auto) 0.1 Neut # (Auto) 5.9 Lymph # (Auto) 0.6 L [place] # (Auto) 0.7 Eos # (Auto) 0.1 Baso # (Auto) 0.0 WBC Differential . Differential Comment Auto diff final Sodium 141 Potassium 3.2 L Chloride 100 D Carbon Dioxide 28.0 Anion Gap 13 BUN 90 H Creatinine 2.04 H Estimated GFR 32 L POC Glucose 189 H Random Glucose 125 H Hemoglobin A1c Calcium 7.2 L* Prot Corrected Calcium 7.4 L* Phosphorus 3.0 D Magnesium 4.0 H Total Bilirubin 1.2 H AST 22 ALT 27 Alkaline Phosphatase 60 Total Protein 6.8 Albumin 3.2 L Lipase 1382 H - Imaging Impressions Abdomen X-Ray 04/08/18 09:58 CONCLUSION: Findings of distal small bowel obstruction. There has been no significant change when compared to the prior exam. - Procedures Echocardiogram The left ventricular systolic function is normal with an estimated ejection fraction in the range of 55-60%. Trace mitral valve regurgitation. There is trace tricuspid valve regurgitation. CABG x 3 on 03/30/2018. <Mary Julien - Last Filed: 04/08/18 13:30> - Labs CBC & Chem 7: 04/08/18 03:35 04/08/18 03:35 Laboratory Results - last 24 hr 04/07/18 04/08/18 04/08/18 21:25 03:35 03:35 WBC 7.2 RBC 3.36 L Hgb 10.1 L Hct 29.9 L MCV 89.1 MCH 30.1 MCHC 33.8 RDW 14.6 Plt Count 429 MPV 7.5 Neut % (Auto) 81.4 H Lymph % (Auto) 7.7 L [place] % (Auto) 9.8 H Eos % (Auto) 1.0 Baso % (Auto) 0.1 Neut # (Auto) 5.9 Lymph # (Auto) 0.6 L [place] # (Auto) 0.7 Eos # (Auto) 0.1 Baso # (Auto) 0.0 WBC Differential . Differential Comment Auto diff final Sodium 141 Potassium 3.2 L Chloride 100 D Carbon Dioxide 28.0 Anion Gap 13 BUN 90 H Creatinine 2.04 H Estimated GFR 32 L POC Glucose 136 H Random Glucose 125 H Calcium 7.2 L* Prot Corrected Calcium 7.4 L* Phosphorus 3.0 D Magnesium 4.0 H Total Bilirubin 1.2 H AST 22 ALT 27 Alkaline Phosphatase 60 Total Protein 6.8 Albumin 3.2 L Lipase 1382 H 04/08/18 04/08/18 11:03 20:09 WBC RBC Hgb Hct MCV MCH MCHC RDW Plt Count MPV Neut % (Auto) Lymph % (Auto) [place] % (Auto) Eos % (Auto) Baso % (Auto) Neut # (Auto) Lymph # (Auto) [place] # (Auto) Eos # (Auto) Baso # (Auto) WBC Differential Differential Comment Sodium Potassium Chloride Carbon Dioxide Anion Gap BUN Creatinine Estimated GFR POC Glucose 189 H 124 H Random Glucose Calcium Prot Corrected Calcium Phosphorus Magnesium Total Bilirubin AST ALT Alkaline Phosphatase Total Protein Albumin Lipase - Imaging Impressions Abdomen X-Ray 04/08/18 09:58 CONCLUSION: Findings of distal small bowel obstruction. There has been no significant change when compared to the prior exam. <Lg Goldstein - Last Filed: 04/08/18 20:18> Assessment and Plan (1) Abdominal distention Status: Acute Code(s): R14.0 - Abdominal distension (gaseous) (2) Ileus, postoperative Status: Acute Code(s): K91.89 - Other postprocedural complications and disorders of digestive system; K56.7 - Ileus, unspecified - Plan Assessment: - Ileus S/P CABG Pt began vomiting this morning, according to RN approximately 300 cc of emesis. Now with NG to LIWS. Repeat KUB revealed moderate gaseous distention of proximal small bowel as above, no transition point noted by radiologist. CT abdomen and pelvis WO IV contrast (04/06) Findings most consistent with distal small bowel obstruction. Significantly distended stomach and diffuse small bowel distention with relative transition point in the distal ileum in the right lower quadrant. No bowel infarction or perforation at this time. Upper GI and SBFT (04/06) Mid to distal small bowel obstruction as above. GS following and favoring post op ileus, also pt noted to be poor surgical candidate - Elevated lipase-Lipase 1689 Pt denies history of pancreatitis. Does reports daily ETOH, wine with dinner but has not had any alcohol since day prior to admission 11 days ago. Denies family history and personal history of pancreatic and liver issues. Imaging not consistent with pancreatitis (04/08) Pt with NG tube to LIWS, clamped during my exam because he just walked to the bathroom, tried to have a BM but states no stool. Pt does report passing gas. Denies nausea, vomiting, abdominal pain. Discussed case with GS TELEVISION OPERATOR, Jonna, states favoring ileus, OK for Reglan from GS standpoint. Plan: Increase activity Continue NG to LIWS OK for ice chips Continue Reglan Monitor stool count Appreciate GS recommendations Further recommendations based on clinical course Patient has been seen and examined by myself and Dr. Goldstein and this note is written on his behalf <Mary Julien - Last Filed: 04/08/18 13:30> (1) Abdominal distention Status: Acute Code(s): R14.0 - Abdominal distension (gaseous) (2) Ileus, postoperative Status: Acute Code(s): K91.89 - Other postprocedural complications and disorders of digestive system; K56.7 - Ileus, unspecified - Attending Attestation As above, feeling better today. Appreciate GS recommendations. Continue current treatment plan. <Lg Goldstein - Last Filed: 04/08/18 20:18>
--- NOTE | 2018-04-08 15:14 | P.PNCA ---
- Note Subjective/Hospital Course: 73-year-old gentleman with history of coronary artery bypass graft, hypertension, and hyperlipidemia, been experiencing chest pain for the past several days, pressure-like, moderate, relieved with nitroglycerin. cath report : multi vessel disease / EF 50% PAST MEDICAL HISTORY: CABG in 2007. He also has a history of permanent pacemaker, DDD lower rate 50 hypertension, polyp removed, CKD baseline creatinine 1.3 surgery 03/30 REDO CABG x 3 SVG to PDA - good SVG to RI - fair SVG to D1 - fair EVH extubated after surgery / 2 pleural tubes / one mediastinal tubes 03/31 painful , no toradol with CKD OOB pulm toileting pain med control transfer to stepdown 04/01 still painful, but some improvement CT x 3 / drained 130/12 hrs and additional 150cc this am bloody drainage/ no air leak pain control pulm toileting creatinine improved 1.23 04/02 c/o of constipation , mild nausea , abdomen distended , Hypoactive bowel sounds pt is passing flatus , narcotics dc , IV Ofirmev, po tylenol stat KUB pending / add reglan chest tube drained 320cc/ 12 hrs , dark old bloody drainage chest tube to suction / leave chest tubes in ambulate as much as possible 04/03 Nauseated and vomiting this morning, otherwise doing well Had BM and flatus Abdomen soft but distended to my exam. No tenderness or guarding KUB with nonspecific distended SB Ambulate NPO except ice-chips May need GI eval if not improved 04/04 Doing better. NGT inadvertently removed. No further N/V Greatly appreciate GI input Feels thirsty and hungry Abdomen soft and less distended OK to advance diet when ok with GI Ambulate 04/05 pt c/o of abdominal pain, worsening from yesterday , also nausea abdomen very distended , hypoactive bowel sounds NG tube replaced, labs and KUB ordered/ NPO except meds / ice chips GI following 04/06 pt with worsening distention/ nausea worsening BAM / nephrology consulted on IV fluids, leukocytosis with left shift General surgery consulted / high GI output/ NG placement verified also at bedside yellow/ kumari drainage / on intermittent suction continue IV fluids, IV fluid bolus given 04/07 still with distended abdomen faint tinkling bowel sounds noted NG to low intermittent suction Small series report noted / will re- notify General Surgery NPO creatinine with some improvement / replace with 500cc NS , continue IV fluids 04/[address] Sylvester will discuss with Dr Kurtz pt will need some form of nutrition soon can change to D51/2 ns with 40 KCL , may need to be eval for TPN vs PPN NG to low intermittent suction Objective: Vital Signs - 24 hr 04/07/18 15:41 04/07/18 16:00 04/07/18 17:00 Temperature 96.7 F L Pulse Rate 68 70 70 Respiratory Rate 16 Blood Pressure 101/55 L Pulse Oximetry 97 04/07/18 18:00 04/07/18 19:32 04/07/18 20:00 Temperature 97.8 F Pulse Rate 70 70 68 Respiratory Rate 18 Blood Pressure 121/63 Pulse Oximetry 97 04/07/18 21:00 04/07/18 22:00 04/07/18 23:44 Temperature Pulse Rate 72 67 69 Respiratory Rate Blood Pressure Pulse Oximetry 04/07/18 23:56 04/08/18 00:03 04/08/18 01:00 Temperature 98.0 F Pulse Rate 70 72 70 Respiratory Rate 19 Blood Pressure 108/57 L Pulse Oximetry 97 04/08/18 02:00 04/08/18 03:40 04/08/18 04:00 Temperature 97.9 F Pulse Rate 71 70 67 Respiratory Rate 18 Blood Pressure 102/52 L Pulse Oximetry 96 04/08/18 05:00 04/08/18 06:00 04/08/18 07:00 Temperature 97.5 F L Pulse Rate 68 70 73 Respiratory Rate 16 Blood Pressure 118/63 Pulse Oximetry 98 04/08/18 08:00 04/08/18 09:00 04/08/18 10:00 Temperature Pulse Rate 85 87 84 Respiratory Rate Blood Pressure Pulse Oximetry 04/08/18 11:00 04/08/18 12:00 04/08/18 13:00 Temperature 97.5 F L Pulse Rate 89 98 H 97 H Respiratory Rate 16 Blood Pressure 134/71 Pulse Oximetry 100 04/08/18 14:00 Temperature Pulse Rate 92 H Respiratory Rate Blood Pressure Pulse Oximetry GENERAL: SKIN: Warm and dry. sternal incision intact and well approximated HEAD: Normocephalic. EYES: No scleral icterus. No injection or drainage. NECK: Supple, trachea midline. No JVD or lymphadenopathy. CARDIOVASCULAR: Regular rate and rhythm without murmurs, gallops, or rubs. RESPIRATORY: Breath sounds equal bilaterally. No accessory muscle use. GASTROINTESTINAL: Abdomen distended slightly firm, some improvement hypoactive bowel sounds , NG to low intermittent suction MUSCULOSKELETAL: No cyanosis, or edema. BACK: Nontender without obvious deformity. No CVA tenderness. Labs: Laboratory Results - last 12 hr 04/08/18 04/08/18 04/08/18 03:35 03:35 11:03 WBC 7.2 RBC 3.36 L Hgb 10.1 L Hct 29.9 L MCV 89.1 MCH 30.1 MCHC 33.8 RDW 14.6 Plt Count 429 MPV 7.5 Neut % (Auto) 81.4 H Lymph % (Auto) 7.7 L [place] % (Auto) 9.8 H Eos % (Auto) 1.0 Baso % (Auto) 0.1 Neut # (Auto) 5.9 Lymph # (Auto) 0.6 L [place] # (Auto) 0.7 Eos # (Auto) 0.1 Baso # (Auto) 0.0 WBC Differential . Differential Comment Auto diff final Sodium 141 Potassium 3.2 L Chloride 100 D Carbon Dioxide 28.0 Anion Gap 13 BUN 90 H Creatinine 2.04 H Estimated GFR 32 L POC Glucose 189 H Random Glucose 125 H Calcium 7.2 L* Prot Corrected Calcium 7.4 L* Phosphorus 3.0 D Magnesium 4.0 H Total Bilirubin 1.2 H AST 22 ALT 27 Alkaline Phosphatase 60 Total Protein 6.8 Albumin 3.2 L Lipase 1382 H Result Diagrams: 04/08/18 03:35 04/08/18 03:35 - Plan (1) S/P CABG x 3 Plan: ASA, statin , BB OOB hold plavix pulm toieling on nasal cannula ambulate (2) CAD (coronary artery disease) (6) Hx of CABG Plan: ASA, statin , BB OOB ambulate (7) Abdominal distention Plan: stat KUB NG tube in place final small bowel series noted / f/u KUB await general surgery in put will need nutrition elevated Lipase, some improvement (8) Acute kidney injury Plan: on continuous IV fluid indices improving nephrology following (2) CAD (coronary artery disease) Qualifiers: Coronary Disease-Associated Artery/Lesion type: [place] artery Associated angina: with unstable angina
--- NOTE | 2018-04-08 16:34 | P.PNGS ---
<Jonna Pineda - Last Filed: 04/08/18 16:31> Subjective Interval history: Up to chair; no pain; still with output from NGT; asking for ice water Physical Exam Vital signs: Vital Signs 04/07/18 17:00 04/07/18 18:00 04/07/18 19:32 Temperature 97.8 F Pulse Rate 70 70 70 Respiratory Rate 18 Blood Pressure 121/63 Pulse Oximetry 97 04/07/18 20:00 04/07/18 21:00 04/07/18 22:00 Temperature Pulse Rate 68 72 67 Respiratory Rate Blood Pressure Pulse Oximetry 04/07/18 23:44 04/07/18 23:56 04/08/18 00:03 Temperature 98.0 F Pulse Rate 69 70 72 Respiratory Rate 19 Blood Pressure 108/57 L Pulse Oximetry 97 04/08/18 01:00 04/08/18 02:00 04/08/18 03:40 Temperature 97.9 F Pulse Rate 70 71 70 Respiratory Rate 18 Blood Pressure 102/52 L Pulse Oximetry 96 04/08/18 04:00 04/08/18 05:00 04/08/18 06:00 Temperature Pulse Rate 67 68 70 Respiratory Rate Blood Pressure Pulse Oximetry 04/08/18 07:00 04/08/18 08:00 04/08/18 09:00 Temperature 97.5 F L Pulse Rate 73 85 87 Respiratory Rate 16 Blood Pressure 118/63 Pulse Oximetry 98 04/08/18 10:00 04/08/18 11:00 04/08/18 12:00 Temperature 97.5 F L Pulse Rate 84 89 98 H Respiratory Rate 16 Blood Pressure 134/71 Pulse Oximetry 100 04/08/18 13:00 04/08/18 14:00 04/08/18 15:00 Temperature 97.5 F L Pulse Rate 97 H 92 H 95 H Respiratory Rate 16 Blood Pressure 150/78 H Pulse Oximetry 100 04/08/18 16:00 Temperature Pulse Rate 62 Respiratory Rate Blood Pressure Pulse Oximetry Intake & Output 04/07/18 04/08/18 04/08/18 18:59 06:59 18:59 Intake Total 1900 / 1900 2580 / 2580 703.4 / 703.4 Output Total 2700 / 2700 2125 / 2125 Balance -800 / -800 455 / 455 703.4 / 703.4 Weight 98.4 kg Intake: IV 1900 / 1900 2100 / 2100 703.4 / 703.4 NS + KCl 20 mEq Inj 1,000 ML @ 1000 / 1000 2000 / 2000 100 / 100 125 mls/hr IV.CONT .Q8H [facility] Rx# :[id number] Ofirmev Inj 1,000 mg In 100 ml 100 / 100 @ 400 mls/hr IV.SIG Q6H PRN Rx# :[id number] Flexbumin 25% Inj 100 ML @ 60 100 / 100 100 / 100 200 / 200 mls/hr IV.SIG Q8H [facility] Rx#: [id number] Calcium Chloride Inj 0.34 GM In 103.4 / 103.4 D5W Inj 100 ML @ 103.4 mls/hr IV.SIG ONCE ONE Rx#:[id number] KCl 10 mEq Premix Inj 10 meq In 300 / 300 100 ml @ 100 mls/hr IV.SIG Q1H [facility] Rx#:[id number] KCl 20 mEq Premix Inj 20 meq In 100 / 100 100 ml @ 50 mls/hr IV.SIG ONCE ONE Rx#:[id number] NS Inj 500 ML @ Wide Open IV. 500 / 500 SIG BOLUS ONE Rx#:[id number] Oral 480 / 480 Output: Urine 1100 / 1100 825 / 825 Gastric Drainage 1600 / 1600 1300 / 1300 Right Nare 1600 / 1600 1300 / 1300 Narrative: Alert and awake visiting with family sitting up in chair Cardio: RRR Resp:CTAB Abd: continues with distention; NGT to LIWS; no tenderness - Urinary Catheter Management Indwelling Temp Sensing Catheter Cath placed during this visit: yes, but has since been removed by the nurse Reason for continuing: Not indwelling catheter Insertion date: 03/30/18 Insertion time: 07:40 Removal date: 03/31/18 Removal time: 05:15 Assessment and Plan - Assessment (1) Ileus, postoperative Code(s): K91.89 - Other postprocedural complications and disorders of digestive system; K56.7 - Ileus, unspecified Status: Acute (2) S/P CABG x 3 Code(s): Z95.1 - Presence of aortocoronary bypass graft Status: Acute - Plan 73 year old male with recent CABG on March 30, post operative abdominal pain; distention -Likely ileus -UGI and KUB reviewed -Okay for sips of ice water and ice (sparingly) -Lipase elevated trending down -Continue NGT to LIWS -OOB and mobilize as tolerated -Will continue nonoperative treatment <Jose Eric - Last Filed: 04/08/18 17:22> Subjective Patient reports: no new complaints, feels better Interval history: DAILY PROGRESS NOTE FOR SURGICAL ATTENDING, DR. JOSE ERIC Patient resting comfortably in the chair Tolerating some p.o. states she has been ambulating fairly well Physical Exam Vital signs: Vital Signs 04/07/18 18:00 04/07/18 19:32 04/07/18 20:00 Temperature 97.8 F Pulse Rate 70 70 68 Respiratory Rate 18 Blood Pressure 121/63 Pulse Oximetry 97 04/07/18 21:00 04/07/18 22:00 04/07/18 23:44 Temperature Pulse Rate 72 67 69 Respiratory Rate Blood Pressure Pulse Oximetry 04/07/18 23:56 04/08/18 00:03 04/08/18 01:00 Temperature 98.0 F Pulse Rate 70 72 70 Respiratory Rate 19 Blood Pressure 108/57 L Pulse Oximetry 97 04/08/18 02:00 04/08/18 03:40 04/08/18 04:00 Temperature 97.9 F Pulse Rate 71 70 67 Respiratory Rate 18 Blood Pressure 102/52 L Pulse Oximetry 96 04/08/18 05:00 04/08/18 06:00 04/08/18 07:00 Temperature 97.5 F L Pulse Rate 68 70 73 Respiratory Rate 16 Blood Pressure 118/63 Pulse Oximetry 98 04/08/18 08:00 04/08/18 09:00 04/08/18 10:00 Temperature Pulse Rate 85 87 84 Respiratory Rate Blood Pressure Pulse Oximetry 04/08/18 11:00 04/08/18 12:00 04/08/18 13:00 Temperature 97.5 F L Pulse Rate 89 98 H 97 H Respiratory Rate 16 Blood Pressure 134/71 Pulse Oximetry 100 04/08/18 14:00 04/08/18 15:00 04/08/18 16:00 Temperature 97.5 F L Pulse Rate 92 H 95 H 62 Respiratory Rate 16 Blood Pressure 150/78 H Pulse Oximetry 100 04/08/18 17:00 Temperature Pulse Rate 71 Respiratory Rate Blood Pressure Pulse Oximetry Intake & Output 04/07/18 04/08/18 04/08/18 18:59 06:59 18:59 Intake Total 1900 / 1900 2580 / 2580 2850.4 / 2850.4 Output Total 2700 / 2700 2125 / 2125 Balance -800 / -800 455 / 455 2850.4 / 2850.4 Weight 98.4 kg Intake: IV 1900 / 1900 2100 / 2100 2130.4 / 2130.4 NS + KCl 20 mEq Inj 1,000 ML @ 1000 / 1000 2000 / 2000 1527 / 1527 125 mls/hr IV.CONT .Q8H [facility] Rx# :[id number] Ofirmev Inj 1,000 mg In 100 ml 100 / 100 @ 400 mls/hr IV.SIG Q6H PRN Rx# :[id number] Flexbumin 25% Inj 100 ML @ 60 100 / 100 100 / 100 200 / 200 mls/hr IV.SIG Q8H [facility] Rx#: [id number] Calcium Chloride Inj 0.34 GM In 103.4 / 103.4 D5W Inj 100 ML @ 103.4 mls/hr IV.SIG ONCE ONE Rx#:[id number] KCl 10 mEq Premix Inj 10 meq In 300 / 300 100 ml @ 100 mls/hr IV.SIG Q1H [facility] Rx#:[id number] KCl 20 mEq Premix Inj 20 meq In 100 / 100 100 ml @ 50 mls/hr IV.SIG ONCE ONE Rx#:[id number] NS Inj 500 ML @ Wide Open IV. 500 / 500 SIG BOLUS ONE Rx#:[id number] Oral 480 / 480 720 / 720 Output: Urine 1100 / 1100 825 / 825 Gastric Drainage 1600 / 1600 1300 / 1300 Right Nare 1600 / 1600 1300 / 1300 Other: # Voids 4 - Constitutional no acute distress Comments: ngt in place - Routine Abdominal Exam Present: soft, normoactive bowel sounds - Routine Extremities Exam Present: edema, full ROM - Urinary Catheter Management Indwelling Temp Sensing Catheter Cath placed during this visit: no Assessment and Plan - Assessment (1) Ileus, postoperative Code(s): K91.89 - Other postprocedural complications and disorders of digestive system; K56.7 - Ileus, unspecified Status: Acute (2) S/P CABG x 3 Code(s): Z95.1 - Presence of aortocoronary bypass graft Status: Acute - Attending Attestation NOTE FOR SURGICAL ATTENDING, DR. JOSE ERIC I agree with above assessment and plan. The exam, history, and the medical decision-making described in the above note were completed with the assistance of the mid-level provider. I reviewed and agree with the findings presented. I attest that I had a [id number] encounter with the patient on the same day, and personally performed and documented my assessment and findings in the medical record. The following services were provided during this hospital visit: Chart data review, vital sign assessments/reviewing monitor data Review of consultations notes if present. Medication orders/review and/or management Ordering and/or reviewing lab tests Ordering and/or interpreting/reviewing x-rays and/or diagnostic studies Care of the patient and discussion of the patient with the care team Documentation time To help prompt me to consider important information that might be impacting today's encounter and assessment, Information from prior notes written by myself or my colleagues may have been "brought forward/copy and pasted" into today's note.
--- NOTE | 2018-04-08 18:33 | P.PNNP ---
Subjective Interval history: Patient indicating that he is feeling somewhat better today. Still requiring NG drainage however. Physical Exam Vital signs: Vital Signs 04/07/18 19:32 04/07/18 20:00 04/07/18 21:00 Temperature 97.8 F Pulse Rate 70 68 72 Respiratory Rate 18 Blood Pressure 121/63 Pulse Oximetry 97 04/07/18 22:00 04/07/18 23:44 04/07/18 23:56 Temperature 98.0 F Pulse Rate 67 69 70 Respiratory Rate 19 Blood Pressure 108/57 L Pulse Oximetry 97 04/08/18 00:03 04/08/18 01:00 04/08/18 02:00 Temperature Pulse Rate 72 70 71 Respiratory Rate Blood Pressure Pulse Oximetry 04/08/18 03:40 04/08/18 04:00 04/08/18 05:00 Temperature 97.9 F Pulse Rate 70 67 68 Respiratory Rate 18 Blood Pressure 102/52 L Pulse Oximetry 96 04/08/18 06:00 04/08/18 07:00 04/08/18 08:00 Temperature 97.5 F L Pulse Rate 70 73 85 Respiratory Rate 16 Blood Pressure 118/63 Pulse Oximetry 98 04/08/18 09:00 04/08/18 10:00 04/08/18 11:00 Temperature 97.5 F L Pulse Rate 87 84 89 Respiratory Rate 16 Blood Pressure 134/71 Pulse Oximetry 100 04/08/18 12:00 04/08/18 13:00 04/08/18 14:00 Temperature Pulse Rate 98 H 97 H 92 H Respiratory Rate Blood Pressure Pulse Oximetry 04/08/18 15:00 04/08/18 16:00 04/08/18 17:00 Temperature 97.5 F L Pulse Rate 95 H 62 71 Respiratory Rate 16 Blood Pressure 150/78 H Pulse Oximetry 100 04/08/18 18:00 Temperature Pulse Rate 81 Respiratory Rate Blood Pressure Pulse Oximetry Intake & Output 04/07/18 04/08/18 04/08/18 18:59 06:59 18:59 Intake Total 1900 / 1900 2580 / 2580 2950.4 / 2950.4 Output Total 2700 / 2700 2125 / 2125 Balance -800 / -800 455 / 455 2950.4 / 2950.4 Weight 98.4 kg Intake: IV 1900 / 1900 2100 / 2100 2230.4 / 2230.4 NS + KCl 20 mEq Inj 1,000 ML @ 1000 / 1000 2000 / 2000 1527 / 1527 125 mls/hr IV.CONT .Q8H [facility] Rx# :[id number] Ofirmev Inj 1,000 mg In 100 ml 100 / 100 @ 400 mls/hr IV.SIG Q6H PRN Rx# :[id number] Flexbumin 25% Inj 100 ML @ 60 100 / 100 100 / 100 200 / 200 mls/hr IV.SIG Q8H [facility] Rx#: [id number] Calcium Chloride Inj 0.34 GM In 103.4 / 103.4 D5W Inj 100 ML @ 103.4 mls/hr IV.SIG ONCE ONE Rx#:[id number] KCl 10 mEq Premix Inj 10 meq In 400 / 400 100 ml @ 100 mls/hr IV.SIG Q1H [facility] Rx#:[id number] KCl 20 mEq Premix Inj 20 meq In 100 / 100 100 ml @ 50 mls/hr IV.SIG ONCE ONE Rx#:[id number] NS Inj 500 ML @ Wide Open IV. 500 / 500 SIG BOLUS ONE Rx#:[id number] Oral 480 / 480 720 / 720 Output: Urine 1100 / 1100 825 / 825 Gastric Drainage 1600 / 1600 1300 / 1300 Right Nare 1600 / 1600 1300 / 1300 Other: # Voids 4 Narrative: GENERAL: Sitting in a chair not in respiratory distress. SKIN: Warm and dry. HEAD: Normocephalic. EYES: No scleral icterus. No injection or drainage. NECK: Supple, trachea midline. No JVD. CARDIOVASCULAR: Regular rate and rhythm without murmurs, gallops, or rubs. RESPIRATORY: Breath sounds equal bilaterally. No accessory muscle use. GASTROINTESTINAL: Abdomen soft, non-tender, abdomen distended but nontender. MUSCULOSKELETAL: No cyanosis, or edema. - Urinary Catheter Management Indwelling Temp Sensing Catheter Cath placed during this visit: yes, but has since been removed by the nurse Reason for continuing: Not indwelling catheter Insertion date: 03/30/18 Insertion time: 07:40 Removal date: 03/31/18 Removal time: 05:15 Assessment and Plan - Assessment (1) Acute kidney injury Code(s): N17.9 - Acute kidney failure, unspecified Status: Acute Plan: Probably superimposed on some degree of chronic kidney disease given renal indices on presentation. Patient does indeed have chronic kidney disease most likely related to nephrosclerosis of hypertension and aging. Acute renal insufficiency most likely related to ATN possibly multifactorial in origin. Contributory factors include recent CABG with subsequent development of ileus with third spacing of fluid resulting in intravascular volume depletion. Urine output and renal disease improved significantly in the last 48 hours. Discussed with patient and . Continue IV hydration. At this point in time the patient will be seen intermittently. Please call if needed. Medications should be adjusted for the patient's estimated GFR if clinically indicated. Avoid agents with significant potential for nephrotoxicity possible including NSAIDs for analgesia, iodine contrast agents. Gadolinium is contraindicated if the GFR is below 30. (2) S/P CABG x 3 Code(s): Z95.1 - Presence of aortocoronary bypass graft Status: Acute (3) Hypokalemia Code(s): E87.6 - Hypokalemia Status: Acute Plan: Related to GI losses. Repletion as ordered by primary MD together with magnesium supplementation.. (4) Ileus, postoperative Code(s): K91.89 - Other postprocedural complications and disorders of digestive system; K56.7 - Ileus, unspecified Status: Acute Plan: Mgmt as per GI
[2018-04-08] MEDS: Temazepam 15 MG Capsule PO PRN (21:27)
[2018-04-09 03:29] LABS: Baso % (Auto) 0.4 % (0.0-2.0); Eos # (Auto) 0.1 th/mm3 (0.0-0.4); Hematocrit 32.3 % (39.0-51.0); Hemoglobin 10.5 gm/dL (13.0-17.0); Lymph # (Auto) 0.5 th/mm3 (1.0-4.8); Mean Corpuscular HGB Conc 32.5 % (32.0-36.0); Mean Corpuscular Hemoglobin 29.3 pg (27.0-34.0); Mean Corpuscular Volume 90.1 fL (80.0-100.0); Mono # (Auto) 0.9 th/mm3 (0.0-0.9); Mono % (Auto) 8.4 % (0.0-8.0); Neut # (Auto) 8.7 th/mm3 (1.8-7.7); Neut % (Auto) 85.2 % (16.0-70.0); Platelet Count 507 th/mm3 (150-450); Red Blood Count 3.58 mil/mm3 (4.50-5.90); Red Cell Distribution Width 14.8 % (11.6-17.2); White Blood Count 10.2 th/mm3 (4.0-11.0)
[2018-04-09 04:14] LABS: Alanine Aminotransferase 30 U/L (12-78); Alkaline Phosphatase 62 U/L (45-117); Anion Gap 11 meq/L (5-15); Aspartate Aminotransferase 22 U/L (15-37); Blood Urea Nitrogen 66 mg/dL (7-18); Calcium 7.9 mg/dL (8.5-10.1); Carbon Dioxide 31.6 meq/L (21.0-32.0); Chloride 100 meq/L (98-107); Glomerular Filtration Rate 43 mL/min (>89); Glucose,Random 128 mg/dL (74-106); Magnesium 4.4 mg/dL (1.5-2.5); Phosphorus 2.1 mg/dL (2.5-4.9); Potassium 3.4 meq/L (3.5-5.1); Sodium 143 meq/L (136-145); Total Protein 7.7 g/dL (6.4-8.2)
[2018-04-09] MEDS: Albumin Human 25% Inj 100 ML IV.SIG SCH ×3 (05:56→22:49)
[2018-04-09] MEDS: Pantoprazole Sodium 20 MG DR Tablet PO SCH (05:56)
[2018-04-09] MEDS: Methocarbamol 500 MG Tablet PO SCH ×3 (05:56→22:26)
[2018-04-09] MEDS ORDERED: Potassium Phosphate Inj 15 MMOL in Sodium Chlor 0.9% Inj 150 ML IV.SIG ONE (06:36)
[2018-04-09] MEDS: Metoprolol Tartrate 25 MG Tablet PO SCH ×2 (09:09→22:26)
[2018-04-09] MEDS: Multivitamin/Minerals Therapeutic Tablet PO SCH (09:10)
[2018-04-09] MEDS: Docusate Sodium 100 MG Capsule PO SCH ×2 (09:10→22:26)
[2018-04-09] MEDS: Polyethylene Glycol 3350 17 GM Packet PO SCH (09:11)
[2018-04-09] MEDS: Insulin NovoLOG Aspart Correctional Sugar Inj SQ SCH ×4 (09:12→22:34)
[2018-04-09] MEDS: Bisacodyl 10 MG Supp RECTAL SCH ×2 (09:14→11:34)
--- NOTE | 2018-04-09 09:47 | P.PNIM ---
Subjective Interval history: 7- Follow up for multivessel CAD s/p CABG x 3. Patient, unfortunately, started having abdominal distension, nausea, vomiting again. NG tube again placed. Currently NPO. He reports no abdominal pain, however. 7-10 LOTS OF OUTPUT FROM NGT TO GO FOR RADIOLOGICAL STUDIES TODAY NOT PASSING ANY GAS HYPOACTIVE BOWEL SOUNDS DW RN AND PT AND FAMILY AND CM 7 STATES HAVING FLATUS STILL HAS NGT IN PLACE WANTS TO EAT DW RN AND PT RENAL FUNCTIONS IMPROVED TO CR OF 3 WILL GET AM LABS STILL NEEDS MORE FLUIDS- APPEARS BEHIND A FEW LITERS STILL 7 NO BM POSSIBLE FLATUS STILL HAS NGT IN PLACE RENAL FUNCTIONS IMPROVED TO CR OF 2 AM LABS HAVING ABDOMINAL XRAY TODAY DW RN AND PT AND CM 7 STILL NO BM NOT PASSING FLATUS DW RN AND PT AND CM CR TO1.60 NOW STILL NOT EATING HOPEFULLY HAS FLATUS AND BM SOON WILL START ON PPN DUE TO NO PO INTAKE YET Physical Exam Vital signs: Vital Signs 04/08/18 10:00 04/08/18 11:00 04/08/18 12:00 Temperature 97.5 F L Pulse Rate 84 89 98 H Respiratory Rate 16 Blood Pressure 134/71 Pulse Oximetry 100 04/08/18 13:00 04/08/18 14:00 04/08/18 15:00 Temperature 97.5 F L Pulse Rate 97 H 92 H 95 H Respiratory Rate 16 Blood Pressure 150/78 H Pulse Oximetry 100 04/08/18 16:00 04/08/18 17:00 04/08/18 18:00 Temperature Pulse Rate 62 71 81 Respiratory Rate Blood Pressure Pulse Oximetry 04/08/18 19:00 04/08/18 23:00 04/09/18 03:00 Temperature 98 F 98.4 F 98 F Pulse Rate 92 H 92 H 91 H Respiratory Rate 16 16 16 Blood Pressure 130/67 142/73 H 129/70 Pulse Oximetry 98 95 98 04/09/18 06:00 Temperature Pulse Rate 92 H Respiratory Rate Blood Pressure Pulse Oximetry Intake & Output 04/08/18 04/09/18 04/09/18 18:59 06:59 18:59 Intake Total 3050.4 / 3050.4 2300 / 2300 Output Total 4100 / 4100 960 / 960 Balance -1049.6 / -1049.6 1340 / 1340 Weight 101 kg Intake: IV 2330.4 / 2330.4 1100 / 1100 NS + KCl 20 mEq Inj 1,000 ML @ 1527 / 1527 1000 / 1000 125 mls/hr IV.CONT .Q8H [facility] Rx# :[id number] Flexbumin 25% Inj 100 ML @ 60 200 / 200 100 / 100 mls/hr IV.SIG Q8H [facility] Rx#: [id number] Calcium Chloride Inj 0.34 GM In 103.4 / 103.4 D5W Inj 100 ML @ 103.4 mls/hr IV.SIG ONCE ONE Rx#:[id number] KCl 10 mEq Premix Inj 10 meq In 500 / 500 100 ml @ 100 mls/hr IV.SIG Q1H [facility] Rx#:[id number] Oral 720 / 720 1200 / 1200 Output: Urine 1300 / 1300 960 / 960 Gastric Drainage 2800 / 2800 Right Nare 2800 / 2800 Other: # Bowel Movements 0 Narrative: GENERAL: Alert, Oriented x 3, NAD. SKIN: Warm and dry. HEAD: Normocephalic. Atraumatic EYES: No scleral icterus. No injection or drainage. PERRLA extraocular muscles intact ORAL MUCOSA MOIST- NGT IN PLACE NECK: Supple, trachea midline. No JVD or lymphadenopathy. CARDIOVASCULAR: Regular rate and rhythm without murmurs, gallops, or rubs. Sternotomy C/D/I RESPIRATORY: Breath sounds equal bilaterally. No accessory muscle use. GASTROINTESTINAL: Abdomen LESS FIRM, LESS distended but not tender to palpation. Hypoactive bowel sounds MUSCULOSKELETAL: No cyanosis, or edema. Motor strength is 4 out of 5 in upper extremity lower extremity bilaterally BACK: Nontender without obvious deformity. No CVA tenderness. Insight and judgment is good Mood and behaviors are appropriate - Urinary Catheter Management Indwelling Temp Sensing Catheter Cath placed during this visit: yes, but has since been removed by the nurse Reason for continuing: Not indwelling catheter Insertion date: 03/30/18 Insertion time: 07:40 Removal date: 03/31/18 Removal time: 05:15 Results - Labs CBC & Chem 7: 04/09/18 03:17 04/09/18 03:17 Laboratory Results - last 24 hr 04/08/18 04/08/18 04/08/18 11:03 20:09 20:40 WBC RBC Hgb Hct MCV MCH MCHC RDW Plt Count MPV Neut % (Auto) Lymph % (Auto) [place] % (Auto) Eos % (Auto) Baso % (Auto) Neut # (Auto) Lymph # (Auto) [place] # (Auto) Eos # (Auto) Baso # (Auto) WBC Differential Differential Comment Sodium Potassium Chloride Carbon Dioxide Anion Gap BUN Creatinine Estimated GFR POC Glucose 189 H 124 H Random Glucose Calcium Phosphorus Magnesium Total Bilirubin AST ALT Alkaline Phosphatase Total Protein Albumin Urine Eosinophils None seen 04/09/18 04/09/18 04/09/18 03:17 03:17 07:54 WBC 10.2 RBC 3.58 L Hgb 10.5 L Hct 32.3 L MCV 90.1 MCH 29.3 MCHC 32.5 RDW 14.8 Plt Count 507 H MPV 7.0 Neut % (Auto) 85.2 H Lymph % (Auto) 5.0 L [place] % (Auto) 8.4 H Eos % (Auto) 1.0 Baso % (Auto) 0.4 Neut # (Auto) 8.7 H Lymph # (Auto) 0.5 L [place] # (Auto) 0.9 Eos # (Auto) 0.1 Baso # (Auto) 0.0 WBC Differential . Differential Comment Auto diff final Sodium 143 Potassium 3.4 L Chloride 100 Carbon Dioxide 31.6 Anion Gap 11 BUN 66 H Creatinine 1.60 H Estimated GFR 43 L POC Glucose 131 H Random Glucose 128 H Calcium 7.9 L Phosphorus 2.1 L Magnesium 4.4 H Total Bilirubin 1.3 H AST 22 ALT 30 Alkaline Phosphatase 62 Total Protein 7.7 D Albumin 4.0 D Urine Eosinophils - Imaging Impressions Abdomen X-Ray 04/08/18 09:58 CONCLUSION: Findings of distal small bowel obstruction. There has been no significant change when compared to the prior exam. - Procedures Echocardiogram The left ventricular systolic function is normal with an estimated ejection fraction in the range of 55-60%. Trace mitral valve regurgitation. There is trace tricuspid valve regurgitation. CABG x 3 on 03/30/2018. Assessment and Plan - Assessment (1) NSTEMI (non-ST elevated myocardial infarction) Code(s): I21.4 - Non-ST elevation (NSTEMI) myocardial infarction Status: Acute (2) Multi-vessel coronary artery stenosis Code(s): I25.10 - Atherosclerotic heart disease of [place] coronary artery without angina pectoris Status: Acute - Plan 73-year-old white male being admitted for suspected NSTEMI. Cardiac cath showed multivessel CAD. Patient subsequently underwent CABG x3. Multivessel Coronary artery disease NSTEMI -Cardiac catheterization shows three-vessel disease not amenable for PCI. -Status post CABG x 3 on 03/30/2017. -Continue aspirin 81mg, Lipitor 40mg HS and Lopressor 25 mg twice daily, Plavix. -Chest tube discontinued 04/02/2018. Hyperlipidemia continue on Lipitor Hypertension continue on Lopressor Ileus - Abdominal distention, nausea, vomiting again developed today. GI is following and and ordered CT Abdomen. - Continue NG tube suction. -START PPN Acute kidney injury - ISA inhibitor on hold for now. - Avoid nephrotoxins. Creatinine 1.40 --> 1.23 ==> 2.07.WENT HIGH 4 NOW DOWN TO 3 NOW DOWN TO 2 -NEEDS TO CONTINUE ON FLUIDS NOW AT 1.60 ON 04-09 HYPOKALEMIA WILL REPLACE WITH IV- WILL REPLACE AGAIN Renal insufficiency continue to monitor Back pain - Percocet 7.5mg Q4hrs PRN AM LABS Full code. Ambulation. Code Status: FULL CODE Discussed Condition With: RN AND PT AND CM AND [facility] START TPN Discharge Planning: Once tolerating a diet able to have bowel movements again
[2018-04-09] MEDS ORDERED: Potassium Chlor 10 mEq Premix 10 MEQ/100 ML PIGGYBACK IV.SIG ONE (10:21)
--- NOTE | 2018-04-09 12:48 | P.PNGI ---
Subjective Interval history: sitting up in the chair awake answering simple questions. Patient denies any abdominal pain but abdomen continues to be semifirm,kyler, with some soft bowel sounds. NG tube still connected to low intermittent suction, output more bilious clear consistency. Taking in ice chips and some small amounts of water. <María Osorio - Last Filed: 04/09/18 12:39> Physical Exam Vital signs: Vital Signs 04/08/18 13:00 04/08/18 14:00 04/08/18 15:00 Temperature 97.5 F L Pulse Rate 97 H 92 H 95 H Respiratory Rate 16 Blood Pressure 150/78 H Pulse Oximetry 100 04/08/18 16:00 04/08/18 17:00 04/08/18 18:00 Temperature Pulse Rate 62 71 81 Respiratory Rate Blood Pressure Pulse Oximetry 04/08/18 19:00 04/08/18 23:00 04/09/18 03:00 Temperature 98 F 98.4 F 98 F Pulse Rate 92 H 92 H 91 H Respiratory Rate 16 16 16 Blood Pressure 130/67 142/73 H 129/70 Pulse Oximetry 98 95 98 04/09/18 06:00 Temperature Pulse Rate 92 H Respiratory Rate Blood Pressure Pulse Oximetry Intake & Output 04/08/18 04/09/18 04/09/18 18:59 06:59 18:59 Intake Total 3050.4 / 3050.4 2300 / 2300 1100 / 1100 Output Total 4100 / 4100 960 / 960 Balance -1049.6 / -1049.6 1340 / 1340 1100 / 1100 Weight 101 kg Intake: IV 2330.4 / 2330.4 1100 / 1100 1100 / 1100 NS + KCl 20 mEq Inj 1,000 ML @ 1527 / 1527 1000 / 1000 1000 / 1000 125 mls/hr IV.CONT .Q8H [facility] Rx# :[id number] Flexbumin 25% Inj 100 ML @ 60 200 / 200 100 / 100 100 / 100 mls/hr IV.SIG Q8H [facility] Rx#: [id number] Calcium Chloride Inj 0.34 GM In 103.4 / 103.4 D5W Inj 100 ML @ 103.4 mls/hr IV.SIG ONCE ONE Rx#:[id number] KCl 10 mEq Premix Inj 10 meq In 500 / 500 100 ml @ 100 mls/hr IV.SIG Q1H [facility] Rx#:[id number] Oral 720 / 720 1200 / 1200 Output: Urine 1300 / 1300 960 / 960 Gastric Drainage 2800 / 2800 Right Nare 2800 / 2800 Other: # Bowel Movements 0 - Constitutional moderate distress - Routine HEENT Exam Head: Present: normocephalic, atraumatic ENT: Present: mucous membranes moist (NG tube connected to low intermittent suction) - Routine Neck Exam Present: supple - Routine Respiratory Exam Present: decreased breath sounds (But no obvious shortness of breath) - Routine Cardiovascular Exam Present: S1 (Recent CABG this admission), S2 - Routine Abdominal Exam Present: distended (Moderate semifirm, soft bowel sounds, denies any abdominal pain to light palpation) - Urinary Catheter Management Indwelling Temp Sensing Catheter Cath placed during this visit: yes, but has since been removed by the nurse Reason for continuing: Not indwelling catheter Insertion date: 03/30/18 Insertion time: 07:40 Removal date: 03/31/18 Removal time: 05:15 <María Osorio - Last Filed: 04/09/18 12:39> Vital signs: Vital Signs 04/08/18 14:00 04/08/18 15:00 04/08/18 16:00 Temperature 97.5 F L Pulse Rate 92 H 95 H 62 Respiratory Rate 16 Blood Pressure 150/78 H Pulse Oximetry 100 04/08/18 17:00 04/08/18 18:00 04/08/18 19:00 Temperature 98 F Pulse Rate 71 81 92 H Respiratory Rate 16 Blood Pressure 130/67 Pulse Oximetry 98 04/08/18 23:00 04/09/18 03:00 04/09/18 06:00 Temperature 98.4 F 98 F Pulse Rate 92 H 91 H 92 H Respiratory Rate 16 16 Blood Pressure 142/73 H 129/70 Pulse Oximetry 95 98 Intake & Output 04/08/18 04/09/18 04/09/18 18:59 06:59 18:59 Intake Total 3050.4 / 3050.4 2300 / 2300 1100 / 1100 Output Total 4100 / 4100 960 / 960 Balance -1049.6 / -1049.6 1340 / 1340 1100 / 1100 Weight 101 kg Intake: IV 2330.4 / 2330.4 1100 / 1100 1100 / 1100 NS + KCl 20 mEq Inj 1,000 ML @ 1527 / 1527 1000 / 1000 1000 / 1000 125 mls/hr IV.CONT .Q8H [facility] Rx# :[id number] Flexbumin 25% Inj 100 ML @ 60 200 / 200 100 / 100 100 / 100 mls/hr IV.SIG Q8H [facility] Rx#: [id number] Calcium Chloride Inj 0.34 GM In 103.4 / 103.4 D5W Inj 100 ML @ 103.4 mls/hr IV.SIG ONCE ONE Rx#:[id number] KCl 10 mEq Premix Inj 10 meq In 500 / 500 100 ml @ 100 mls/hr IV.SIG Q1H [facility] Rx#:[id number] Oral 720 / 720 1200 / 1200 Output: Urine 1300 / 1300 960 / 960 Gastric Drainage 2800 / 2800 Right Nare 2800 / 2800 Other: # Bowel Movements 0 - Urinary Catheter Management Indwelling Temp Sensing Catheter Cath placed during this visit: no <Lg Goldstein A - Last Filed: 04/09/18 13:27> Results - Labs CBC & Chem 7: 04/09/18 03:17 04/09/18 03:17 Laboratory Results - last 24 hr 04/08/18 04/08/18 04/09/18 20:09 20:40 03:17 WBC 10.2 RBC 3.58 L Hgb 10.5 L Hct 32.3 L MCV 90.1 MCH 29.3 MCHC 32.5 RDW 14.8 Plt Count 507 H MPV 7.0 Neut % (Auto) 85.2 H Lymph % (Auto) 5.0 L [place] % (Auto) 8.4 H Eos % (Auto) 1.0 Baso % (Auto) 0.4 Neut # (Auto) 8.7 H Lymph # (Auto) 0.5 L [place] # (Auto) 0.9 Eos # (Auto) 0.1 Baso # (Auto) 0.0 WBC Differential . Differential Comment Auto diff final Sodium Potassium Chloride Carbon Dioxide Anion Gap BUN Creatinine Estimated GFR POC Glucose 124 H Random Glucose Calcium Phosphorus Magnesium Total Bilirubin AST ALT Alkaline Phosphatase Total Protein Albumin Urine Eosinophils None seen 04/09/18 04/09/18 04/09/18 03:17 07:54 10:49 WBC RBC Hgb Hct MCV MCH MCHC RDW Plt Count MPV Neut % (Auto) Lymph % (Auto) [place] % (Auto) Eos % (Auto) Baso % (Auto) Neut # (Auto) Lymph # (Auto) [place] # (Auto) Eos # (Auto) Baso # (Auto) WBC Differential Differential Comment Sodium 143 Potassium 3.4 L Chloride 100 Carbon Dioxide 31.6 Anion Gap 11 BUN 66 H Creatinine 1.60 H Estimated GFR 43 L POC Glucose 131 H 156 H Random Glucose 128 H Calcium 7.9 L Phosphorus 2.1 L Magnesium 4.4 H Total Bilirubin 1.3 H AST 22 ALT 30 Alkaline Phosphatase 62 Total Protein 7.7 D Albumin 4.0 D Urine Eosinophils - Procedures Echocardiogram The left ventricular systolic function is normal with an estimated ejection fraction in the range of 55-60%. Trace mitral valve regurgitation. There is trace tricuspid valve regurgitation. CABG x 3 on 03/30/2018. <María Osorio - Last Filed: 04/09/18 12:39> - Labs CBC & Chem 7: 04/09/18 03:17 04/09/18 03:17 Laboratory Results - last 24 hr 04/08/18 04/08/18 04/09/18 20:09 20:40 03:17 WBC 10.2 RBC 3.58 L Hgb 10.5 L Hct 32.3 L MCV 90.1 MCH 29.3 MCHC 32.5 RDW 14.8 Plt Count 507 H MPV 7.0 Neut % (Auto) 85.2 H Lymph % (Auto) 5.0 L [place] % (Auto) 8.4 H Eos % (Auto) 1.0 Baso % (Auto) 0.4 Neut # (Auto) 8.7 H Lymph # (Auto) 0.5 L [place] # (Auto) 0.9 Eos # (Auto) 0.1 Baso # (Auto) 0.0 WBC Differential . Differential Comment Auto diff final Sodium Potassium Chloride Carbon Dioxide Anion Gap BUN Creatinine Estimated GFR POC Glucose 124 H Random Glucose Calcium Phosphorus Magnesium Total Bilirubin AST ALT Alkaline Phosphatase Total Protein Albumin Urine Eosinophils None seen 04/09/18 04/09/18 04/09/18 03:17 07:54 10:49 WBC RBC Hgb Hct MCV MCH MCHC RDW Plt Count MPV Neut % (Auto) Lymph % (Auto) [place] % (Auto) Eos % (Auto) Baso % (Auto) Neut # (Auto) Lymph # (Auto) [place] # (Auto) Eos # (Auto) Baso # (Auto) WBC Differential Differential Comment Sodium 143 Potassium 3.4 L Chloride 100 Carbon Dioxide 31.6 Anion Gap 11 BUN 66 H Creatinine 1.60 H Estimated GFR 43 L POC Glucose 131 H 156 H Random Glucose 128 H Calcium 7.9 L Phosphorus 2.1 L Magnesium 4.4 H Total Bilirubin 1.3 H AST 22 ALT 30 Alkaline Phosphatase 62 Total Protein 7.7 D Albumin 4.0 D Urine Eosinophils <Lg Goldstein - Last Filed: 04/09/18 13:27> Assessment and Plan (1) Abdominal distention Status: Acute Code(s): R14.0 - Abdominal distension (gaseous) (2) Ileus, postoperative Status: Acute Code(s): K91.89 - Other postprocedural complications and disorders of digestive system; K56.7 - Ileus, unspecified (3) Elevation of serum amylase level with elevation of serum lipase level Status: Acute Code(s): R74.8 - Abnormal levels of other serum enzymes - Plan Assessment: - Ileus S/P CABG Pt began vomiting this morning, according to RN approximately 300 cc of emesis. Now with NG to LIWS. Repeat KUB revealed moderate gaseous distention of proximal small bowel as above, no transition point noted by radiologist. CT abdomen and pelvis WO IV contrast (04/06) Findings most consistent with distal small bowel obstruction. Significantly distended stomach and diffuse small bowel distention with relative transition point in the distal ileum in the right lower quadrant. No bowel infarction or perforation at this time. Upper GI and SBFT (04/06) Mid to distal small bowel obstruction as above. GS following and favoring post op ileus, also pt noted to be poor surgical candidate - Elevated lipase-Lipase 1689 Pt denies history of pancreatitis. Does reports daily ETOH, wine with dinner but has not had any alcohol since day prior to admission 11 days ago. Denies family history and personal history of pancreatic and liver issues. Imaging not consistent with pancreatitis (04/08) Pt with NG tube to LIWS, clamped during my exam because he just walked to the bathroom, tried to have a BM but states no stool. Pt does report passing gas. Denies nausea, vomiting, abdominal pain. Discussed case with GS GUIDE WINDER, Jonna, states favoring ileus, OK for Reglan from GS standpoint. 04/09/2018 patient is sitting up in chair continues with NG tube draining a clear more clear bilious fluid. Still has moderate abdominal distention semifirm but no obvious tenderness to light palpation current labs show hemoglobin 10.5 no obvious bleeding, bilirubin 1.3, and lipase level 1382. Elevated lipase level could be related to patient's hepatobiliary ileus/ obstruction and patient's generalized critical illness, drugs. Still monitoring patient's small bowel obstruction for resolution. Appreciate general surgery input which is currently monitoring for nonsurgical resolution. Will recheck lipase level in the a.m. Plan: Diet, n.p.o. except for ice chips and small amounts of water Continue NG to LIWS Monitor labs and recheck lipase level in a.m. Reglan Bowel regimen including Colace daily Erythromycin initiated today. Supportive care Further recommendations based on clinical course Patient was seen per myself and Dr. Goldstein, this note was written on his behalf <María Osorio - Last Filed: 04/09/18 12:39> (1) Abdominal distention Status: Acute Code(s): R14.0 - Abdominal distension (gaseous) (2) Ileus, postoperative Status: Acute Code(s): K91.89 - Other postprocedural complications and disorders of digestive system; K56.7 - Ileus, unspecified (3) Elevation of serum amylase level with elevation of serum lipase level Status: Acute Code(s): R74.8 - Abnormal levels of other serum enzymes - Attending Attestation As above, minimal improvement since yesterday. Will continue current treatment . Will follow up with you. <Lg Goldstein - Last Filed: 04/09/18 13:27>
--- NOTE | 2018-04-09 14:06 | P.PNGS ---
<Jonna Pineda - Last Filed: 04/09/18 14:29> Subjective Interval history: Up to chair Frustrated because he is not getting better Physical Exam Vital signs: Vital Signs 04/08/18 15:00 04/08/18 16:00 04/08/18 17:00 Temperature 97.5 F L Pulse Rate 95 H 62 71 Respiratory Rate 16 Blood Pressure 150/78 H Pulse Oximetry 100 04/08/18 18:00 04/08/18 19:00 04/08/18 23:00 Temperature 98 F 98.4 F Pulse Rate 81 92 H 92 H Respiratory Rate 16 16 Blood Pressure 130/67 142/73 H Pulse Oximetry 98 95 04/09/18 03:00 04/09/18 06:00 Temperature 98 F Pulse Rate 91 H 92 H Respiratory Rate 16 Blood Pressure 129/70 Pulse Oximetry 98 Intake & Output 04/08/18 04/09/18 04/09/18 18:59 06:59 18:59 Intake Total 3050.4 / 3050.4 2300 / 2300 1200 / 1200 Output Total 4100 / 4100 960 / 960 Balance -1049.6 / -1049.6 1340 / 1340 1200 / 1200 Weight 101 kg Intake: IV 2330.4 / 2330.4 1100 / 1100 1200 / 1200 NS + KCl 20 mEq Inj 1,000 ML @ 1527 / 1527 1000 / 1000 1000 / 1000 125 mls/hr IV.CONT .Q8H [facility] Rx# :[id number] Flexbumin 25% Inj 100 ML @ 60 200 / 200 100 / 100 200 / 200 mls/hr IV.SIG Q8H [facility] Rx#: [id number] Calcium Chloride Inj 0.34 GM In 103.4 / 103.4 D5W Inj 100 ML @ 103.4 mls/hr IV.SIG ONCE ONE Rx#:[id number] KCl 10 mEq Premix Inj 10 meq In 500 / 500 100 ml @ 100 mls/hr IV.SIG Q1H [facility] Rx#:[id number] Oral 720 / 720 1200 / 1200 Output: Urine 1300 / 1300 960 / 960 Gastric Drainage 2800 / 2800 Right Nare 2800 / 2800 Other: # Bowel Movements 0 Narrative: Alert and awake Cardio: RRR Resp: CTAB Abd: tender on RIGHT flank; distended - Urinary Catheter Management Indwelling Temp Sensing Catheter Cath placed during this visit: yes, but has since been removed by the nurse Reason for continuing: Not indwelling catheter Insertion date: 03/30/18 Insertion time: 07:40 Removal date: 03/31/18 Removal time: 05:15 Assessment and Plan - Assessment (1) Ileus, postoperative Code(s): K91.89 - Other postprocedural complications and disorders of digestive system; K56.7 - Ileus, unspecified Status: Acute (2) S/P CABG x 3 Code(s): Z95.1 - Presence of aortocoronary bypass graft Status: Acute - Plan 73 year old male with recent CABG on March 30, post operative abdominal pain; distention -Likely ileus -UGI and KUB reviewed -Exam not improving much -Started EES -Vascular consult for PICC and TPN to start tonight -Okay for sips of ice water and ice (sparingly) -Lipase pending for today -Continue NGT to LIWS -OOB and mobilize as tolerated -If no progression may require surgical intervention---will continue to follow <Jose Eric - Last Filed: 04/09/18 15:35> Subjective Patient reports: flatus (Patient states he had a little flatus this morning) Physical Exam Vital signs: Vital Signs 04/08/18 16:00 04/08/18 17:00 04/08/18 18:00 Temperature Pulse Rate 62 71 81 Respiratory Rate Blood Pressure Pulse Oximetry 04/08/18 19:00 04/08/18 23:00 04/09/18 03:00 Temperature 98 F 98.4 F 98 F Pulse Rate 92 H 92 H 91 H Respiratory Rate 16 16 16 Blood Pressure 130/67 142/73 H 129/70 Pulse Oximetry 98 95 98 04/09/18 06:00 04/09/18 07:00 04/09/18 08:00 Temperature 97.6 F Pulse Rate 92 H 93 H 90 Respiratory Rate 16 Blood Pressure 120/68 Pulse Oximetry 100 04/09/18 09:00 04/09/18 10:00 04/09/18 11:00 Temperature 98.0 F Pulse Rate 88 92 H 86 Respiratory Rate 16 Blood Pressure 132/77 Pulse Oximetry 99 04/09/18 12:00 04/09/18 13:00 04/09/18 14:00 Temperature Pulse Rate 86 88 83 Respiratory Rate Blood Pressure Pulse Oximetry Intake & Output 04/08/18 04/09/18 04/09/18 18:59 06:59 18:59 Intake Total 3050.4 / 3050.4 2300 / 2300 1200 / 1200 Output Total 4100 / 4100 960 / 960 Balance -1049.6 / -1049.6 1340 / 1340 1200 / 1200 Weight 101 kg Intake: IV 2330.4 / 2330.4 1100 / 1100 1200 / 1200 NS + KCl 20 mEq Inj 1,000 ML @ 1527 / 1527 1000 / 1000 1000 / 1000 125 mls/hr IV.CONT .Q8H [facility] Rx# :[id number] Flexbumin 25% Inj 100 ML @ 60 200 / 200 100 / 100 200 / 200 mls/hr IV.SIG Q8H [facility] Rx#: [id number] Calcium Chloride Inj 0.34 GM In 103.4 / 103.4 D5W Inj 100 ML @ 103.4 mls/hr IV.SIG ONCE ONE Rx#:[id number] KCl 10 mEq Premix Inj 10 meq In 500 / 500 100 ml @ 100 mls/hr IV.SIG Q1H [facility] Rx#:[id number] Oral 720 / 720 1200 / 1200 Output: Urine 1300 / 1300 960 / 960 Gastric Drainage 2800 / 2800 Right Nare 2800 / 2800 Other: # Bowel Movements 0 - Urinary Catheter Management Indwelling Temp Sensing Catheter Cath placed during this visit: no Assessment and Plan - Assessment (1) Ileus, postoperative Code(s): K91.89 - Other postprocedural complications and disorders of digestive system; K56.7 - Ileus, unspecified Status: Acute (2) S/P CABG x 3 Code(s): Z95.1 - Presence of aortocoronary bypass graft Status: Acute - Attending Attestation NOTE FOR SURGICAL ATTENDING, DR. JOSE ERIC I agree with above assessment and plan. Discussed with the patient and at bedside If the patient does not grasp by Thursday will plan diagnostic laparoscopy possible lysis of adhesions In the interim continue hydration Start TPN Encourage mobilization Recheck KUB in the morning Family and patient appeared to understand and are on board with above-mentioned plan The exam, history, and the medical decision-making described in the above note were completed with the assistance of the mid-level provider. I reviewed and agree with the findings presented. I attest that I had a [id number] encounter with the patient on the same day, and personally performed and documented my assessment and findings in the medical record. The following services were provided during this hospital visit: Chart data review, vital sign assessments/reviewing monitor data Review of consultations notes if present. Medication orders/review and/or management Ordering and/or reviewing lab tests Ordering and/or interpreting/reviewing x-rays and/or diagnostic studies Care of the patient and discussion of the patient with the care team Documentation time To help prompt me to consider important information that might be impacting today's encounter and assessment, Information from prior notes written by myself or my colleagues may have been "brought forward/copy and pasted" into today's note.
[2018-04-09] MEDS: Erythromycin Ethylsuccinate Susp 400 MG/5ML 100 ML Bottle PO SCH ×2 (14:56→22:28)
--- NOTE | 2018-04-09 15:03 | P.PNNP ---
Subjective Interval history: Pt says he is overall feeling better, but is frustrated at his abdominal situation. Physical Exam Vital signs: Vital Signs 04/08/18 15:00 04/08/18 16:00 04/08/18 17:00 Temperature 97.5 F L Pulse Rate 95 H 62 71 Respiratory Rate 16 Blood Pressure 150/78 H Pulse Oximetry 100 04/08/18 18:00 04/08/18 19:00 04/08/18 23:00 Temperature 98 F 98.4 F Pulse Rate 81 92 H 92 H Respiratory Rate 16 16 Blood Pressure 130/67 142/73 H Pulse Oximetry 98 95 04/09/18 03:00 04/09/18 06:00 04/09/18 07:00 Temperature 98 F 97.6 F Pulse Rate 91 H 92 H 93 H Respiratory Rate 16 16 Blood Pressure 129/70 120/68 Pulse Oximetry 98 100 04/09/18 08:00 04/09/18 09:00 04/09/18 10:00 Temperature Pulse Rate 90 88 92 H Respiratory Rate Blood Pressure Pulse Oximetry 04/09/18 11:00 04/09/18 12:00 04/09/18 13:00 Temperature 98.0 F Pulse Rate 86 86 88 Respiratory Rate 16 Blood Pressure 132/77 Pulse Oximetry 99 04/09/18 14:00 Temperature Pulse Rate 83 Respiratory Rate Blood Pressure Pulse Oximetry Intake & Output 04/08/18 04/09/18 04/09/18 18:59 06:59 18:59 Intake Total 3050.4 / 3050.4 2300 / 2300 1200 / 1200 Output Total 4100 / 4100 960 / 960 Balance -1049.6 / -1049.6 1340 / 1340 1200 / 1200 Weight 101 kg Intake: IV 2330.4 / 2330.4 1100 / 1100 1200 / 1200 NS + KCl 20 mEq Inj 1,000 ML @ 1527 / 1527 1000 / 1000 1000 / 1000 125 mls/hr IV.CONT .Q8H MIKE Rx# :[id number] Flexbumin 25% Inj 100 ML @ 60 200 / 200 100 / 100 200 / 200 mls/hr IV.SIG Q8H MIKE Rx#: [id number] Calcium Chloride Inj 0.34 GM In 103.4 / 103.4 D5W Inj 100 ML @ 103.4 mls/hr IV.SIG ONCE ONE Rx#:[id number] KCl 10 mEq Premix Inj 10 meq In 500 / 500 100 ml @ 100 mls/hr IV.SIG Q1H MIKE Rx#:[id number] Oral 720 / 720 1200 / 1200 Output: Urine 1300 / 1300 960 / 960 Gastric Drainage 2800 / 2800 Right Nare 2800 / 2800 Other: # Bowel Movements 0 - Constitutional no acute distress - Routine HEENT Exam Head: Present: normocephalic, atraumatic - Routine Neck Exam Present: supple - Routine Respiratory Exam Present: CTA bilaterally - Routine Cardiovascular Exam Present: RRR - Routine Abdominal Exam Present: distended, firm - Routine Skin Exam Present: intact - Routine Neurological Exam Present: alert, oriented X3 - Routine Psychiatric Exam Present: normal affect, normal thought process - Urinary Catheter Management Indwelling Temp Sensing Catheter Cath placed during this visit: yes, but has since been removed by the nurse Reason for continuing: Not indwelling catheter Insertion date: 03/30/18 Insertion time: 07:40 Removal date: 03/31/18 Removal time: 05:15 Assessment and Plan - Assessment (1) Acute kidney injury Code(s): N17.9 - Acute kidney failure, unspecified Status: Acute Plan: Probably superimposed on some degree of chronic kidney disease given renal indices on presentation. Patient does indeed have chronic kidney disease most likely related to nephrosclerosis of hypertension and aging. Acute renal insufficiency most likely related to ATN possibly multifactorial in origin. Contributory factors include recent CABG with subsequent development of ileus with third spacing of fluid resulting in intravascular volume depletion. Renal functions improving and UOP brisk. OK for placement of PICC for TPN There was also apparently a question regarding Azithromycin and Reglan---per literature, no dosage adjustment needed for Azithromycin. Reglan for GFR <60 the max daily dose is 5mg QID. Will defer this to the primary or GI teams to initiate if indicated. Medications should be adjusted for the patient's estimated GFR if clinically indicated. Avoid agents with significant potential for nephrotoxicity possible including NSAIDs for analgesia, iodine contrast agents. Gadolinium is contraindicated if the GFR is below 30. (2) S/P CABG x 3 Code(s): Z95.1 - Presence of aortocoronary bypass graft Status: Acute (3) Hypokalemia Code(s): E87.6 - Hypokalemia Status: Acute Plan: Related to GI losses. Repletion as ordered by primary MD together with magnesium supplementation.. (4) Ileus, postoperative Code(s): K91.89 - Other postprocedural complications and disorders of digestive system; K56.7 - Ileus, unspecified Status: Acute Plan: Mgmt as per GI
[2018-04-09] MEDS ORDERED: Heparin Central Flush 100 UNIT/ML 5 ML Vial IV.FLUSH PRN (16:06)
--- NOTE | 2018-04-09 16:22 | P.DIET ---
Nutritional Evaluation Screening comments[place] [facility] [place] Objective - Diagnosis Nstemi - Objective % IBW: 125 Body Weight Used for Calculations: IBW (81kg) Energy Needs - Lower Range (kCal/kg): 25 Energy Needs - Upper Range (kCal/kg): 30 Lower Limit kCal/kg (kCals): 2,025 Upper Limit kCal/kg (kCals): 2,430 Lower Limit Protein Factor (Grams per Kg): 1 Upper Limit Protein Factor (Grams per Kg): 1.4 Lower Protein Needs (Protein): 81 Upper Protein Needs (Protein): 113 Dietitian Reviewed in Medical Record: Current diet, Curent medications, Intake & Output, Labs, Medical history Diet Order: NPO Objective Comments: PMH Includes: CAD, CABG, Multi , Vessel Coronary Artey Stenosis, NSTEMI 03/30/18 Redo CABG x 3 Meds include: Theragran M, Reglan, Lactulose, Lipitor Feeding - Current TPN/PPN Current PPN: Clinimix E 4.25/5 Current TPN/PPN Rate (ml/hr): 83 (To start at 1999) Amino Acid and Dextrose Current kCals Provided: 680 Amino Acid and Dextrose Current Protein Provided: 85 Current Lipid Concentration: 20% Current Lipids Rate: Continuous rate of 10 mls/hr over 24 hours Current kCal Provided by TPN/PPN: 1,180 Assessment Assessment: Pt at nutritional risk r/t post-op ileus s/p CABG March 30. PPN as ordered above will provide pt with 100% of his protein needs and 58% of his calorie needs. Will monitor clinical course and provide additional recs as needed. Recommendations: PPN: Clinimix 4.25/5 at 83 ml/hr 20% Lipids at 10 ml/hr continuous with Clinimix Meets 100% pt's protein needs and 58% of calorie needs Dietitian to Monitor: Lab values, Intake & Output, TPN/PPN tolerance, Weight change, Medical course
--- NOTE | 2018-04-09 16:43 | P.PNCA ---
- Note Subjective/Hospital Course: 73-year-old gentleman with history of coronary artery bypass graft, hypertension, and hyperlipidemia, been experiencing chest pain for the past several days, pressure-like, moderate, relieved with nitroglycerin. cath report : multi vessel disease / EF 50% PAST MEDICAL HISTORY: CABG in 2007. He also has a history of permanent pacemaker, DDD lower rate 50 hypertension, polyp removed, CKD baseline creatinine 1.3 surgery 03/30 REDO CABG x 3 SVG to PDA - good SVG to RI - fair SVG to D1 - fair EVH extubated after surgery / 2 pleural tubes / one mediastinal tubes 03/31 painful , no toradol with CKD OOB pulm toileting pain med control transfer to stepdown 04/01 still painful, but some improvement CT x 3 / drained 130/12 hrs and additional 150cc this am bloody drainage/ no air leak pain control pulm toileting creatinine improved 1.23 04/02 c/o of constipation , mild nausea , abdomen distended , Hypoactive bowel sounds pt is passing flatus , narcotics dc , IV Ofirmev, po tylenol stat KUB pending / add reglan chest tube drained 320cc/ 12 hrs , dark old bloody drainage chest tube to suction / leave chest tubes in ambulate as much as possible 04/03 Nauseated and vomiting this morning, otherwise doing well Had BM and flatus Abdomen soft but distended to my exam. No tenderness or guarding KUB with nonspecific distended SB Ambulate NPO except ice-chips May need GI eval if not improved 04/04 Doing better. NGT inadvertently removed. No further N/V Greatly appreciate GI input Feels thirsty and hungry Abdomen soft and less distended OK to advance diet when ok with GI Ambulate 04/05 pt c/o of abdominal pain, worsening from yesterday , also nausea abdomen very distended , hypoactive bowel sounds NG tube replaced, labs and KUB ordered/ NPO except meds / ice chips GI following 04/06 pt with worsening distention/ nausea worsening BAM / nephrology consulted on IV fluids, leukocytosis with left shift General surgery consulted / high GI output/ NG placement verified also at bedside yellow/ kumari drainage / on intermittent suction continue IV fluids, IV fluid bolus given 04/07 still with distended abdomen faint tinkling bowel sounds noted NG to low intermittent suction Small series report noted / will re- notify General Surgery NPO creatinine with some improvement / replace with 500cc NS , continue IV fluids 04/[address] Sylvester will discuss with Dr Kurtz pt will need some form of nutrition soon can change to D51/2 ns with 40 KCL , may need to be eval for TPN vs PPN NG to low intermittent suction 04/09 appreciate GS input , start PPN/ PICC line re-eval KUB if no improvement by Thursday/ they will consider diagnostic lap/ lysis of adhesions on EES , start prophylaxis DVT prevention with Heparin SQ Objective: Vital Signs - 24 hr 04/08/18 17:00 04/08/18 18:00 04/08/18 19:00 Temperature 98 F Pulse Rate 71 81 92 H Respiratory Rate 16 Blood Pressure 130/67 Pulse Oximetry 98 04/08/18 23:00 04/09/18 03:00 04/09/18 06:00 Temperature 98.4 F 98 F Pulse Rate 92 H 91 H 92 H Respiratory Rate 16 16 Blood Pressure 142/73 H 129/70 Pulse Oximetry 95 98 04/09/18 07:00 04/09/18 08:00 04/09/18 09:00 Temperature 97.6 F Pulse Rate 93 H 90 88 Respiratory Rate 16 Blood Pressure 120/68 Pulse Oximetry 100 04/09/18 10:00 04/09/18 11:00 04/09/18 12:00 Temperature 98.0 F Pulse Rate 92 H 86 86 Respiratory Rate 16 Blood Pressure 132/77 Pulse Oximetry 99 04/09/18 13:00 04/09/18 14:00 04/09/18 15:00 Temperature 97.9 F Pulse Rate 88 83 87 Respiratory Rate 16 Blood Pressure 139/67 Pulse Oximetry 98 04/09/18 16:00 Temperature Pulse Rate 95 H Respiratory Rate Blood Pressure Pulse Oximetry GENERAL: SKIN: Warm and dry. sternal incision intact and well approximated HEAD: Normocephalic. EYES: No scleral icterus. No injection or drainage. NECK: Supple, trachea midline. No JVD or lymphadenopathy. CARDIOVASCULAR: Regular rate and rhythm without murmurs, gallops, or rubs. RESPIRATORY: Breath sounds equal bilaterally. No accessory muscle use. GASTROINTESTINAL: Abdomen distended slightly firm , hypoactive bowel sounds, NG to low intermittent suction MUSCULOSKELETAL: No cyanosis, or edema. BACK: Nontender without obvious deformity. No CVA tenderness. Labs: Laboratory Results - last 12 hr 04/09/18 04/09/18 07:54 10:49 POC Glucose 131 H 156 H Result Diagrams: 04/09/18 03:17 04/09/18 03:17 - Plan (1) S/P CABG x 3 Plan: ASA, statin , BB OOB hold plavix pulm toieling on nasal cannula start heparin sq ambulate (2) CAD (coronary artery disease) (6) Hx of CABG Plan: ASA, statin , BB OOB ambulate EES , NG to low intermittent suction GS following (7) Abdominal distention Plan: stat KUB NG tube in place final small bowel series noted / f/u KUB await general surgery in put will need nutrition elevated Lipase, some improvement (8) Acute kidney injury Plan: on continuous IV fluid indices improving nephrology following (2) CAD (coronary artery disease) Qualifiers: Coronary Disease-Associated Artery/Lesion type: [place] artery Associated angina: with unstable angina
[2018-04-09] MEDS ORDERED: MULTIVITAMIN IV.SIG SCH (20:00)
[2018-04-09] MEDS ORDERED: [UNRECOGNIZED DRUG - OTHER] IV.SIG SCH (20:00)
[2018-04-09] MEDS ORDERED: FOLIC ACID IV.SIG SCH (20:00)
[2018-04-09] MEDS ORDERED: AMINO ACIDS IV.SIG SCH (20:00)
[2018-04-09] MEDS: Temazepam 15 MG Capsule PO PRN (22:25)
[2018-04-09] MEDS: Heparin - SQ 10,000 UNITS/ML Vial SQ SCH (22:27)
[2018-04-10] MEDS: Albumin Human 25% Inj 100 ML IV.SIG SCH ×3 (04:18→20:28)
[2018-04-10] MEDS: Methocarbamol 500 MG Tablet PO SCH (06:03)
[2018-04-10] MEDS: Pantoprazole Sodium 20 MG DR Tablet PO SCH (06:03)
[2018-04-10] MEDS: Erythromycin Ethylsuccinate Susp 400 MG/5ML 100 ML Bottle PO SCH ×2 (06:03→15:46)
[2018-04-10 06:12] LABS: Baso % (Auto) 0.2 % (0.0-2.0); Eos # (Auto) 0.2 th/mm3 (0.0-0.4); Eos % (Auto) 1.6 % (0.0-4.0); Hemoglobin 9.8 gm/dL (13.0-17.0); Lymph # (Auto) 0.6 th/mm3 (1.0-4.8); Mean Corpuscular HGB Conc 32.6 % (32.0-36.0); Mean Corpuscular Hemoglobin 29.8 pg (27.0-34.0); Mean Corpuscular Volume 91.6 fL (80.0-100.0); Mean Platelet Volume 7.7 fL (7.0-11.0); Mono # (Auto) 0.8 th/mm3 (0.0-0.9); Mono % (Auto) 7.7 % (0.0-8.0); Neut # (Auto) 8.5 th/mm3 (1.8-7.7); Neut % (Auto) 84.5 % (16.0-70.0); Platelet Count 469 th/mm3 (150-450); Red Blood Count 3.27 mil/mm3 (4.50-5.90); Red Cell Distribution Width 15.1 % (11.6-17.2)
--- NOTE | 2018-04-10 08:15 | XR ---
EXAM DATE: 04/10/2018 8:02 AM EDT AGE/SEX: 73 years / Male INDICATIONS: Abdominal pain. Ileus. CLINICAL DATA: This is the patient's subsequent encounter. Patient reports that signs and symptoms h ave been present for 3 weeks and indicates a pain score of 7/10. MEDICAL/SURGICAL HISTORY: Hypertension. CABG. Pacemaker. COMPARISON: [facility] [place] 1V KUB, 04/08/2018. . FINDINGS: Imaging of the abdomen again demonstrates air dilated small bowel. There has been progressive advanc ement of the oral contrast material from the small bowel on the exam of April 08, 2018 to the large emi wel with contrast reaching the level of the rectum. No evidence of free air. CONCLUSION: Ileus, no evidence of obstruction. Electronically signed by: Myra Gupta MD 04/10/2018 8:14 AM EDT
[2018-04-10 08:20] LABS: Albumin 3.8 g/dL (3.4-5.0); Calcium 7.3 mg/dL (8.5-10.1); Carbon Dioxide 27.8 meq/L (21.0-32.0); Magnesium 3.6 mg/dL (1.5-2.5); Phosphorus 1.6 mg/dL (2.5-4.9); Total Protein 7.2 g/dL (6.4-8.2)
[2018-04-10 08:56] LABS: Potassium 2.9 meq/L (3.5-5.1)
[2018-04-10] MEDS: Docusate Sodium 100 MG Capsule PO SCH (09:32)
[2018-04-10] MEDS: Multivitamin/Minerals Therapeutic Tablet PO SCH (09:33)
[2018-04-10] MEDS: Metoprolol Tartrate 25 MG Tablet PO SCH ×2 (09:33→20:27)
[2018-04-10] MEDS: Bisacodyl 10 MG Supp RECTAL SCH (09:35)
[2018-04-10] MEDS: Heparin - SQ 10,000 UNITS/ML Vial SQ SCH ×2 (09:36→20:29)
[2018-04-10] MEDS: Heparin Central Flush 100 UNIT/ML 5 ML Vial IV.FLUSH SCH (09:36)
[2018-04-10] MEDS: Polyethylene Glycol 3350 17 GM Packet PO SCH (09:36)
[2018-04-10] MEDS: Insulin NovoLOG Aspart Correctional Sugar Inj SQ SCH ×4 (10:19→23:32)
[2018-04-10] MEDS ORDERED: Potassium Phosphate Inj 15 MMOL in Sodium Chlor 0.9% Inj 150 ML IV.SIG ONE (11:21)
--- NOTE | 2018-04-10 11:21 | P.PNCA ---
- Note CVT: Post Op Day #: 11 Subjective/Hospital Course: 73-year-old gentleman with history of coronary artery bypass graft, hypertension, and hyperlipidemia, been experiencing chest pain for the past several days, pressure-like, moderate, relieved with nitroglycerin. cath report : multi vessel disease / EF 50% PAST MEDICAL HISTORY: CABG in 2007. He also has a history of permanent pacemaker, DDD lower rate 50 hypertension, polyp removed, CKD baseline creatinine 1.3 surgery 03/30 REDO CABG x 3 SVG to PDA - good SVG to RI - fair SVG to D1 - fair EVH extubated after surgery / 2 pleural tubes / one mediastinal tubes 03/31 painful , no toradol with CKD OOB pulm toileting pain med control transfer to stepdown 04/01 still painful, but some improvement CT x 3 / drained 130/12 hrs and additional 150cc this am bloody drainage/ no air leak pain control pulm toileting creatinine improved 1.23 04/02 c/o of constipation , mild nausea , abdomen distended , Hypoactive bowel sounds pt is passing flatus , narcotics dc , IV Ofirmev, po tylenol stat KUB pending / add reglan chest tube drained 320cc/ 12 hrs , dark old bloody drainage chest tube to suction / leave chest tubes in ambulate as much as possible 04/03 Nauseated and vomiting this morning, otherwise doing well Had BM and flatus Abdomen soft but distended to my exam. No tenderness or guarding KUB with nonspecific distended SB Ambulate NPO except ice-chips May need GI eval if not improved 04/04 Doing better. NGT inadvertently removed. No further N/V Greatly appreciate GI input Feels thirsty and hungry Abdomen soft and less distended OK to advance diet when ok with GI Ambulate 04/05 pt c/o of abdominal pain, worsening from yesterday , also nausea abdomen very distended , hypoactive bowel sounds NG tube replaced, labs and KUB ordered/ NPO except meds / ice chips GI following 04/06 pt with worsening distention/ nausea worsening BAM / nephrology consulted on IV fluids, leukocytosis with left shift General surgery consulted / high GI output/ NG placement verified also at bedside yellow/ kumari drainage / on intermittent suction continue IV fluids, IV fluid bolus given 04/07 still with distended abdomen faint tinkling bowel sounds noted NG to low intermittent suction Small series report noted / will re- notify General Surgery NPO creatinine with some improvement / replace with 500cc NS , continue IV fluids 04/[address] Sylvester will discuss with Dr Kurtz pt will need some form of nutrition soon can change to D51/2 ns with 40 KCL , may need to be eval for TPN vs PPN NG to low intermittent suction 04/09 appreciate GS input , start PPN/ PICC line re-eval KUB if no improvement by Thursday/ they will consider diagnostic lap/ lysis of adhesions on EES , start prophylaxis DVT prevention with Heparin SQ 04/10/18 depressed, frustrated, c/o "no energy" Denies flatus/BM Copious NG tube output Objective: Vital Signs - 24 hr 04/09/18 12:00 04/09/18 13:00 04/09/18 14:00 Temperature Pulse Rate 86 88 83 Respiratory Rate Blood Pressure Pulse Oximetry 04/09/18 15:00 04/09/18 16:00 04/09/18 17:00 Temperature 97.9 F Pulse Rate 87 95 H 94 H Respiratory Rate 16 Blood Pressure 139/67 Pulse Oximetry 98 04/09/18 18:00 04/09/18 19:00 04/09/18 23:00 Temperature 98.9 F 99.5 F Pulse Rate 94 H 89 94 H Respiratory Rate 16 16 Blood Pressure 144/74 H 132/67 Pulse Oximetry 98 98 04/10/18 03:00 04/10/18 04:00 04/10/18 06:00 Temperature 98.6 F Pulse Rate 89 90 92 H Respiratory Rate 16 Blood Pressure 127/65 Pulse Oximetry 98 04/10/18 07:00 04/10/18 08:00 04/10/18 09:00 Temperature 97.7 F Pulse Rate 89 89 91 H Respiratory Rate 20 Blood Pressure 127/64 Pulse Oximetry 98 04/10/18 10:00 Temperature Pulse Rate 91 H Respiratory Rate Blood Pressure Pulse Oximetry Labs: Laboratory Results - last 12 hr 04/10/18 04/10/18 04/10/18 04:33 04:33 08:10 WBC 10.0 RBC 3.27 L Hgb 9.8 L Hct 30.0 L MCV 91.6 MCH 29.8 MCHC 32.6 RDW 15.1 Plt Count 469 H MPV 7.7 Neut % (Auto) 84.5 H Lymph % (Auto) 6.0 L Hughes % (Auto) 7.7 Eos % (Auto) 1.6 Baso % (Auto) 0.2 Neut # (Auto) 8.5 H Lymph # (Auto) 0.6 L Hughes # (Auto) 0.8 Eos # (Auto) 0.2 Baso # (Auto) 0.0 WBC Differential . Differential Comment Auto diff final Sodium 136 Potassium 2.9 L* Chloride 95 L Carbon Dioxide 27.8 Anion Gap 13 BUN 42 H Creatinine 1.35 H Estimated GFR 52 L POC Glucose 150 H Random Glucose 304 H D Calcium 7.3 L* Prot Corrected Calcium 7.3 L* Phosphorus 1.6 L Magnesium 3.6 H D Total Bilirubin 1.3 H AST 15 ALT 26 Alkaline Phosphatase 53 Total Protein 7.2 Albumin 3.8 Lipase 1244 H Result Diagrams: 04/10/18 04:33 04/10/18 04:33 Imaging: Abdomen/Pelvis CT 04/06/18 00:00 CONCLUSION: 1. Findings most consistent with distal small bowel obstruction. Significantly distended stomach and diffuse small bowel distention with relative transition point in the distal ileum in the right lower quadrant. No bowel infarction or perforation at this time. 2. NG tube is in the right mainstem bronchus. 3. Bilateral lower lobe lobe airspace consolidation. 4. Additional ancillary findings, as above. Findings were personally discussed with the patient's nurse, Lennie, at the time of this dictation. Upper GI and Small Bowel X-Ray 04/06/18 08:58 .. CONCLUSION: Mid to distal small bowel obstruction as above. Chest X-Ray 04/07/18 06:00 CONCLUSION: 1. Stable left lower lung zone airspace disease. 2. Tiny left apical pneumothorax noted on previous exams not well demonstrated. 3. Cardiomegaly with pulmonary vascular congestion. 4. NGT coursing beyond the GE junction. Abdomen X-Ray 04/10/18 08:05 CONCLUSION: Ileus, no evidence of obstruction. Cardiovascular: RRR Telemetry: NSR Pulmonary: CTA GI/: few BS, distended, tympanitic Incision: dry and intact - Plan (1) S/P CABG x 3 Plan: ASA, statin , BB OOB hold plavix pulm toieling on nasal cannula start heparin sq ambulate s/p REDO CABG with ongoing ileus vs small bowel obstruction. Dr. Salinas plans for Laparoscopic exploration tomorrow if there is no improvement in abdominal status Renal function is back to baseline He will require potassium supplementation prior to surgery. (2) CAD (coronary artery disease) (6) Hx of CABG Plan: ASA, statin , BB OOB ambulate EES , NG to low intermittent suction GS following (7) Abdominal distention Plan: stat KUB NG tube in place final small bowel series noted / f/u KUB await general surgery in put will need nutrition elevated Lipase, some improvement (8) Acute kidney injury Plan: on continuous IV fluid indices improving nephrology following (2) CAD (coronary artery disease) Qualifiers: Coronary Disease-Associated Artery/Lesion type: [place] artery Associated angina: with unstable angina
--- NOTE | 2018-04-10 11:34 | P.PNGI ---
Subjective Interval history: Pt sitting up in bedside chair. Reports still doesn't feel like he is getting better. Did have a small BM this morning. Also has been passing gas. Still with NG tube to LIWS with large amount of output. Pt has been taking some ice chips. <Mary Julien - Last Filed: 04/10/18 11:29> Physical Exam Vital signs: Vital Signs 04/09/18 12:00 04/09/18 13:00 04/09/18 14:00 Temperature Pulse Rate 86 88 83 Respiratory Rate Blood Pressure Pulse Oximetry 04/09/18 15:00 04/09/18 16:00 04/09/18 17:00 Temperature 97.9 F Pulse Rate 87 95 H 94 H Respiratory Rate 16 Blood Pressure 139/67 Pulse Oximetry 98 04/09/18 18:00 04/09/18 19:00 04/09/18 23:00 Temperature 98.9 F 99.5 F Pulse Rate 94 H 89 94 H Respiratory Rate 16 16 Blood Pressure 144/74 H 132/67 Pulse Oximetry 98 98 04/10/18 03:00 04/10/18 04:00 04/10/18 06:00 Temperature 98.6 F Pulse Rate 89 90 92 H Respiratory Rate 16 Blood Pressure 127/65 Pulse Oximetry 98 04/10/18 07:00 04/10/18 08:00 04/10/18 09:00 Temperature 97.7 F Pulse Rate 89 89 91 H Respiratory Rate 20 Blood Pressure 127/64 Pulse Oximetry 98 04/10/18 10:00 Temperature Pulse Rate 91 H Respiratory Rate Blood Pressure Pulse Oximetry Intake & Output 04/09/18 04/10/18 04/10/18 18:59 06:59 18:59 Intake Total 3405 / 3405 1920 / 1920 Output Total 4000 / 4000 2820 / 2820 Balance -595 / -595 -900 / -900 Weight 98 kg Intake: IV 1455 / 1455 1200 / 1200 NS + KCl 20 mEq Inj 1,000 ML @ 1000 / 1000 1000 / 1000 125 mls/hr IV.CONT .Q8H [facility] Rx# :[id number] Flexbumin 25% Inj 100 ML @ 60 200 / 200 200 / 200 mls/hr IV.SIG Q8H [facility] Rx#: [id number] KCl 10 mEq Premix Inj 10 meq In 100 / 100 100 ml @ 100 mls/hr IV.SIG ONCE ONE Rx#:[id number] Potassium Phosphate Inj 15 MMOL 155 / 155 In NS Inj 150 ML @ 38.75 mls/ hr IV.SIG ONCE ONE Rx#:[id number] Oral 1950 / 1950 720 / 720 Output: Urine 1200 / 1200 420 / 420 Gastric Drainage 2800 / 2800 2400 / 2400 Right Nare 2800 / 2800 2400 / 2400 Other: Date of Last Bowel Movement 04/04/18 # Bowel Movements 0 - Constitutional no acute distress - Routine HEENT Exam Head: Present: normocephalic, atraumatic - Routine Respiratory Exam Absent: accessory muscle use - Routine Abdominal Exam Present: soft, normoactive bowel sounds, distended. Absent: tenderness - Routine Skin Exam Present: dry, warm - Routine Neurological Exam Present: alert, oriented X3 - Urinary Catheter Management Indwelling Temp Sensing Catheter Cath placed during this visit: yes, but has since been removed by the nurse Reason for continuing: Not indwelling catheter Insertion date: 03/30/18 Insertion time: 07:40 Removal date: 03/31/18 Removal time: 05:15 <Mary Julien - Last Filed: 04/10/18 11:29> Vital signs: Vital Signs 04/09/18 23:00 04/10/18 03:00 04/10/18 04:00 Temperature 99.5 F 98.6 F Pulse Rate 94 H 89 90 Respiratory Rate 16 16 Blood Pressure 132/67 127/65 Pulse Oximetry 98 98 04/10/18 06:00 04/10/18 07:00 04/10/18 08:00 Temperature 97.7 F Pulse Rate 92 H 89 89 Respiratory Rate 20 Blood Pressure 127/64 Pulse Oximetry 98 04/10/18 09:00 04/10/18 10:00 04/10/18 11:00 Temperature 98.1 F Pulse Rate 91 H 91 H 83 Respiratory Rate 20 Blood Pressure 134/69 Pulse Oximetry 99 04/10/18 12:00 04/10/18 13:00 04/10/18 14:00 Temperature Pulse Rate 84 84 94 H Respiratory Rate Blood Pressure Pulse Oximetry 04/10/18 15:00 04/10/18 16:00 04/10/18 17:00 Temperature 98.7 F Pulse Rate 88 85 89 Respiratory Rate 18 Blood Pressure 107/56 L Pulse Oximetry 98 04/10/18 18:00 Temperature Pulse Rate 89 Respiratory Rate Blood Pressure Pulse Oximetry Intake & Output 04/10/18 04/10/18 04/11/18 06:59 18:59 06:59 Intake Total 1920 / 1920 9587 / 9587 Output Total 2820 / 2820 4250 / 4250 Balance -900 / -900 5337 / 5337 Weight 98 kg Intake: IV 1200 / 1200 4526 / 4526 NS + KCl 20 mEq Inj 1,000 ML @ 1000 / 1000 4050 / 4050 125 mls/hr IV.CONT .Q8H [facility] Rx# :[id number] Flexbumin 25% Inj 100 ML @ 60 200 / 200 100 / 100 mls/hr IV.SIG Q8H [facility] Rx#: [id number] Intralipid 20% Inj 250 ML @ 10 176 / 176 mls/hr IV.SIG Q24H [facility] Rx#: [id number] KCl 10 mEq Premix Inj 10 meq In 200 / 200 100 ml @ 100 mls/hr IV.SIG Q1H [facility] Rx#:[id number] Oral 720 / 720 3500 / 3500 Other 1561 / 1561 Output: Urine 420 / 420 950 / 950 Gastric Drainage 2400 / 2400 3300 / 3300 Right Nare 2400 / 2400 3300 / 3300 Other: Date of Last Bowel Movement 04/10/18 # Bowel Movements 0 1 - Urinary Catheter Management Indwelling Temp Sensing Catheter Cath placed during this visit: no <Lg Goldstein - Last Filed: 04/10/18 20:53> Results - Labs CBC & Chem 7: 04/10/18 04:33 04/10/18 04:33 Laboratory Results - last 24 hr 04/09/18 04/09/18 04/10/18 03:17 20:24 04:33 WBC RBC Hgb Hct MCV MCH MCHC RDW Plt Count MPV Neut % (Auto) Lymph % (Auto) Cobb % (Auto) Eos % (Auto) Baso % (Auto) Neut # (Auto) Lymph # (Auto) Cobb # (Auto) Eos # (Auto) Baso # (Auto) WBC Differential Differential Comment Sodium 136 Potassium 2.9 L* Chloride 95 L Carbon Dioxide 27.8 Anion Gap 13 BUN 42 H Creatinine 1.35 H Estimated GFR 52 L POC Glucose 145 H Random Glucose 304 H D Calcium 7.3 L* Prot Corrected Calcium 7.3 L* Phosphorus 1.6 L Magnesium 3.6 H D Total Bilirubin 1.3 H AST 15 ALT 26 Alkaline Phosphatase 53 Total Protein 7.2 Albumin 3.8 Lipase 1294 H 1244 H 04/10/18 04/10/18 04:33 08:10 WBC 10.0 RBC 3.27 L Hgb 9.8 L Hct 30.0 L MCV 91.6 MCH 29.8 MCHC 32.6 RDW 15.1 Plt Count 469 H MPV 7.7 Neut % (Auto) 84.5 H Lymph % (Auto) 6.0 L Cobb % (Auto) 7.7 Eos % (Auto) 1.6 Baso % (Auto) 0.2 Neut # (Auto) 8.5 H Lymph # (Auto) 0.6 L Cobb # (Auto) 0.8 Eos # (Auto) 0.2 Baso # (Auto) 0.0 WBC Differential . Differential Comment Auto diff final Sodium Potassium Chloride Carbon Dioxide Anion Gap BUN Creatinine Estimated GFR POC Glucose 150 H Random Glucose Calcium Prot Corrected Calcium Phosphorus Magnesium Total Bilirubin AST ALT Alkaline Phosphatase Total Protein Albumin Lipase - Imaging Impressions Abdomen X-Ray 04/10/18 08:05 CONCLUSION: Ileus, no evidence of obstruction. - Procedures Echocardiogram The left ventricular systolic function is normal with an estimated ejection fraction in the range of 55-60%. Trace mitral valve regurgitation. There is trace tricuspid valve regurgitation. CABG x 3 on 03/30/2018. <Mary Julien - Last Filed: 04/10/18 11:29> - Labs CBC & Chem 7: 04/10/18 04:33 04/10/18 04:33 Laboratory Results - last 24 hr 04/10/18 04/10/18 04/10/18 04:33 04:33 08:10 WBC 10.0 RBC 3.27 L Hgb 9.8 L Hct 30.0 L MCV 91.6 MCH 29.8 MCHC 32.6 RDW 15.1 Plt Count 469 H MPV 7.7 Neut % (Auto) 84.5 H Lymph % (Auto) 6.0 L Cobb % (Auto) 7.7 Eos % (Auto) 1.6 Baso % (Auto) 0.2 Neut # (Auto) 8.5 H Lymph # (Auto) 0.6 L Cobb # (Auto) 0.8 Eos # (Auto) 0.2 Baso # (Auto) 0.0 WBC Differential . Differential Comment Auto diff final Sodium 136 Potassium 2.9 L* Chloride 95 L Carbon Dioxide 27.8 Anion Gap 13 BUN 42 H Creatinine 1.35 H Estimated GFR 52 L POC Glucose 150 H Random Glucose 304 H D Calcium 7.3 L* Prot Corrected Calcium 7.3 L* Phosphorus 1.6 L Magnesium 3.6 H D Total Bilirubin 1.3 H AST 15 ALT 26 Alkaline Phosphatase 53 Total Protein 7.2 Albumin 3.8 Lipase 1244 H 04/10/18 04/10/18 11:57 18:03 WBC RBC Hgb Hct MCV MCH MCHC RDW Plt Count MPV Neut % (Auto) Lymph % (Auto) Cobb % (Auto) Eos % (Auto) Baso % (Auto) Neut # (Auto) Lymph # (Auto) Cobb # (Auto) Eos # (Auto) Baso # (Auto) WBC Differential Differential Comment Sodium Potassium Chloride Carbon Dioxide Anion Gap BUN Creatinine Estimated GFR POC Glucose 154 H 144 H Random Glucose Calcium Prot Corrected Calcium Phosphorus Magnesium Total Bilirubin AST ALT Alkaline Phosphatase Total Protein Albumin Lipase - Imaging Impressions Abdomen X-Ray 04/10/18 08:05 CONCLUSION: Ileus, no evidence of obstruction. <Lg Goldstein A - Last Filed: 04/10/18 20:53> Assessment and Plan (1) Abdominal distention Status: Acute Code(s): R14.0 - Abdominal distension (gaseous) (2) Ileus, postoperative Status: Acute Code(s): K91.89 - Other postprocedural complications and disorders of digestive system; K56.7 - Ileus, unspecified (3) Elevation of serum amylase level with elevation of serum lipase level Status: Acute Code(s): R74.8 - Abnormal levels of other serum enzymes - Plan Assessment: - Ileus S/P CABG Pt began vomiting this morning, according to RN approximately 300 cc of emesis. Now with NG to LIWS. Repeat KUB revealed moderate gaseous distention of proximal small bowel as above, no transition point noted by radiologist. CT abdomen and pelvis WO IV contrast (04/06) Findings most consistent with distal small bowel obstruction. Significantly distended stomach and diffuse small bowel distention with relative transition point in the distal ileum in the right lower quadrant. No bowel infarction or perforation at this time. Upper GI and SBFT (04/06) Mid to distal small bowel obstruction as above. GS following and favoring post op ileus, also pt noted to be poor surgical candidate - Elevated lipase-Lipase 1689 Pt denies history of pancreatitis. Does reports daily ETOH, wine with dinner but has not had any alcohol since day prior to admission 11 days ago. Denies family history and personal history of pancreatic and liver issues. Imaging not consistent with pancreatitis (04/10) Pt continues with NG to LIWS. Reports he does not feel he is improving much. Small BM this morning, passing gas. Has been taking some ice chips. Denies nausea, vomiting. GS following and note states possible exploratory laparotomy if no improvement by Thursday. Repeat KUB from this AM reveals ileus Plan: Continued NG to LIWS OK for ice chips Monitor stool count Electrolyte replacement per attending Appreciate GS recommendations ? exploratory laparotomy Continue Reglan Further recommendations based on clinical course Patient has been seen and examined by myself and Dr. Goldstein and this note is written on his behalf <Mary Julien - Last Filed: 04/10/18 11:29> (1) Abdominal distention Status: Acute Code(s): R14.0 - Abdominal distension (gaseous) (2) Ileus, postoperative Status: Acute Code(s): K91.89 - Other postprocedural complications and disorders of digestive system; K56.7 - Ileus, unspecified (3) Elevation of serum amylase level with elevation of serum lipase level Status: Acute Code(s): R74.8 - Abnormal levels of other serum enzymes - Attending Attestation Slight improvement, one small BM and improvement in KUB. Will follow up with you. <Lg Goldstein - Last Filed: 04/10/18 20:53>
[2018-04-10] MEDS: Potassium Chlor 10 mEq Premix 10 MEQ/100 ML PIGGYBACK IV.SIG SCH ×4 (15:49→20:00)
--- NOTE | 2018-04-10 16:40 | P.PNFP ---
Subjective Interval history: Pt seen and examined for f/u of CABG post-operatively complicated by ileus. NG tube in place. I saw him shortly after he received an enema and had a BM. He reports some relief of abdominal discomfort. Passed some gas since enema. Denies CP, SOB. Tolerating ice chips and water. Results - Labs Result diagrams: 04/10/18 04:33 04/10/18 04:33 Abnormal lab results 04/09/18 04/09/18 04/10/18 Range/Units 03:17 20:24 04:33 RBC (4.50-5.90) mil/mm3 Hgb (13.0-17.0) gm/dL Hct (39.0-51.0) % Plt Count (150-450) th/mm3 Neut % (Auto) (16.0-70.0) % Lymph % (Auto) (9.0-44.0) % Neut # (Auto) (1.8-7.7) th/mm3 Lymph # (Auto) (1.0-4.8) th/mm3 Potassium 2.9 L* (3.5-5.1) meq/L Chloride 95 L (98-107) meq/L BUN 42 H (7-18) mg/dL Creatinine 1.35 H (0.60-1.30) mg/dL Estimated GFR 52 L (>89) mL/min POC Glucose 145 H (68-110) mg/dl Random Glucose 304 H D (74-106) mg/dL Calcium 7.3 L* (8.5-10.1) mg/dL Prot Corrected Calcium 7.3 L* (8.5-10.1) mg/dL Phosphorus 1.6 L (2.5-4.9) mg/dL Magnesium 3.6 H D (1.5-2.5) mg/dL Total Bilirubin 1.3 H (0.2-1.0) mg/dL Lipase 1294 H 1244 H (73-393) U/L 04/10/18 04/10/18 04/10/18 Range/Units 04:33 08:10 11:57 RBC 3.27 L (4.50-5.90) mil/mm3 Hgb 9.8 L (13.0-17.0) gm/dL Hct 30.0 L (39.0-51.0) % Plt Count 469 H (150-450) th/mm3 Neut % (Auto) 84.5 H (16.0-70.0) % Lymph % (Auto) 6.0 L (9.0-44.0) % Neut # (Auto) 8.5 H (1.8-7.7) th/mm3 Lymph # (Auto) 0.6 L (1.0-4.8) th/mm3 Potassium (3.5-5.1) meq/L Chloride (98-107) meq/L BUN (7-18) mg/dL Creatinine (0.60-1.30) mg/dL Estimated GFR (>89) mL/min POC Glucose 150 H 154 H (68-110) mg/dl Random Glucose (74-106) mg/dL Calcium (8.5-10.1) mg/dL Prot Corrected Calcium (8.5-10.1) mg/dL Phosphorus (2.5-4.9) mg/dL Magnesium (1.5-2.5) mg/dL Total Bilirubin (0.2-1.0) mg/dL Lipase (73-393) U/L Short CBC 04/10/18 Range/Units 04:33 WBC 10.0 (4.0-11.0) th/mm3 Hgb 9.8 L (13.0-17.0) gm/dL Hct 30.0 L (39.0-51.0) % Plt Count 469 H (150-450) th/mm3 BMP 04/10/18 04:33 Sodium 136 Potassium 2.9 L* Chloride 95 L Carbon Dioxide 27.8 BUN 42 H Creatinine 1.35 H Calcium 7.3 L* Liver Function 04/10/18 Range/Units 04:33 Total Bilirubin 1.3 H (0.2-1.0) mg/dL AST 15 (15-37) U/L ALT 26 (12-78) U/L Alkaline Phosphatase 53 (45-117) U/L Albumin 3.8 (3.4-5.0) g/dL - Imaging Impressions Abdomen X-Ray 04/10/18 08:05 CONCLUSION: Ileus, no evidence of obstruction. Physical Exam Vital signs: Vital Signs 04/09/18 17:00 04/09/18 18:00 04/09/18 19:00 Temperature 98.9 F Pulse Rate 94 H 94 H 89 Respiratory Rate 16 Blood Pressure 144/74 H Pulse Oximetry 98 04/09/18 23:00 04/10/18 03:00 04/10/18 04:00 Temperature 99.5 F 98.6 F Pulse Rate 94 H 89 90 Respiratory Rate 16 16 Blood Pressure 132/67 127/65 Pulse Oximetry 98 98 04/10/18 06:00 04/10/18 07:00 04/10/18 08:00 Temperature 97.7 F Pulse Rate 92 H 89 89 Respiratory Rate 20 Blood Pressure 127/64 Pulse Oximetry 98 04/10/18 09:00 04/10/18 10:00 04/10/18 11:00 Temperature 98.1 F Pulse Rate 91 H 91 H 83 Respiratory Rate 20 Blood Pressure 134/69 Pulse Oximetry 99 04/10/18 12:00 04/10/18 13:00 Temperature Pulse Rate 84 84 Respiratory Rate Blood Pressure Pulse Oximetry Intake & Output 04/09/18 04/10/18 04/10/18 18:59 06:59 18:59 Intake Total 3405 / 3405 1920 / 1920 Output Total 4000 / 4000 2820 / 2820 Balance -595 / -595 -900 / -900 Weight 98 kg Intake: IV 1455 / 1455 1200 / 1200 NS + KCl 20 mEq Inj 1,000 ML @ 1000 / 1000 1000 / 1000 125 mls/hr IV.CONT .Q8H [facility] Rx# :[id number] Flexbumin 25% Inj 100 ML @ 60 200 / 200 200 / 200 mls/hr IV.SIG Q8H [facility] Rx#: [id number] KCl 10 mEq Premix Inj 10 meq In 100 / 100 100 ml @ 100 mls/hr IV.SIG ONCE ONE Rx#:[id number] Potassium Phosphate Inj 15 MMOL 155 / 155 In NS Inj 150 ML @ 38.75 mls/ hr IV.SIG ONCE ONE Rx#:[id number] Oral 1949 / 1950 720 / 720 Output: Urine 1200 / 1200 420 / 420 Gastric Drainage 2800 / 2800 2400 / 2400 Right Nare 2800 / 2800 2400 / 2400 Other: Date of Last Bowel Movement 04/04/18 # Bowel Movements 0 Narrative: GENERAL: WN, WD male in NAD. SKIN: Warm and dry. HEENT: AT/NC. Pupils equal and round. NG tube in place with light brown output. NECK: Supple no tender LAD or JVD. HEART: RRR no m/r/g. LUNGS: CTAB without wheezes or crackles. ABDOMEN: Diminished BS, distended, no significant TTP. EXTREMITIES: No LE edema. 2+ pedal pulses. NEURO: Awake and alert. PSYCH: Appropriate mood and affect. - Urinary Catheter Management Indwelling Temp Sensing Catheter Cath placed during this visit: yes, but has since been removed by the nurse Reason for continuing: Not indwelling catheter Insertion date: 03/30/18 Insertion time: 07:40 Removal date: 03/31/18 Removal time: 05:15 Assessment and Plan - Assessment (1) NSTEMI (non-ST elevated myocardial infarction) Code(s): I21.4 - Non-ST elevation (NSTEMI) myocardial infarction Status: Acute (2) Multi-vessel coronary artery stenosis Code(s): I25.10 - Atherosclerotic heart disease of [place] coronary artery without angina pectoris Status: Acute - Assessment and Plan 73 YOWM with history of CAD and prior CABG, pacemaker, HTN, HLD, and CKD admitted 03/26 with NSTEMI. 1. NSTEMI/CAD - Cardiac cath showed multivessel CAD with EF 50% - Underwent CABG x 3 on 03/30 - Continue ASA, statin, and Lopressor - Plavix on hold per cardiology - Supplemental O2 2. Ileus - Pt with abdominal distention, nausea, and vomiting starting 04/02 - GI and general surgery following - NG tube in place - KUB today showed ileus without evidence of obstruction - Continue Reglan and erythromycin - Dulcolax suppository PRN - Fleets enema done today - Monitor closely - Possible surgical exploration if no improvement 3. HLD - Continue Lipitor 4. HTN - Stable BP - Continue Lopressor - Monitor vitals 5. Hypokalemia - Potassium low at 2.9 on AM lab - Repleting with 40 meq KCl IV - Recheck again this evening and again in the AM 6. BAM - Creatinine improving - Holding caity-inhibitor for now - Avoid nephrotoxic agents and renally dose meds 7. Back pain - Percocet PRN DVT prophylaxis: Heparin SQ
[2018-04-10] MEDS ORDERED: Erythromycin Ethylsuccinate Susp 200 MG/5 ML 100 ML Bottle PO SCH (20:45)
--- NOTE | 2018-04-10 20:58 | P.PNGS ---
Subjective Patient reports: nausea (still distended, high ng output, had bm with fleet) Physical Exam Vital signs: Vital Signs 04/09/18 23:00 04/10/18 03:00 04/10/18 04:00 Temperature 99.5 F 98.6 F Pulse Rate 94 H 89 90 Respiratory Rate 16 16 Blood Pressure 132/67 127/65 Pulse Oximetry 98 98 04/10/18 06:00 04/10/18 07:00 04/10/18 08:00 Temperature 97.7 F Pulse Rate 92 H 89 89 Respiratory Rate 20 Blood Pressure 127/64 Pulse Oximetry 98 04/10/18 09:00 04/10/18 10:00 04/10/18 11:00 Temperature 98.1 F Pulse Rate 91 H 91 H 83 Respiratory Rate 20 Blood Pressure 134/69 Pulse Oximetry 99 04/10/18 12:00 04/10/18 13:00 04/10/18 14:00 Temperature Pulse Rate 84 84 94 H Respiratory Rate Blood Pressure Pulse Oximetry 04/10/18 15:00 04/10/18 16:00 04/10/18 17:00 Temperature 98.7 F Pulse Rate 88 85 89 Respiratory Rate 18 Blood Pressure 107/56 L Pulse Oximetry 98 04/10/18 18:00 Temperature Pulse Rate 89 Respiratory Rate Blood Pressure Pulse Oximetry Intake & Output 04/10/18 04/10/18 04/11/18 06:59 18:59 06:59 Intake Total 1920 / 1920 9587 / 9587 Output Total 2820 / 2820 4250 / 4250 Balance -900 / -900 5337 / 5337 Weight 98 kg Intake: IV 1200 / 1200 4526 / 4526 NS + KCl 20 mEq Inj 1,000 ML @ 1000 / 1000 4050 / 4050 125 mls/hr IV.CONT .Q8H [facility] Rx# :[id number] Flexbumin 25% Inj 100 ML @ 60 200 / 200 100 / 100 mls/hr IV.SIG Q8H [facility] Rx#: [id number] Intralipid 20% Inj 250 ML @ 10 176 / 176 mls/hr IV.SIG Q24H [facility] Rx#: [id number] KCl 10 mEq Premix Inj 10 meq In 200 / 200 100 ml @ 100 mls/hr IV.SIG Q1H [facility] Rx#:[id number] Oral 720 / 720 3500 / 3500 Other 1561 / 1561 Output: Urine 420 / 420 950 / 950 Gastric Drainage 2400 / 2400 3300 / 3300 Right Nare 2400 / 2400 3300 / 3300 Other: Date of Last Bowel Movement 04/10/18 # Bowel Movements 0 1 - Routine Abdominal Exam Present: distended (distension, mild ttp) - Urinary Catheter Management Indwelling Temp Sensing Catheter Cath placed during this visit: yes, but has since been removed by the nurse Reason for continuing: Not indwelling catheter Insertion date: 03/30/18 Insertion time: 07:40 Removal date: 03/31/18 Removal time: 05:15 Assessment and Plan - Assessment (1) Ileus, postoperative Code(s): K91.89 - Other postprocedural complications and disorders of digestive system; K56.7 - Ileus, unspecified Status: Acute (2) S/P CABG x 3 Code(s): Z95.1 - Presence of aortocoronary bypass graft Status: Acute - Plan 73 year old male with recent CABG on March 30, post operative abdominal pain; distention axr with contrast in rectum, ileus -Likely ileus persisent, still with high ng output, small bms -KUB in am -Exam not improving much -Started EES -continue TPN -Okay for sips of ice water and ice (sparingly) -Continue NGT to LIWS -OOB and mobilize as tolerated - likely will need operative intervention possible tomorrow vs obs
[2018-04-10] MEDS: Erythromycin Ethylsuccinate Susp 200 MG/5 ML 100 ML Bottle PO SCH (22:57)
[2018-04-11 05:43] LABS: Baso % (Auto) 0.2 % (0.0-2.0); Eos # (Auto) 0.3 th/mm3 (0.0-0.4); Eos % (Auto) 2.9 % (0.0-4.0); Hematocrit 27.3 % (39.0-51.0); Hemoglobin 9.4 gm/dL (13.0-17.0); Lymph # (Auto) 0.8 th/mm3 (1.0-4.8); Lymph % (Auto) 8.5 % (9.0-44.0); Mean Corpuscular HGB Conc 34.4 % (32.0-36.0); Mean Corpuscular Hemoglobin 31.2 pg (27.0-34.0); Mean Corpuscular Volume 90.6 fL (80.0-100.0); Mean Platelet Volume 7.6 fL (7.0-11.0); Mono # (Auto) 0.6 th/mm3 (0.0-0.9); Mono % (Auto) 6.6 % (0.0-8.0); Neut # (Auto) 7.4 th/mm3 (1.8-7.7); Neut % (Auto) 81.8 % (16.0-70.0); Platelet Count 379 th/mm3 (150-450); Red Blood Count 3.01 mil/mm3 (4.50-5.90); Red Cell Distribution Width 14.9 % (11.6-17.2)
[2018-04-11] MEDS: Erythromycin Ethylsuccinate Susp 200 MG/5 ML 100 ML Bottle PO SCH ×3 (06:00→22:30)
[2018-04-11] MEDS: Pantoprazole Sodium 20 MG DR Tablet PO SCH (06:00)
--- NOTE | 2018-04-11 06:04 | XR ---
EXAM DATE: 04/11/2018 5:12 AM EDT AGE/SEX: 73 years / Male INDICATIONS: Distention. Obstruction. CLINICAL DATA: This is the patient's initial encounter. Patient reports that signs and symptoms have been present for 3 days and indicates a pain score of 8/10. MEDICAL/SURGICAL HISTORY: None. None. [place] [facility] [place]UB[place]. . FINDINGS: There is some contrast persisting in the colon. There is moderate gaseous distention of small bowel loops throughout the low abdomen and pelvis. A nasogastric tube terminates in the stomach. CONCLUSION: Persistent dilatation of small bowel Electronically signed by: Pavan Anthony MD 04/11/2018 6:02 AM EDT
[2018-04-11 06:22] LABS: Albumin 3.5 g/dL (3.4-5.0); Calcium 7.1 mg/dL (8.5-10.1); Carbon Dioxide 25.1 meq/L (21.0-32.0); Potassium 4.2 meq/L (3.5-5.1); Total Protein 6.3 g/dL (6.4-8.2)
[2018-04-11] MEDS: Albumin Human 25% Inj 100 ML IV.SIG SCH ×3 (06:41→20:23)
--- NOTE | 2018-04-11 07:20 | P.PNFP ---
Subjective Interval history: Patient seen and examined this morning for follow-up of repeat CABG and postop ileus. He underwent laparoscopic lysis of adhesions this morning. He was seen postoperatively and reports he was comfortable but still groggy from surgery. Denies any significant abdominal pain. No chest pain or shortness of breath. Results - Labs Result diagrams: 04/11/18 04:00 04/11/18 04:00 Abnormal lab results 04/10/18 04/10/18 04/10/18 Range/Units 04:33 08:10 11:57 RBC (4.50-5.90) mil/mm3 Hgb (13.0-17.0) gm/dL Hct (39.0-51.0) % Neut % (Auto) (16.0-70.0) % Lymph % (Auto) (9.0-44.0) % Lymph # (Auto) (1.0-4.8) th/mm3 Sodium (136-145) meq/L Potassium 2.9 L* (3.5-5.1) meq/L Chloride 95 L (98-107) meq/L BUN 42 H (7-18) mg/dL Creatinine 1.35 H (0.60-1.30) mg/dL Estimated GFR 52 L (>89) mL/min POC Glucose 150 H 154 H (68-110) mg/dl Random Glucose 304 H D (74-106) mg/dL Calcium 7.3 L* (8.5-10.1) mg/dL Prot Corrected Calcium 7.3 L* (8.5-10.1) mg/dL Phosphorus 1.6 L (2.5-4.9) mg/dL Magnesium 3.6 H D (1.5-2.5) mg/dL Total Bilirubin 1.3 H (0.2-1.0) mg/dL Alkaline Phosphatase (45-117) U/L Total Protein (6.4-8.2) g/dL Lipase 1244 H (73-393) U/L 04/10/18 04/10/18 04/11/18 Range/Units 18:03 22:53 04:00 RBC 3.01 L (4.50-5.90) mil/mm3 Hgb 9.4 L (13.0-17.0) gm/dL Hct 27.3 L (39.0-51.0) % Neut % (Auto) 81.8 H (16.0-70.0) % Lymph % (Auto) 8.5 L (9.0-44.0) % Lymph # (Auto) 0.8 L (1.0-4.8) th/mm3 Sodium (136-145) meq/L Potassium (3.5-5.1) meq/L Chloride (98-107) meq/L BUN (7-18) mg/dL Creatinine (0.60-1.30) mg/dL Estimated GFR (>89) mL/min POC Glucose 144 H 190 H (68-110) mg/dl Random Glucose (74-106) mg/dL Calcium (8.5-10.1) mg/dL Prot Corrected Calcium (8.5-10.1) mg/dL Phosphorus (2.5-4.9) mg/dL Magnesium (1.5-2.5) mg/dL Total Bilirubin (0.2-1.0) mg/dL Alkaline Phosphatase (45-117) U/L Total Protein (6.4-8.2) g/dL Lipase (73-393) U/L 04/11/18 Range/Units 04:00 RBC (4.50-5.90) mil/mm3 Hgb (13.0-17.0) gm/dL Hct (39.0-51.0) % Neut % (Auto) (16.0-70.0) % Lymph % (Auto) (9.0-44.0) % Lymph # (Auto) (1.0-4.8) th/mm3 Sodium 131 L (136-145) meq/L Potassium (3.5-5.1) meq/L Chloride 94 L (98-107) meq/L BUN 36 H (7-18) mg/dL Creatinine (0.60-1.30) mg/dL Estimated GFR 56 L (>89) mL/min POC Glucose (68-110) mg/dl Random Glucose 380 H (74-106) mg/dL Calcium 7.1 L* (8.5-10.1) mg/dL Prot Corrected Calcium 7.5 L (8.5-10.1) mg/dL Phosphorus (2.5-4.9) mg/dL Magnesium (1.5-2.5) mg/dL Total Bilirubin 1.1 H (0.2-1.0) mg/dL Alkaline Phosphatase 44 L (45-117) U/L Total Protein 6.3 L D (6.4-8.2) g/dL Lipase 1092 H (73-393) U/L Short CBC 04/11/18 Range/Units 04:00 WBC 9.0 (4.0-11.0) th/mm3 Hgb 9.4 L (13.0-17.0) gm/dL Hct 27.3 L (39.0-51.0) % Plt Count 379 (150-450) th/mm3 BMP 04/10/18 04/10/18 04/11/18 04:33 23:15 04:00 Sodium 136 131 L Potassium 2.9 L* 3.9 D 4.2 Chloride 95 L 94 L Carbon Dioxide 27.8 25.1 BUN 42 H 36 H Creatinine 1.35 H 1.26 Calcium 7.3 L* 7.1 L* Liver Function 04/10/18 04/11/18 Range/Units 04:33 04:00 Total Bilirubin 1.3 H 1.1 H (0.2-1.0) mg/dL AST 15 19 (15-37) U/L ALT 26 24 (12-78) U/L Alkaline Phosphatase 53 44 L (45-117) U/L Albumin 3.8 3.5 (3.4-5.0) g/dL - Imaging Impressions Abdomen X-Ray 04/10/18 08:05 CONCLUSION: Ileus, no evidence of obstruction. Abdomen X-Ray 04/11/18 04:30 CONCLUSION: Persistent dilatation of small bowel Physical Exam Vital signs: Vital Signs 04/10/18 08:00 04/10/18 09:00 04/10/18 10:00 Temperature Pulse Rate 89 91 H 91 H Respiratory Rate Blood Pressure Pulse Oximetry 04/10/18 11:00 04/10/18 12:00 04/10/18 13:00 Temperature 98.1 F Pulse Rate 83 84 84 Respiratory Rate 20 Blood Pressure 134/69 Pulse Oximetry 99 04/10/18 14:00 04/10/18 15:00 04/10/18 16:00 Temperature 98.7 F Pulse Rate 94 H 88 85 Respiratory Rate 18 Blood Pressure 107/56 L Pulse Oximetry 98 04/10/18 17:00 04/10/18 18:00 04/10/18 19:00 Temperature 97.8 F Pulse Rate 89 89 87 Respiratory Rate 20 Blood Pressure 118/68 Pulse Oximetry 95 04/10/18 20:00 04/10/18 21:00 04/10/18 22:00 Temperature Pulse Rate 86 88 88 Respiratory Rate Blood Pressure Pulse Oximetry 04/10/18 23:00 04/11/18 00:00 04/11/18 01:00 Temperature 98.5 F Pulse Rate 87 86 88 Respiratory Rate 20 Blood Pressure 109/60 Pulse Oximetry 96 04/11/18 02:00 04/11/18 03:00 04/11/18 04:00 Temperature 98.4 F Pulse Rate 84 84 86 Respiratory Rate 18 Blood Pressure 119/62 Pulse Oximetry 96 04/11/18 05:00 04/11/18 06:00 Temperature Pulse Rate 84 84 Respiratory Rate Blood Pressure Pulse Oximetry Intake & Output 04/10/18 04/11/18 04/11/18 18:59 06:59 18:59 Intake Total 9587 / 9587 1097 / 1097 Output Total 4250 / 4250 1500 / 1500 Balance 5337 / 5337 -403 / -403 Weight 104 kg Intake: IV 4526 / 4526 737 / 737 NS + KCl 20 mEq Inj 1,000 ML @ 4050 / 4050 386 / 386 125 mls/hr IV.CONT .Q8H MIKE Rx# :[id number] Flexbumin 25% Inj 100 ML @ 60 100 / 100 200 / 200 mls/hr IV.SIG Q8H MIKE Rx#: [id number] Intralipid 20% Inj 250 ML @ 10 176 / 176 51 / 51 mls/hr IV.SIG Q24H MIKE Rx#: [id number] KCl 10 mEq Premix Inj 10 meq In 200 / 200 100 / 100 100 ml @ 100 mls/hr IV.SIG Q1H MIKE Rx#:[id number] Oral 3500 / 3500 360 / 360 Other 1561 / 1561 Output: Urine 950 / 950 600 / 600 Urine/Stool Mix 300 / 300 Gastric Drainage 3300 / 3300 600 / 600 Right Nare 3300 / 3300 600 / 600 Other: Date of Last Bowel Movement 04/10/18 04/10/18 # Bowel Movements 1 2 Narrative: GENERAL: WN, WD male in NAD. SKIN: Warm and dry. Median sternotomy scar. HEENT: AT/NC. Pupils equal and round. NG tube in place with light brown output. NECK: Supple no tender LAD or JVD. HEART: RRR no m/r/g. LUNGS: CTAB without wheezes or crackles. ABDOMEN: Laparoscopic incisions C/D/I. Diminished BS, distended, no significant TTP. EXTREMITIES: No LE edema. NEURO: Groggy. PSYCH: Appropriate mood and affect. - Urinary Catheter Management Indwelling Temp Sensing Catheter Cath placed during this visit: yes, but has since been removed by the nurse Reason for continuing: Not indwelling catheter Insertion date: 03/30/18 Insertion time: 07:40 Removal date: 03/31/18 Removal time: 05:15 Indwelling Urethral Catheter Cath placed during this visit: yes Reason for continuing: Hourly intake/output Insertion date: 04/11/18 Assessment and Plan - Assessment (1) NSTEMI (non-ST elevated myocardial infarction) Code(s): I21.4 - Non-ST elevation (NSTEMI) myocardial infarction Status: Acute (2) Multi-vessel coronary artery stenosis Code(s): I25.10 - Atherosclerotic heart disease of [place] coronary artery without angina pectoris Status: Acute - Assessment and Plan 73 YOWM with history of CAD and prior CABG, pacemaker, HTN, HLD, and CKD admitted 03/26 with NSTEMI. 1. NSTEMI/CAD - Cardiac cath showed multivessel CAD with EF 50% - Underwent CABG x 3 on 03/30 - Continue ASA, statin, and Lopressor - Plavix on hold per cardiology - Supplemental O2 2. Ileus - Pt with abdominal distention, nausea, and vomiting starting 04/02 - No improvement with conservative management (NGT, bowel rest, ambulation, cathartics, suppositories, enemas, etc.) - Underwent laparoscopic lysis of adhesions this morning - NG tube in place - Continue Reglan and erythromycin - Dulcolax suppository PRN - Fleets enema PRN - Monitor closely 3. HLD - Continue Lipitor 4. HTN - Stable BP - Continue Lopressor - Monitor vitals 5. BAM - Creatinine improving, down to 1.26 this AM - BUN elevated at 36 with BUN:Cr ratio ~28 likely indicating prerenal component - Increase IV fluids and start NS at 150 ml/hr to rehydrate - Holding caity-inhibitor for now - Avoid nephrotoxic agents and renally dose meds 6. Hypokalemia, resolved - Potassium low at 2.9 on AM lab yesterday - Repleted with 40 meq KCl IV yesterday and this morning up to 4.2 - Change IVF from NC + KCl to NS and continue to monitor electrolytes closely DVT prophylaxis: Heparin SQ
[2018-04-11] MEDS ORDERED: Bupivacaine/Epinephrine 0.5% Inj 50 ML Vial ONE (07:49)
[2018-04-11] MEDS ORDERED: Etomidate Inj 20 MG/10 ML Ampul IV.PUSH ONE (07:54)
[2018-04-11] MEDS ORDERED: Sod Chloride 0.9% Inj 1,000 ML IV.CONT SCH (08:00)
[2018-04-11] MEDS ORDERED: ceFAZolin 2 GM Premix Inj 2 GM/50 ML PIGGYBACK IV.SIG ONE (08:36)
--- NOTE | 2018-04-11 10:23 | P.BOP ---
- Preoperative Diagnosis (1) Abdominal distention (2) Ileus, postoperative - Postoperative Diagnosis (1) Abdominal distention (2) Ileus, postoperative Date of procedure: 04/11/18 Procedure: Diagnostic laparoscopy lysis of adhesions Anesthesia: CRISTINE Surgeon: Edison Salinas MD Pathology: none sent (See OR records) Condition: stable Disposition: PACU
[2018-04-11] MEDS ORDERED: fentaNYL Citrate Inj 100 MCG/2 ML Ampul ONE (10:28)
[2018-04-11] MEDS ORDERED: Phenylephrine/NS 1000 MCG/10ML Syringe IV.PUSH ONE (12:00)
[2018-04-11] MEDS ORDERED: Succinylcholine Inj 100 MG/5 ML Syringe IV.PUSH ONE (12:00)
[2018-04-11] MEDS ORDERED: Lidocaine PF 1% Inj 5 ML Syringe INFILTRATN ONE (12:00)
[2018-04-11] MEDS ORDERED: Glycopyrrolate Inj 1 MG/5 ML Syringe IV.PUSH ONE (12:00)
[2018-04-11] MEDS ORDERED: Neostigmine Inj 5 MG/5 ML Syringe IV.PUSH ONE (12:00)
[2018-04-11] MEDS: Insulin NovoLOG Aspart Correctional Sugar Inj SQ SCH ×4 (12:07→22:30)
[2018-04-11] MEDS: Heparin Central Flush 100 UNIT/ML 5 ML Vial IV.FLUSH SCH (12:08)
[2018-04-11] MEDS: Polyethylene Glycol 3350 17 GM Packet PO SCH (12:08)
[2018-04-11] MEDS: Heparin - SQ 10,000 UNITS/ML Vial SQ SCH ×2 (12:08→22:24)
[2018-04-11] MEDS: Metoprolol Tartrate 25 MG Tablet PO SCH ×2 (12:08→22:26)
[2018-04-11] MEDS: Bisacodyl 10 MG Supp RECTAL SCH (12:08)
[2018-04-11] MEDS: Multivitamin/Minerals Therapeutic Tablet PO SCH (12:09)
[2018-04-11] MEDS: Sod Chloride 0.9% Inj 1,000 ML IV.SIG SCH (12:15)
[2018-04-12] MEDS: Pantoprazole Sodium 20 MG DR Tablet PO SCH (05:27)
[2018-04-12] MEDS: Albumin Human 25% Inj 100 ML IV.SIG SCH ×3 (05:28→21:06)
[2018-04-12] MEDS: Erythromycin Ethylsuccinate Susp 200 MG/5 ML 100 ML Bottle PO SCH ×3 (05:31→21:08)
[2018-04-12 06:01] LABS: Hematocrit 26.2 % (39.0-51.0); Hemoglobin 8.6 gm/dL (13.0-17.0); Mean Corpuscular HGB Conc 32.9 % (32.0-36.0); Mean Corpuscular Hemoglobin 29.5 pg (27.0-34.0); Mean Corpuscular Volume 89.7 fL (80.0-100.0); Mean Platelet Volume 7.2 fL (7.0-11.0); Platelet Count 338 th/mm3 (150-450); Red Blood Count 2.92 mil/mm3 (4.50-5.90); Red Cell Distribution Width 15.1 % (11.6-17.2); White Blood Count 9.3 th/mm3 (4.0-11.0)
[2018-04-12 06:07] LABS: Calcium 7.2 mg/dL (8.5-10.1); Carbon Dioxide 25.5 meq/L (21.0-32.0); Potassium 3.4 meq/L (3.5-5.1)
--- NOTE | 2018-04-12 07:40 | MP ---
cc: Edison Salinas MD DATE OF OPERATION: 04/11/2018 PREOPERATIVE DIAGNOSIS: Previous surgery, possible small bowel obstruction. POSTOPERATIVE DIAGNOSIS: 1. Minor adhesions, appearance of a previous right colon resection. 2. Adhesions. 3. Valle ileus. PROCEDURE PERFORMED: Diagnostic laparoscopy, lysis of adhesions of the right lower quadrant, identifying what appears to be a small bowel colon anastomosis. A massively dilated small bowel, transverse colon, descending colon, and cecum. Normal liver, normal gallbladder. INDICATIONS FOR PROCEDURE: This is a pleasant gentleman who had recent cardiac surgery. He has had a severe ileus with radiologic findings suggesting a small-bowel obstruction. Clinically, he had the appearance with high NG output despite maximal medical therapy and conservative therapy, he is not making progress. For this reason plans for diagnostic laparoscopy. Of note, he had previous upper midline incision. He was unaware and could not remember what surgery he had. Intraoperative appeared that he had his right colon resected, possibly a laparoscopic-assisted. There were minimal adhesions in the abdominal cavity, but there were adhesions with omentum around what appeared to be anastomosis. He had massively small bowel dilatation and large bowel dilatation all the way down to the peritoneal reflection. PROCEDURE: The patient was taken to the operating room and placed in the supine position. After anesthesia, a Swenson catheter was placed. Got a fair amount of urine out. We made an incision just above the umbilicus from previous incision and dissect down, identifying a Prolene suture that is removed. We make a 1 cm incision and entered the abdomen directly. Placed a balloon trocar. We then placed the camera. Two other working ports were placed in the midline, one at the pubic tubercle, 1 above the previously placed ports in the midline. We were able to visualize the small bowel, it is massively dilated all the way proximally, all the way distal to the right lower quadrant where omentum is somewhat stuck to it. We carefully teased this away using hydrodissection and the Harmonic scalpel. I am able to see some suture. It appears that he has a small bowel to colon anastomosis. There does not appear to be any stricture as the remaining colon is dilated as well. I see no kinking. No abnormal small bowel, except for massively dilated. There is not much peristalsis. I do not see a Meckel's. His gallbladder looks normal. His liver looks normal. He does have a little bit of fluid in the pelvis which was evacuated. The sigmoid colon is massively dilated as well, all the way to the peritoneal reflection. I did take some adhesions down in the right lower quadrant to identify the small bowel, entering the large bowel with a suture that appeared to be the anastomosis. This was not dissected completely free for fear of injuring the normal appearing anastomosis. Once this was done, we then removed the irrigating solution and the CO2 was removed. The ports were removed. The fascia was closed at the umbilicus with 0 Vicryl and skin at all 3 sites closed with 4-0 Vicryl. Steri-Strips applied, sterile bandage was applied. The patient tolerated the procedure well and had no immediate postop complications. Edison Salinas MD JDB/TL , 10:14 AM , 10:45 AM JHOANA
--- NOTE | 2018-04-12 08:08 | P.PNGS ---
<Jonna Pineda - Last Filed: 04/12/18 07:57> Subjective Interval history: Sitting up in chair; Feeling more comfortable; only mild pain at incision sites Physical Exam Vital signs: Vital Signs 04/11/18 10:12 04/11/18 10:15 04/11/18 10:30 Temperature 98.5 F Pulse Rate 78 77 93 H Respiratory Rate 31 H 24 24 Blood Pressure 145/73 H 147/67 H 158/68 H Pulse Oximetry 98 96 94 L 04/11/18 10:45 04/11/18 11:00 04/11/18 11:30 Temperature 98.1 F 98.7 F Pulse Rate 90 91 H 92 H Respiratory Rate 24 26 H 20 Blood Pressure 137/62 138/61 120/58 L Pulse Oximetry 94 L 93 L 100 04/11/18 12:00 04/11/18 13:00 04/11/18 14:00 Temperature Pulse Rate 90 88 92 H Respiratory Rate Blood Pressure Pulse Oximetry 04/11/18 15:00 04/11/18 16:00 04/11/18 17:00 Temperature 98.2 F Pulse Rate 86 89 90 Respiratory Rate 22 Blood Pressure 121/62 Pulse Oximetry 99 04/11/18 18:00 04/11/18 19:20 04/11/18 20:00 Temperature Pulse Rate 91 H 86 86 Respiratory Rate Blood Pressure Pulse Oximetry 04/11/18 20:01 04/11/18 21:00 04/11/18 22:00 Temperature 98.6 F Pulse Rate 89 90 84 Respiratory Rate 20 Blood Pressure 124/71 Pulse Oximetry 96 04/11/18 23:00 04/12/18 00:00 04/12/18 01:00 Temperature 98.5 F Pulse Rate 98 H 88 94 H Respiratory Rate 20 Blood Pressure 135/60 Pulse Oximetry 95 04/12/18 02:00 04/12/18 03:00 04/12/18 04:00 Temperature 98.7 F Pulse Rate 98 H 82 92 H Respiratory Rate 18 Blood Pressure 142/65 H Pulse Oximetry 97 04/12/18 05:00 04/12/18 06:00 Temperature Pulse Rate 94 H 90 Respiratory Rate Blood Pressure Pulse Oximetry Intake & Output 04/11/18 04/12/18 04/12/18 18:59 06:59 18:59 Intake Total 2936.1 / 2936.1 1706.9 / 1706.9 Output Total 825 / 825 2400 / 2400 Balance 2111.1 / 2111.1 -693.1 / -693.1 Weight 104.5 kg Intake: IV 2236.1 / 2236.1 1466.9 / 1466.9 Flexbumin 25% Inj 100 ML @ 60 200 / 200 mls/hr IV.SIG Q8H MIKE Rx#: [id number] Intralipid 20% Inj 250 ML @ 10 69.1 / 69.1 180.9 / 180.9 mls/hr IV.SIG Q24H MIKE Rx#: [id number] NS Inj 1,000 ML @ 50 mls/hr IV. 1081 / 1081 SIG .Q20H MIKE Rx#:[id number] Sodium Chloride 23.4% Inj 11 1086 / 1086 1086 / 1086 MEQ Sodium Acetate Inj 59 MEQ KCl Inj 40 MEQ Magnesium Chloride Inj 10 MEQ Calcium Chloride Inj 9 MEQ MVI-12 Inj 10 ML Folvite Inj 1 MG In Clinimix 4.25%/D5W Inj 2,000 ML @ 83 mls/hr IV.SIG Q24H MIKE Rx #:[id number] Oral 200 / 200 240 / 240 Anesthesia Amount 500 / 500 Output: Urine Amount (Catheter) 675 / 675 900 / 900 Indwelling Urethral Catheter 675 / 675 900 / 900 Gastric Drainage 150 / 150 1500 / 1500 Right Nare 150 / 150 1500 / 1500 Other: Date of Last Bowel Movement 04/10/18 04/10/18 Narrative: Alert and awake Cardio: RRR Resp: CTAB Abd: mildly distended; incision sites c/d/i; mild tenderness NGT to LIWS - Urinary Catheter Management Indwelling Temp Sensing Catheter Cath placed during this visit: yes, but has since been removed by the nurse Reason for continuing: Not indwelling catheter Insertion date: 03/30/18 Insertion time: 07:40 Removal date: 03/31/18 Removal time: 05:15 Indwelling Urethral Catheter Cath placed during this visit: yes Reason for continuing: Hourly intake/output Insertion date: 04/11/18 Assessment and Plan - Plan 73 year old male with recent CABG on March 30, post operative abdominal pain; distention -POD1 dx lap; LE -Continue NGT to LIWS -Okay for sips of clears; subtract input from NGT output for accurate I&Os--- discussed with RN -Continue EES -Continue TPN -OOB and mobilize as tolerated <Edison Eric - Last Filed: 04/12/18 12:39> Subjective Patient reports: feels better, flatus Interval history: DAILY PROGRESS NOTE FOR SURGICAL ATTENDING, DR. EDISON ERIC Date of service 04/12/2018 Physical Exam Vital signs: Vital Signs 04/11/18 13:00 04/11/18 14:00 04/11/18 15:00 Temperature 98.2 F Pulse Rate 88 92 H 86 Respiratory Rate 22 Blood Pressure 121/62 Pulse Oximetry 99 04/11/18 16:00 04/11/18 17:00 04/11/18 18:00 Temperature Pulse Rate 89 90 91 H Respiratory Rate Blood Pressure Pulse Oximetry 04/11/18 19:20 04/11/18 20:00 04/11/18 20:01 Temperature 98.6 F Pulse Rate 86 86 89 Respiratory Rate 20 Blood Pressure 124/71 Pulse Oximetry 96 04/11/18 21:00 04/11/18 22:00 04/11/18 23:00 Temperature 98.5 F Pulse Rate 90 84 98 H Respiratory Rate 20 Blood Pressure 135/60 Pulse Oximetry 95 04/12/18 00:00 04/12/18 01:00 04/12/18 02:00 Temperature Pulse Rate 88 94 H 98 H Respiratory Rate Blood Pressure Pulse Oximetry 04/12/18 03:00 04/12/18 04:00 04/12/18 05:00 Temperature 98.7 F Pulse Rate 82 92 H 94 H Respiratory Rate 18 Blood Pressure 142/65 H Pulse Oximetry 97 04/12/18 06:00 04/12/18 07:00 04/12/18 08:00 Temperature Pulse Rate 90 104 H 93 H Respiratory Rate Blood Pressure Pulse Oximetry Intake & Output 04/11/18 04/12/18 04/12/18 18:59 06:59 18:59 Intake Total 2936.1 / 2936.1 1706.9 / 1706.9 100 / 100 Output Total 825 / 825 2400 / 2400 Balance 2111.1 / 2111.1 -693.1 / -693.1 100 / 100 Weight 104.5 kg Intake: IV 2236.1 / 2236.1 1466.9 / 1466.9 100 / 100 Flexbumin 25% Inj 100 ML @ 60 200 / 200 mls/hr IV.SIG Q8H MIKE Rx#: [id number] Intralipid 20% Inj 250 ML @ 10 69.1 / 69.1 180.9 / 180.9 mls/hr IV.SIG Q24H MIKE Rx#: [id number] NS Inj 1,000 ML @ 50 mls/hr IV. 1081 / 1081 100 / 100 SIG .Q20H MIKE Rx#:[id number] Sodium Chloride 23.4% Inj 11 1086 / 1086 1086 / 1086 MEQ Sodium Acetate Inj 59 MEQ KCl Inj 40 MEQ Magnesium Chloride Inj 10 MEQ Calcium Chloride Inj 9 MEQ MVI-12 Inj 10 ML Folvite Inj 1 MG In Clinimix 4.25%/D5W Inj 2,000 ML @ 83 mls/hr IV.SIG Q24H MIKE Rx #:[id number] Oral 200 / 200 240 / 240 Anesthesia Amount 500 / 500 Output: Urine Amount (Catheter) 675 / 675 900 / 900 Indwelling Urethral Catheter 675 / 675 900 / 900 Gastric Drainage 150 / 150 1500 / 1500 Right Nare 150 / 150 1500 / 1500 Other: Date of Last Bowel Movement 04/10/18 04/10/18 - Constitutional no acute distress - Routine Neurological Exam Present: alert, oriented X3 - Urinary Catheter Management Indwelling Temp Sensing Catheter Cath placed during this visit: no Indwelling Urethral Catheter Cath placed during this visit: no Assessment and Plan - Assessment (1) Ileus, postoperative Code(s): K91.89 - Other postprocedural complications and disorders of digestive system; K56.7 - Ileus, unspecified Status: Acute - Plan DAILY PROGRESS NOTE FOR SURGICAL ATTENDING, DR. EDISON ERIC We will clamp NG tube will clamp NG tube unclamp if nausea or abdominal distention - Attending Attestation NOTE FOR SURGICAL ATTENDING, DR. EDISON ERIC I agree with above assessment and plan. The exam, history, and the medical decision-making described in the above note were completed with the assistance of the mid-level provider. I reviewed and agree with the findings presented. I attest that I had a [id number] encounter with the patient on the same day, and personally performed and documented my assessment and findings in the medical record. The following services were provided during this hospital visit: Chart data review, vital sign assessments/reviewing monitor data Review of consultations notes if present. Medication orders/review and/or management Ordering and/or reviewing lab tests Ordering and/or interpreting/reviewing x-rays and/or diagnostic studies Care of the patient and discussion of the patient with the care team Documentation time To help prompt me to consider important information that might be impacting today's encounter and assessment, Information from prior notes written by myself or my colleagues may have been "brought forward/copy and pasted" into today's note.
--- NOTE | 2018-04-12 08:12 | XR ---
EXAM DATE: 04/12/2018 7:52 AM EDT AGE/SEX: 73 years / Male INDICATIONS: Distention. Possible small bowel obstruction. CLINICAL DATA: This is the patient's subsequent encounter. Patient reports that signs and symptoms h ave been present for 3 weeks and indicates a pain score of 4/10. MEDICAL/SURGICAL HISTORY: . Hypertension. . CABG. Pacemaker. COMPARISON: [facility] [place], ABDOMEN 1V KUB, 04/11/2018. [facility] [place], ABDOMEN 1V KUB, 04/10/2018. . FINDINGS: 3 portable supine frontal views of the abdomen demonstrate air within bowel in a nonobstructive leo chelsey. There is mild gaseous distention of the some of the small bowel segments. However, no concerning transition point is appreciated. Oral contrast material is within the colon. No organomegaly is pres ent. Nasogastric tube distal tip is in the stomach. Bones demonstrate no acute finding. Median sterno eun wires are present. There is mild bibasilar airspace opacity. CONCLUSION: 1. Mild distention of the some of the mid small bowel segments but no features are present to sugges t obstruction. The oral contrast material is located within the colon. 2. Patchy airspace opacity at both lung bases representing atelectasis and/or airspace consolidation . Electronically signed by: Pavan Araujo MD 04/12/2018 8:11 AM EDT
[2018-04-12] MEDS: Heparin - SQ 10,000 UNITS/ML Vial SQ SCH (09:05)
[2018-04-12] MEDS: Sod Chloride 0.9% Inj 1,000 ML IV.SIG SCH (09:06)
[2018-04-12] MEDS: Metoprolol Tartrate 25 MG Tablet PO SCH ×2 (09:07→21:07)
[2018-04-12] MEDS: Multivitamin/Minerals Therapeutic Tablet PO SCH (09:07)
[2018-04-12] MEDS: Heparin Central Flush 100 UNIT/ML 5 ML Vial IV.FLUSH SCH (09:10)
[2018-04-12] MEDS: Polyethylene Glycol 3350 17 GM Packet PO SCH (09:10)
[2018-04-12] MEDS: Insulin NovoLOG Aspart Correctional Sugar Inj SQ SCH ×2 (09:13→18:42)
--- NOTE | 2018-04-12 09:39 | P.PNFP ---
Subjective Interval history: Pt seen and examined for f/u of repeat CABG and ileus s/p dx lap with LE POD1. Pt sitting up in chair drinking coffee. Denies abdominal pain, N/V. No BM or flatus. Hasn't really been ambulating. Denies CP or SOB. Results - Labs Result diagrams: 04/12/18 05:18 04/12/18 05:18 Abnormal lab results 04/11/18 04/11/18 04/11/18 Range/Units 09:18 10:29 12:02 RBC (4.50-5.90) mil/mm3 Hgb (13.0-17.0) gm/dL Hct (39.0-51.0) % Potassium (3.5-5.1) meq/L BUN (7-18) mg/dL Estimated GFR (>89) mL/min POC Glucose 143 H 201 H (68-110) mg/dl Random Glucose (74-106) mg/dL Calcium (8.5-10.1) mg/dL Prot Corrected Calcium (8.5-10.1) mg/dL Total Protein (6.4-8.2) g/dL MTS Gel Crossmatch See Detail 04/11/18 04/11/18 04/12/18 Range/Units 17:10 21:56 05:18 RBC 2.92 L (4.50-5.90) mil/mm3 Hgb 8.6 L (13.0-17.0) gm/dL Hct 26.2 L (39.0-51.0) % Potassium (3.5-5.1) meq/L BUN (7-18) mg/dL Estimated GFR (>89) mL/min POC Glucose 159 H 141 H (68-110) mg/dl Random Glucose (74-106) mg/dL Calcium (8.5-10.1) mg/dL Prot Corrected Calcium (8.5-10.1) mg/dL Total Protein (6.4-8.2) g/dL MTS Gel Crossmatch 04/12/18 04/12/18 Range/Units 05:18 07:57 RBC (4.50-5.90) mil/mm3 Hgb (13.0-17.0) gm/dL Hct (39.0-51.0) % Potassium 3.4 L D (3.5-5.1) meq/L BUN 32 H (7-18) mg/dL Estimated GFR 61 L (>89) mL/min POC Glucose 167 H (68-110) mg/dl Random Glucose 139 H D (74-106) mg/dL Calcium 7.2 L* (8.5-10.1) mg/dL Prot Corrected Calcium 7.8 L (8.5-10.1) mg/dL Total Protein 6.0 L (6.4-8.2) g/dL MTS Gel Crossmatch Short CBC 04/12/18 Range/Units 05:18 WBC 9.3 (4.0-11.0) th/mm3 Hgb 8.6 L (13.0-17.0) gm/dL Hct 26.2 L (39.0-51.0) % Plt Count 338 (150-450) th/mm3 BMP 04/12/18 05:18 Sodium 141 D Potassium 3.4 L D Chloride 106 D Carbon Dioxide 25.5 BUN 32 H Creatinine 1.17 Calcium 7.2 L* - Imaging Impressions Abdomen X-Ray 04/12/18 00:00 CONCLUSION: 1. Mild distention of the some of the mid small bowel segments but no features are present to suggest obstruction. The oral contrast material is located within the colon. 2. Patchy airspace opacity at both lung bases representing atelectasis and/or airspace consolidation. Physical Exam Vital signs: Vital Signs 04/11/18 10:12 04/11/18 10:15 04/11/18 10:30 Temperature 98.5 F Pulse Rate 78 77 93 H Respiratory Rate 31 H 24 24 Blood Pressure 145/73 H 147/67 H 158/68 H Pulse Oximetry 98 96 94 L 04/11/18 10:45 04/11/18 11:00 04/11/18 11:30 Temperature 98.1 F 98.7 F Pulse Rate 90 91 H 92 H Respiratory Rate 24 26 H 20 Blood Pressure 137/62 138/61 120/58 L Pulse Oximetry 94 L 93 L 100 04/11/18 12:00 04/11/18 13:00 04/11/18 14:00 Temperature Pulse Rate 90 88 92 H Respiratory Rate Blood Pressure Pulse Oximetry 04/11/18 15:00 04/11/18 16:00 04/11/18 17:00 Temperature 98.2 F Pulse Rate 86 89 90 Respiratory Rate 22 Blood Pressure 121/62 Pulse Oximetry 99 04/11/18 18:00 04/11/18 19:20 04/11/18 20:00 Temperature Pulse Rate 91 H 86 86 Respiratory Rate Blood Pressure Pulse Oximetry 04/11/18 20:01 04/11/18 21:00 04/11/18 22:00 Temperature 98.6 F Pulse Rate 89 90 84 Respiratory Rate 20 Blood Pressure 124/71 Pulse Oximetry 96 04/11/18 23:00 04/12/18 00:00 04/12/18 01:00 Temperature 98.5 F Pulse Rate 98 H 88 94 H Respiratory Rate 20 Blood Pressure 135/60 Pulse Oximetry 95 04/12/18 02:00 04/12/18 03:00 04/12/18 04:00 Temperature 98.7 F Pulse Rate 98 H 82 92 H Respiratory Rate 18 Blood Pressure 142/65 H Pulse Oximetry 97 04/12/18 05:00 04/12/18 06:00 04/12/18 07:00 Temperature Pulse Rate 94 H 90 104 H Respiratory Rate Blood Pressure Pulse Oximetry 04/12/18 08:00 Temperature Pulse Rate 93 H Respiratory Rate Blood Pressure Pulse Oximetry Intake & Output 04/11/18 04/12/18 04/12/18 18:59 06:59 18:59 Intake Total 2936.1 / 2936.1 1706.9 / 1706.9 Output Total 825 / 825 2400 / 2400 Balance 2111.1 / 2111.1 -693.1 / -693.1 Weight 104.5 kg Intake: IV 2236.1 / 2236.1 1466.9 / 1466.9 Flexbumin 25% Inj 100 ML @ 60 200 / 200 mls/hr IV.SIG Q8H [facility] Rx#: [id number] Intralipid 20% Inj 250 ML @ 10 69.1 / 69.1 180.9 / 180.9 mls/hr IV.SIG Q24H [facility] Rx#: [id number] NS Inj 1,000 ML @ 50 mls/hr IV. 1081 / 1081 SIG .Q20H [facility] Rx#:[id number] Sodium Chloride 23.4% Inj 11 1086 / 1086 1086 / 1086 MEQ Sodium Acetate Inj 59 MEQ KCl Inj 40 MEQ Magnesium Chloride Inj 10 MEQ Calcium Chloride Inj 9 MEQ MVI-12 Inj 10 ML Folvite Inj 1 MG In Clinimix 4.25%/D5W Inj 2,000 ML @ 83 mls/hr IV.SIG Q24H [facility] Rx #:[id number] Oral 200 / 200 240 / 240 Anesthesia Amount 500 / 500 Output: Urine Amount (Catheter) 675 / 675 900 / 900 Indwelling Urethral Catheter 675 / 675 900 / 900 Gastric Drainage 150 / 150 1500 / 1500 Right Nare 150 / 150 1500 / 1500 Other: Date of Last Bowel Movement 04/10/18 04/10/18 Narrative: GENERAL: WN, WD male sitting up in chair in NAD. SKIN: Warm and dry. Median sternotomy scar. HEENT: NG tube in place with light brown output. HEART: RRR no m/r/g. LUNGS: CTAB without wheezes or crackles. ABDOMEN: Laparoscopic incisions C/D/I. Diminished BS, mildly distended, no significant TTP. EXTREMITIES: No LE edema. - Urinary Catheter Management Indwelling Temp Sensing Catheter Cath placed during this visit: yes, but has since been removed by the nurse Reason for continuing: Not indwelling catheter Insertion date: 03/30/18 Insertion time: 07:40 Removal date: 03/31/18 Removal time: 05:15 Indwelling Urethral Catheter Cath placed during this visit: yes Reason for continuing: Hourly intake/output Insertion date: 04/11/18 Assessment and Plan - Assessment (1) NSTEMI (non-ST elevated myocardial infarction) Code(s): I21.4 - Non-ST elevation (NSTEMI) myocardial infarction Status: Acute (2) Multi-vessel coronary artery stenosis Code(s): I25.10 - Atherosclerotic heart disease of [place] coronary artery without angina pectoris Status: Acute (3) Ileus, postoperative Code(s): K91.89 - Other postprocedural complications and disorders of digestive system; K56.7 - Ileus, unspecified Status: Acute - Assessment and Plan 73 YOWM with history of CAD and prior CABG, pacemaker, HTN, HLD, and CKD admitted 03/26 with NSTEMI. 1. NSTEMI/CAD - Cardiac cath showed multivessel CAD with EF 50% - Underwent CABG x 3 on 03/30 - Continue ASA, statin, and Lopressor - Plavix on hold per cardiology - Supplemental O2 2. Ileus - Pt with abdominal distention, nausea, and vomiting starting 04/02 - No improvement with conservative management (NGT, bowel rest, ambulation, cathartics, suppositories, enemas, etc.) - Underwent laparoscopic lysis of adhesions 04/11, general surgery managing - NG tube in place - Continue Reglan and erythromycin - Dulcolax suppository PRN - Fleets enema PRN - Continue TPN 3. HLD - Continue Lipitor 4. HTN - Stable BP - Continue Lopressor - Monitor vitals 5. BAM - Creatinine continues to improve, down to 1.17 this AM - Elevated BUN:Cr ratio indicates pre-renal component - Continue NS at 150 ml/hr to rehydrate - Holding caity-inhibitor for now - Avoid nephrotoxic agents and renally dose meds 6. Anemia - H&H slowly trending down - No signs of active bleeding - Hemodynamically stable - Closely monitor - Transfuse if Hb<7 DVT prophylaxis: Heparin SQ Discharge Planning: Pending clinical improvement, patient POD1 from laparoscopic LE
--- NOTE | 2018-04-12 10:42 | XR ---
EXAM DATE: 04/12/2018 10:35 AM EDT AGE/SEX: 73 years / Male INDICATIONS: . Respiratory distress CLINICAL DATA: This is the patient's subsequent encounter. Patient reports that signs and symptoms h ave been present for 4 - 6 days and indicates a pain score of 2/10. MEDICAL/SURGICAL HISTORY: Hypertension. CABG. Pacemaker. COMPARISON: [facility] [place]ST 1V SINGLE AP, 04/07/2018. . FINDINGS: There is mild haziness to the perivascular structures most likely pulmonary edema. Slight cardiomegal y seen. Focal consolidation is not seen. Right subclavian line is present with tip overlapping the SV C and left subclavian transvenous pacer wires have not changed. NG tube is seen with tip not visualiz ed may be in distal esophagus. Overall there is slight improvement in pulmonary edema since the prior exam. CONCLUSION: 1. Slight improvement in pulmonary edema since the prior exam. 2. The tip of the NG tube is not clearly visualized possibly pulled back into the distal esophagus. Electronically signed by: Michael Clarke MD 04/12/2018 10:41 AM EDT
--- NOTE | 2018-04-12 13:27 | P.PNCA ---
- Note Subjective/Hospital Course: 73-year-old gentleman with history of coronary artery bypass graft, hypertension, and hyperlipidemia, been experiencing chest pain for the past several days, pressure-like, moderate, relieved with nitroglycerin. cath report : multi vessel disease / EF 50% PAST MEDICAL HISTORY: CABG in 2007. He also has a history of permanent pacemaker, DDD lower rate 50 hypertension, polyp removed, CKD baseline creatinine 1.3 surgery 03/30 REDO CABG x 3 SVG to PDA - good SVG to RI - fair SVG to D1 - fair EVH extubated after surgery / 2 pleural tubes / one mediastinal tubes 03/31 painful , no toradol with CKD OOB pulm toileting pain med control transfer to stepdown 04/01 still painful, but some improvement CT x 3 / drained 130/12 hrs and additional 150cc this am bloody drainage/ no air leak pain control pulm toileting creatinine improved 1.23 04/02 c/o of constipation , mild nausea , abdomen distended , Hypoactive bowel sounds pt is passing flatus , narcotics dc , IV Ofirmev, po tylenol stat KUB pending / add reglan chest tube drained 320cc/ 12 hrs , dark old bloody drainage chest tube to suction / leave chest tubes in ambulate as much as possible 04/03 Nauseated and vomiting this morning, otherwise doing well Had BM and flatus Abdomen soft but distended to my exam. No tenderness or guarding KUB with nonspecific distended SB Ambulate NPO except ice-chips May need GI eval if not improved 04/04 Doing better. NGT inadvertently removed. No further N/V Greatly appreciate GI input Feels thirsty and hungry Abdomen soft and less distended OK to advance diet when ok with GI Ambulate 04/05 pt c/o of abdominal pain, worsening from yesterday , also nausea abdomen very distended , hypoactive bowel sounds NG tube replaced, labs and KUB ordered/ NPO except meds / ice chips GI following 04/06 pt with worsening distention/ nausea worsening BAM / nephrology consulted on IV fluids, leukocytosis with left shift General surgery consulted / high GI output/ NG placement verified also at bedside yellow/ kumari drainage / on intermittent suction continue IV fluids, IV fluid bolus given 04/07 still with distended abdomen faint tinkling bowel sounds noted NG to low intermittent suction Small series report noted / will re- notify General Surgery NPO creatinine with some improvement / replace with 500cc NS , continue IV fluids 04/[address] Sylvester will discuss with Dr Kurtz pt will need some form of nutrition soon can change to D51/2 ns with 40 KCL , may need to be eval for TPN vs PPN NG to low intermittent suction 04/09 appreciate GS input , start PPN/ PICC line re-eval KUB if no improvement by Thursday/ they will consider diagnostic lap/ lysis of adhesions on EES , start prophylaxis DVT prevention with Heparin SQ 04/10/18 depressed, frustrated, c/o "no energy" Denies flatus/BM Copious NG tube output 04/11 surgery: 1. Minor adhesions, appearance of a previous right colon resection. 2. Adhesions. 3. Valle ileus. PROCEDURE PERFORMED: Diagnostic laparoscopy, lysis of adhesions of the right lower quadrant, identifying what appears to be a small bowel colon anastomosis. A massively dilated small bowel, transverse colon, descending colon, and cecum. Normal liver, normal gallbladder. 04/12 NG to low intermittent suction, some abdominal pain + bowel sounds, no passing some flatus remains on EES, reglan , PPN left arm swollen and red , IV removed, warm compresses to arm US of left upper ext pending change sq heparin to lovenox daily continue PT / replace K+/ f/u labs in am Objective: Vital Signs - 24 hr 04/11/18 14:00 04/11/18 15:00 04/11/18 16:00 Temperature 98.2 F Pulse Rate 92 H 86 89 Respiratory Rate 22 Blood Pressure 121/62 Pulse Oximetry 99 04/11/18 17:00 04/11/18 18:00 04/11/18 19:20 Temperature Pulse Rate 90 91 H 86 Respiratory Rate Blood Pressure Pulse Oximetry 04/11/18 20:00 04/11/18 20:01 04/11/18 21:00 Temperature 98.6 F Pulse Rate 86 89 90 Respiratory Rate 20 Blood Pressure 124/71 Pulse Oximetry 96 04/11/18 22:00 04/11/18 23:00 04/12/18 00:00 Temperature 98.5 F Pulse Rate 84 98 H 88 Respiratory Rate 20 Blood Pressure 135/60 Pulse Oximetry 95 04/12/18 01:00 04/12/18 02:00 04/12/18 03:00 Temperature 98.7 F Pulse Rate 94 H 98 H 82 Respiratory Rate 18 Blood Pressure 142/65 H Pulse Oximetry 97 04/12/18 04:00 04/12/18 05:00 04/12/18 06:00 Temperature Pulse Rate 92 H 94 H 90 Respiratory Rate Blood Pressure Pulse Oximetry 04/12/18 07:00 04/12/18 08:00 Temperature Pulse Rate 104 H 93 H Respiratory Rate Blood Pressure Pulse Oximetry GENERAL: A&O x 3 SKIN: Warm and dry. sternal incision intact and well approximated HEAD: Normocephalic. EYES: No scleral icterus. No injection or drainage. NECK: Supple, trachea midline. No JVD or lymphadenopathy. CARDIOVASCULAR: Regular rate and rhythm without murmurs, gallops, or rubs. RESPIRATORY: Breath sounds equal bilaterally. No accessory muscle use. diminished in bases , slight congested cough GASTROINTESTINAL: Abdomen distended , less firm, abdominal incision intact and well approximated / NG to low intermittent suction receiving PPN for nutrition MUSCULOSKELETAL: No cyanosis, or edema. left arm swollen and warm BACK: Nontender without obvious deformity. No CVA tenderness. Labs: Laboratory Results - last 12 hr 04/12/18 04/12/18 04/12/18 05:18 05:18 07:57 WBC 9.3 RBC 2.92 L Hgb 8.6 L Hct 26.2 L MCV 89.7 MCH 29.5 MCHC 32.9 RDW 15.1 Plt Count 338 MPV 7.2 Sodium 141 D Potassium 3.4 L D Chloride 106 D Carbon Dioxide 25.5 Anion Gap 10 BUN 32 H Creatinine 1.17 Estimated GFR 61 L POC Glucose 167 H Random Glucose 139 H D Calcium 7.2 L* Prot Corrected Calcium 7.8 L Total Protein 6.0 L 04/12/18 13:16 WBC RBC Hgb Hct MCV MCH MCHC RDW Plt Count MPV Sodium Potassium Chloride Carbon Dioxide Anion Gap BUN Creatinine Estimated GFR POC Glucose 159 H Random Glucose Calcium Prot Corrected Calcium Total Protein Result Diagrams: 04/12/18 05:18 04/12/18 05:18 - Plan (1) S/P CABG x 3 Plan: ASA, statin , BB OOB hold plavix pulm toieling on nasal cannula start heparin sq ambulate s/p REDO CABG with ongoing ileus vs small bowel obstruction. Dr. Salinas plans for Laparoscopic exploration tomorrow if there is no improvement in abdominal status Renal function is back to baseline He will require potassium supplementation prior to surgery. (2) CAD (coronary artery disease) Plan: on ASA, BB statin OOB ambulate/ pulm toileting (6) Hx of CABG Plan: ASA, statin , BB OOB ambulate EES , NG to low intermittent suction GS following (7) Abdominal distention Plan: NG tube in place / low intermittent suction EES/ reglan s/p EXP lap LE post op day 1 f (8) Acute kidney injury Plan: on PPN and lipids NG ouput 1600cc/ receiving approximately 2400cc/ 24 hrs +1300/24 hrs + 6 kg indices improving (2) CAD (coronary artery disease) Qualifiers: Coronary Disease-Associated Artery/Lesion type: [place] artery Associated angina: with unstable angina
[2018-04-12] MEDS ORDERED: Sod Chloride 0.9% Inj 1,000 ML IV.CONT SCH (13:45)
[2018-04-12] MEDS: Potassium Chlor 10 mEq Premix 10 MEQ/100 ML PIGGYBACK IV.SIG SCH ×4 (14:09→20:05)
[2018-04-12] MEDS: Pantoprazole Inj 40 MG Vial IV.PUSH SCH (14:10)
--- NOTE | 2018-04-12 17:19 | P.DIET ---
Nutritional Evaluation Type of nutrition evaluation: follow-up Nutrition consult regarding: TPN/PPN Objective - Diagnosis Nstemi - Objective % IBW: 129 (IAR=276) Body Weight Used for Calculations: IBW (81kg) Energy Needs - Lower Range (kCal/kg): 25 Energy Needs - Upper Range (kCal/kg): 30 Lower Limit kCal/kg (kCals): 2,025 Upper Limit kCal/kg (kCals): 2,430 Lower Limit Protein Factor (Grams per Kg): 1.0 Upper Limit Protein Factor (Grams per Kg): 1.4 Lower Protein Needs (Protein): 81 Upper Protein Needs (Protein): 113 Dietitian Reviewed in Medical Record: Current diet, Curent medications, Intake & Output, Labs, Medical history, TPN/PPN Diet Order: Clear Liquid Objective Comments: 03/30/18 Redo CABG x 3 Meds include: Thergadiel M Reglan Labs: TG 165, AccuCheck 159 LBM 04/11 Feeding - Current TPN/PPN Current PPN: Clinimix E 4.25/5 Current TPN/PPN Rate (ml/hr): 83 (To start at 1999) Amino Acid and Dextrose Current kCals Provided: 680 Amino Acid and Dextrose Current Protein Provided: 85 Current Lipid Concentration: 20% Current Lipids Rate: Continuous rate of 10 mls/hr over 24 hours Current kCal Provided by TPN/PPN: 1,180 Assessment Assessment: Pt continues on Clinimix 4.25/5 @ 83mls/hr with IV lipids @ 10mls/hr x 24hrs. This is meeting 100% of pts protein requirements, but only 58% of his caloric requirements. He has been advanced to clear liquids per GS. NGT in place. Continue current PPN as ordered. Will continue to monitor diet advancement and PPN. Dietitian following. Recommendations: 1. Continue PPN as ordered. 2. Will monitor diet advancement per GS. Dietitian to Monitor: Lab values, Intake & Output, TPN/PPN tolerance, Weight change, Diet advancement, Medical course
[2018-04-12 19:41] LABS: Bacteria,Urine Rare /hpf; Bilirubin,Urine Negative (Negative); Clarity,Urine Clear (Clear); Color,Urine Yellow (Yellw/Straw); Glucose,Urine (UA) Negative (Negative); Leukocyte Esterase,Urine Small (Negative); Nitrite,Urine Negative (Negative)
--- NOTE | 2018-04-12 23:31 | US ---
EXAM DATE: 04/12/2018 10:23 PM EDT AGE/SEX: 73 years / Male INDICATIONS: Left arm swelling. CLINICAL DATA: This is the patient's initial encounter. Patient reports that signs and symptoms have been present for 1 day and indicates a pain score of 5/10. MEDICAL/SURGICAL HISTORY: . Chronic kidney disease. Dyslipidemia. HTN. CABG. Pacemaker. Explo ratory laparotomy. COMPARISON: No prior exams available for comparison. FINDINGS: There is no deep venous thrombosis in the left upper extremity. The superficial thrombus w ithin the cephalic vein near the antecubital fossa, nonocclusive. There is minimal occlusive thrombus in the cephalic vein near the wrist. Other: None. CONCLUSION: 1. Negative for deep venous thrombosis. Occlusive and nonocclusive superficial thrombus in the area of the antecubital fossa extending to the wrist within the cephalic vein. Electronically signed by: Edison Woo MD 04/12/2018 11:29 PM EDT
[2018-04-13] MEDS: Acetaminophen 325 MG Tablet PO PRN ×2 (00:45→08:47)
[2018-04-13] MEDS: Insulin NovoLOG Aspart Correctional Sugar Inj SQ SCH ×4 (00:45→19:35)
[2018-04-13] MEDS: Albumin Human 25% Inj 100 ML IV.SIG SCH ×2 (04:28→13:35)
[2018-04-13] MEDS: Erythromycin Ethylsuccinate Susp 200 MG/5 ML 100 ML Bottle PO SCH ×3 (06:14→23:16)
[2018-04-13] MEDS ORDERED: Enoxaparin Inj 40 MG/0.4 ML Syringe SQ SCH (09:00)
[2018-04-13] MEDS ORDERED: Piperacil/Tazo 3.375 GM Premix 50 ML IV.SIG SCH ×2 (09:30→12:00)
[2018-04-13 09:36] LABS: Hematocrit 25.1 % (39.0-51.0); Hemoglobin 8.4 gm/dL (13.0-17.0); Mean Corpuscular HGB Conc 33.7 % (32.0-36.0); Mean Corpuscular Hemoglobin 29.5 pg (27.0-34.0); Mean Corpuscular Volume 87.6 fL (80.0-100.0); Mean Platelet Volume 7.4 fL (7.0-11.0); Platelet Count 321 th/mm3 (150-450); Red Blood Count 2.86 mil/mm3 (4.50-5.90); Red Cell Distribution Width 15.5 % (11.6-17.2); White Blood Count 8.3 th/mm3 (4.0-11.0)
[2018-04-13 09:58] LABS: Calcium 8.1 mg/dL (8.5-10.1); Carbon Dioxide 20.8 meq/L (21.0-32.0); Potassium 3.7 meq/L (3.5-5.1)
[2018-04-13] MEDS: Metoprolol Tartrate 25 MG Tablet PO SCH (10:25)
[2018-04-13] MEDS: Multivitamin/Minerals Therapeutic Tablet PO SCH (10:25)
[2018-04-13] MEDS: Polyethylene Glycol 3350 17 GM Packet PO SCH (10:26)
[2018-04-13] MEDS: Heparin Central Flush 100 UNIT/ML 5 ML Vial IV.FLUSH SCH (10:28)
--- NOTE | 2018-04-13 11:41 | P.PNGS ---
Subjective Interval history: Up to chair; asking for NGT out if possible; Family at bedside Physical Exam Vital signs: Vital Signs 04/12/18 12:00 04/12/18 13:00 04/12/18 14:00 Temperature Pulse Rate 90 98 H 92 H Respiratory Rate Blood Pressure Pulse Oximetry 04/12/18 15:00 04/12/18 16:00 04/12/18 17:00 Temperature 101 F H Pulse Rate 104 H 96 H 96 H Respiratory Rate 18 Blood Pressure 142/67 H Pulse Oximetry 04/12/18 18:00 04/12/18 19:00 04/12/18 20:00 Temperature 99.5 F Pulse Rate 90 92 H 90 Respiratory Rate Blood Pressure 142/71 H Pulse Oximetry 93 L 04/12/18 21:00 04/12/18 22:00 04/12/18 23:00 Temperature 101.6 F H Pulse Rate 96 H 90 95 H Respiratory Rate Blood Pressure 111/64 Pulse Oximetry 94 L 04/13/18 00:00 04/13/18 01:00 04/13/18 02:00 Temperature Pulse Rate 88 95 H 89 Respiratory Rate Blood Pressure Pulse Oximetry 04/13/18 03:00 04/13/18 04:00 04/13/18 05:00 Temperature 98.9 F Pulse Rate 87 87 82 Respiratory Rate Blood Pressure 118/66 Pulse Oximetry 96 04/13/18 06:00 Temperature Pulse Rate 88 Respiratory Rate Blood Pressure Pulse Oximetry Intake & Output 04/12/18 04/13/18 04/13/18 18:59 06:59 18:59 Intake Total 1780 / 1780 3915.3 / 3915.3 Output Total 1125 / 1125 Balance 655 / 655 3915.3 / 3915.3 Weight 105 kg Intake: IV 400 / 400 3555.3 / 3555.3 Flexbumin 25% Inj 100 ML @ 60 100 / 100 200 / 200 mls/hr IV.SIG Q8H [facility] Rx#: [id number] Intralipid 20% Inj 250 ML @ 10 318.3 / 318.3 mls/hr IV.SIG Q24H [facility] Rx#: [id number] KCl 10 mEq Premix Inj 10 meq In 200 / 200 100 / 100 100 ml @ 100 mls/hr IV.SIG Q1H [facility] Rx#:[id number] NS Inj 1,000 ML @ 50 mls/hr IV. 100 / 100 SIG .Q20H [facility] Rx#:[id number] Sodium Chloride 23.4% Inj 11 2837 / 2837 MEQ Sodium Acetate Inj 59 MEQ KCl Inj 40 MEQ Magnesium Chloride Inj 10 MEQ Calcium Chloride Inj 9 MEQ MVI-12 Inj 10 ML Folvite Inj 1 MG In Clinimix 4.25%/D5W Inj 2,000 ML @ 83 mls/hr IV.SIG Q24H [facility] Rx #:[id number] Oral 1380 / 1380 360 / 360 Output: Urine Amount (Catheter) 675 / 675 Indwelling Urethral Catheter 675 / 675 Gastric Drainage 450 / 450 Right Nare 450 / 450 Other: # Voids 3 Date of Last Bowel Movement 04/12/18 04/13/18 # Bowel Movements 3 Narrative: Alert and awake sitting up in chair Cardio: RRR Resp: CTAB Abd: incision c/d/i with Steri strips in place LEFT arm with edema - Urinary Catheter Management Indwelling Temp Sensing Catheter Cath placed during this visit: yes, but has since been removed by the nurse Reason for continuing: Not indwelling catheter Insertion date: 03/30/18 Insertion time: 07:40 Removal date: 03/31/18 Removal time: 05:15 Indwelling Urethral Catheter Cath placed during this visit: yes, but has since been removed by the nurse Reason for continuing: Not indwelling catheter Insertion date: 04/11/18 Removal date: 04/12/18 Removal time: 10:30 Assessment and Plan - Assessment (1) Ileus, postoperative Code(s): K91.89 - Other postprocedural complications and disorders of digestive system; K56.7 - Ileus, unspecified Status: Acute - Plan 73 year old male with recent CABG on March 30, post operative abdominal pain; distention -POD2 dx lap; LE -DC NGT -Advance to full liquids -DC Reglan -Continue EES -Continue TPN ---if tolerates advancement in diet will wean TPN over the next 24 -48 hours -Okay for full dose anticoagulation from GS standpoint---discussed with Susanna FELIZ and mobilize as tolerated
--- NOTE | 2018-04-13 12:23 | P.CONID ---
History of Present Illness Service: Infectious Disease Consult date: 04/13/18 Requesting Physician: Xochitl Sylvester Reason for Consult: Evaluate patient post CABG and post lap with fevers Primary Care Provider: UNKNOWN History of Present Illness: Patient seen and examined. Records reviewed. Patient is a 73-year-old male, with known history of coronary artery disease, has had previous CABG, presented to the hospital complaining of chest pain. There was associated mild shortness of breath, but no mention of any diaphoresis. He did not have any nausea or vomiting or any fever or chills. He presented to the emergency room, and he was found to have a non-ST elevation myocardial infarction. Cardiology saw the patient and cardiac catheterization revealed severe three-vessel coronary artery disease. Patient underwent redo CABG 3 on March 30. He was doing well from the cardiac standpoint, however starting around April 03 he started experiencing abdominal pain, distention, and nausea and vomiting. Further evaluation revealed on CT evidence suggestive of possible small bowel obstruction. Surgery saw the patient. He was being managed initially conservatively, and he had an NG tube in place, and this was put to suction. He was put on n.p.o. He has had significant output from his NG tube. He subsequently went to surgery on April 11 and underwent diagnostic laparoscopy, with lysis of adhesions. Patient's chest x-ray also has shown some pulmonary edema. He has some mild coughing with very minimal sputum production. He denies any chest pain or any shortness of breath. Patient also is voiding without any complaints. Starting yesterday he had some fevers. 2 blood cultures done yesterday, 1 out of the 2 is now reported as growing gram- negative patrick. Patient also was noted to have swelling and redness in his left upper extremity at the area where he had a previous IV site. Ultrasound did not show any evidence of DVT but it did show a superficial thrombus. At the time of exam, patient feels markedly improved. NG tube was removed, and he has been tolerating his diet. He has not had any nausea or vomiting. He has very mild abdominal pain. He has had flatus, as well as bowel movement. He has had 2 bowel movement today. His WBC is normal. Urinalysis has mild pyuria. Urine culture is pending. His last chest x-ray showing some improvement in his pulmonary patient is not short of breath, and currently has good saturation on room air. Infectious disease consultation has been requested to evaluate the patient with fevers. Review of Systems Constitutional: Reports chills, Reports fever(s), Reports increased appetite, Denies anorexia Eyes: Denies discharge, Denies itchy eyes Ears, Nose, Mouth, and Throat: Denies difficulty swallowing, Denies ear pain, Denies facial pain, Denies mouth pain, Denies nasal discharge, Denies sinus pain , Denies sore throat Cardiovascular: Denies chest pain, Denies leg swelling, Denies shortness of breath with activity Respiratory: Reports cough, Denies pain on inspiration, Denies pain with cough, Denies shortness of breath Gastrointestinal: Denies abdominal pain, Denies difficulty swallowing, Denies nausea, Denies pain with swallowing, Denies vomiting Genitourinary: Denies blood in urine, Denies difficulty urinating, Denies painful urination, Denies urinary frequency Musculoskeletal: Denies joint pain, Denies joint swelling Skin/Breast: Reports redness, Denies rash Neurologic: Denies dizziness, Denies headache(s) [facility] - History History Provided By: Patient - Medical History Medical History: Medical History (Last Reviewed 04/13/18 @ 12:09 by Dai Guzman MD) Chronic kidney disease Constipation Dyslipidemia Hypertension Pacemaker - Surgical History Surgical History: Surgical History (Last Reviewed 04/13/18 @ 12:09 by Dai Guzman MD) H/O exploratory laparotomy Hx of CABG - Tobacco History Second Hand Smoke Exposure: No Tobacco Use In Past 30 Days: No Smoking Status: Never smoker - Alcohol History How Often Do You Have a Drink Containing Alcohol: 4 or more times a week (daily glass of wine with dinner) - Substance Use History Substance History: No History of Abuse - Travel History History of Recent Travel: No Recent Travel in the [place] Within the Last 8 Weeks: No Recent Travel Out of the Country Within the Last 8 Weeks: No Medications and Allergies Active Medications: Active Medications Acetaminophen (Tylenol) 650 mg PO Q4H PRN PRN Reason: FEVER > 101 F Last Admin: 04/13/18 08:47 Dose: 650 mg Albuterol (Duoneb Neb (Prn)) 1 ampul NEB Q2HR NEB PRN PRN Reason: WHEEZING Aspirin (Aspirin Chew) 81 mg PO DAILY [facility] Last Admin: 04/13/18 08:47 Dose: 81 mg Atorvastatin Calcium (Lipitor) 20 mg PO HS [facility] [place] Last Admin: 04/12/18 21:07 Dose: 20 mg Clopidogrel Bisulfate (Plavix) 75 mg PO DAILY [facility] [place] Last Admin: 04/07/18 10:05 Dose: 75 mg Dextrose (D50w Vial) 50 ml IV.PUSH UNSCH PRN PRN Reason: PER HYPOGLYCEMIA PROTOCOL Enoxaparin Sodium (Lovenox Inj) 40 mg SQ Q12HR [facility] [place] Erythromycin Ethylsuccinate (Ees 200 Mg/5 Ml Liq) 400 mg PO Q8H [facility] [place] Last Admin: 04/13/18 06:14 Dose: Not Given Heparin Sodium (Porcine) (Heparin Central Flush) 0 unit IV.FLUSH PRN PRN PRN Reason: Flush PICC Line Heparin Sodium (Porcine) (Heparin Central Flush) 0 unit IV.FLUSH DAILY [facility] [place] Last Admin: 04/13/18 10:28 Dose: 400 unit Acetaminophen (Ofirmev Inj) 1,000 mg in 100 mls @ 400 mls/hr IV.SIG Q6H PRN PRN Reason: PAIN SCALE 1 TO 10 Last Infusion: 04/07/18 13:03 Dose: Infused Albumin Human (Flexbumin 25% Inj) 100 mls @ 60 mls/hr IV.SIG Q8H [facility] Last Infusion: 04/13/18 06:34 Dose: Infused Fat Emulsion Intravenous (Intralipid 20% Inj) 250 mls @ 10 mls/hr IV.SIG Q24H [facility] Last Infusion: 04/13/18 06:34 Dose: 10 mls/hr Sodium Chloride 11 meq/ Sodium Acetate 59 meq/ Potassium Chloride 40 meq/ Magnesium Chloride 10 meq/ Calcium Chloride 9 meq/ Multivitamins 10 ml/ Folic Acid 1 mg/ Amino Acids 2,074.1437 mls @ 83 mls/hr IV.SIG Q24H [facility] [place] Last Infusion: 04/13/18 06:34 Dose: 83 mls/hr Piperacillin/Tazobactam/Dextrose (Zosyn 3.375 Gm Premix) 50 mls @ 100 mls/hr IV.SIG Q8H [facility] Insulin Aspart (Novolog Insulin Correctional Sugar Inj) 0 unit SQ Q6HR [facility] [place]; Protocol Last Admin: 04/13/18 06:36 Dose: Not Given Metoprolol Tartrate (Lopressor) 25 mg PO BID [facility] [place] Last Admin: 04/13/18 10:25 Dose: 25 mg Miscellaneous (Pill Splitter) 1 each OTHER UNSCH [facility] [place] Multivitamins/Minerals (Theragran-M) 1 tab PO DAILY [facility] [place] Last Admin: 04/13/18 10:25 Dose: 1 tab Ondansetron HCl (Zofran Odt) 4 mg PO Q6H PRN PRN Reason: NAUSEA/VOMITING Last Admin: 04/06/18 07:50 Dose: 4 mg Pantoprazole Sodium (Protonix Inj) 40 mg IV.PUSH Q24H [facility] [place] Last Admin: 04/12/18 14:10 Dose: 40 mg Polyethylene Glycol (Miralax) 17 gm PO DAILY [facility] [place] Last Admin: 04/13/18 10:26 Dose: 17 gm Sodium Biphosphate/Sodium Phosphate (Fleets Enema (Adult)) 118 ml RECTAL UNSCH PRN PRN Reason: SEE LABEL COMMENTS Sodium Chloride (Ns Flush) 2 ml IV.FLUSH BID [facility] [place] Last Admin: 04/13/18 10:31 Dose: 2 ml Sodium Chloride (Ns Flush) 2 ml IV.FLUSH PRN PRN PRN Reason: FLUSH AFTER USING IV ACCESS Last Admin: 04/12/18 05:29 Dose: 2 ml Sodium Chloride (Ns Flush) 0 ml IV.FLUSH DAILY [facility] [place] Last Admin: 04/13/18 10:31 Dose: 2 ml Sodium Chloride (Ns Flush) 0 ml IV.FLUSH PRN PRN PRN Reason: FLUSH AFTER USING IV ACCESS Sodium Chloride (Ns Flush) 0 ml IV.FLUSH PRN PRN PRN Reason: Flush After Blood Draws Temazepam (Restoril) 15 mg PO HS PRN PRN Reason: INSOMNIA Last Admin: 04/09/18 22:25 Dose: 15 mg Allergies Allergy/AdvReac Type Severity Reaction Status Date / Time No Known Allergies Allergy Unverified 03/26/18 11:04 Home Medications Medication Instructions Recorded Confirmed Type allopurinol 300 mg PO DAILY 03/27/18 03/27/18 History aspirin 81 mg PO DAILY 03/27/18 03/27/18 History hydrochlorothiazide 25 mg PO DAILY 03/27/18 03/27/18 History lisinopril 20 mg PO DAILY 03/27/18 03/27/18 History omeprazole 40 mg PO DAILY 03/27/18 03/27/18 History rosuvastatin 10 mg PO HS 03/27/18 03/27/18 History sildenafil 100 mg PO DAILY PRN 03/27/18 03/27/18 History Exam Vital signs: Vital Signs 04/12/18 13:00 04/12/18 14:00 04/12/18 15:00 Temperature 101 F H Pulse Rate 98 H 92 H 104 H Respiratory Rate 18 Blood Pressure 142/67 H Pulse Oximetry 04/12/18 16:00 04/12/18 17:00 04/12/18 18:00 Temperature Pulse Rate 96 H 96 H 90 Respiratory Rate Blood Pressure Pulse Oximetry 04/12/18 19:00 04/12/18 20:00 04/12/18 21:00 Temperature 99.5 F Pulse Rate 92 H 90 96 H Respiratory Rate Blood Pressure 142/71 H Pulse Oximetry 93 L 04/12/18 22:00 04/12/18 23:00 04/13/18 00:00 Temperature 101.6 F H Pulse Rate 90 95 H 88 Respiratory Rate Blood Pressure 111/64 Pulse Oximetry 94 L 04/13/18 01:00 04/13/18 02:00 04/13/18 03:00 Temperature 98.9 F Pulse Rate 95 H 89 87 Respiratory Rate Blood Pressure 118/66 Pulse Oximetry 96 04/13/18 04:00 04/13/18 05:00 04/13/18 06:00 Temperature Pulse Rate 87 82 88 Respiratory Rate Blood Pressure Pulse Oximetry 04/13/18 07:00 04/13/18 08:00 04/13/18 09:00 Temperature 99.4 F Pulse Rate 104 H 87 79 Respiratory Rate Blood Pressure 115/57 L Pulse Oximetry 98 04/13/18 10:00 04/13/18 11:00 Temperature Pulse Rate 78 78 Respiratory Rate Blood Pressure Pulse Oximetry Intake & Output 04/12/18 04/13/18 04/13/18 18:59 06:59 18:59 Intake Total 1780 / 1780 3915.3 / 3915.3 Output Total 1125 / 1125 Balance 655 / 655 3915.3 / 3915.3 Weight 105 kg Intake: IV 400 / 400 3555.3 / 3555.3 Flexbumin 25% Inj 100 ML @ 60 100 / 100 200 / 200 mls/hr IV.SIG Q8H [facility] [place] Rx#: [id number] Intralipid 20% Inj 250 ML @ 10 318.3 / 318.3 mls/hr IV.SIG Q24H [facility] Rx#: [id number] KCl 10 mEq Premix Inj 10 meq In 200 / 200 100 / 100 100 ml @ 100 mls/hr IV.SIG Q1H [facility] Rx#:[id number] NS Inj 1,000 ML @ 50 mls/hr IV. 100 / 100 SIG .Q20H [facility] Rx#:[id number] Sodium Chloride 23.4% Inj 11 2837 / 2837 MEQ Sodium Acetate Inj 59 MEQ KCl Inj 40 MEQ Magnesium Chloride Inj 10 MEQ Calcium Chloride Inj 9 MEQ MVI-12 Inj 10 ML Folvite Inj 1 MG In Clinimix 4.25%/D5W Inj 2,000 ML @ 83 mls/hr IV.SIG Q24H [facility] Rx #:[id number] Oral 1380 / 1380 360 / 360 Output: Urine Amount (Catheter) 675 / 675 Indwelling Urethral Catheter 675 / 675 Gastric Drainage 450 / 450 Right Nare 450 / 450 Other: # Voids 3 Date of Last Bowel Movement 04/12/18 04/13/18 # Bowel Movements 3 Narrative: Physical Examination: GENERAL: Patient is a very pleasant, well-nourished, well-developed male, awake and alert, not in respiratory distress. He does not look toxic appearing SKIN: Warm and dry. No generalized rash, no ecchymoses and no evidence of embolic lesions. HEAD: Atraumatic. Normocephalic. No temporal wasting, or tenderness. EYES: [place] conjunctiva. No petechia or hemorrhage. Pupils equal, round and reactive to light. Extraocular movements full and intact. No scleral icterus. No injection or drainage. EARS, NOSE AND THROAT: Nose without bleeding or purulent nasal discharge. No sinus tenderness. Mucous membranes pink and moist. No oral lesions noted. No exudate. No oral thrush. NECK: Trachea midline. Supple and not tender, no meningeal signs CARDIOVASCULAR: Regular rate and rhythm. No murmurs, rubs or gallops heard. Sternotomy incision with no evidence of infection. Previous CT sites all look ok, with no evidence of infection. RESPIRATORY: Clear to auscultation. Breath sounds equal bilaterally. No rales , wheezing or rhonchi. Decreased breath sounds at bases. ABDOMEN: Protuberant, mildly distended, stab wounds with surrounding ecchynoses, dry, no evidence of infection, not tender, no guarding, no rebound. Bowel sounds present and normoactive. No organomegaly. EXTREMITIES: No clubbing, cyanosis. Mild pedal edema. Incisions LLE dry, with ecchymoses at LLE, no evidence of infection. No joint effusion, has good ROM. No calf tenderness. Well perfused and warm. LLE - has an area of mild erythema with palpable cord, no fluctuance no pustule seen at previous venipuncture sites. NEUROLOGICAL: Awake and alert. Cranial nerves grossly intact. Motor grossly within normal limits. PSYCHIATRIC: Normal affect, calm and cooperative. LINE: No evidence of infection Results - Labs CBC & Chem 7: 04/13/18 09:14 04/13/18 09:14 Labs: Laboratory Results - last 24 hr 04/12/18 04/12/18 04/12/18 10:30 13:16 18:34 WBC RBC Hgb Hct MCV MCH MCHC RDW Plt Count MPV Sodium Potassium Chloride Carbon Dioxide Anion Gap BUN Creatinine Estimated GFR POC Glucose 159 H 194 H Random Glucose Calcium Urine Color Yellow Urine Clarity Clear Urine pH 5.0 Ur Specific [place] 1.020 Urine Protein 30 H Urine Glucose (UA) Negative Urine Ketones Negative Urine Occult Blood Moderate H Urine Nitrate Negative Urine Bilirubin Negative Urine Urobilinogen 2.0 H Ur Leukocyte Esterase Small H Urine RBC 18 H Urine WBC 10 H Urine Bacteria Rare H Micro UA Comment Cath-culture ind Urine Culture Comments Cath-cult indicated 04/12/18 04/13/18 04/13/18 21:18 06:23 09:14 WBC 8.3 RBC 2.86 L Hgb 8.4 L Hct 25.1 L MCV 87.6 MCH 29.5 MCHC 33.7 RDW 15.5 Plt Count 321 MPV 7.4 Sodium Potassium Chloride Carbon Dioxide Anion Gap BUN Creatinine Estimated GFR POC Glucose 136 H 127 H Random Glucose Calcium Urine Color Urine Clarity Urine pH Ur Specific [place] Urine Protein Urine Glucose (UA) Urine Ketones Urine Occult Blood Urine Nitrate Urine Bilirubin Urine Urobilinogen Ur Leukocyte Esterase Urine RBC Urine WBC Urine Bacteria Micro UA Comment Urine Culture Comments 04/13/18 09:14 WBC RBC Hgb Hct MCV MCH MCHC RDW Plt Count MPV Sodium 137 Potassium 3.7 Chloride 104 Carbon Dioxide 20.8 L Anion Gap 12 BUN 30 H Creatinine 1.20 Estimated GFR 60 L POC Glucose Random Glucose 164 H Calcium 8.1 L D Urine Color Urine Clarity Urine pH Ur Specific [place] Urine Protein Urine Glucose (UA) Urine Ketones Urine Occult Blood Urine Nitrate Urine Bilirubin Urine Urobilinogen Ur Leukocyte Esterase Urine RBC Urine WBC Urine Bacteria Micro UA Comment Urine Culture Comments - Imaging Impressions Venous Doppler Study 04/12/18 00:00 CONCLUSION: 1. Negative for deep venous thrombosis. Occlusive and nonocclusive superficial thrombus in the area of the antecubital fossa extending to the wrist within the cephalic vein. Assessment and Plan - Plan Impression Fever post diagnostic lap, has GNR in one BC - source? - has mild pyuria, previously had friedman - has some superficial phlebitis in his LUE - ?transient from his severe ileus, partial SBO - no significant PNA symptoms S/P redo CABG S/P NSTEMI Recommendation Repeat 2 BC Follow C/S Continue Zosyn, will increase the dose Follow temps Monitor progress I will determine course of Rx depending on clinical course and results of his workup I will follow along with you Thank you for this consultation Spoke with family and explained plan and recommendations
--- NOTE | 2018-04-13 13:04 | P.PN ---
Subjective Interval history: 73-year-old male who is seen and examined today in follow-up on recent car bypass surgery, status post laparoscopic adhesion lysis with ileus. Patient is sitting in chair drinking liquids. NG tube in place which is clamped. Patient states that he has been having flatulence and bowel movements over the last 2 days. He really would like to the NG tube removed. I discussed the case with cardiovascular surgery as well as general surgery. Patient vital signs remained stable. Patient remains afebrile. Physical Exam Vital signs: Vital Signs 04/12/18 14:00 04/12/18 15:00 04/12/18 16:00 Temperature 101 F H Pulse Rate 92 H 104 H 96 H Respiratory Rate 18 Blood Pressure 142/67 H Pulse Oximetry 04/12/18 17:00 04/12/18 18:00 04/12/18 19:00 Temperature 99.5 F Pulse Rate 96 H 90 92 H Respiratory Rate Blood Pressure 142/71 H Pulse Oximetry 93 L 04/12/18 20:00 04/12/18 21:00 04/12/18 22:00 Temperature Pulse Rate 90 96 H 90 Respiratory Rate Blood Pressure Pulse Oximetry 04/12/18 23:00 04/13/18 00:00 04/13/18 01:00 Temperature 101.6 F H Pulse Rate 95 H 88 95 H Respiratory Rate Blood Pressure 111/64 Pulse Oximetry 94 L 04/13/18 02:00 04/13/18 03:00 04/13/18 04:00 Temperature 98.9 F Pulse Rate 89 87 87 Respiratory Rate Blood Pressure 118/66 Pulse Oximetry 96 04/13/18 05:00 04/13/18 06:00 04/13/18 07:00 Temperature 99.4 F Pulse Rate 82 88 104 H Respiratory Rate Blood Pressure 115/57 L Pulse Oximetry 98 04/13/18 08:00 04/13/18 09:00 04/13/18 10:00 Temperature Pulse Rate 87 79 78 Respiratory Rate Blood Pressure Pulse Oximetry 04/13/18 11:00 Temperature Pulse Rate 78 Respiratory Rate Blood Pressure Pulse Oximetry Intake & Output 04/12/18 04/13/18 04/13/18 18:59 06:59 18:59 Intake Total 1780 / 1780 3915.3 / 3915.3 Output Total 1125 / 1125 Balance 655 / 655 3915.3 / 3915.3 Weight 105 kg Intake: IV 400 / 400 3555.3 / 3555.3 Flexbumin 25% Inj 100 ML @ 60 100 / 100 200 / 200 mls/hr IV.SIG Q8H MIKE Rx#: [id number] Intralipid 20% Inj 250 ML @ 10 318.3 / 318.3 mls/hr IV.SIG Q24H MIKE Rx#: [id number] KCl 10 mEq Premix Inj 10 meq In 200 / 200 100 / 100 100 ml @ 100 mls/hr IV.SIG Q1H MIKE Rx#:[id number] NS Inj 1,000 ML @ 50 mls/hr IV. 100 / 100 SIG .Q20H MIKE Rx#:[id number] Sodium Chloride 23.4% Inj 11 2837 / 2837 MEQ Sodium Acetate Inj 59 MEQ KCl Inj 40 MEQ Magnesium Chloride Inj 10 MEQ Calcium Chloride Inj 9 MEQ MVI-12 Inj 10 ML Folvite Inj 1 MG In Clinimix 4.25%/D5W Inj 2,000 ML @ 83 mls/hr IV.SIG Q24H MIKE Rx #:[id number] Oral 1380 / 1380 360 / 360 Output: Urine Amount (Catheter) 675 / 675 Indwelling Urethral Catheter 675 / 675 Gastric Drainage 450 / 450 Right Nare 450 / 450 Other: # Voids 3 Date of Last Bowel Movement 04/12/18 04/13/18 # Bowel Movements 3 Narrative: GENERAL: Well-developed, well-nourished, in no acute distress. alert and orientated HEENT: Head is normocephalic without any lesions or masses noted. Facial features are symmetric. Eyes: Extraocular muscles are intact. Conjunctivae were clear. NG tube in place NECK: Supple without any masses. Trachea midline no deviation. No JVD, CARDIAC: Regular rhythm, regular rate. S1/S2 are heard. No murmurs gallops or rubs. LUNGS: Clear to auscultation bilaterally. No wheeze, rhonchi or rales. No use of accessory muscles on inspiration or expiration. ABDOMEN: Soft, nontender. Nondistended. Bowel sounds heard in all 4 quadrants. No organomegaly or masses. Negative rebound, negative guarding EXTREMITIES: No edema, pulses are equal bilaterally. No cyanosis or clubbing NEUROLOGY: Mood and affect appear appropriate. Cranial nerves II through XII grossly intact. Moving all extremities, speech is clear - Urinary Catheter Management Indwelling Temp Sensing Catheter Cath placed during this visit: yes, but has since been removed by the nurse Reason for continuing: Not indwelling catheter Insertion date: 03/30/18 Insertion time: 07:40 Removal date: 03/31/18 Removal time: 05:15 Indwelling Urethral Catheter Cath placed during this visit: yes, but has since been removed by the nurse Reason for continuing: Not indwelling catheter Insertion date: 04/11/18 Removal date: 04/12/18 Removal time: 10:30 Results - Labs CBC & Chem 7: 04/13/18 09:14 04/13/18 09:14 Laboratory Results - last 24 hr 04/12/18 04/12/18 04/12/18 10:30 13:16 18:34 WBC RBC Hgb Hct MCV MCH MCHC RDW Plt Count MPV Sodium Potassium Chloride Carbon Dioxide Anion Gap BUN Creatinine Estimated GFR POC Glucose 159 H 194 H Random Glucose Calcium Urine Color Yellow Urine Clarity Clear Urine pH 5.0 Ur Specific [place] 1.020 Urine Protein 30 H Urine Glucose (UA) Negative Urine Ketones Negative Urine Occult Blood Moderate H Urine Nitrate Negative Urine Bilirubin Negative Urine Urobilinogen 2.0 H Ur Leukocyte Esterase Small H Urine RBC 18 H Urine WBC 10 H Urine Bacteria Rare H Micro UA Comment Cath-culture ind Urine Culture Comments Cath-cult indicated 04/12/18 04/13/18 04/13/18 21:18 06:23 09:14 WBC 8.3 RBC 2.86 L Hgb 8.4 L Hct 25.1 L MCV 87.6 MCH 29.5 MCHC 33.7 RDW 15.5 Plt Count 321 MPV 7.4 Sodium Potassium Chloride Carbon Dioxide Anion Gap BUN Creatinine Estimated GFR POC Glucose 136 H 127 H Random Glucose Calcium Urine Color Urine Clarity Urine pH Ur Specific [place] Urine Protein Urine Glucose (UA) Urine Ketones Urine Occult Blood Urine Nitrate Urine Bilirubin Urine Urobilinogen Ur Leukocyte Esterase Urine RBC Urine WBC Urine Bacteria Micro UA Comment Urine Culture Comments 04/13/18 04/13/18 09:14 11:58 WBC RBC Hgb Hct MCV MCH MCHC RDW Plt Count MPV Sodium 137 Potassium 3.7 Chloride 104 Carbon Dioxide 20.8 L Anion Gap 12 BUN 30 H Creatinine 1.20 Estimated GFR 60 L POC Glucose 155 H Random Glucose 164 H Calcium 8.1 L D Urine Color Urine Clarity Urine pH Ur Specific [place] Urine Protein Urine Glucose (UA) Urine Ketones Urine Occult Blood Urine Nitrate Urine Bilirubin Urine Urobilinogen Ur Leukocyte Esterase Urine RBC Urine WBC Urine Bacteria Micro UA Comment Urine Culture Comments Microbiology 04/12/18 10:30 Catheterized Urine Urine Culture - Preliminary No growth in 24 hours 04/12/18 15:04 Blood - Peripheral Aerobic Blood Culture - Preliminary No growth in 1 day 04/12/18 15:04 Blood - Peripheral Anaerobic Blood Culture - Preliminary Enterobacter species 04/12/18 14:53 Blood - Peripheral Aerobic Blood Culture - Preliminary No growth in 1 day 04/12/18 14:53 Blood - Peripheral Anaerobic Blood Culture - Preliminary No growth in 1 day - Imaging Impressions Venous Doppler Study 04/12/18 00:00 CONCLUSION: 1. Negative for deep venous thrombosis. Occlusive and nonocclusive superficial thrombus in the area of the antecubital fossa extending to the wrist within the cephalic vein. - Procedures Echocardiogram The left ventricular systolic function is normal with an estimated ejection fraction in the range of 55-60%. Trace mitral valve regurgitation. There is trace tricuspid valve regurgitation. CABG x 3 on 03/30/2018. Assessment and Plan - Assessment (1) NSTEMI (non-ST elevated myocardial infarction) Code(s): I21.4 - Non-ST elevation (NSTEMI) myocardial infarction Status: Acute (2) Multi-vessel coronary artery stenosis Code(s): I25.10 - Atherosclerotic heart disease of [place] coronary artery without angina pectoris Status: Acute (3) Ileus, postoperative Code(s): K91.89 - Other postprocedural complications and disorders of digestive system; K56.7 - Ileus, unspecified Status: Acute - Plan Non-ST elevated myocardial infarction with coronary artery disease -Status post cardiac catheterization with multivessel coronary artery disease and ejection fraction 50% cardiac cath showed multivessel CAD with EF 50% -Patient underwent cardiac bypass surgery, three-vessel on 03/30 -Cardiovascular surgery still following the patient -Patient continued on aspirin, statin, Lopressor -Plavix still is on hold per cardiology underwent CABG x 3 on 03/30 Ileus, postop. Improving -NG tube is in place, however it has been clamped. He is passing gas and having bowel movements last 2 days. Discussed with general surgery, they had the NG tube removed today. -Underwent laparoscopic lysis of adhesions 04/11, general surgery managing -Continue erythromycin, general surgery recommend discontinuation of Reglan and discontinuing erythromycin tomorrow if he continues to remain stable -Dulcolax suppository/fleets enema PRN -Patient does have a PICC line in TPN at this time, discussed with general surgery who recommend evaluating his oral intake and then discontinuing the TPN Bacteremia, -10/01 bottles of Enterobacter species -Patient started on Zosyn -ID consulted -Obtain blood cultures Left upper extremity edema with occlusive and nonocclusive superficial thrombus in the area of the antecubital fossa extending to the wrist within the cephalic vein -Anticoagulation has been increased to full dose of Lovenox 40 mg every 12 hours with the approval from cardiovascular surgery and general surgery -Patient will likely need anticoagulation upon discharge Hypertension, hyperlipidemia, -Blood pressure stable -LDL 76 -Atorvastatin 20 mg at bedtime Acute kidney injury, improved -Unknown if patient has a history of chronic kidney disease -Continue monitor renal function -Avoid nephrotoxins Anemia -Hemoglobin continue to trend downward -No signs of active bleeding -Transfuse if hemoglobin below 8.0 DVT prophylaxis: -Subcutaneous Lovenox
[2018-04-13] MEDS: Pantoprazole Inj 40 MG Vial IV.PUSH SCH (13:35)
[2018-04-13] MEDS: Piperacil/Tazo 4.5 GM Premix 4.5 GM/100 ML BAG IV.SIG SCH ×2 (14:45→22:01)
[2018-04-13] MEDS ORDERED: Sodium Bicarbonate 8.4% Inj 50 MEQ/50 ML Syringe IV.PUSH ONE (15:00)
[2018-04-13] MEDS ORDERED: Sodium Bicarbonate 8.4% Inj 50 MEQ/50 ML Syringe ONE (15:02)
[2018-04-13 15:08] LABS: ABG Base Excess -8.5 mmol/L (-2-2); ABG PCO2 22 mmHg (38-42); ABG PO2 76 mmHG (61-120)
--- NOTE | 2018-04-13 15:36 | XR ---
EXAM DATE: 04/13/2018 3:27 PM EDT AGE/SEX: 73 years / Male INDICATIONS: . Evaluate for aneurysm. Shortness of breath. CLINICAL DATA: This is the patient's initial encounter. Patient reports that signs and symptoms have been present for 1 day and indicates a pain score of 0/10. MEDICAL/SURGICAL HISTORY: . Chronic kidney disease. Dyslipidemia. HTN. . CABG. Pacemaker. Exp loratory laparotomy. COMPARISON: [facility] – [place], CHEST 1V SINGLE AP, 04/12/2018. . FINDINGS: There is mild haziness to the perivascular structures most likely pulmonary edema. Moderat e cardiomegaly seen. Focal consolidation is not seen. There is evidence for prior median sternotomy. Left subclavian pacer wires are present with tips in the right atrium and right ventricle. CONCLUSION: Moderate CHF and worse since the prior exam. Electronically signed by: Michael Clarke MD 04/13/2018 3:35 PM EDT
[2018-04-13] MEDS ORDERED: Vancomycin Consult Pharmacy 1 EACH OTHER SCH (15:41)
[2018-04-13] MEDS ORDERED: Vancomycin Inj 1,500 MG in Sodium Chlor 0.9% Inj 500 ML IV.SIG ONE (16:00)
--- NOTE | 2018-04-13 16:22 | P.PNCA ---
- Note Subjective/Hospital Course: 73-year-old gentleman with history of coronary artery bypass graft, hypertension, and hyperlipidemia, been experiencing chest pain for the past several days, pressure-like, moderate, relieved with nitroglycerin. cath report : multi vessel disease / EF 50% PAST MEDICAL HISTORY: CABG in 2007. He also has a history of permanent pacemaker, DDD lower rate 50 hypertension, polyp removed, CKD baseline creatinine 1.3 surgery 03/30 REDO CABG x 3 SVG to PDA - good SVG to RI - fair SVG to D1 - fair EVH extubated after surgery / 2 pleural tubes / one mediastinal tubes 03/31 painful , no toradol with CKD OOB pulm toileting pain med control transfer to stepdown 04/01 still painful, but some improvement CT x 3 / drained 130/12 hrs and additional 150cc this am bloody drainage/ no air leak pain control pulm toileting creatinine improved 1.23 04/02 c/o of constipation , mild nausea , abdomen distended , Hypoactive bowel sounds pt is passing flatus , narcotics dc , IV Ofirmev, po tylenol stat KUB pending / add reglan chest tube drained 320cc/ 12 hrs , dark old bloody drainage chest tube to suction / leave chest tubes in ambulate as much as possible 04/03 Nauseated and vomiting this morning, otherwise doing well Had BM and flatus Abdomen soft but distended to my exam. No tenderness or guarding KUB with nonspecific distended SB Ambulate NPO except ice-chips May need GI eval if not improved 04/04 Doing better. NGT inadvertently removed. No further N/V Greatly appreciate GI input Feels thirsty and hungry Abdomen soft and less distended OK to advance diet when ok with GI Ambulate 04/05 pt c/o of abdominal pain, worsening from yesterday , also nausea abdomen very distended , hypoactive bowel sounds NG tube replaced, labs and KUB ordered/ NPO except meds / ice chips GI following 04/06 pt with worsening distention/ nausea worsening BAM / nephrology consulted on IV fluids, leukocytosis with left shift General surgery consulted / high GI output/ NG placement verified also at bedside yellow/ kumari drainage / on intermittent suction continue IV fluids, IV fluid bolus given 04/07 still with distended abdomen faint tinkling bowel sounds noted NG to low intermittent suction Small series report noted / will re- notify General Surgery NPO creatinine with some improvement / replace with 500cc NS , continue IV fluids 04/[address] Sylvester will discuss with Dr Kurtz pt will need some form of nutrition soon can change to D51/2 ns with 40 KCL , may need to be eval for TPN vs PPN NG to low intermittent suction 04/09 appreciate GS input , start PPN/ PICC line re-eval KUB if no improvement by Thursday/ they will consider diagnostic lap/ lysis of adhesions on EES , start prophylaxis DVT prevention with Heparin SQ 04/10/18 depressed, frustrated, c/o "no energy" Denies flatus/BM Copious NG tube output 04/11 surgery: 1. Minor adhesions, appearance of a previous right colon resection. 2. Adhesions. 3. Valle ileus. PROCEDURE PERFORMED: Diagnostic laparoscopy, lysis of adhesions of the right lower quadrant, identifying what appears to be a small bowel colon anastomosis. A massively dilated small bowel, transverse colon, descending colon, and cecum. Normal liver, normal gallbladder. 04/12 NG to low intermittent suction, some abdominal pain + bowel sounds, no passing some flatus remains on EES, reglan , PPN left arm swollen and red , IV removed, warm compresses to arm US of left upper ext pending change sq heparin to lovenox daily continue PT / replace K+/ f/u labs in am 04/13 pt feeling better this am , discussed with GS NG tube removed, remained on clear liguids approximately 3pm, pt developed rigors , mildly elevated temps , no nausea had temp 101.6 last pm left arm US noted + occlusive thrombus left upper ext , Blood culture GNR on Zosyn, ID following , stat lactic acid pending , ABG showed metabolic acidosis pt has had long-term NG tube drainage / with suction pt transferred to CVICU/ CCM consulted Objective: Vital Signs - 24 hr 04/12/18 17:00 04/12/18 18:00 04/12/18 19:00 Temperature 99.5 F Pulse Rate 96 H 90 92 H Blood Pressure 142/71 H Pulse Oximetry 93 L 04/12/18 20:00 04/12/18 21:00 04/12/18 22:00 Temperature Pulse Rate 90 96 H 90 Blood Pressure Pulse Oximetry 04/12/18 23:00 04/13/18 00:00 04/13/18 01:00 Temperature 101.6 F H Pulse Rate 95 H 88 95 H Blood Pressure 111/64 Pulse Oximetry 94 L 04/13/18 02:00 04/13/18 03:00 04/13/18 04:00 Temperature 98.9 F Pulse Rate 89 87 87 Blood Pressure 118/66 Pulse Oximetry 96 04/13/18 05:00 04/13/18 06:00 04/13/18 07:00 Temperature 99.4 F Pulse Rate 82 88 104 H Blood Pressure 115/57 L Pulse Oximetry 98 04/13/18 08:00 04/13/18 09:00 04/13/18 10:00 Temperature Pulse Rate 87 79 78 Blood Pressure Pulse Oximetry 04/13/18 11:00 04/13/18 12:00 04/13/18 12:35 Temperature 98.9 F Pulse Rate 90 90 Blood Pressure 113/71 Pulse Oximetry 98 98 04/13/18 13:00 Temperature Pulse Rate 91 H Blood Pressure Pulse Oximetry GENERAL: A&O x 3 SKIN: Warm and dry. sternal incision intact and well approximated / abdominal incisions intact and well approximated HEAD: Atraumatic. Normocephalic. EYES: Pupils equal and round. No scleral icterus. No injection or drainage. ENT: No nasal bleeding or discharge. Mucous membranes pink and moist. NECK: Trachea midline. No JVD. CARDIOVASCULAR: Regular rate and rhythm. RESPIRATORY: No accessory muscle use. Clear to auscultation. Breath sounds equal bilaterally. GASTROINTESTINAL: Abdomen distended , less firm + bowel sounds MUSCULOSKELETAL: Extremities without clubbing, cyanosis, or edema. No obvious deformities. left arm swollen , reddened and warm NEUROLOGICAL: Awake and alert. No obvious cranial nerve deficits. Motor grossly within normal limits. Five out of 5 muscle strength in the arms and legs. Normal speech. PSYCHIATRIC: Appropriate mood and affect; insight and judgment normal. Labs: Laboratory Results - last 12 hr 04/13/18 04/13/18 04/13/18 06:23 09:14 09:14 WBC 8.3 RBC 2.86 L Hgb 8.4 L Hct 25.1 L MCV 87.6 MCH 29.5 MCHC 33.7 RDW 15.5 Plt Count 321 MPV 7.4 Puncture Site Patient Temperature O2 Saturation ABG pH ABG pCO2 ABG pO2 ABG HCO3 ABG O2 Content ABG Base Excess ABG Methemoglobin Joel Test Hemoglobin Carboxyhemoglobin O2 Delivery Device Liter Flow Inspired O2 Critical Value Sodium 137 Potassium 3.7 Chloride 104 Carbon Dioxide 20.8 L Anion Gap 12 BUN 30 H Creatinine 1.20 Estimated GFR 60 L POC Glucose 127 H Random Glucose 164 H Calcium 8.1 L D 04/13/18 04/13/18 04/13/18 11:58 14:36 14:46 WBC RBC Hgb Hct MCV MCH MCHC RDW Plt Count MPV Puncture Site Right radial Patient Temperature 98.6 O2 Saturation 92 ABG pH 7.45 H ABG pCO2 22 L* ABG pO2 76 ABG HCO3 15 L* ABG O2 Content 11.7 L ABG Base Excess -8.5 L ABG Methemoglobin 1.6 Joel Test Present Hemoglobin 9.0 L Carboxyhemoglobin 1.0 O2 Delivery Device Nasal cannula Liter Flow 5.00 Inspired O2 21 Critical Value Yes Sodium Potassium Chloride Carbon Dioxide Anion Gap BUN Creatinine Estimated GFR POC Glucose 155 H 144 H Random Glucose Calcium Result Diagrams: 04/13/18 09:14 04/13/18 09:14 Telemetry: sinus tach - Plan (1) S/P CABG x 3 Plan: ASA, statin , BB OOB hold plavix pulm [place] on nasal cannula lovenox SQ ambulate (2) CAD (coronary artery disease) Plan: on ASA, BB statin OOB ambulate/ pulm toileting (6) Hx of CABG Plan: ASA, statin , BB OOB ambulate EES , NG tube removed GS following (7) Abdominal distention Plan: NG tube in place / low intermittent suction EES/ reglan s/p EXP lap LE post op day 1 f (8) Acute kidney injury Plan: on PPN and lipids indices improving (9) Sepsis Plan: enterobacter species on vanc and zosyn lactic acid pending s/p Bicarb CCM following (2) CAD (coronary artery disease) Qualifiers: Coronary Disease-Associated Artery/Lesion type: [place] artery Associated angina: with unstable angina
[2018-04-13] MEDS ORDERED: Sodium Chlor 0.9% Inj 500 ML IV.SIG ONE (16:30)
[2018-04-13] MEDS: Mag Sulf 1 gm/100 ml Premix 100 ML IV.SIG SCH ×2 (17:26→19:43)
--- NOTE | 2018-04-13 19:20 | P.CONCC ---
History of Present Illness Service: Critical Care Medicine Consult date: 04/13/18 Requesting Physician: Xochitl Sylvester Reason for Consult: acute hypotension, tachycardia Primary Care Provider: UNKNOWN History of Present Illness: This is a 73-year-old male who is status post CABG whose course has been complicated by acute kidney injury and postoperative ileus requiring TPN. Today he had sudden onset of fever, rigors, tachycardia, hypotension in the 90s systolic. He has blood cultures growing 1 out of 4 bottles of Enterobacter. He was emergently transferred to the intensive care unit for monitoring. On my evaluation, the patient was in distress with tachypnea and was very toxic appearing. His lactic acid greater than 5 and a severe metabolic acidosis with a base deficit of 8. I discussed case with Dr. Sylvester: Patient likely has acute septic shock secondary to translocation of gut bacteria. However, the patient has a PICC line in which has been greater than 7 days old and central line infection cannot be excluded at this time. Patient is is on IV Zosyn for empiric antibiotic therapy, and we both agreed to add IV vancomycin and repeat blood cultures. Patient denies chest pain, shortness of breath, nausea, vomiting, abdominal pain. He has been tolerating a clear liquid diet and has been having positive bowel movements. KUB is negative for free air under the diaphragm and chest x-ray is negative for acute lobar pneumonia. Review of Systems All other systems reviewed negative except as stated in HPI PMFSH - History History Provided By: Patient - Medical History Medical History: Medical History (Last Reviewed 04/13/18 @ 12:09 by Dai Guzman MD) Chronic kidney disease Constipation Dyslipidemia Hypertension Pacemaker - Surgical History Surgical History: Surgical History (Last Reviewed 04/13/18 @ 12:09 by Dai Guzman MD) H/O exploratory laparotomy Hx of CABG - Tobacco History Second Hand Smoke Exposure: No Tobacco Use In Past 30 Days: No Smoking Status: Never smoker - Alcohol History How Often Do You Have a Drink Containing Alcohol: 4 or more times a week (daily glass of wine with dinner) - Substance Use History Substance History: No History of Abuse - Travel History History of Recent Travel: No Recent Travel in the [place] Within the Last 8 Weeks: No Recent Travel Out of the Country Within the Last 8 Weeks: No Medications and Allergies Active Medications: Active Medications Acetaminophen (Tylenol) 650 mg PO Q4H PRN PRN Reason: FEVER > 101 F Last Admin: 04/13/18 08:47 Dose: 650 mg Albuterol (Duoneb Neb (Prn)) 1 ampul NEB Q2HR NEB PRN PRN Reason: WHEEZING Aspirin (Aspirin Chew) 81 mg PO DAILY [facility] Last Admin: 04/13/18 08:47 Dose: 81 mg Atorvastatin Calcium (Lipitor) 20 mg PO HS [facility] Last Admin: 04/12/18 21:07 Dose: 20 mg Clopidogrel Bisulfate (Plavix) 75 mg PO DAILY [facility] Last Admin: 04/07/18 10:05 Dose: 75 mg Dextrose (D50w Vial) 50 ml IV.PUSH UNSCH PRN PRN Reason: PER HYPOGLYCEMIA PROTOCOL Enoxaparin Sodium (Lovenox Inj) 40 mg SQ Q12HR [facility] Erythromycin Ethylsuccinate (Ees 200 Mg/5 Ml Liq) 400 mg PO Q8H [facility] Last Admin: 04/13/18 13:36 Dose: 400 mg Heparin Sodium (Porcine) (Heparin Central Flush) 0 unit IV.FLUSH PRN PRN PRN Reason: Flush PICC Line Heparin Sodium (Porcine) (Heparin Central Flush) 0 unit IV.FLUSH DAILY [facility] Last Admin: 04/13/18 10:28 Dose: 400 unit Acetaminophen (Ofirmev Inj) 1,000 mg in 100 mls @ 400 mls/hr IV.SIG Q6H PRN PRN Reason: PAIN SCALE 1 TO 10 Last Infusion: 04/07/18 13:03 Dose: Infused Fat Emulsion Intravenous (Intralipid 20% Inj) 250 mls @ 10 mls/hr IV.SIG Q24H [facility] Last Infusion: 04/13/18 06:34 Dose: 10 mls/hr Sodium Chloride 11 meq/ Sodium Acetate 59 meq/ Potassium Chloride 40 meq/ Magnesium Chloride 10 meq/ Calcium Chloride 9 meq/ Multivitamins 10 ml/ Folic Acid 1 mg/ Amino Acids 2,074.1437 mls @ 83 mls/hr IV.SIG Q24H [facility] Last Infusion: 04/13/18 06:34 Dose: 83 mls/hr Piperacillin/Tazobactam/Dextrose (Zosyn 4.5 Gm Premix) 4.5 gm in 100 mls @ 200 mls/hr IV.SIG Q6H [facility] Last Infusion: 04/13/18 16:23 Dose: Infused Pharmacy Profile Note (Vancomycin Consult Pharmacy) 0 mls @ 0 mls/hr OTHER UNSCH [facility] Lactated Ringer's (Lr 1000 Ml Inj) 1,000 mls @ 100 mls/hr IV.CONT .Q10H [facility] Last Admin: 04/13/18 15:55 Dose: 100 mls/hr Magnesium Sulfate/Dextrose (Magnesium Sulfate 1 Gm/D5w 100 Ml Premix) 100 mls @ 100 mls/hr IV.SIG Q1H [facility] Stop: 04/13/18 19:59 Last Admin: 04/13/18 17:26 Dose: 100 mls/hr Insulin Aspart (Novolog Insulin Correctional Sugar Inj) 0 unit SQ Q6HR [facility]; Protocol Last Admin: 04/13/18 18:13 Dose: 7 unit Metoprolol Tartrate (Lopressor) 25 mg PO BID [facility] Last Admin: 04/13/18 10:25 Dose: 25 mg Miscellaneous (Pill Splitter) 1 each OTHER [facility] Multivitamins/Minerals (Theragran-M) 1 tab PO DAILY [facility] Last Admin: 04/13/18 10:25 Dose: 1 tab Ondansetron HCl (Zofran Odt) 4 mg PO Q6H PRN PRN Reason: NAUSEA/VOMITING Last Admin: 04/06/18 07:50 Dose: 4 mg Pantoprazole Sodium (Protonix Inj) 40 mg IV.PUSH Q24H [facility] Last Admin: 04/13/18 13:35 Dose: 40 mg Polyethylene Glycol (Miralax) 17 gm PO DAILY [facility] Last Admin: 04/13/18 10:26 Dose: 17 gm Sodium Biphosphate/Sodium Phosphate (Fleets Enema (Adult)) 118 ml RECTAL UNSCH PRN PRN Reason: SEE LABEL COMMENTS Sodium Chloride (Ns Flush) 2 ml IV.FLUSH BID [facility] Last Admin: 04/13/18 10:31 Dose: 2 ml Sodium Chloride (Ns Flush) 2 ml IV.FLUSH PRN PRN PRN Reason: FLUSH AFTER USING IV ACCESS Last Admin: 04/12/18 05:29 Dose: 2 ml Sodium Chloride (Ns Flush) 0 ml IV.FLUSH DAILY [facility] Last Admin: 04/13/18 10:31 Dose: 2 ml Sodium Chloride (Ns Flush) 0 ml IV.FLUSH PRN PRN PRN Reason: FLUSH AFTER USING IV ACCESS Sodium Chloride (Ns Flush) 0 ml IV.FLUSH PRN PRN PRN Reason: Flush After Blood Draws Temazepam (Restoril) 15 mg PO HS PRN PRN Reason: INSOMNIA Last Admin: 04/09/18 22:25 Dose: 15 mg Allergies Allergy/AdvReac Type Severity Reaction Status Date / Time No Known Allergies Allergy Unverified 03/26/18 11:04 Home Medications Medication Instructions Recorded Confirmed Type allopurinol 300 mg PO DAILY 03/27/18 03/27/18 History aspirin 81 mg PO DAILY 03/27/18 03/27/18 History hydrochlorothiazide 25 mg PO DAILY 03/27/18 03/27/18 History lisinopril 20 mg PO DAILY 03/27/18 03/27/18 History omeprazole 40 mg PO DAILY 03/27/18 03/27/18 History rosuvastatin 10 mg PO HS 03/27/18 03/27/18 History sildenafil 100 mg PO DAILY PRN 03/27/18 03/27/18 History Physical Exam Vital signs: Vital Signs 04/12/18 20:00 04/12/18 21:00 04/12/18 22:00 Temperature Pulse Rate 90 96 H 90 Blood Pressure Pulse Oximetry 04/12/18 23:00 04/13/18 00:00 04/13/18 01:00 Temperature 38.7 C H Pulse Rate 95 H 88 95 H Blood Pressure 111/64 Pulse Oximetry 94 L 04/13/18 02:00 04/13/18 03:00 04/13/18 04:00 Temperature 37.2 C Pulse Rate 89 87 87 Blood Pressure 118/66 Pulse Oximetry 96 04/13/18 05:00 04/13/18 06:00 04/13/18 07:00 Temperature 37.4 C Pulse Rate 82 88 104 H Blood Pressure 115/57 L Pulse Oximetry 98 04/13/18 08:00 04/13/18 09:00 04/13/18 10:00 Temperature Pulse Rate 87 79 78 Blood Pressure Pulse Oximetry 04/13/18 11:00 04/13/18 12:00 04/13/18 12:35 Temperature 37.2 C Pulse Rate 90 90 Blood Pressure 113/71 Pulse Oximetry 98 98 04/13/18 13:00 Temperature Pulse Rate 91 H Blood Pressure Pulse Oximetry Intake & Output 0704/13/18 04/14/18 06:59 18:59 06:59 Intake Total 3915.3 / 3915.3 200 / 200 Balance 3915.3 / 3915.3 200 / 200 Weight 105 kg Intake: IV 3555.3 / 3555.3 200 / 200 Ofirmev Inj 1,000 mg In 100 ml 100 / 100 @ 400 mls/hr IV.SIG NOW ONE Rx# :[id number] Flexbumin 25% Inj 100 ML @ 60 200 / 200 mls/hr IV.SIG Q8H [facility] Rx#: [id number] Intralipid 20% Inj 250 ML @ 10 318.3 / 318.3 mls/hr IV.SIG Q24H [facility] Rx#: [id number] Zosyn 4.5 GM Premix 4.5 gm In 100 / 100 100 ml @ 200 mls/hr IV.SIG Q6H [facility] Rx#:[id number] KCl 10 mEq Premix Inj 10 meq In 100 / 100 100 ml @ 100 mls/hr IV.SIG Q1H [facility] Rx#:[id number] Sodium Chloride 23.4% Inj 11 2837 / 2837 MEQ Sodium Acetate Inj 59 MEQ KCl Inj 40 MEQ Magnesium Chloride Inj 10 MEQ Calcium Chloride Inj 9 MEQ MVI-12 Inj 10 ML Folvite Inj 1 MG In Clinimix 4.25%/D5W Inj 2,000 ML @ 83 mls/hr IV.SIG Q24H [facility] Rx #:[id number] Oral 360 / 360 Other: # Voids 3 Date of Last Bowel Movement 04/13/18 # Bowel Movements 3 Narrative: GENERAL: Elderly male, sitting in a chair, acutely toxic appearing, diaphoretic , tachycardic, tachypneic HEENT: Normocephalic. Atraumatic. Pupils equal, round, reactive, conjugate. Mucous membranes are moist NECK: Trachea is midline. There is no JVD. CHEST: Tachypneic. Labored. Using accessory muscles to breathe. Nasal cannula oxygen. CARDIOVASCULAR: Tachycardic rate, regular rhythm. Sinus by telemetry. Rate of 110. ABDOMEN: Soft, nontender, moderate distended. Tympanic to percussion. No guarding. MUSCULOSKELETAL: Pulses 2+. Trace peripheral edema. Extremities are cool and clammy. NEUROLOGICAL: RASS 0. Moves all extremities. No focal deficits. - Urinary Catheter Management Indwelling Temp Sensing Catheter Cath placed during this visit: yes, but has since been removed by the nurse Reason for continuing: Not indwelling catheter Insertion date: 03/30/18 Insertion time: 07:40 Removal date: 03/31/18 Removal time: 05:15 Indwelling Urethral Catheter Cath placed during this visit: yes, but has since been removed by the nurse Reason for continuing: Not indwelling catheter Insertion date: 04/11/18 Removal date: 04/12/18 Removal time: 10:30 Septic Shock Reassessment Septic shock perfusion: reassessment completed Assessment and Plan - Assessment and Plan Plan: Assessment: 73-year-old male with new acute septic shock as evidenced by acute tissue hypoperfusion and a lactate greater than 4. Admit ICU. IV fluid resuscitation. Broad-spectrum IV antibiotics including vancomycin and Zosyn. Repeat blood cultures, urine cultures. Will obtain peripheral IVs and DC PICC line. Critically ill this time with acute septic shock most likely secondary to gram-negative patrick bacteremia. Active problems: Septic shock Gram-negative patrick bacteremia Acute intravascular volume depletion Lactic acidosis Severe anion gap metabolic acidosis Acute kidney injury Plan: Admit ICU 1 L LR bolus LR maintenance fluids at 100 cc an hour Trend lactates Repeat ABG in the morning Repeat CBC, BMP in the morning Vancomycin with pharmacy dosing Continue IV Zosyn Appreciate ID consultation Repeat blood cultures Send urinalysis and reflex urine culture Plain film radiographs are negative for free air under the diaphragm, the patient without symptoms of acute peritonitis. If patient continues to clinically decline would recommend repeating CT abdomen and pelvis, but at this point risk/benefit ratio is in favor of holding off on additional imaging at this time. Continue clear liquid diet. Will hold off and advancing further this time. Critical care medicine will continue to follow along with you as long as the patient remains in the CVICU. This patient remains critically ill with one or more organ systems which are or may become a threat to life. I have spent in excess of 37 minutes discontinuously in the care and management of this patient. This time is exclusive of procedures, and includes, but is not limited to, evaluation of the patient, review of the medical record, discussions with family, consultants, nursing staff, or respiratory therapy, and documentation in the medical record.
[2018-04-13] MEDS: Dextrose 10% in Water Inj 1,000 ML IV.SIG SCH (22:00)
[2018-04-13] MEDS: Enoxaparin Inj 40 MG/0.4 ML Syringe SQ SCH (22:03)
[2018-04-13] MEDS: Temazepam 15 MG Capsule PO PRN (22:06)
[2018-04-14] MEDS: Insulin NovoLOG Aspart Correctional Sugar Inj SQ SCH ×4 (00:51→17:45)
[2018-04-14 01:16] LABS: Bilirubin,Urine Negative (Negative); Clarity,Urine Hazy (Clear); Color,Urine Amber (Yellw/Straw); Glucose,Urine (UA) Negative (Negative); Leukocyte Esterase,Urine Negative (Negative); Nitrite,Urine Negative (Negative); Specific Gravity,Urine 1.025 (1.002-1.035)
[2018-04-14] MEDS: Piperacil/Tazo 4.5 GM Premix 4.5 GM/100 ML BAG IV.SIG SCH ×2 (01:53→07:36)
[2018-04-14 03:29] LABS: Baso % (Auto) 0.2 % (0.0-2.0); Eos # (Auto) 0.1 th/mm3 (0.0-0.4); Eos % (Auto) 1.3 % (0.0-4.0); Hematocrit 24.5 % (39.0-51.0); Hemoglobin 8.2 gm/dL (13.0-17.0); Lymph # (Auto) 0.6 th/mm3 (1.0-4.8); Lymph % (Auto) 9.6 % (9.0-44.0); Mean Corpuscular HGB Conc 33.4 % (32.0-36.0); Mean Corpuscular Hemoglobin 29.4 pg (27.0-34.0); Mean Corpuscular Volume 88.1 fL (80.0-100.0); Mean Platelet Volume 7.5 fL (7.0-11.0); Mono # (Auto) 0.5 th/mm3 (0.0-0.9); Mono % (Auto) 7.7 % (0.0-8.0); Neut # (Auto) 5.2 th/mm3 (1.8-7.7); Neut % (Auto) 81.2 % (16.0-70.0); Platelet Count 221 th/mm3 (150-450); Red Blood Count 2.78 mil/mm3 (4.50-5.90); Red Cell Distribution Width 15.6 % (11.6-17.2); White Blood Count 6.3 th/mm3 (4.0-11.0)
[2018-04-14 04:10] LABS: Calcium 7.4 mg/dL (8.5-10.1); Carbon Dioxide 23.9 meq/L (21.0-32.0); Potassium 3.7 meq/L (3.5-5.1)
[2018-04-14 04:25] LABS: Total Protein 5.9 g/dL (6.4-8.2)
[2018-04-14] MEDS ORDERED: Vancomycin Inj 1,250 MG in Sodium Chlor 0.9% Inj 250 ML IV.SIG SCH (06:00)
[2018-04-14] MEDS: Erythromycin Ethylsuccinate Susp 200 MG/5 ML 100 ML Bottle PO SCH ×3 (06:01→22:58)
--- NOTE | 2018-04-14 08:34 | P.PNCA ---
- Note Subjective/Hospital Course: 73-year-old gentleman with history of coronary artery bypass graft, hypertension, and hyperlipidemia, been experiencing chest pain for the past several days, pressure-like, moderate, relieved with nitroglycerin. cath report : multi vessel disease / EF 50% PAST MEDICAL HISTORY: CABG in 2007. He also has a history of permanent pacemaker, DDD lower rate 50 hypertension, polyp removed, CKD baseline creatinine 1.3 surgery 03/30 REDO CABG x 3 SVG to PDA - good SVG to RI - fair SVG to D1 - fair EVH extubated after surgery / 2 pleural tubes / one mediastinal tubes 03/31 painful , no toradol with CKD OOB pulm toileting pain med control transfer to stepdown 04/01 still painful, but some improvement CT x 3 / drained 130/12 hrs and additional 150cc this am bloody drainage/ no air leak pain control pulm toileting creatinine improved 1.23 04/02 c/o of constipation , mild nausea , abdomen distended , Hypoactive bowel sounds pt is passing flatus , narcotics dc , IV Ofirmev, po tylenol stat KUB pending / add reglan chest tube drained 320cc/ 12 hrs , dark old bloody drainage chest tube to suction / leave chest tubes in ambulate as much as possible 04/03 Nauseated and vomiting this morning, otherwise doing well Had BM and flatus Abdomen soft but distended to my exam. No tenderness or guarding KUB with nonspecific distended SB Ambulate NPO except ice-chips May need GI eval if not improved 04/04 Doing better. NGT inadvertently removed. No further N/V Greatly appreciate GI input Feels thirsty and hungry Abdomen soft and less distended OK to advance diet when ok with GI Ambulate 04/05 pt c/o of abdominal pain, worsening from yesterday , also nausea abdomen very distended , hypoactive bowel sounds NG tube replaced, labs and KUB ordered/ NPO except meds / ice chips GI following 04/06 pt with worsening distention/ nausea worsening BAM / nephrology consulted on IV fluids, leukocytosis with left shift General surgery consulted / high GI output/ NG placement verified also at bedside yellow/ kumari drainage / on intermittent suction continue IV fluids, IV fluid bolus given 04/07 still with distended abdomen faint tinkling bowel sounds noted NG to low intermittent suction Small series report noted / will re- notify General Surgery NPO creatinine with some improvement / replace with 500cc NS , continue IV fluids 04/[address] Sylvester will discuss with Dr Kurtz pt will need some form of nutrition soon can change to D51/2 ns with 40 KCL , may need to be eval for TPN vs PPN NG to low intermittent suction 04/09 appreciate GS input , start PPN/ PICC line re-eval KUB if no improvement by Thursday/ they will consider diagnostic lap/ lysis of adhesions on EES , start prophylaxis DVT prevention with Heparin SQ 04/10/18 depressed, frustrated, c/o "no energy" Denies flatus/BM Copious NG tube output 04/11 surgery: 1. Minor adhesions, appearance of a previous right colon resection. 2. Adhesions. 3. Valle ileus. PROCEDURE PERFORMED: Diagnostic laparoscopy, lysis of adhesions of the right lower quadrant, identifying what appears to be a small bowel colon anastomosis. A massively dilated small bowel, transverse colon, descending colon, and cecum. Normal liver, normal gallbladder. 04/12 NG to low intermittent suction, some abdominal pain + bowel sounds, no passing some flatus remains on EES, reglan , PPN left arm swollen and red , IV removed, warm compresses to arm US of left upper ext pending change sq heparin to lovenox daily continue PT / replace K+/ f/u labs in am 04/13 pt feeling better this am , discussed with GS NG tube removed, remained on clear liguids approximately 3pm, pt developed rigors , mildly elevated temps , no nausea had temp 101.6 last pm left arm US noted + occlusive thrombus left upper ext , Blood culture GNR on Zosyn, ID following , stat lactic acid pending , ABG showed metabolic acidosis pt has had long-term NG tube drainage / with suction pt transferred to CVICU/ CCM consulted 04/14 appreciate CCM, pt doing much better, up in chair, tolerating full liguid, no nausea + BM yesterday , lactic acid 1.3 repeat BC pending , volume resuscitated , possible trnasfer back to [facility] later today if ok with CCM on broad spectrum antibiotics Objective: Vital Signs - 24 hr 04/13/18 09:00 04/13/18 10:00 04/13/18 11:00 Temperature 98.9 F Pulse Rate 79 78 90 Respiratory Rate Blood Pressure 113/71 Pulse Oximetry 98 04/13/18 12:00 04/13/18 12:35 04/13/18 13:00 Temperature Pulse Rate 90 91 H Respiratory Rate Blood Pressure Pulse Oximetry 98 04/13/18 15:00 04/13/18 19:00 04/13/18 21:15 Temperature 101.5 F H 98.3 F Pulse Rate 122 H 88 Respiratory Rate 30 H 24 Blood Pressure 144/98 H 104/58 L Pulse Oximetry 87 L 96 98 04/13/18 23:00 04/14/18 03:00 04/14/18 07:00 Temperature 97.4 F L 97.5 F L 97.3 F L Pulse Rate 77 68 67 Respiratory Rate 24 24 18 Blood Pressure 114/73 107/72 116/74 Pulse Oximetry 97 99 100 04/14/18 07:51 Temperature Pulse Rate Respiratory Rate Blood Pressure Pulse Oximetry 99 GENERAL: A&O x 3 SKIN: Warm and dry. left arm remains swollen and red, sternal incision intact and well approximated HEAD: Normocephalic. EYES: No scleral icterus. No injection or drainage. NECK: Supple, trachea midline. No JVD or lymphadenopathy. CARDIOVASCULAR: Regular rate and rhythm without murmurs, gallops, or rubs. RESPIRATORY: Breath sounds equal bilaterally. No accessory muscle use. GASTROINTESTINAL: Abdomen distended soft, non-tender, + bowel sounds incision to abdomen intact and healing well MUSCULOSKELETAL: No cyanosis, or edema. BACK: Nontender without obvious deformity. No CVA tenderness. Labs: Laboratory Results - last 12 hr 04/11/18 04/13/18 04/13/18 09:18 17:17 19:45 WBC RBC Hgb Hct MCV MCH MCHC RDW Plt Count MPV Neut % (Auto) Lymph % (Auto) Petroleum % (Auto) Eos % (Auto) Baso % (Auto) Neut # (Auto) Lymph # (Auto) Petroleum # (Auto) Eos # (Auto) Baso # (Auto) WBC Differential Differential Comment Sodium Potassium Chloride Carbon Dioxide Anion Gap BUN Creatinine Estimated GFR POC Glucose Random Glucose Lactic Acid 1.3 Calcium Prot Corrected Calcium Total Protein Urine Color Aida Urine Clarity Hazy H Urine pH 5.0 Ur Specific Sledge 1.025 Urine Protein 100 H Urine Glucose (UA) Negative Urine Ketones Negative Urine Occult Blood Small H Urine Nitrate Negative Urine Bilirubin Negative Urine Urobilinogen 2.0 H Ur Leukocyte Esterase Negative Urine RBC 9 H Urine WBC 6 H MTS Gel Crossmatch See Detail 04/14/18 04/14/18 04/14/18 00:40 02:56 02:56 WBC 6.3 RBC 2.78 L Hgb 8.2 L Hct 24.5 L MCV 88.1 MCH 29.4 MCHC 33.4 RDW 15.6 Plt Count 221 D MPV 7.5 Neut % (Auto) 81.2 H Lymph % (Auto) 9.6 Petroleum % (Auto) 7.7 Eos % (Auto) 1.3 Baso % (Auto) 0.2 Neut # (Auto) 5.2 Lymph # (Auto) 0.6 L Petroleum # (Auto) 0.5 Eos # (Auto) 0.1 Baso # (Auto) 0.0 WBC Differential . Differential Comment Auto diff final Sodium 142 Potassium 3.7 Chloride 109 H Carbon Dioxide 23.9 Anion Gap 9 BUN 30 H Creatinine 1.37 H Estimated GFR 51 L POC Glucose 126 H Random Glucose 121 H Lactic Acid Calcium 7.4 L* Prot Corrected Calcium 8.1 L Total Protein 5.9 L Urine Color Urine Clarity Urine pH Ur Specific Sledge Urine Protein Urine Glucose (UA) Urine Ketones Urine Occult Blood Urine Nitrate Urine Bilirubin Urine Urobilinogen Ur Leukocyte Esterase Urine RBC Urine WBC MTS Gel Crossmatch 04/14/18 05:51 WBC RBC Hgb Hct MCV MCH MCHC RDW Plt Count MPV Neut % (Auto) Lymph % (Auto) Petroleum % (Auto) Eos % (Auto) Baso % (Auto) Neut # (Auto) Lymph # (Auto) Petroleum # (Auto) Eos # (Auto) Baso # (Auto) WBC Differential Differential Comment Sodium Potassium Chloride Carbon Dioxide Anion Gap BUN Creatinine Estimated GFR POC Glucose 100 Random Glucose Lactic Acid Calcium Prot Corrected Calcium Total Protein Urine Color Urine Clarity Urine pH Ur Specific Sledge Urine Protein Urine Glucose (UA) Urine Ketones Urine Occult Blood Urine Nitrate Urine Bilirubin Urine Urobilinogen Ur Leukocyte Esterase Urine RBC Urine WBC MTS Gel Crossmatch Result Diagrams: 04/14/18 02:56 04/14/18 02:56 Telemetry: NSR R BBB - Plan (1) S/P CABG x 3 Plan: ASA, statin , BB OOB hold plavix pulm [place]ieling on nasal cannula lovenox SQ ambulate (2) CAD (coronary artery disease) Plan: on ASA, BB statin OOB ambulate/ pulm toileting (6) Hx of CABG Plan: ASA, statin , BB OOB ambulate EES , ( possible dc ) advance diet as per GS (7) Abdominal distention Plan: NG tube in place / low intermittent suction EES/ reglan s/p EXP lap LE post op day 1 f (8) Acute kidney injury Plan: on PPN and lipids indices improving (9) Sepsis Plan: enterobacter species on vanc and zosyn lactic acid trending down , lipase trending down CCM following (2) CAD (coronary artery disease) Qualifiers: Coronary Disease-Associated Artery/Lesion type: [place] artery Associated angina: with unstable angina
--- NOTE | 2018-04-14 09:15 | P.PNCC ---
Subjective Subjective Remarks/Hospital Course: Hospital Course: This is a 73-year-old male who is status post CABG whose course has been complicated by acute kidney injury and postoperative ileus requiring TPN. Today he had sudden onset of fever, rigors, tachycardia, hypotension in the 90s systolic. He has blood cultures growing 1 out of 4 bottles of Enterobacter. He was emergently transferred to the intensive care unit for monitoring. On my evaluation, the patient was in distress with tachypnea and was very toxic appearing. His lactic acid greater than 5 and a severe metabolic acidosis with a base deficit of 8. I discussed case with Dr. Sylvester: Patient likely has acute septic shock secondary to translocation of gut bacteria. However, the patient has a PICC line in which has been greater than 7 days old and central line infection cannot be excluded at this time. Patient is is on IV Zosyn for empiric antibiotic therapy, and we both agreed to add IV vancomycin and repeat blood cultures. Patient denies chest pain, shortness of breath, nausea, vomiting, abdominal pain. He has been tolerating a clear liquid diet and has been having positive bowel movements. KUB is negative for free air under the diaphragm and chest x-ray is negative for acute lobar pneumonia. Subjective: 04/13: clinically much improved. denies complaints. feels better. Cr slightly elevated. uop adequate. BCx with 4/4 GNRs (likely enterobacter from prior cultures). wbc downtrended and afebrile. BM x 2 overnight. tolerating liquid breakfast. Objective Vital Signs / I&O: Vital Signs 04/13/18 10:00 04/13/18 11:00 04/13/18 12:00 Temperature 37.2 C Pulse Rate 78 90 90 Respiratory Rate Blood Pressure 113/71 Pulse Oximetry 98 04/13/18 12:35 04/13/18 13:00 04/13/18 15:00 Temperature 38.6 C H Pulse Rate 91 H 122 H Respiratory Rate 30 H Blood Pressure 144/98 H Pulse Oximetry 98 87 L 04/13/18 19:00 04/13/18 21:15 04/13/18 23:00 Temperature 36.8 C 36.3 C L Pulse Rate 88 77 Respiratory Rate 24 24 Blood Pressure 104/58 L 114/73 Pulse Oximetry 96 98 97 04/14/18 03:00 04/14/18 07:00 04/14/18 07:51 Temperature 36.4 C L 36.3 C L Pulse Rate 68 67 Respiratory Rate 24 18 Blood Pressure 107/72 116/74 Pulse Oximetry 99 100 99 Intake & Output 04/13/18 04/14/18 04/14/18 18:59 06:59 18:59 Intake Total 1780 / 1780 2677.1437 / 2677.1437 Output Total 150 / 150 1000 / 1000 Balance 1630 / 1630 1677.1437 / 1677.1437 Weight 107 kg Intake: IV 300 / 300 2437.1437 / 2437.1437 LR 1000 mL Inj 1,000 ML @ 100 1000 / 1000 mls/hr IV.CONT .Q10H [facility] Rx#: [id number] Ofirmev Inj 1,000 mg In 100 ml 100 / 100 @ 400 mls/hr IV.SIG NOW ONE Rx# :[id number] Magnesium Sulfate 1 gm/D5W 100 100 / 100 ml Premix 100 ML @ 100 mls/hr IV.SIG Q1H [facility] Rx#:[id number] Zosyn 4.5 GM Premix 4.5 gm In 100 / 100 200 / 200 100 ml @ 200 mls/hr IV.SIG Q6H [facility] Rx#:[id number] Sodium Chloride 23.4% Inj 11 1237.1437 / 1237.1437 MEQ Sodium Acetate Inj 59 MEQ KCl Inj 40 MEQ Magnesium Chloride Inj 10 MEQ Calcium Chloride Inj 9 MEQ MVI-12 Inj 10 ML Folvite Inj 1 MG In Clinimix 4.25%/D5W Inj 2,000 ML @ 83 mls/hr IV.SIG Q24H [facility] Rx #:[id number] Oral 480 / 480 240 / 240 Other 1000 / 1000 Output: Urine 150 / 150 1000 / 1000 Other: Other Intake Source Saline Solution Date of Last Bowel Movement 04/14/18 04/14/18 # Bowel Movements 3 Result Diagrams: 04/14/18 02:56 04/14/18 02:56 Objective Remarks: GENERAL: Elderly male, sitting in a chair, no acute distress, pleasant, smiling. HEENT: Normocephalic. Atraumatic. Pupils equal, round, reactive, conjugate. Mucous membranes are moist NECK: Trachea is midline. There is no JVD. CHEST: unlabored. equal chest rise. nc o2. CARDIOVASCULAR: normal rate of 78, regular rhythm. Sinus by telemetry. ABDOMEN: Soft, nontender, mildly distended. No guarding. MUSCULOSKELETAL: Pulses 2+. Trace peripheral edema. Extremities are warm and adequately perfused. NEUROLOGICAL: RASS 0. Moves all extremities. No focal deficits. Assessment and Plan - Assessment and Plan Plan: Assessment: 73-year-old male with new acute septic shock secondary to GNR bacteremia. clinically improving. continue abx. decrease ivf. watch uop closely and follow renal indices. from my standpoint, cleared to transfer out of ICU. Active problems: Septic shock- resolved Gram-negative patrick bacteremia Acute intravascular volume depletion- resolving Lactic acidosis- resolving Severe anion gap metabolic acidosis- resolved Acute kidney injury Plan: decrease mivf continue vancomycin and zosyn. would continue vancomycin until cultures without GPCs x 48h. f/u culture data follow BMP close uop monitoring. diet per surgeons Critical care medicine will continue to follow along with you as long as the patient remains in the CVICU. can transfer out of ICU from my standpoint. Discussed Condition With: Dr. Sylvester and Susanna Melgar
[2018-04-14] MEDS: Multivitamin/Minerals Therapeutic Tablet PO SCH (09:21)
[2018-04-14] MEDS: Polyethylene Glycol 3350 17 GM Packet PO SCH (09:22)
[2018-04-14] MEDS: Enoxaparin Inj 40 MG/0.4 ML Syringe SQ SCH ×2 (09:22→20:36)
[2018-04-14] MEDS: Heparin Central Flush 100 UNIT/ML 5 ML Vial IV.FLUSH SCH (09:22)
--- NOTE | 2018-04-14 10:42 | P.PNID ---
Subjective Remarks: Patient is a 73-year-old male, with known history of coronary artery disease, has had previous CABG, presented to the hospital complaining of chest pain. There was associated mild shortness of breath, but no mention of any diaphoresis. He did not have any nausea or vomiting or any fever or chills. He presented to the emergency room, and he was found to have a non-ST elevation myocardial infarction. Cardiology saw the patient and cardiac catheterization revealed severe three-vessel coronary artery disease. Patient underwent redo CABG 3 on March 30. He was doing well from the cardiac standpoint, however starting around April 03 he started experiencing abdominal pain, distention, and nausea and vomiting. Further evaluation revealed on CT evidence suggestive of possible small bowel obstruction. Surgery saw the patient. He was being managed initially conservatively, and he had an NG tube in place, and this was put to suction. He was put on n.p.o. He has had significant output from his NG tube. He subsequently went to surgery on April 11 and underwent diagnostic laparoscopy, with lysis of adhesions. Patient's chest x-ray also has shown some pulmonary edema. He has some mild coughing with very minimal sputum production. He denies any chest pain or any shortness of breath. Patient also is voiding without any complaints. Starting yesterday he had some fevers. 2 blood cultures done yesterday, 1 out of the 2 is now reported as growing gram- negative patrick. Patient also was noted to have swelling and redness in his left upper extremity at the area where he had a previous IV site. Ultrasound did not show any evidence of DVT but it did show a superficial thrombus. At the time of exam, patient feels markedly improved. NG tube was removed, and he has been tolerating his diet. He has not had any nausea or vomiting. He has very mild abdominal pain. He has had flatus, as well as bowel movement. He has had 2 bowel movement today. His WBC is normal. Urinalysis has mild pyuria. Urine culture is pending. His last chest x-ray showing some improvement in his pulmonary patient is not short of breath, and currently has good saturation on room air. Infectious disease consultation has been requested to evaluate the patient with fevers. Notes reviewed Transferred to CVICU due to hypotension Had severe rigors last night Temps better BP ok, not on pressors Feels better All BC 04/12 and 04/13 with GNR, on ID as Enterobacter Also now on Vancomycin IV No abdominal pain No N/V Antibiotics: Zosyn vancomycin Past Medical History: Chronic kidney disease Constipation Dyslipidemia Hypertension Pacemaker H/O exploratory laparotomy Hx of CABG Allergies/Adverse Reactions: Allergies No Known Allergies Allergy (Unverified 03/26/18 11:04) Objective Vital Signs 04/13/18 11:00 04/13/18 12:00 04/13/18 12:35 Temperature 98.9 F Pulse Rate 90 90 Respiratory Rate Blood Pressure 113/71 Pulse Oximetry 98 98 04/13/18 13:00 04/13/18 15:00 04/13/18 19:00 Temperature 101.5 F H 98.3 F Pulse Rate 91 H 122 H 88 Respiratory Rate 30 H 24 Blood Pressure 144/98 H 104/58 L Pulse Oximetry 87 L 96 04/13/18 21:15 04/13/18 23:00 04/14/18 03:00 Temperature 97.4 F L 97.5 F L Pulse Rate 77 68 Respiratory Rate 24 24 Blood Pressure 114/73 107/72 Pulse Oximetry 98 97 99 04/14/18 07:00 04/14/18 07:51 Temperature 97.3 F L Pulse Rate 67 Respiratory Rate 18 Blood Pressure 116/74 Pulse Oximetry 100 99 Intake & Output 04/13/18 04/14/18 04/14/18 18:59 06:59 18:59 Intake Total 1780 / 1780 2677.1437 / 2677.1437 Output Total 150 / 150 1000 / 1000 Balance 1630 / 1630 1677.1437 / 1677.1437 Weight 107 kg Intake: IV 300 / 300 2437.1437 / 2437.1437 LR 1000 mL Inj 1,000 ML @ 100 1000 / 1000 mls/hr IV.CONT .Q10H [facility] Rx#: [id number] Ofirmev Inj 1,000 mg In 100 ml 100 / 100 @ 400 mls/hr IV.SIG NOW ONE Rx# :[id number] Magnesium Sulfate 1 gm/D5W 100 100 / 100 ml Premix 100 ML @ 100 mls/hr IV.SIG Q1H [facility] Rx#:[id number] Zosyn 4.5 GM Premix 4.5 gm In 100 / 100 200 / 200 100 ml @ 200 mls/hr IV.SIG Q6H [facility] Rx#:[id number] Sodium Chloride 23.4% Inj 11 1237.1437 / 1237.1437 MEQ Sodium Acetate Inj 59 MEQ KCl Inj 40 MEQ Magnesium Chloride Inj 10 MEQ Calcium Chloride Inj 9 MEQ MVI-12 Inj 10 ML Folvite Inj 1 MG In Clinimix 4.25%/D5W Inj 2,000 ML @ 83 mls/hr IV.SIG Q24H [facility] Rx #:[id number] Oral 480 / 480 240 / 240 Other 1000 / 1000 Output: Urine 150 / 150 1000 / 1000 Other: Other Intake Source Saline Solution Date of Last Bowel Movement 04/14/18 04/14/18 # Bowel Movements 3 04/12/18 15:04 Blood - Peripheral Aerobic Blood Culture - Preliminary No growth in 1 day 04/12/18 15:04 Blood - Peripheral Anaerobic Blood Culture - Preliminary Enterobacter species 04/12/18 10:30 Catheterized Urine Urine Culture - Final No growth in 48 hours 04/13/18 15:20 Blood - Peripheral Aerobic Blood Culture - Preliminary gram negative rods 04/13/18 15:20 Blood - Peripheral Anaerobic Blood Culture - Preliminary gram negative rods 04/13/18 15:19 Blood - Peripheral Aerobic Blood Culture - Preliminary gram negative rods 04/13/18 15:19 Blood - Peripheral Anaerobic Blood Culture - Preliminary gram negative rods 04/12/18 14:53 Blood - Peripheral Aerobic Blood Culture - Preliminary No growth in 1 day 04/12/18 14:53 Blood - Peripheral Anaerobic Blood Culture - Preliminary No growth in 1 day Lab - Hematology Results 04/13/18 04/14/18 09:14 02:56 WBC 8.3 6.3 RBC 2.86 L 2.78 L Hgb 8.4 L 8.2 L Hct 25.1 L 24.5 L MCV 87.6 88.1 MCH 29.5 29.4 MCHC 33.7 33.4 RDW 15.5 15.6 Plt Count 321 221 D MPV 7.4 7.5 Neut % (Auto) 81.2 H Lymph % (Auto) 9.6 [place] % (Auto) 7.7 Eos % (Auto) 1.3 Baso % (Auto) 0.2 Neut # (Auto) 5.2 Lymph # (Auto) 0.6 L [place] # (Auto) 0.5 Eos # (Auto) 0.1 Baso # (Auto) 0.0 WBC Differential . Differential Comment Auto diff final Lab - Chemistry Results 04/12/18 04/12/18 04/12/18 13:16 18:34 21:18 Sodium Potassium Chloride Carbon Dioxide Anion Gap BUN Creatinine Estimated GFR POC Glucose 159 H 194 H 136 H Random Glucose Lactic Acid Calcium Prot Corrected Calcium Total Protein Lipase 04/13/18 04/13/18 04/13/18 06:23 09:14 11:58 Sodium 137 Potassium 3.7 Chloride 104 Carbon Dioxide 20.8 L Anion Gap 12 BUN 30 H Creatinine 1.20 Estimated GFR 60 L POC Glucose 127 H 155 H Random Glucose 164 H Lactic Acid Calcium 8.1 L D Prot Corrected Calcium Total Protein Lipase 04/13/18 04/13/18 04/13/18 14:36 15:17 15:17 Sodium Potassium Chloride Carbon Dioxide Anion Gap BUN Creatinine Estimated GFR POC Glucose 144 H Random Glucose Lactic Acid 5.4 H* Calcium Prot Corrected Calcium Total Protein Lipase 879 H 04/13/18 04/13/18 04/14/18 19:04 19:45 00:40 Sodium Potassium Chloride Carbon Dioxide Anion Gap BUN Creatinine Estimated GFR POC Glucose 140 H 126 H Random Glucose Lactic Acid 1.3 Calcium Prot Corrected Calcium Total Protein Lipase 04/14/18 04/14/18 02:56 05:51 Sodium 142 Potassium 3.7 Chloride 109 H Carbon Dioxide 23.9 Anion Gap 9 BUN 30 H Creatinine 1.37 H Estimated GFR 51 L POC Glucose 100 Random Glucose 121 H Lactic Acid Calcium 7.4 L* Prot Corrected Calcium 8.1 L Total Protein 5.9 L Lipase Imaging: ITS Impressions Abdomen/Pelvis CT 04/06/18 00:00 CONCLUSION: 1. Findings most consistent with distal small bowel obstruction. Significantly distended stomach and diffuse small bowel distention with relative transition point in the distal ileum in the right lower quadrant. No bowel infarction or perforation at this time. 2. NG tube is in the right mainstem bronchus. 3. Bilateral lower lobe lobe airspace consolidation. 4. Additional ancillary findings, as above. Findings were personally discussed with the patient's nurse, Lennie, at the time of this dictation. Upper GI and Small Bowel X-Ray 04/06/18 08:58 .. CONCLUSION: Mid to distal small bowel obstruction as above. Abdomen X-Ray 04/12/18 00:00 CONCLUSION: 1. Mild distention of the some of the mid small bowel segments but no features are present to suggest obstruction. The oral contrast material is located within the colon. 2. Patchy airspace opacity at both lung bases representing atelectasis and/or airspace consolidation. Venous Doppler Study 04/12/18 00:00 CONCLUSION: 1. Negative for deep venous thrombosis. Occlusive and nonocclusive superficial thrombus in the area of the antecubital fossa extending to the wrist within the cephalic vein. Chest X-Ray 04/13/18 14:38 CONCLUSION: Moderate CHF and worse since the prior exam. Physical Exam: GENERAL: Patient is a very pleasant, well-nourished, well-developed male, awake and alert, not in respiratory distress. He does not look toxic appearing SKIN: Warm and dry. No generalized rash, no ecchymoses and no evidence of embolic lesions. HEAD: Atraumatic. Normocephalic. No temporal wasting, or tenderness. EYES: [place] conjunctiva. No petechia or hemorrhage. Pupils equal, round and reactive to light. Extraocular movements full and intact. No scleral icterus. No injection or drainage. EARS, NOSE AND THROAT: Nose without bleeding or purulent nasal discharge. No sinus tenderness. Mucous membranes pink and moist. No oral lesions noted. No exudate. No oral thrush. NECK: Trachea midline. Supple and not tender, no meningeal signs CARDIOVASCULAR: Regular rate and rhythm. No murmurs, rubs or gallops heard. Sternotomy incision with no evidence of infection. Previous CT sites all look ok, with no evidence of infection. Pacer looks ok RESPIRATORY: Clear to auscultation. Breath sounds equal bilaterally. No rales , wheezing or rhonchi. Decreased breath sounds at bases. ABDOMEN: Protuberant, mildly distended, stab wounds with surrounding ecchynoses, dry, no evidence of infection, not tender, no guarding, no rebound. Bowel sounds present and normoactive. No organomegaly. EXTREMITIES: No clubbing, cyanosis. Mild pedal edema. Incisions LLE dry, with ecchymoses at LLE, no evidence of infection. No joint effusion, has good ROM. No calf tenderness. Well perfused and warm. LLE - has an area of mild erythema with tender palpable cord, no fluctuance no pustule seen at venipuncture sites. NEUROLOGICAL: Awake and alert. Cranial nerves grossly intact. Motor grossly within normal limits. PSYCHIATRIC: Normal affect, calm and cooperative. LINE: No evidence of infection Assessment and Plan - Plan Impression GNR sepsis, source, ?septic thrombophlebitis - has pacer, site ok - recent lap, and doing well - has mild pyuria, previously had friedman - ?from his severe ileus, partial SBO - no significant PNA symptoms Fever Shock, due to sepsis, BP better S/P redo CABG S/P NSTEMI Recommendation Repeat BC Limites echo Change Zosyn to Merem Also on Vancomycin Follow temps Monitor progress Discussed plan with patient and son.
[2018-04-14] MEDS: Meropenem Inj 2,000 MG in Sodium Chlor 0.9% Inj 100 ML IV.SIG SCH ×2 (12:15→20:36)
--- NOTE | 2018-04-14 13:29 | P.PNGS ---
<EdwinJonna - Last Filed: 04/14/18 13:20> Subjective Interval history: Up to chair; had rough evening --- now with positive blood cultures Feeling better today; up to the chair Physical Exam Vital signs: Vital Signs 04/13/18 15:00 04/13/18 19:00 04/13/18 21:15 Temperature 101.5 F H 98.3 F Pulse Rate 122 H 88 Respiratory Rate 30 H 24 Blood Pressure 144/98 H 104/58 L Pulse Oximetry 87 L 96 98 04/13/18 23:00 04/14/18 03:00 04/14/18 07:00 Temperature 97.4 F L 97.5 F L 97.3 F L Pulse Rate 77 68 67 Respiratory Rate 24 24 18 Blood Pressure 114/73 107/72 116/74 Pulse Oximetry 97 99 100 04/14/18 07:51 04/14/18 10:57 Temperature 97.8 F Pulse Rate 75 Respiratory Rate 20 Blood Pressure 133/77 Pulse Oximetry 99 94 L Intake & Output 04/13/18 04/14/18 04/14/18 18:59 06:59 18:59 Intake Total 1780 / 1780 2677.1437 / 2677.1437 Output Total 150 / 150 1000 / 1000 Balance 1630 / 1630 1677.1437 / 1677.1437 Weight 107 kg Intake: IV 300 / 300 2437.1437 / 2437.1437 LR 1000 mL Inj 1,000 ML @ 100 1000 / 1000 mls/hr IV.CONT .Q10H [facility] Rx#: [id number] Ofirmev Inj 1,000 mg In 100 ml 100 / 100 @ 400 mls/hr IV.SIG NOW ONE Rx# :[id number] Magnesium Sulfate 1 gm/D5W 100 100 / 100 ml Premix 100 ML @ 100 mls/hr IV.SIG Q1H [facility] Rx#:[id number] Zosyn 4.5 GM Premix 4.5 gm In 100 / 100 200 / 200 100 ml @ 200 mls/hr IV.SIG Q6H [facility] Rx#:[id number] Sodium Chloride 23.4% Inj 11 1237.1437 / 1237.1437 MEQ Sodium Acetate Inj 59 MEQ KCl Inj 40 MEQ Magnesium Chloride Inj 10 MEQ Calcium Chloride Inj 9 MEQ MVI-12 Inj 10 ML Folvite Inj 1 MG In Clinimix 4.25%/D5W Inj 2,000 ML @ 83 mls/hr IV.SIG Q24H [facility] Rx #:[id number] Oral 480 / 480 240 / 240 Other 1000 / 1000 Output: Urine 150 / 150 1000 / 1000 Other: Other Intake Source Saline Solution Date of Last Bowel Movement 04/14/18 04/14/18 # Bowel Movements 3 Narrative: Alert and awake Cardio: RRR Resp: CTAB Abd: lap incision sites c/d/i with Steri Strips in place - Urinary Catheter Management Indwelling Temp Sensing Catheter Cath placed during this visit: yes, but has since been removed by the nurse Reason for continuing: Not indwelling catheter Insertion date: 03/30/18 Insertion time: 07:40 Removal date: 03/31/18 Removal time: 05:15 Indwelling Urethral Catheter Cath placed during this visit: yes, but has since been removed by the nurse Reason for continuing: Not indwelling catheter Insertion date: 04/11/18 Removal date: 04/12/18 Removal time: 10:30 Assessment and Plan - Assessment (1) Ileus, postoperative Code(s): K91.89 - Other postprocedural complications and disorders of digestive system; K56.7 - Ileus, unspecified Status: Acute - Plan 73 year old male with recent CABG on March 30, post operative abdominal pain; distention -POD3 dx lap; LE -Now with +BC; PICC line removed; TPN off; CCM following -Continue full liquids -Continue EES -Okay for full dose anticoagulation from GS standpoint -OOB and mobilize as tolerated <Edison Eric - Last Filed: 04/15/18 07:24> Subjective Patient reports: feels better, tolerating liquids well ( DAILY PROGRESS NOTE FOR SURGICAL ATTENDING, DR. EDISON ERIC ) Physical Exam Vital signs: Vital Signs 04/14/18 07:51 04/14/18 10:57 04/14/18 15:00 Temperature 97.8 F 98.0 F Pulse Rate 75 70 Respiratory Rate 20 20 Blood Pressure 133/77 118/60 Pulse Oximetry 99 94 L 96 04/14/18 16:00 04/14/18 17:17 04/14/18 18:00 Temperature Pulse Rate 98 H 84 84 Respiratory Rate Blood Pressure Pulse Oximetry 04/14/18 19:00 04/14/18 20:00 04/14/18 21:00 Temperature 98.7 F Pulse Rate 84 84 84 Respiratory Rate 18 Blood Pressure 115/64 Pulse Oximetry 97 04/14/18 22:00 04/14/18 23:00 04/15/18 00:00 Temperature 98 F Pulse Rate 86 84 85 Respiratory Rate 18 Blood Pressure 129/70 Pulse Oximetry 98 04/15/18 00:59 04/15/18 02:00 04/15/18 03:00 Temperature 97.8 F Pulse Rate 80 76 80 Respiratory Rate 18 Blood Pressure 133/65 Pulse Oximetry 98 04/15/18 04:00 04/15/18 05:00 04/15/18 05:58 Temperature Pulse Rate 76 72 79 Respiratory Rate Blood Pressure Pulse Oximetry Intake & Output 04/14/18 04/15/18 04/15/18 18:59 06:59 18:59 Intake Total 780 / 780 580 / 580 Output Total 1200 / 1200 480 / 480 Balance -420 / -420 100 / 100 Weight 108 kg Intake: IV 100 / 100 100 / 100 Merrem Inj 2,000 MG In NS Inj 100 / 100 100 / 100 100 ML @ 200 mls/hr IV.SIG Q8H [facility] Rx#:[id number] Oral 680 / 680 480 / 480 Output: Urine 1200 / 1200 480 / 480 Other: # Voids 4 Date of Last Bowel Movement 04/14/18 # Bowel Movements 0 - Constitutional no acute distress - Routine Abdominal Exam Present: surgical scars, wound - Routine Neurological Exam Present: alert, oriented X3 - Routine Psychiatric Exam Present: normal affect - Urinary Catheter Management Indwelling Temp Sensing Catheter Cath placed during this visit: no Indwelling Urethral Catheter Cath placed during this visit: no Assessment and Plan - Assessment (1) Gram negative septicemia Code(s): A41.50 - Gram-negative sepsis, unspecified Status: Acute (2) Ileus, postoperative Code(s): K91.89 - Other postprocedural complications and disorders of digestive system; K56.7 - Ileus, unspecified Status: Resolved - Plan NOTE FOR SURGICAL ATTENDING, DR. EDISON ERIC I agree with above assessment and plan. The exam, history, and the medical decision-making described in the above note were completed with the assistance of the mid-level provider. I reviewed and agree with the findings presented. I attest that I had a [id number] encounter with the patient on the same day, and personally performed and documented my assessment and findings in the medical record. The following services were provided during this hospital visit: Chart data review, vital sign assessments/reviewing monitor data Review of consultations notes if present. Medication orders/review and/or management Ordering and/or reviewing lab tests Ordering and/or interpreting/reviewing x-rays and/or diagnostic studies Care of the patient and discussion of the patient with the care team Documentation time To help prompt me to consider important information that might be impacting today's encounter and assessment, Information from prior notes written by myself or my colleagues may have been "brought forward/copy and pasted" into today's note.
--- NOTE | 2018-04-14 16:24 | ECHRPT ---
Indication: POSS SEPSIS, ENDOCARDITIS CONCLUSIONS The left ventricular systolic function is moderately reduced with an estimated ejection fraction in the range of 40-45%. Moderate concentric left ventricular hypertrophy. There is abnormal (paradoxical) septal motion consistent with postoperative state. Trace mitral valve regurgitation. There is mild tricuspid valve regurgitation. There is estimated moderate pulmonary hypertension present (range 50-60 mmHg). BP: / HR: Rhythm: Sinus MEASUREMENTS (Male / Female) Normal Values Technical Quality:Fair 2D ECHO LV Diastolic Diameter PLAX 4.8 cm 4.2 - 5.9 / 3.9 - 5.3 cm LV Systolic Diameter PLAX 4.6 cm IVS Diastolic Thickness 1.4 cm 0.6 - 1.0 / 0.6 - 0.9 cm LVPW Diastolic Thickness 1.3 cm 0.6 - 1.0 / 0.6 - 0.9 cm LV Relative Wall Thickness 0.6 RV Internal Dim ED PLAX 3.3 cm LVOT Diameter 2.3 cm Aortic Root Diameter 3.7 cm LA Systolic Diameter LX 5.1 cm 3.0 - 4.0 / 2.7 - 3.8 cm M-MODE AV Cusp Separation MM 2.1 cm DOPPLER AV Peak Velocity 134.0 cm/s AV Peak Gradient 7.2 mmHg AV Mean Gradient 4.0 mmHg AV Velocity Time Integral 23.1 cm LVOT Peak Velocity 96.1 cm/s LVOT Peak Gradient 3.7 mmHg LVOT Velocity Time Integral 20.1 cm AV Area Cont Eq vti 3.6 cm AV Area Cont Eq pk 3.0 cm Mitral E Point Velocity 87.9 cm/s Mitral A Point Velocity 56.8 cm/s Mitral E to A Ratio 1.5 LV E' Lateral Velocity 8.4 cm/s Mitral E to LV E' Lateral Ratio 10.5 LV E' Septal Velocity 5.9 cm/s Mitral E to LV E' Septal Ratio 15.0 TR Peak Velocity 327.0 cm/s TR Peak Gradient 42.8 mmHg Right Atrial Pressure 10.0 mmHg Pulmonary Artery Systolic Pressu 52.8 mmHg Right Ventricular Systolic Press 52.8 mmHg PV Peak Velocity 69.2 cm/s PV Peak Gradient 1.9 mmHg FINDINGS LEFT VENTRICLE Normal left ventricular size. Moderate concentric left ventricular hypertrophy. The left ventricular systolic function is moderately reduced with an estimated ejection fraction in the range of 40-45%. There is abnormal (paradoxical) septal motion consistent with postoperative state. RIGHT VENTRICLE Normal right ventricular size LEFT ATRIUM The left atrial size is moderately dilated. RIGHT ATRIUM The right atrial size is moderately dilated. ATRIAL SEPTUM Normal atrial septal thickness. AORTA The aortic root and proximal ascending aorta are not well visualized. MITRAL VALVE Grossly normal mitral valve Trace mitral valve regurgitation. Mild mitral annular calcification. AORTIC VALVE No aortic valve stenosis or regurgitation. The aortic valve is not well visualized. TRICUSPID VALVE There is mild tricuspid valve regurgitation. No tricuspid valve stenosis. There is estimated moderate pulmonary hypertension present (range 50-60 mmHg). PULMONARY VALVE No pulmonary valve regurgitation or stenosis. VESSELS The inferior vena cava is normal in size. PERICARDIUM No pericardial effusion. Patricio Vazquez DO (Electronically Signed) Final Date:14 April 2018 16:23
[2018-04-14] MEDS ORDERED: Vancomycin Inj 2,000 MG in Sodium Chlor 0.9% Inj 500 ML IV.SIG SCH (18:00)
[2018-04-14] MEDS ORDERED: Menthol 5.8 MG Lozenge BUCCAL PRN (22:14)
[2018-04-14] MEDS: Temazepam 15 MG Capsule PO PRN (22:38)
[2018-04-15] MEDS: Insulin NovoLOG Aspart Correctional Sugar Inj SQ SCH ×5 (00:26→20:37)
[2018-04-15] MEDS: Meropenem Inj 2,000 MG in Sodium Chlor 0.9% Inj 100 ML IV.SIG SCH ×3 (04:40→21:14)
[2018-04-15 05:23] LABS: Hemoglobin 8.6 gm/dL (13.0-17.0); Mean Corpuscular HGB Conc 33.1 % (32.0-36.0); Mean Corpuscular Volume 87.7 fL (80.0-100.0); Platelet Count 250 th/mm3 (150-450); Red Blood Count 2.97 mil/mm3 (4.50-5.90); Red Cell Distribution Width 15.2 % (11.6-17.2); White Blood Count 6.2 th/mm3 (4.0-11.0)
[2018-04-15 05:35] LABS: Calcium 8.2 mg/dL (8.5-10.1); Carbon Dioxide 26.7 meq/L (21.0-32.0); Potassium 3.6 meq/L (3.5-5.1)
[2018-04-15] MEDS: Erythromycin Ethylsuccinate Susp 200 MG/5 ML 100 ML Bottle PO SCH (06:14)
--- NOTE | 2018-04-15 08:24 | P.DIET ---
Nutritional Evaluation Type of nutrition evaluation: follow-up Nutrition consult regarding: TPN/PPN [place] [facility] [place] [facility] [place] Objective - Diagnosis Nstemi - Objective % IBW: 129 (DQR=979) Body Weight Used for Calculations: IBW (81kg) Energy Needs - Lower Range (kCal/kg): 25 Energy Needs - Upper Range (kCal/kg): 30 Lower Limit kCal/kg (kCals): 2,025 Upper Limit kCal/kg (kCals): 2,430 Lower Limit Protein Factor (Grams per Kg): 1.0 Upper Limit Protein Factor (Grams per Kg): 1.4 Lower Protein Needs (Protein): 81 Upper Protein Needs (Protein): 113 Dietitian Reviewed in Medical Record: Current diet, Curent medications, Intake & Output, Labs, Medical history, TPN/PPN Diet Order: Clear Liquid Objective Comments: 03/30/18 Redo CABG x 3 Meds include: Theragran M Assessment Assessment: Pt with Ileus s/p CABG, now resolved. PPN discontinued, pt is tolerating liquid diet. Will monitor for adequate po intake. Recommendations: Monitor advancement of diet, po intake Dietitian to Monitor: Lab values, Intake & Output, Diet tolerance, Weight change , Diet advancement, Medical course
[2018-04-15] MEDS: Multivitamin/Minerals Therapeutic Tablet PO SCH (09:17)
[2018-04-15] MEDS: Enoxaparin Inj 40 MG/0.4 ML Syringe SQ SCH (09:18)
[2018-04-15] MEDS: Heparin Central Flush 100 UNIT/ML 5 ML Vial IV.FLUSH SCH (09:19)
[2018-04-15] MEDS: Polyethylene Glycol 3350 17 GM Packet PO SCH (09:19)
[2018-04-15] MEDS: Dextrose 10% in Water Inj 1,000 ML IV.SIG SCH (09:20)
--- NOTE | 2018-04-15 11:29 | P.PNGS ---
<EdwinJonna - Last Filed: 04/15/18 11:27> Subjective Interval history: Up to chair; feels winded when walking and son at bedside Eager to have regular lunch Physical Exam Vital signs: Vital Signs 04/14/18 15:00 04/14/18 16:00 04/14/18 17:17 Temperature 98.0 F Pulse Rate 70 98 H 84 Respiratory Rate 20 Blood Pressure 118/60 Pulse Oximetry 96 04/14/18 18:00 04/14/18 19:00 04/14/18 20:00 Temperature 98.7 F Pulse Rate 84 84 84 Respiratory Rate 18 Blood Pressure 115/64 Pulse Oximetry 97 04/14/18 21:00 04/14/18 22:00 04/14/18 23:00 Temperature 98 F Pulse Rate 84 86 84 Respiratory Rate 18 Blood Pressure 129/70 Pulse Oximetry 98 04/15/18 00:00 04/15/18 00:59 04/15/18 02:00 Temperature Pulse Rate 85 80 76 Respiratory Rate Blood Pressure Pulse Oximetry 04/15/18 03:00 04/15/18 04:00 04/15/18 05:00 Temperature 97.8 F Pulse Rate 80 76 72 Respiratory Rate 18 Blood Pressure 133/65 Pulse Oximetry 98 04/15/18 05:58 04/15/18 07:00 04/15/18 08:00 Temperature 97.7 F Pulse Rate 79 81 80 Respiratory Rate 18 Blood Pressure 125/75 Pulse Oximetry 97 04/15/18 09:00 04/15/18 10:00 Temperature Pulse Rate 87 84 Respiratory Rate Blood Pressure Pulse Oximetry Intake & Output 04/14/18 04/15/18 04/15/18 18:59 06:59 18:59 Intake Total 1780 / 1780 580 / 580 Output Total 1200 / 1200 480 / 480 Balance 580 / 580 100 / 100 Weight 108 kg Intake: IV 1100 / 1100 100 / 100 LR 1000 mL Inj 1,000 ML @ 50 1000 / 1000 mls/hr IV.CONT .Q20H IMKE Rx#: [id number] Merrem Inj 2,000 MG In NS Inj 100 / 100 100 / 100 100 ML @ 200 mls/hr IV.SIG Q8H MIKE Rx#:[id number] Oral 680 / 680 480 / 480 Output: Urine 1200 / 1200 480 / 480 Other: # Voids 4 Date of Last Bowel Movement 04/14/18 04/14/18 # Bowel Movements 0 Narrative: Alert and awake Cardio: RRR Resp: CTAB Abd: lap incision sites c/d/i with Steri Strips in place; minimal tenderness - Urinary Catheter Management Indwelling Temp Sensing Catheter Cath placed during this visit: yes, but has since been removed by the nurse Reason for continuing: Not indwelling catheter Insertion date: 03/30/18 Insertion time: 07:40 Removal date: 03/31/18 Removal time: 05:15 Indwelling Urethral Catheter Cath placed during this visit: yes, but has since been removed by the nurse Reason for continuing: Not indwelling catheter Insertion date: 04/11/18 Removal date: 04/12/18 Removal time: 10:30 Assessment and Plan - Assessment (1) Gram negative septicemia Code(s): A41.50 - Gram-negative sepsis, unspecified Status: Acute (2) Ileus, postoperative Code(s): K91.89 - Other postprocedural complications and disorders of digestive system; K56.7 - Ileus, unspecified Status: Resolved - Plan 73 year old male with recent CABG on March 30, post operative abdominal pain; distention -POD4 dx lap; LE -Recheck blood cultures pending -Advance to regular diet -DC EES -Okay for full dose anticoagulation from GS standpoint -OOB and mobilize as tolerated -May need short term rehab due to deconditioning after two operations <Edison Eric - Last Filed: 04/15/18 19:11> Subjective Patient reports: no new complaints, feels better, flatus, bowel movement Interval history: DAILY PROGRESS NOTE FOR SURGICAL ATTENDING, DR. EDISON ERIC I feel great Physical Exam Vital signs: Vital Signs 04/14/18 20:00 04/14/18 21:00 04/14/18 22:00 Temperature Pulse Rate 84 84 86 Respiratory Rate Blood Pressure Pulse Oximetry 04/14/18 23:00 04/15/18 00:00 04/15/18 00:59 Temperature 98 F Pulse Rate 84 85 80 Respiratory Rate 18 Blood Pressure 129/70 Pulse Oximetry 98 04/15/18 02:00 04/15/18 03:00 04/15/18 04:00 Temperature 97.8 F Pulse Rate 76 80 76 Respiratory Rate 18 Blood Pressure 133/65 Pulse Oximetry 98 04/15/18 05:00 04/15/18 05:58 04/15/18 07:00 Temperature 97.7 F Pulse Rate 72 79 81 Respiratory Rate 18 Blood Pressure 125/75 Pulse Oximetry 97 04/15/18 08:00 04/15/18 09:00 04/15/18 10:00 Temperature Pulse Rate 80 87 84 Respiratory Rate Blood Pressure Pulse Oximetry 04/15/18 11:00 04/15/18 12:36 04/15/18 12:37 Temperature 97.8 F Pulse Rate 79 76 80 Respiratory Rate 18 Blood Pressure 121/77 Pulse Oximetry 98 04/15/18 15:00 04/15/18 16:00 04/15/18 17:00 Temperature 97.7 F Pulse Rate 83 84 85 Respiratory Rate 18 Blood Pressure 104/69 Pulse Oximetry 98 04/15/18 17:30 Temperature Pulse Rate 82 Respiratory Rate Blood Pressure Pulse Oximetry Intake & Output 04/15/18 04/15/18 04/16/18 06:59 18:59 06:59 Intake Total 580 / 580 700 / 700 Output Total 480 / 480 3 / 3 Balance 100 / 100 697 / 697 Weight 108 kg Intake: IV 100 / 100 100 / 100 D10W Inj 1,000 ML @ 30 mls/hr 0 / 0 IV.SIG .Q24H MIKE Rx#:[id number] Merrem Inj 2,000 MG In NS Inj 100 / 100 100 / 100 100 ML @ 200 mls/hr IV.SIG Q8H MIKE Rx#:[id number] Oral 480 / 480 600 / 600 Output: Urine 480 / 480 Stool 3 / 3 Other: # Voids 4 4 Date of Last Bowel Movement 04/15/18 - Constitutional no acute distress - Routine Abdominal Exam Present: surgical scars - Urinary Catheter Management Indwelling Temp Sensing Catheter Cath placed during this visit: no Indwelling Urethral Catheter Cath placed during this visit: no Assessment and Plan - Assessment (1) Gram negative septicemia Code(s): A41.50 - Gram-negative sepsis, unspecified Status: Acute (2) Ileus, postoperative Code(s): K91.89 - Other postprocedural complications and disorders of digestive system; K56.7 - Ileus, unspecified Status: Resolved - Attending Attestation NOTE FOR SURGICAL ATTENDING, DR. EDISON ERIC Last 2 cultures negative to date Tolerating diet Ambulating Okay to discharge whenever arranged by infectious disease depending on antibiotic therapy Follow-up my office 7-10 days I agree with above assessment and plan. The exam, history, and the medical decision-making described in the above note were completed with the assistance of the mid-level provider. I reviewed and agree with the findings presented. I attest that I had a [id number] encounter with the patient on the same day, and personally performed and documented my assessment and findings in the medical record. The following services were provided during this hospital visit: Chart data review, vital sign assessments/reviewing monitor data Review of consultations notes if present. Medication orders/review and/or management Ordering and/or reviewing lab tests Ordering and/or interpreting/reviewing x-rays and/or diagnostic studies Care of the patient and discussion of the patient with the care team Documentation time To help prompt me to consider important information that might be impacting today's encounter and assessment, Information from prior notes written by myself or my colleagues may have been "brought forward/copy and pasted" into today's note.
--- NOTE | 2018-04-15 11:51 | P.PNIM ---
Subjective Interval history: Patient reports he is feeling better today. Tolerating full liquid diet. Inquired about advancing his diet. He denies chest pain. Physical Exam Vital signs: Vital Signs 04/14/18 15:00 04/14/18 16:00 04/14/18 17:17 Temperature 98.0 F Pulse Rate 70 98 H 84 Respiratory Rate 20 Blood Pressure 118/60 Pulse Oximetry 96 04/14/18 18:00 04/14/18 19:00 04/14/18 20:00 Temperature 98.7 F Pulse Rate 84 84 84 Respiratory Rate 18 Blood Pressure 115/64 Pulse Oximetry 97 04/14/18 21:00 04/14/18 22:00 04/14/18 23:00 Temperature 98 F Pulse Rate 84 86 84 Respiratory Rate 18 Blood Pressure 129/70 Pulse Oximetry 98 04/15/18 00:00 04/15/18 00:59 04/15/18 02:00 Temperature Pulse Rate 85 80 76 Respiratory Rate Blood Pressure Pulse Oximetry 04/15/18 03:00 04/15/18 04:00 04/15/18 05:00 Temperature 97.8 F Pulse Rate 80 76 72 Respiratory Rate 18 Blood Pressure 133/65 Pulse Oximetry 98 04/15/18 05:58 04/15/18 07:00 04/15/18 08:00 Temperature 97.7 F Pulse Rate 79 81 80 Respiratory Rate 18 Blood Pressure 125/75 Pulse Oximetry 97 04/15/18 09:00 04/15/18 10:00 Temperature Pulse Rate 87 84 Respiratory Rate Blood Pressure Pulse Oximetry Intake & Output 04/14/18 04/15/18 04/15/18 18:59 06:59 18:59 Intake Total 1780 / 1780 580 / 580 Output Total 1200 / 1200 480 / 480 Balance 580 / 580 100 / 100 Weight 108 kg Intake: IV 1100 / 1100 100 / 100 LR 1000 mL Inj 1,000 ML @ 50 1000 / 1000 mls/hr IV.CONT .Q20H MIKE Rx#: [id number] Merrem Inj 2,000 MG In NS Inj 100 / 100 100 / 100 100 ML @ 200 mls/hr IV.SIG Q8H MIKE Rx#:[id number] Oral 680 / 680 480 / 480 Output: Urine 1200 / 1200 480 / 480 Other: # Voids 4 Date of Last Bowel Movement 07/18/18 07/18/18 # Bowel Movements 0 Narrative: GENERAL: Obese male in no acute distress. CARDIOVASCULAR: Normal rate and regular rhythm without murmurs, gallops, or rubs. RESPIRATORY: Good respiratory efforts. Breath sounds equal and clear to auscultation bilaterally. GASTROINTESTINAL: Abdomen is distended but not firm, positive bowel sounds. No rebound tenderness. MUSCULOSKELETAL: Extremities without cyanosis, or edema. NEURO: Alert & Oriented x4 to person, place, time, situation. Moves all ext x4 PSYCH: Appropriate mood and affect. - Urinary Catheter Management Indwelling Temp Sensing Catheter Cath placed during this visit: yes, but has since been removed by the nurse Reason for continuing: Not indwelling catheter Insertion date: 03/30/18 Insertion time: 07:40 Removal date: 03/31/18 Removal time: 05:15 Indwelling Urethral Catheter Cath placed during this visit: yes, but has since been removed by the nurse Reason for continuing: Not indwelling catheter Insertion date: 04/11/18 Removal date: 04/12/18 Removal time: 10:30 Results - Labs CBC & Chem 7: 04/15/18 04:07 04/15/18 04:07 Laboratory Results - last 24 hr 04/14/18 04/14/18 04/14/18 12:19 12:25 17:16 WBC RBC Hgb Hct MCV MCH MCHC RDW Plt Count MPV Sodium Potassium Chloride Carbon Dioxide Anion Gap BUN Creatinine Estimated GFR POC Glucose 178 H 110 Random Glucose Calcium Magnesium 2.6 H 04/15/18 04/15/18 04/15/18 00:20 04:07 04:07 WBC 6.2 RBC 2.97 L Hgb 8.6 L Hct 26.0 L MCV 87.7 MCH 29.0 MCHC 33.1 RDW 15.2 Plt Count 250 MPV 8.0 Sodium 142 Potassium 3.6 Chloride 109 H Carbon Dioxide 26.7 Anion Gap 6 BUN 20 H Creatinine 1.21 Estimated GFR 59 L POC Glucose 130 H Random Glucose 85 Calcium 8.2 L D Magnesium 04/15/18 04/15/18 05:48 11:38 WBC RBC Hgb Hct MCV MCH MCHC RDW Plt Count MPV Sodium Potassium Chloride Carbon Dioxide Anion Gap BUN Creatinine Estimated GFR POC Glucose 94 117 H Random Glucose Calcium Magnesium Microbiology 04/14/18 12:25 Blood - Peripheral Aerobic Blood Culture - Preliminary No growth in 1 day 04/14/18 12:25 Blood - Peripheral Anaerobic Blood Culture - Preliminary No growth in 1 day 04/12/18 14:53 Blood - Peripheral Aerobic Blood Culture - Preliminary No growth in 3 days 04/12/18 14:53 Blood - Peripheral Anaerobic Blood Culture - Preliminary No growth in 3 days 04/12/18 15:04 Blood - Peripheral Aerobic Blood Culture - Preliminary No growth in 3 days 04/12/18 15:04 Blood - Peripheral Anaerobic Blood Culture - Final Enterobacter aerogenes Multidrug Resistant 04/13/18 15:20 Blood - Peripheral Aerobic Blood Culture - Preliminary Enterobacter aerogenes Multidrug Resistant 04/13/18 15:20 Blood - Peripheral Anaerobic Blood Culture - Preliminary Enterobacter aerogenes Multidrug Resistant 04/13/18 15:19 Blood - Peripheral Aerobic Blood Culture - Preliminary Enterobacter aerogenes Multidrug Resistant gram negative rods 04/13/18 15:19 Blood - Peripheral Anaerobic Blood Culture - Preliminary Enterobacter aerogenes Multidrug Resistant 04/12/18 10:30 Catheterized Urine Urine Culture - Final No growth in 48 hours - Procedures Echocardiogram The left ventricular systolic function is normal with an estimated ejection fraction in the range of 55-60%. Trace mitral valve regurgitation. There is trace tricuspid valve regurgitation. CABG x 3 on 03/30/2018. Assessment and Plan - Assessment (1) NSTEMI (non-ST elevated myocardial infarction) Code(s): I21.4 - Non-ST elevation (NSTEMI) myocardial infarction Status: Acute (2) Multi-vessel coronary artery stenosis Code(s): I25.10 - Atherosclerotic heart disease of habematolel coronary artery without angina pectoris Status: Acute (3) Ileus, postoperative Code(s): K91.89 - Other postprocedural complications and disorders of digestive system; K56.7 - Ileus, unspecified Status: Resolved - Plan 73-year-old male with history of repeat CABG complicated by acute kidney injury and ileus. Patient underwent laparoscopic lysis of adhesions. Gram-negative patrick sepsis/bacteremia. Septic shock resolved. -Appreciate infectious disease following. Continue vancomycin and Merrem. -Follow repeat cultures. Acute kidney injury: Probably secondary to above. Renal functions improved. -Monitor urinary output and BMP. Postoperative ileus: -Status post laparoscopic lysis of adhesion. Much improved. Discussed with general surgery Jonna Pineda about advancing his diet. S/P NSTEMI/Redo CABG Cardiothoracic surgery following. Continue beta-lidia, aspirin, Plavix, statin GI prophylaxis: PPI. Stool softener PRN constipation. DVT PPx: Lovenox
--- NOTE | 2018-04-15 14:21 | P.PNCA ---
- Note Subjective/Hospital Course: 73-year-old gentleman with history of coronary artery bypass graft, hypertension, and hyperlipidemia, been experiencing chest pain for the past several days, pressure-like, moderate, relieved with nitroglycerin. cath report : multi vessel disease / EF 50% PAST MEDICAL HISTORY: CABG in 2007. He also has a history of permanent pacemaker, DDD lower rate 50 hypertension, polyp removed, CKD baseline creatinine 1.3 surgery 03/30 REDO CABG x 3 SVG to PDA - good SVG to RI - fair SVG to D1 - fair EVH extubated after surgery / 2 pleural tubes / one mediastinal tubes 03/31 painful , no toradol with CKD OOB pulm toileting pain med control transfer to stepdown 04/01 still painful, but some improvement CT x 3 / drained 130/12 hrs and additional 150cc this am bloody drainage/ no air leak pain control pulm toileting creatinine improved 1.23 04/02 c/o of constipation , mild nausea , abdomen distended , Hypoactive bowel sounds pt is passing flatus , narcotics dc , IV Ofirmev, po tylenol stat KUB pending / add reglan chest tube drained 320cc/ 12 hrs , dark old bloody drainage chest tube to suction / leave chest tubes in ambulate as much as possible 04/03 Nauseated and vomiting this morning, otherwise doing well Had BM and flatus Abdomen soft but distended to my exam. No tenderness or guarding KUB with nonspecific distended SB Ambulate NPO except ice-chips May need GI eval if not improved 04/04 Doing better. NGT inadvertently removed. No further N/V Greatly appreciate GI input Feels thirsty and hungry Abdomen soft and less distended OK to advance diet when ok with GI Ambulate 04/05 pt c/o of abdominal pain, worsening from yesterday , also nausea abdomen very distended , hypoactive bowel sounds NG tube replaced, labs and KUB ordered/ NPO except meds / ice chips GI following 04/06 pt with worsening distention/ nausea worsening BAM / nephrology consulted on IV fluids, leukocytosis with left shift General surgery consulted / high GI output/ NG placement verified also at bedside yellow/ kumari drainage / on intermittent suction continue IV fluids, IV fluid bolus given 04/07 still with distended abdomen faint tinkling bowel sounds noted NG to low intermittent suction Small series report noted / will re- notify General Surgery NPO creatinine with some improvement / replace with 500cc NS , continue IV fluids 04/[address] Sylvester will discuss with Dr Kurtz pt will need some form of nutrition soon can change to D51/2 ns with 40 KCL , may need to be eval for TPN vs PPN NG to low intermittent suction 04/09 appreciate GS input , start PPN/ PICC line re-eval KUB if no improvement by Thursday/ they will consider diagnostic lap/ lysis of adhesions on EES , start prophylaxis DVT prevention with Heparin SQ 04/10/18 depressed, frustrated, c/o "no energy" Denies flatus/BM Copious NG tube output 04/11 surgery: 1. Minor adhesions, appearance of a previous right colon resection. 2. Adhesions. 3. Valle ileus. PROCEDURE PERFORMED: Diagnostic laparoscopy, lysis of adhesions of the right lower quadrant, identifying what appears to be a small bowel colon anastomosis. A massively dilated small bowel, transverse colon, descending colon, and cecum. Normal liver, normal gallbladder. 04/12 NG to low intermittent suction, some abdominal pain + bowel sounds, no passing some flatus remains on EES, reglan , PPN left arm swollen and red , IV removed, warm compresses to arm US of left upper ext pending change sq heparin to lovenox daily continue PT / replace K+/ f/u labs in am 04/13 pt feeling better this am , discussed with GS NG tube removed, remained on clear liguids approximately 3pm, pt developed rigors , mildly elevated temps , no nausea had temp 101.6 last pm left arm US noted + occlusive thrombus left upper ext , Blood culture GNR on Zosyn, ID following , stat lactic acid pending , ABG showed metabolic acidosis pt has had [facility] NG tube drainage / with suction pt transferred to CVICU/ CCM consulted 04/14 appreciate CCM, pt doing much better, up in chair, tolerating full liguid, no nausea + BM yesterday , lactic acid 1.3 repeat BC pending , volume resuscitated , possible transfer back to [facility] later today if ok with CCM on broad spectrum antibiotics 04/15 now on regular diet abdomen remains distended , but soft active bowel sounds + BM await repeat blood cultures continue ambulation consider gentle diuresis in am left arm phlebitis improving Objective: Vital Signs - 24 hr 04/14/18 15:00 04/14/18 16:00 04/14/18 17:17 Temperature 98.0 F Pulse Rate 70 98 H 84 Respiratory Rate 20 Blood Pressure 118/60 Pulse Oximetry 96 04/14/18 18:00 04/14/18 19:00 04/14/18 20:00 Temperature 98.7 F Pulse Rate 84 84 84 Respiratory Rate 18 Blood Pressure 115/64 Pulse Oximetry 97 04/14/18 21:00 04/14/18 22:00 04/14/18 23:00 Temperature 98 F Pulse Rate 84 86 84 Respiratory Rate 18 Blood Pressure 129/70 Pulse Oximetry 98 04/15/18 00:00 04/15/18 00:59 04/15/18 02:00 Temperature Pulse Rate 85 80 76 Respiratory Rate Blood Pressure Pulse Oximetry 04/15/18 03:00 04/15/18 04:00 04/15/18 05:00 Temperature 97.8 F Pulse Rate 80 76 72 Respiratory Rate 18 Blood Pressure 133/65 Pulse Oximetry 98 04/15/18 05:58 04/15/18 07:00 04/15/18 08:00 Temperature 97.7 F Pulse Rate 79 81 80 Respiratory Rate 18 Blood Pressure 125/75 Pulse Oximetry 97 04/15/18 09:00 04/15/18 10:00 04/15/18 11:00 Temperature 97.8 F Pulse Rate 87 84 79 Respiratory Rate 18 Blood Pressure 121/77 Pulse Oximetry 98 04/15/18 12:36 04/15/18 12:37 Temperature Pulse Rate 76 80 Respiratory Rate Blood Pressure Pulse Oximetry GENERAL: A&O x 3 SKIN: Warm and dry. sternal incision intact and well approximated , abdominal incision intact and well approximated HEAD: Normocephalic. EYES: No scleral icterus. No injection or drainage. NECK: Supple, trachea midline. No JVD or lymphadenopathy. CARDIOVASCULAR: Regular rate and rhythm without murmurs, gallops, or rubs. RESPIRATORY: Breath sounds equal bilaterally. No accessory muscle use. diminished in bases GASTROINTESTINAL: Abdomen soft, non-tender, slightly distended MUSCULOSKELETAL: No cyanosis, or edema. BACK: Nontender without obvious deformity. No CVA tenderness. Labs: Laboratory Results - last 12 hr 07/19/18 07/19/18 07/19/18 04:07 04:07 05:48 WBC 6.2 RBC 2.97 L Hgb 8.6 L Hct 26.0 L MCV 87.7 MCH 29.0 MCHC 33.1 RDW 15.2 Plt Count 250 MPV 8.0 Sodium 142 Potassium 3.6 Chloride 109 H Carbon Dioxide 26.7 Anion Gap 6 BUN 20 H Creatinine 1.21 Estimated GFR 59 L POC Glucose 94 Random Glucose 85 Calcium 8.2 L D 04/15/18 11:38 WBC RBC Hgb Hct MCV MCH MCHC RDW Plt Count MPV Sodium Potassium Chloride Carbon Dioxide Anion Gap BUN Creatinine Estimated GFR POC Glucose 117 H Random Glucose Calcium Result Diagrams: 04/15/18 04:07 04/15/18 04:07 - Plan (1) S/P CABG x 3 Plan: ASA, statin , BB OOB continue to hold plavix/ await repeat cultures if pt may need picc placment pulm toieling on nasal cannula lovenox SQ ambulate (2) CAD (coronary artery disease) Plan: on ASA, BB statin OOB ambulate/ pulm toileting (6) Hx of CABG Plan: ASA, statin , BB OOB ambulate EES , ( possible dc ) advance diet as per GS (7) Abdominal distention Plan: NG tube in place / low intermittent suction EES/ reglan s/p EXP lap LE post op day 1 f (8) Acute kidney injury Plan: indices stable s/p volume resuscitation (9) Sepsis Plan: enterobacter species on vanc and zosyn lactic acidosis resolved ID following (2) CAD (coronary artery disease) Qualifiers: Coronary Disease-Associated Artery/Lesion type: [place] artery Associated angina: with unstable angina
[2018-04-15 14:22] LABS: Albumin 3.2 g/dL (3.4-5.0)
[2018-04-15 14:26] LABS: Total Protein 5.7 g/dL (6.4-8.2)
[2018-04-15] MEDS: Temazepam 15 MG Capsule PO PRN (21:14)
[2018-04-15] MEDS: Metoprolol Tartrate 25 MG Tablet PO SCH (22:11)
[2018-04-16] MEDS: Meropenem Inj 2,000 MG in Sodium Chlor 0.9% Inj 100 ML IV.SIG SCH (03:40)
[2018-04-16 05:22] LABS: Hematocrit 25.9 % (39.0-51.0); Hemoglobin 8.5 gm/dL (13.0-17.0); Mean Corpuscular HGB Conc 32.9 % (32.0-36.0); Mean Corpuscular Hemoglobin 28.9 pg (27.0-34.0); Mean Corpuscular Volume 87.7 fL (80.0-100.0); Mean Platelet Volume 8.1 fL (7.0-11.0); Platelet Count 279 th/mm3 (150-450); Red Blood Count 2.95 mil/mm3 (4.50-5.90); Red Cell Distribution Width 15.6 % (11.6-17.2)
[2018-04-16 05:41] LABS: Anion Gap 12 meq/L (5-15); Aspartate Aminotransferase 61 U/L (15-37); Blood Urea Nitrogen 14 mg/dL (7-18); Calcium 8.9 mg/dL (8.5-10.1); Carbon Dioxide 22.4 meq/L (21.0-32.0); Chloride 108 meq/L (98-107); Glomerular Filtration Rate 66 mL/min (>89); Glucose,Random 102 mg/dL (74-106); Lipase 730 U/L (73-393); Sodium 142 meq/L (136-145)
[2018-04-16 05:42] LABS: Alanine Aminotransferase 116 U/L (12-78)
[2018-04-16 05:44] LABS: Alkaline Phosphatase 114 U/L (45-117); Total Protein 5.8 g/dL (6.4-8.2)
[2018-04-16] MEDS: Metoprolol Tartrate 25 MG Tablet PO SCH (08:30)
[2018-04-16] MEDS: Multivitamin/Minerals Therapeutic Tablet PO SCH (08:30)
[2018-04-16] MEDS: Polyethylene Glycol 3350 17 GM Packet PO SCH (08:32)
[2018-04-16] MEDS: Insulin NovoLOG Aspart Correctional Sugar Inj SQ SCH ×2 (08:42→12:41)
[2018-04-16] MEDS ORDERED: Enoxaparin Inj 40 MG/0.4 ML Syringe SQ SCH (09:00)
--- NOTE | 2018-04-16 10:52 | P.PNIM ---
Subjective Interval history: Patient states he wants to go home. He inquired about getting IV antibiotics at home via PICC line. He denies chest pain. Denies abdominal pain. Has been having bowel movements. Tolerating his diet. Physical Exam Vital signs: Vital Signs 04/15/18 11:00 04/15/18 12:36 04/15/18 12:37 Temperature 97.8 F Pulse Rate 79 76 80 Respiratory Rate 18 Blood Pressure 121/77 Pulse Oximetry 98 04/15/18 15:00 04/15/18 16:00 04/15/18 17:00 Temperature 97.7 F Pulse Rate 83 84 85 Respiratory Rate 18 Blood Pressure 104/69 Pulse Oximetry 98 04/15/18 17:30 04/15/18 19:00 04/15/18 20:00 Temperature 98.4 F Pulse Rate 82 81 80 Respiratory Rate 16 Blood Pressure 126/64 Pulse Oximetry 99 04/15/18 21:00 04/15/18 22:00 04/15/18 23:00 Temperature 97.5 F L Pulse Rate 86 92 H 80 Respiratory Rate 16 Blood Pressure 97/54 L Pulse Oximetry 96 04/16/18 00:00 04/16/18 01:00 04/16/18 02:00 Temperature Pulse Rate 81 78 87 Respiratory Rate Blood Pressure Pulse Oximetry 04/16/18 03:00 04/16/18 04:00 04/16/18 05:00 Temperature 98.6 F Pulse Rate 84 81 78 Respiratory Rate 16 Blood Pressure 129/63 Pulse Oximetry 98 04/16/18 06:00 04/16/18 08:00 Temperature 98.6 F Pulse Rate 81 90 Respiratory Rate 18 Blood Pressure 129/78 Pulse Oximetry 98 Intake & Output 04/15/18 04/16/18 04/16/18 18:59 06:59 18:59 Intake Total 700 / 700 820 / 820 Output Total 3 / 3 700 / 700 Balance 697 / 697 120 / 120 Intake: IV 100 / 100 100 / 100 D10W Inj 1,000 ML @ 30 mls/hr 0 / 0 IV.SIG .Q24H MIKE Rx#:[id number] Merrem Inj 2,000 MG In NS Inj 100 / 100 100 / 100 100 ML @ 200 mls/hr IV.SIG Q8H MIKE Rx#:[id number] Oral 600 / 600 720 / 720 Output: Urine 700 / 700 Stool 3 / Other: # Voids 4 4 Date of Last Bowel Movement 04/15/18 04/15/18 04/15/18 Narrative: GENERAL: Obese male in no acute distress. CARDIOVASCULAR: Normal rate and regular rhythm without murmurs, gallops, or rubs. RESPIRATORY: Good respiratory efforts. Breath sounds equal and clear to auscultation bilaterally. GASTROINTESTINAL: Abdomen is distended but not firm, positive bowel sounds. No rebound tenderness. MUSCULOSKELETAL: Extremities without cyanosis, or edema. NEURO: Alert & Oriented x4 to person, place, time, situation. Moves all ext x4 PSYCH: Appropriate mood and affect. - Urinary Catheter Management Indwelling Temp Sensing Catheter Cath placed during this visit: yes, but has since been removed by the nurse Reason for continuing: Not indwelling catheter Insertion date: 03/30/18 Insertion time: 07:40 Removal date: 03/31/18 Removal time: 05:15 Indwelling Urethral Catheter Cath placed during this visit: yes, but has since been removed by the nurse Reason for continuing: Not indwelling catheter Insertion date: 04/11/18 Removal date: 04/12/18 Removal time: 10:30 Results - Labs CBC & Chem 7: 04/16/18 03:44 04/16/18 03:44 Laboratory Results - last 24 hr 04/15/18 04/15/18 04/15/18 04:07 04:07 11:38 WBC RBC Hgb Hct MCV MCH MCHC RDW Plt Count MPV Sodium Potassium Chloride Carbon Dioxide Anion Gap BUN Creatinine Estimated GFR POC Glucose 117 H Random Glucose Calcium Total Bilirubin 1.1 H Direct Bilirubin 0.4 H Indirect Bilirubin 0.7 AST 100 H ALT 146 H Alkaline Phosphatase 129 H Total Protein 5.7 L Albumin 3.2 L Lipase 866 H 04/15/18 04/16/18 04/16/18 16:59 03:44 03:44 WBC 7.0 RBC 2.95 L Hgb 8.5 L Hct 25.9 L MCV 87.7 MCH 28.9 MCHC 32.9 RDW 15.6 Plt Count 279 MPV 8.1 Sodium 142 Potassium 4.0 Chloride 108 H Carbon Dioxide 22.4 Anion Gap 12 BUN 14 Creatinine 1.10 Estimated GFR 66 L POC Glucose 113 H Random Glucose 102 Calcium 8.9 Total Bilirubin 1.0 Direct Bilirubin Indirect Bilirubin AST 61 H ALT 116 H Alkaline Phosphatase 114 Total Protein 5.8 L Albumin 3.0 L Lipase 730 H 04/16/18 08:35 WBC RBC Hgb Hct MCV MCH MCHC RDW Plt Count MPV Sodium Potassium Chloride Carbon Dioxide Anion Gap BUN Creatinine Estimated GFR POC Glucose 152 H Random Glucose Calcium Total Bilirubin Direct Bilirubin Indirect Bilirubin AST ALT Alkaline Phosphatase Total Protein Albumin Lipase Microbiology 04/13/18 15:20 Blood - Peripheral Aerobic Blood Culture - Final Enterobacter aerogenes Multidrug Resistant 04/13/18 15:20 Blood - Peripheral Anaerobic Blood Culture - Final Enterobacter aerogenes Multidrug Resistant 04/13/18 15:19 Blood - Peripheral Aerobic Blood Culture - Final Enterobacter aerogenes Multidrug Resistant Citrobacter braakii 04/13/18 15:19 Blood - Peripheral Anaerobic Blood Culture - Final Enterobacter aerogenes Multidrug Resistant 04/14/18 12:25 Blood - Peripheral Aerobic Blood Culture - Preliminary No growth in 1 day 04/14/18 12:25 Blood - Peripheral Anaerobic Blood Culture - Preliminary No growth in 1 day 04/12/18 14:53 Blood - Peripheral Aerobic Blood Culture - Preliminary No growth in 3 days 04/12/18 14:53 Blood - Peripheral Anaerobic Blood Culture - Preliminary No growth in 3 days 04/12/18 15:04 Blood - Peripheral Aerobic Blood Culture - Preliminary No growth in 3 days 04/12/18 15:04 Blood - Peripheral Anaerobic Blood Culture - Final Enterobacter aerogenes Multidrug Resistant - Procedures Echocardiogram The left ventricular systolic function is normal with an estimated ejection fraction in the range of 55-60%. Trace mitral valve regurgitation. There is trace tricuspid valve regurgitation. CABG x 3 on 03/30/2018. Assessment and Plan - Assessment (1) NSTEMI (non-ST elevated myocardial infarction) Code(s): I21.4 - Non-ST elevation (NSTEMI) myocardial infarction Status: Acute (2) Multi-vessel coronary artery stenosis Code(s): I25.10 - Atherosclerotic heart disease of [place] coronary artery without angina pectoris Status: Acute (3) Ileus, postoperative Code(s): K91.89 - Other postprocedural complications and disorders of digestive system; K56.7 - Ileus, unspecified Status: Resolved - Plan 73-year-old male with history of repeat CABG complicated by acute kidney injury and ileus. Patient underwent laparoscopic lysis of adhesions. Gram-negative patrick sepsis/bacteremia. Septic shock resolved. -Blood cultures grew Enterobacter, multidrug resistant. 1 of the bottle grew Citrobacter -Appreciate infectious disease following. Continue vancomycin and Merrem. -Repeat blood cultures negative 1 day. -We will discuss antibiotics course with infectious disease as patient is requesting to go home. Acute kidney injury: Probably secondary to above. Renal functions improved. -Monitor urinary output and BMP. Postoperative ileus: -Status post laparoscopic lysis of adhesion. Much improved. Diet as tolerated. S/P NSTEMI/Redo CABG Cardiothoracic surgery following. Continue beta-lidia, aspirin, statin. Plavix on hold in case patient needs PICC line per CT surgery. GI prophylaxis: PPI. Stool softener PRN constipation. DVT PPx: Lovenox Discharge Planning: Home with home health and probably with IV antibiotics once cleared by infectious disease.
--- NOTE | 2018-04-16 12:02 | P.PNCA ---
- Note Subjective/Hospital Course: 73-year-old gentleman with history of coronary artery bypass graft, hypertension, and hyperlipidemia, been experiencing chest pain for the past several days, pressure-like, moderate, relieved with nitroglycerin. cath report : multi vessel disease / EF 50% PAST MEDICAL HISTORY: CABG in 2007. He also has a history of permanent pacemaker, DDD lower rate 50 hypertension, polyp removed, CKD baseline creatinine 1.3 surgery 03/30 REDO CABG x 3 SVG to PDA - good SVG to RI - fair SVG to D1 - fair EVH extubated after surgery / 2 pleural tubes / one mediastinal tubes 03/31 painful , no toradol with CKD OOB pulm toileting pain med control transfer to stepdown 04/01 still painful, but some improvement CT x 3 / drained 130/12 hrs and additional 150cc this am bloody drainage/ no air leak pain control pulm toileting creatinine improved 1.23 04/02 c/o of constipation , mild nausea , abdomen distended , Hypoactive bowel sounds pt is passing flatus , narcotics dc , IV Ofirmev, po tylenol stat KUB pending / add reglan chest tube drained 320cc/ 12 hrs , dark old bloody drainage chest tube to suction / leave chest tubes in ambulate as much as possible 04/03 Nauseated and vomiting this morning, otherwise doing well Had BM and flatus Abdomen soft but distended to my exam. No tenderness or guarding KUB with nonspecific distended SB Ambulate NPO except ice-chips May need GI eval if not improved 04/04 Doing better. NGT inadvertently removed. No further N/V Greatly appreciate GI input Feels thirsty and hungry Abdomen soft and less distended OK to advance diet when ok with GI Ambulate 04/05 pt c/o of abdominal pain, worsening from yesterday , also nausea abdomen very distended , hypoactive bowel sounds NG tube replaced, labs and KUB ordered/ NPO except meds / ice chips GI following 04/06 pt with worsening distention/ nausea worsening BAM / nephrology consulted on IV fluids, leukocytosis with left shift General surgery consulted / high GI output/ NG placement verified also at bedside yellow/ kumari drainage / on intermittent suction continue IV fluids, IV fluid bolus given 04/07 still with distended abdomen faint tinkling bowel sounds noted NG to low intermittent suction Small series report noted / will re- notify General Surgery NPO creatinine with some improvement / replace with 500cc NS , continue IV fluids 04/[address] Sylvester will discuss with Dr Kurtz pt will need some form of nutrition soon can change to D51/2 ns with 40 KCL , may need to be eval for TPN vs PPN NG to low intermittent suction 04/09 appreciate GS input , start PPN/ PICC line re-eval KUB if no improvement by Thursday/ they will consider diagnostic lap/ lysis of adhesions on EES , start prophylaxis DVT prevention with Heparin SQ 04/10/18 depressed, frustrated, c/o "no energy" Denies flatus/BM Copious NG tube output 04/11 surgery: 1. Minor adhesions, appearance of a previous right colon resection. 2. Adhesions. 3. Valle ileus. PROCEDURE PERFORMED: Diagnostic laparoscopy, lysis of adhesions of the right lower quadrant, identifying what appears to be a small bowel colon anastomosis. A massively dilated small bowel, transverse colon, descending colon, and cecum. Normal liver, normal gallbladder. 04/12 NG to low intermittent suction, some abdominal pain + bowel sounds, no passing some flatus remains on EES, reglan , PPN left arm swollen and red , IV removed, warm compresses to arm US of left upper ext pending change sq heparin to lovenox daily continue PT / replace K+/ f/u labs in am 04/13 pt feeling better this am , discussed with GS NG tube removed, remained on clear liguids approximately 3pm, pt developed rigors , mildly elevated temps , no nausea had temp 101.6 last pm left arm US noted + occlusive thrombus left upper ext , Blood culture GNR on Zosyn, ID following , stat lactic acid pending , ABG showed metabolic acidosis pt has had senior care NG tube drainage / with suction pt transferred to CVICU/ CCM consulted 04/14 appreciate CCM, pt doing much better, up in chair, tolerating full liguid, no nausea + BM yesterday , lactic acid 1.3 repeat BC pending , volume resuscitated , possible transfer back to [facility] later today if ok with CCM on broad spectrum antibiotics 04/15 now on regular diet abdomen remains distended , but soft active bowel sounds + BM await repeat blood cultures continue ambulation consider gentle diuresis in am left arm phlebitis improving 04/16 LFT trending back down statin dc , tylenol dc pt eager to go home await ID final decision on IV antibiotic therapy and ? picc line resume plavix after picc line placed if ordered continue to hold statin for now , will need repeat LFT in 2 weeks ok from [facility] for DC once cleared by ID Objective: Vital Signs - 24 hr 04/15/18 12:36 04/15/18 12:37 04/15/18 15:00 Temperature 97.7 F Pulse Rate 76 80 83 Respiratory Rate 18 Blood Pressure 104/69 Pulse Oximetry 98 04/15/18 16:00 04/15/18 17:00 04/15/18 17:30 Temperature Pulse Rate 84 85 82 Respiratory Rate Blood Pressure Pulse Oximetry 04/15/18 19:00 04/15/18 20:00 04/15/18 21:00 Temperature 98.4 F Pulse Rate 81 80 86 Respiratory Rate 16 Blood Pressure 126/64 Pulse Oximetry 99 04/15/18 22:00 04/15/18 23:00 04/16/18 00:00 Temperature 97.5 F L Pulse Rate 92 H 80 81 Respiratory Rate 16 Blood Pressure 97/54 L Pulse Oximetry 96 04/16/18 01:00 04/16/18 02:00 04/16/18 03:00 Temperature 98.6 F Pulse Rate 78 87 84 Respiratory Rate 16 Blood Pressure 129/63 Pulse Oximetry 98 04/16/18 04:00 04/16/18 05:00 04/16/18 06:00 Temperature Pulse Rate 81 78 81 Respiratory Rate Blood Pressure Pulse Oximetry 04/16/18 08:00 04/16/18 11:00 Temperature 98.6 F 97.8 F Pulse Rate 90 83 Respiratory Rate 18 18 Blood Pressure 129/78 121/71 Pulse Oximetry 98 98 GENERAL: A&O x 3 SKIN: Warm and dry. sternal incision intact and well approximated , abdominal incision intact and well approximated HEAD: Normocephalic. EYES: No scleral icterus. No injection or drainage. NECK: Supple, trachea midline. No JVD or lymphadenopathy. CARDIOVASCULAR: Regular rate and rhythm without murmurs, gallops, or rubs. RESPIRATORY: Breath sounds equal bilaterally. No accessory muscle use. GASTROINTESTINAL: Abdomen distended + bowel sounds non-tender, MUSCULOSKELETAL: No cyanosis, or edema. BACK: Nontender without obvious deformity. No CVA tenderness. Labs: Laboratory Results - last 12 hr 04/16/18 04/16/18 04/16/18 03:44 03:44 08:35 WBC 7.0 RBC 2.95 L Hgb 8.5 L Hct 25.9 L MCV 87.7 MCH 28.9 MCHC 32.9 RDW 15.6 Plt Count 279 MPV 8.1 Sodium 142 Potassium 4.0 Chloride 108 H Carbon Dioxide 22.4 Anion Gap 12 BUN 14 Creatinine 1.10 Estimated GFR 66 L POC Glucose 152 H Random Glucose 102 Calcium 8.9 Total Bilirubin 1.0 AST 61 H ALT 116 H Alkaline Phosphatase 114 Total Protein 5.8 L Albumin 3.0 L Lipase 730 H Result Diagrams: 04/16/18 03:44 04/16/18 03:44 - Plan (1) S/P CABG x 3 Plan: ASA, statin , BB OOB continue to hold plavix/ await repeat cultures if pt may need picc placment pulm toieling on nasal cannula lovenox SQ ambulate (2) CAD (coronary artery disease) Plan: on ASA, BB statin OOB ambulate/ pulm toileting (6) Hx of CABG Plan: ASA, statin , BB OOB ambulate EES , ( possible dc ) advance diet as per GS (7) Abdominal distention Plan: NG tube in place / low intermittent suction EES/ reglan s/p EXP lap EL post op day 1 f (8) Acute kidney injury Plan: indices stable s/p volume resuscitation gentle diuresis (9) Sepsis Plan: enterobacter species on vanc and zosyn lactic acidosis resolved ID following BC x 2 neg from 04/14, 04/15 (2) CAD (coronary artery disease) Qualifiers: Coronary Disease-Associated Artery/Lesion type: [place] artery Associated angina: with unstable angina
[2018-04-16] MEDS: Heparin Central Flush 100 UNIT/ML 5 ML Vial IV.FLUSH SCH (12:40)
--- NOTE | 2018-04-16 13:32 | P.PNGS ---
Subjective Interval history: Up to chair eating lunch; Would like to go home if cleared by ID; asking about showering Physical Exam Vital signs: Vital Signs 04/15/18 15:00 04/15/18 16:00 04/15/18 17:00 Temperature 97.7 F Pulse Rate 83 84 85 Respiratory Rate 18 Blood Pressure 104/69 Pulse Oximetry 98 04/15/18 17:30 04/15/18 19:00 04/15/18 20:00 Temperature 98.4 F Pulse Rate 82 81 80 Respiratory Rate 16 Blood Pressure 126/64 Pulse Oximetry 99 04/15/18 21:00 04/15/18 22:00 04/15/18 23:00 Temperature 97.5 F L Pulse Rate 86 92 H 80 Respiratory Rate 16 Blood Pressure 97/54 L Pulse Oximetry 96 04/16/18 00:00 04/16/18 01:00 04/16/18 02:00 Temperature Pulse Rate 81 78 87 Respiratory Rate Blood Pressure Pulse Oximetry 04/16/18 03:00 04/16/18 04:00 04/16/18 05:00 Temperature 98.6 F Pulse Rate 84 81 78 Respiratory Rate 16 Blood Pressure 129/63 Pulse Oximetry 98 04/16/18 06:00 04/16/18 07:00 04/16/18 08:00 Temperature 98.6 F Pulse Rate 81 78 82 Respiratory Rate 18 Blood Pressure 129/78 Pulse Oximetry 98 04/16/18 09:00 04/16/18 10:00 04/16/18 11:00 Temperature 97.8 F Pulse Rate 78 86 80 Respiratory Rate 18 Blood Pressure 121/71 Pulse Oximetry 98 04/16/18 12:00 Temperature Pulse Rate 80 Respiratory Rate Blood Pressure Pulse Oximetry Intake & Output 04/15/18 04/16/18 04/16/18 18:59 06:59 18:59 Intake Total 700 / 700 820 / 820 Output Total 3 / 3 700 / 700 Balance 697 / 697 120 / 120 Intake: IV 100 / 100 100 / 100 D10W Inj 1,000 ML @ 30 mls/hr 0 / 0 IV.SIG .Q24H [facility] Rx#:[id number] Merrem Inj 2,000 MG In NS Inj 100 / 100 100 / 100 100 ML @ 200 mls/hr IV.SIG Q8H [facility] Rx#:[id number] Oral 600 / 600 720 / 720 Output: Urine 700 / 700 Stool 3 / Other: # Voids 4 4 Date of Last Bowel Movement 04/15/18 04/15/18 04/15/18 Narrative: Alert and awake eating lunch Cardio: RRR Resp: CTAB Abd: lap sites c/d/i; no tenderness - Urinary Catheter Management Indwelling Temp Sensing Catheter Cath placed during this visit: yes, but has since been removed by the nurse Reason for continuing: Not indwelling catheter Insertion date: 03/30/18 Insertion time: 07:40 Removal date: 03/31/18 Removal time: 05:15 Indwelling Urethral Catheter Cath placed during this visit: yes, but has since been removed by the nurse Reason for continuing: Not indwelling catheter Insertion date: 04/11/18 Removal date: 04/12/18 Removal time: 10:30 Assessment and Plan - Assessment (1) Gram negative septicemia Code(s): A41.50 - Gram-negative sepsis, unspecified Status: Acute (2) Ileus, postoperative Code(s): K91.89 - Other postprocedural complications and disorders of digestive system; K56.7 - Ileus, unspecified Status: Resolved - Plan 73 year old male with recent CABG on March 30, post operative abdominal pain; distention -POD5 dx lap; LE -Blood cultures and antibiotics per ID -Tolerating regular diet -Okay for full dose anticoagulation from GS standpoint -OOB and mobilize as tolerated -GS clear for DC -Follow up with Dr. Salinas ThursdayApril 26 at 1:20PM
--- NOTE | 2018-04-16 13:46 | P.DCO ---
Post Hospital Infusion Therapy Location of Infusion Therapy: Home [facility] IV Infusion Order Patient Weight: 108 kg - Diagnosis (1) Sepsis due to gram-negative bacteria Code(s): A41.50 - Gram-negative sepsis, unspecified - Administer Medication Ertapenem Dose: 1 gram IV Directions: q 24 hours Stop Treatment: 05/13/18 - Additional Information Venous Access: PICC Line Additional Instructions: [x] Peripheral flush and dressing changes per protocol [x] Implanted port and central line walker: * Implanted port: 10 ml Normal Saline followed by 5 ml Heparin 100 units/ml Heparin flush after each use and monthly to maintain. [] May leave port accessed during therapy. [] May leave peripheral site accessed for duration of therapy. [x] If patient has SOB or respiratory distress, check oxygen saturation. If less than 90% or clinical signs of respiratory distress, administer oxygen at 2 L/min. via nasal cannula and notify physician. [x] Anaphylaxis/Reaction orders: * Stop infusion. * Keep IV line open with saline flush. * Notify physician. * Monitor vital signs every 15 minutes until symptoms resolve. * Check Oxygen saturation; Oxygen at 2 L/min. via nasal cannula if less than 90% or clinical signs of respiratory distress. * Administer diphenhydramine (Benadryl) 25 mg IV STAT, (unless patient has received as pre-med). May repeat once, if necessary. * Solu-Cortef 250 mg IVP over 30-60 seconds, use 100 mg vials for each dissolution. * Epinephrine (1mg/1 ml) 0.3 mg subcutaneously or IVP now with any signs of respiratory distress. * Check with physician for new additional pre-med orders if patient is re- challenged or re-treated. [x] May remove PICC line when treatment complete. [x] If the patient is admitted to the hospital, the ED, or transferred via [facility] , complete transfer form including medication reconciliation order sheet. Weekly Labs: CBC w/diff, Creatinine, LFTs (Hepatic Function Test) (Labs every Thursday, copy to me) Case Management Consult: Yes Allergies No Known Allergies Allergy (Unverified 03/26/18 11:04)
--- NOTE | 2018-04-16 13:54 | P.PNID ---
Subjective Remarks: Patient is a 73-year-old male, with known history of coronary artery disease, has had previous CABG, presented to the hospital complaining of chest pain. There was associated mild shortness of breath, but no mention of any diaphoresis. He did not have any nausea or vomiting or any fever or chills. He presented to the emergency room, and he was found to have a non-ST elevation myocardial infarction. Cardiology saw the patient and cardiac catheterization revealed severe three-vessel coronary artery disease. Patient underwent redo CABG 3 on March 30. He was doing well from the cardiac standpoint, however starting around April 03 he started experiencing abdominal pain, distention, and nausea and vomiting. Further evaluation revealed on CT evidence suggestive of possible small bowel obstruction. Surgery saw the patient. He was being managed initially conservatively, and he had an NG tube in place, and this was put to suction. He was put on n.p.o. He has had significant output from his NG tube. He subsequently went to surgery on April 11 and underwent diagnostic laparoscopy, with lysis of adhesions. Patient's chest x-ray also has shown some pulmonary edema. He has some mild coughing with very minimal sputum production. He denies any chest pain or any shortness of breath. Patient also is voiding without any complaints. Starting yesterday he had some fevers. 2 blood cultures done yesterday, 1 out of the 2 is now reported as growing gram- negative patrick. Patient also was noted to have swelling and redness in his left upper extremity at the area where he had a previous IV site. Ultrasound did not show any evidence of DVT but it did show a superficial thrombus. At the time of exam, patient feels markedly improved. NG tube was removed, and he has been tolerating his diet. He has not had any nausea or vomiting. He has very mild abdominal pain. He has had flatus, as well as bowel movement. He has had 2 bowel movement today. His WBC is normal. Urinalysis has mild pyuria. Urine culture is pending. His last chest x-ray showing some improvement in his pulmonary patient is not short of breath, and currently has good saturation on room air. Infectious disease consultation has been requested to evaluate the patient with fevers. Notes reviewed No further fever No new (+) BC BC (+) for 2 days, MDR Enterobacter, and one also with Citrobacter No abdominal pain Eating, and has BM No N/V Antibiotics: Meropenem Vancomycin Past Medical History: Chronic kidney disease Constipation Dyslipidemia Hypertension Pacemaker H/O exploratory laparotomy Hx of CABG Allergies/Adverse Reactions: Allergies No Known Allergies Allergy (Unverified 03/26/18 11:04) Objective Vital Signs 04/15/18 15:00 04/15/18 16:00 04/15/18 17:00 Temperature 97.7 F Pulse Rate 83 84 85 Respiratory Rate 18 Blood Pressure 104/69 Pulse Oximetry 98 04/15/18 17:30 04/15/18 19:00 04/15/18 20:00 Temperature 98.4 F Pulse Rate 82 81 80 Respiratory Rate 16 Blood Pressure 126/64 Pulse Oximetry 99 04/15/18 21:00 04/15/18 22:00 04/15/18 23:00 Temperature 97.5 F L Pulse Rate 86 92 H 80 Respiratory Rate 16 Blood Pressure 97/54 L Pulse Oximetry 96 04/16/18 00:00 04/16/18 01:00 04/16/18 02:00 Temperature Pulse Rate 81 78 87 Respiratory Rate Blood Pressure Pulse Oximetry 04/16/18 03:00 04/16/18 04:00 04/16/18 05:00 Temperature 98.6 F Pulse Rate 84 81 78 Respiratory Rate 16 Blood Pressure 129/63 Pulse Oximetry 98 04/16/18 06:00 04/16/18 07:00 04/16/18 08:00 Temperature 98.6 F Pulse Rate 81 78 82 Respiratory Rate 18 Blood Pressure 129/78 Pulse Oximetry 98 04/16/18 09:00 04/16/18 10:00 04/16/18 11:00 Temperature 97.8 F Pulse Rate 78 86 80 Respiratory Rate 18 Blood Pressure 121/71 Pulse Oximetry 98 04/16/18 12:00 Temperature Pulse Rate 80 Respiratory Rate Blood Pressure Pulse Oximetry Intake & Output 04/15/18 04/16/18 04/16/18 18:59 06:59 18:59 Intake Total 700 / 700 820 / 820 Output Total 3 / 3 700 / 700 Balance 697 / 697 120 / 120 Weight 108 kg Intake: IV 100 / 100 100 / 100 D10W Inj 1,000 ML @ 30 mls/hr 0 / 0 IV.SIG .Q24H [facility] Rx#:[id number] Merrem Inj 2,000 MG In NS Inj 100 / 100 100 / 100 100 ML @ 200 mls/hr IV.SIG Q8H [facility] Rx#:[id number] Oral 600 / 600 720 / 720 Output: Urine 700 / 700 Stool 3 / 3 Other: # Voids 4 4 Date of Last Bowel Movement 04/15/18 04/15/18 04/15/18 04/15/18 04:07 Blood - Peripheral Aerobic Blood Culture - Preliminary No growth in 1 day 04/15/18 04:07 Blood - Peripheral Anaerobic Blood Culture - Preliminary No growth in 1 day 04/14/18 12:25 Blood - Peripheral Aerobic Blood Culture - Preliminary No growth in 2 days 04/14/18 12:25 Blood - Peripheral Anaerobic Blood Culture - Preliminary No growth in 2 days 04/12/18 14:53 Blood - Peripheral Aerobic Blood Culture - Preliminary No growth in 4 days 04/12/18 14:53 Blood - Peripheral Anaerobic Blood Culture - Preliminary No growth in 4 days 04/12/18 15:04 Blood - Peripheral Aerobic Blood Culture - Preliminary No growth in 4 days 04/12/18 15:04 Blood - Peripheral Anaerobic Blood Culture - Final Enterobacter aerogenes Multidrug Resistant 04/13/18 15:20 Blood - Peripheral Aerobic Blood Culture - Final Enterobacter aerogenes Multidrug Resistant 04/13/18 15:20 Blood - Peripheral Anaerobic Blood Culture - Final Enterobacter aerogenes Multidrug Resistant 04/13/18 15:19 Blood - Peripheral Aerobic Blood Culture - Final Enterobacter aerogenes Multidrug Resistant Citrobacter braakii 04/13/18 15:19 Blood - Peripheral Anaerobic Blood Culture - Final Enterobacter aerogenes Multidrug Resistant 04/12/18 10:30 Catheterized Urine Urine Culture - Final No growth in 48 hours Lab - Hematology Results 04/15/18 04/16/18 04:07 03:44 WBC 6.2 7.0 RBC 2.97 L 2.95 L Hgb 8.6 L 8.5 L Hct 26.0 L 25.9 L MCV 87.7 87.7 MCH 29.0 28.9 MCHC 33.1 32.9 RDW 15.2 15.6 Plt Count 250 279 MPV 8.0 8.1 Lab - Chemistry Results 04/14/18 04/15/18 04/15/18 17:16 00:20 04:07 Sodium 142 Potassium 3.6 Chloride 109 H Carbon Dioxide 26.7 Anion Gap 6 BUN 20 H Creatinine 1.21 Estimated GFR 59 L POC Glucose 110 130 H Random Glucose 85 Calcium 8.2 L D Total Bilirubin Direct Bilirubin Indirect Bilirubin AST ALT Alkaline Phosphatase Total Protein Albumin Lipase 04/15/18 04/15/18 04/15/18 04:07 04:07 05:48 Sodium Potassium Chloride Carbon Dioxide Anion Gap BUN Creatinine Estimated GFR POC Glucose 94 Random Glucose Calcium Total Bilirubin 1.1 H Direct Bilirubin 0.4 H Indirect Bilirubin 0.7 AST 100 H ALT 146 H Alkaline Phosphatase 129 H Total Protein 5.7 L Albumin 3.2 L Lipase 866 H 04/15/18 04/15/18 04/16/18 11:38 16:59 03:44 Sodium 142 Potassium 4.0 Chloride 108 H Carbon Dioxide 22.4 Anion Gap 12 BUN 14 Creatinine 1.10 Estimated GFR 66 L POC Glucose 117 H 113 H Random Glucose 102 Calcium 8.9 Total Bilirubin 1.0 Direct Bilirubin Indirect Bilirubin AST 61 H ALT 116 H Alkaline Phosphatase 114 Total Protein 5.8 L Albumin 3.0 L Lipase 730 H 04/16/18 04/16/18 08:35 12:32 Sodium Potassium Chloride Carbon Dioxide Anion Gap BUN Creatinine Estimated GFR POC Glucose 152 H 154 H Random Glucose Calcium Total Bilirubin Direct Bilirubin Indirect Bilirubin AST ALT Alkaline Phosphatase Total Protein Albumin Lipase Imaging: ITS Impressions Abdomen/Pelvis CT 04/06/18 00:00 CONCLUSION: 1. Findings most consistent with distal small bowel obstruction. Significantly distended stomach and diffuse small bowel distention with relative transition point in the distal ileum in the right lower quadrant. No bowel infarction or perforation at this time. 2. NG tube is in the right mainstem bronchus. 3. Bilateral lower lobe lobe airspace consolidation. 4. Additional ancillary findings, as above. Findings were personally discussed with the patient's nurse, Lennie, at the time of this dictation. Upper GI and Small Bowel X-Ray 04/06/18 08:58 .. CONCLUSION: Mid to distal small bowel obstruction as above. Abdomen X-Ray 04/12/18 00:00 CONCLUSION: 1. Mild distention of the some of the mid small bowel segments but no features are present to suggest obstruction. The oral contrast material is located within the colon. 2. Patchy airspace opacity at both lung bases representing atelectasis and/or airspace consolidation. Venous Doppler Study 04/12/18 00:00 CONCLUSION: 1. Negative for deep venous thrombosis. Occlusive and nonocclusive superficial thrombus in the area of the antecubital fossa extending to the wrist within the cephalic vein. Chest X-Ray 04/13/18 14:38 CONCLUSION: Moderate CHF and worse since the prior exam. Physical Exam: GENERAL: awake and alert, not in respiratory distress. SKIN: Warm and dry. No generalized rash, no ecchymoses and no evidence of embolic lesions. HEAD: Atraumatic. Normocephalic. No temporal wasting, or tenderness. EYES: Goodwin conjunctiva. No petechia or hemorrhage. Pupils equal, round and reactive to light. Extraocular movements full and intact. No scleral icterus. No injection or drainage. EARS, NOSE AND THROAT: Nose without bleeding or purulent nasal discharge. No sinus tenderness. Mucous membranes pink and moist. No oral lesions noted. No exudate. No oral thrush. NECK: Trachea midline. Supple and not tender, no meningeal signs CARDIOVASCULAR: Regular rate and rhythm. No murmurs, rubs or gallops heard. Sternotomy incision with no evidence of infection. Previous CT sites all look ok, with no evidence of infection. Pacer looks ok RESPIRATORY: Clear to auscultation. Breath sounds equal bilaterally. No rales , wheezing or rhonchi. Decreased breath sounds at bases. ABDOMEN: Protuberant, softer, not tender. Bowel sounds present and normoactive. No organomegaly. EXTREMITIES: No clubbing, cyanosis. Mild pedal edema. Incisions LLE dry, with ecchymoses at LLE, no evidence of infection. No joint effusion, has good ROM. No calf tenderness. Well perfused and warm. LLE - has an area of mild erythema with tender palpable cord, no fluctuance no pustule seen at venipuncture sites, area of redness is decreased, no fluctuance. NEUROLOGICAL: Non-focal. PSYCHIATRIC: calm and cooperative. LINE: No evidence of infection Assessment and Plan (1) Sepsis due to gram-negative bacteria Status: Acute Code(s): A41.50 - Gram-negative sepsis, unspecified - Plan Impression GNR sepsis, source, ?septic thrombophlebitis - has pacer, site ok - recent lap, and doing well - has mild pyuria, previously had friedman - ?from his severe ileus, partial SBO - no significant PNA symptoms Fever, resolved Shock, due to sepsis, BP better S/P redo CABG S/P NSTEMI Recommendation Change Abx to Invanz PICC CM to arrange for hoem IV Abx Abx infusion form filled out Once arrangements made for Abx, and after he gets his dose Invanz today, can be D/C home Stop vancomycin Explained plan to patient and family D/W Dr Chau D/W Marianela SIMON
--- NOTE | 2018-04-16 14:39 | P.DS ---
Date of admission: 03/26/18 12:45 Primary care physician: UNKNOWN Brief History from admission: HPI from the admitting physician: 73-year-old white male being admitted for possible NSTEMI. Patient was in his usual state of health until sometime early this morning began experiencing chest pain and was aching in nature 4/10 intensity. Took his classic baby aspirin to no avail. This he called 911. Patient reports having only mild shortness of breath. Denies nausea vomiting fevers or chills. Denies any lower extremity edema. Patient was given aspirin and nitroglycerin via EMS with improvement in his chest pain. Was given Lopressor in the emergency department. Reports being compliant with his aspirin and Crestor daily. In the emergency department he had an EKG done which and apparently reviewed which shows a right bundle branch block possibly but no obvious ST segment changes that are visible. Cardiology was consulted and they plan to perform cardiac catheterization today. DS: Diagnosis - Discharge Diagnosis (1) NSTEMI (non-ST elevated myocardial infarction) Status: Acute (2) Multi-vessel coronary artery stenosis Status: Acute (3) Ileus, postoperative Status: Resolved DS: Medications - Discharge Medications Prescriptions: metoprolol tartrate 12.5 mg PO BID #30 tab DS: Summary Hospital Course: 73-year-old male with history of repeat CABG complicated by acute kidney injury and ileus. Patient underwent laparoscopic lysis of adhesions. Additional complications include sepsis, septic shock secondary to bacteremia. Treatment course detailed below: Gram-negative patrick sepsis/bacteremia. Septic shock resolved. -Blood cultures grew Enterobacter, multidrug resistant. 1 of the bottle grew Citrobacter -Patient was followed by infectious disease. He was treated with vancomycin and. He is discharged on home IV antibiotics per infectious disease recommendations. Acute kidney injury: Probably secondary to above. Renal functions significantly improved and stabilized. Postoperative ileus: -Status post laparoscopic lysis of adhesion. Resolved. Patient tolerated a diet. S/P NSTEMI/Redo CABG Cardiothoracic surgery following. Continue beta-lidia, aspirin, statin. Plavix was put on hold for PICC line placement. This was resumed after PICC line placement. Patient is to follow-up outpatient with cardiothoracic surgery as scheduled. - Time Spent with Patient Total time spent providing and/or coordinating discharge services: Greater than 30 minutes Exam Vital signs: Vital Signs 04/15/18 15:00 04/15/18 16:00 04/15/18 17:00 Temperature 97.7 F Pulse Rate 83 84 85 Respiratory Rate 18 Blood Pressure 104/69 Pulse Oximetry 98 04/15/18 17:30 04/15/18 19:00 04/15/18 20:00 Temperature 98.4 F Pulse Rate 82 81 80 Respiratory Rate 16 Blood Pressure 126/64 Pulse Oximetry 99 04/15/18 21:00 04/15/18 22:00 04/15/18 23:00 Temperature 97.5 F L Pulse Rate 86 92 H 80 Respiratory Rate 16 Blood Pressure 97/54 L Pulse Oximetry 96 04/16/18 00:00 04/16/18 01:00 04/16/18 02:00 Temperature Pulse Rate 81 78 87 Respiratory Rate Blood Pressure Pulse Oximetry 04/16/18 03:00 04/16/18 04:00 04/16/18 05:00 Temperature 98.6 F Pulse Rate 84 81 78 Respiratory Rate 16 Blood Pressure 129/63 Pulse Oximetry 98 04/16/18 06:00 04/16/18 07:00 04/16/18 08:00 Temperature 98.6 F Pulse Rate 81 78 82 Respiratory Rate 18 Blood Pressure 129/78 Pulse Oximetry 98 04/16/18 09:00 04/16/18 10:00 04/16/18 11:00 Temperature 97.8 F Pulse Rate 78 86 80 Respiratory Rate 18 Blood Pressure 121/71 Pulse Oximetry 98 04/16/18 12:00 Temperature Pulse Rate 80 Respiratory Rate Blood Pressure Pulse Oximetry Intake & Output 04/15/18 04/16/18 04/16/18 18:59 06:59 18:59 Intake Total 700 / 700 820 / 820 Output Total 3 / 3 700 / 700 Balance 697 / 697 120 / 120 Weight 108 kg Intake: IV 100 / 100 100 / 100 D10W Inj 1,000 ML @ 30 mls/hr 0 / 0 IV.SIG .Q24H MIKE Rx#:[id number] Merrem Inj 2,000 MG In NS Inj 100 / 100 100 / 100 100 ML @ 200 mls/hr IV.SIG Q8H MIKE Rx#:[id number] Oral 600 / 600 720 / 720 Output: Urine 700 / 700 Stool 3 / 3 Other: # Voids 4 4 Date of Last Bowel Movement 04/15/18 04/15/18 04/15/18 Narrative: GENERAL: Obese male in no acute distress. CARDIOVASCULAR: Normal rate and regular rhythm without murmurs, gallops, or rubs. RESPIRATORY: Good respiratory efforts. Breath sounds equal and clear to auscultation bilaterally. GASTROINTESTINAL: Abdomen is distended but not firm, positive bowel sounds. No rebound tenderness. MUSCULOSKELETAL: Extremities without cyanosis, or edema. NEURO: Alert & Oriented x4 to person, place, time, situation. Moves all ext x4 PSYCH: Appropriate mood and affect. Results Procedures completed during hospitalization: Echocardiogram The left ventricular systolic function is normal with an estimated ejection fraction in the range of 55-60%. Trace mitral valve regurgitation. There is trace tricuspid valve regurgitation. CABG x 3 on 03/30/2018. Labs on day of discharge: Labs from last 24 hours 04/16/18 04/16/18 04/16/18 12:32 08:35 03:44 WBC RBC Hgb Hct MCV MCH MCHC RDW Plt Count MPV Sodium 142 Potassium 4.0 Chloride 108 H Carbon Dioxide 22.4 Anion Gap 12 BUN 14 Creatinine 1.10 Estimated GFR 66 L POC Glucose 154 H 152 H Random Glucose 102 Calcium 8.9 Total Bilirubin 1.0 AST 61 H ALT 116 H Alkaline Phosphatase 114 Total Protein 5.8 L Albumin 3.0 L Lipase 730 H 04/16/18 04/15/18 04/15/18 03:44 16:59 04:07 WBC 7.0 RBC 2.95 L Hgb 8.5 L Hct 25.9 L MCV 87.7 MCH 28.9 MCHC 32.9 RDW 15.6 Plt Count 279 MPV 8.1 Sodium Potassium Chloride Carbon Dioxide Anion Gap BUN Creatinine Estimated GFR POC Glucose 113 H Random Glucose Calcium Total Bilirubin AST ALT Alkaline Phosphatase Total Protein Albumin Lipase 866 H Preliminary micro results at discharge 04/15/18 04:07 Aerobic Blood Culture - Preliminary Blood - Peripheral No growth in 1 day Anaerobic Blood Culture - Preliminary No growth in 1 day 04/14/18 12:25 Aerobic Blood Culture - Preliminary Blood - Peripheral No growth in 2 days Anaerobic Blood Culture - Preliminary No growth in 2 days 04/12/18 14:53 Aerobic Blood Culture - Preliminary Blood - Peripheral No growth in 4 days Anaerobic Blood Culture - Preliminary No growth in 4 days 04/12/18 15:04 Aerobic Blood Culture - Preliminary Blood - Peripheral No growth in 4 days - Impressions ITS Impressions Abdomen/Pelvis CT 04/06/18 00:00 CONCLUSION: 1. Findings most consistent with distal small bowel obstruction. Significantly distended stomach and diffuse small bowel distention with relative transition point in the distal ileum in the right lower quadrant. No bowel infarction or perforation at this time. 2. NG tube is in the right mainstem bronchus. 3. Bilateral lower lobe lobe airspace consolidation. 4. Additional ancillary findings, as above. Findings were personally discussed with the patient's nurse, Lennie, at the time of this dictation. Upper GI and Small Bowel X-Ray 04/06/18 08:58 .. CONCLUSION: Mid to distal small bowel obstruction as above. Abdomen X-Ray 04/12/18 00:00 CONCLUSION: 1. Mild distention of the some of the mid small bowel segments but no features are present to suggest obstruction. The oral contrast material is located within the colon. 2. Patchy airspace opacity at both lung bases representing atelectasis and/or airspace consolidation. Venous Doppler Study 04/12/18 00:00 CONCLUSION: 1. Negative for deep venous thrombosis. Occlusive and nonocclusive superficial thrombus in the area of the antecubital fossa extending to the wrist within the cephalic vein. Chest X-Ray 04/13/18 14:38 CONCLUSION: Moderate CHF and worse since the prior exam. Discharge Plan - Discharge Disposition Patient Disposition: W/Home Health Service - Discharge Condition Condition: Good - Discharge Order Discharge Orders: Discharge Order (Routine); Ordered 04/16/18 Ordered By: Abdirahman Chau General Surgery Clear for Discharge (Routine); Ordered 04/16/18 Ordered By: Jonna Pineda - Discharge Details Discharge Comment: ok to DC after Invanz dose, PICC placed and home IV antibiotics arranged. - Physicians Team Primary Care Provider: UNKNOWN, Attending Provider: Abdirahman Chau Other Providers: Xochitl Sylvester MD ; [facility] ; Nadya Thomas MD ; Edison Salinas MD ; [facility] ; John Bardales MD ; Dai Guzman MD ; Gal Dos Santos MD - Rxs /Orders / Referrals /Forms Prescriptions: New clopidogrel [Plavix] 75 mg Tablet 75 mg PO DAILY RF: 0 metoprolol tartrate 25 mg Tablet 12.5 mg PO BID Qty: 30 RF: 0 Continue allopurinol 300 mg Tablet 300 mg PO DAILY aspirin 81 mg Tablet,Chewable 81 mg PO DAILY hydrochlorothiazide 25 mg Tablet 25 mg PO DAILY lisinopril 20 mg Tablet 20 mg PO DAILY omeprazole 20 mg Tablet,Delayed Release (Dr/Ec) 40 mg PO DAILY Discontinued rosuvastatin 10 mg Tablet 10 mg PO HS sildenafil 100 mg Tablet 100 mg PO DAILY PRN (Reason: Erectile Dysfunction) Referrals: Zohaib Lopez MD [Physician] - See Instructions ( Please call the physician's office to book the appointment to be seen within [4 weeks of discharge, Dr. Pollack office is closed until 04/12/18].) Xochitl Sylvester MD [Physician] - See Instructions ( Your appointment has been scheduled for [04/29/18] at [10:45 AM ] If you cannot make this appointment, please call the office to reschedule ) Edison Salinas MD [Physician] - See Instructions (Appt set for ThursdayApril 26 at 1:20PM) Susana Garber MD [Physician] - See Instructions ( Your appointment has been scheduled for [04/28/18] at [1:45 PM] If you cannot make this appointment, please call the office to reschedule ) - Discharge Instructions Additional Instructions: Incentive spirometry Q1 hr x 10, while awake, also use acapella device hourly whole awake Sternal Breast Bone Precautions: NO pushing or pulling, ( pt must use sternal pillow to support chest with all activities and with coughing ( takes up to 3 months breast bone to heal ) Daily incision care: ok to shower daily, no tub bath. Wash all incisions with liquid dial soap, clean wash cloth to each site, rinse and pat dry. Observe for any signs of infection, such as drainage which is dark yellow, lara, green or foul smelling. Immediately report to the surgeon any drainage from the chest incision, or legs, and for any abnormal drainage from the chest tube sites. Notify surgeon if any temp >101.5 degrees F. When specialty dressing removed/ or if you do not have one, continue to shower daily as above, then rinse and pat incision dry and paint with betadine daily x 5 days. Allow steri strips to fall off if you have any. Avoid lotions, creams, salves, oils, etc. for the first month For Dr. Sylvester patients , please obtain CBC, BMP, PA & Lat CXR in 2 weeks, results to Dr. Sylvester ( prescription will be given) ( ) (Tele: [phone]) , F/U appointment: as per DC instructions: PCP in 2 weeks, CV surgeon 2 weeks, Electronic Engineering Draftsperson 3-4 weeks For any questions regarding incisions/ dressing / meds / post op care or above Symptoms, Thursday 8am-5pm Heart & Vascular Surgery Office ( Dr. Olson & Dr. Sylvester), After Hours / Nights (5pm -8am) Weekends and Holidays Please call [facility] Cardiac Inter[facility] Unit ([facility]) Charge Nurse
--- NOTE | 2018-04-16 15:37 | P.DCO ---
- Physical Therapy Order: Improve ambulation, Strength and gait training - Home Health Nursing Order: Medical education, Nursing assessment with vital signs - Certification I have seen patient Galen Hankins on 04/16/18. My clinical findings support the need for the requested home health care services because: Deconditioned with increased weakness I certify that my clinical findings support that this patient is homebound because: Post-op weakness, Poor cardiac reserve
--- NOTE | 2018-04-16 16:02 | XR ---
EXAM DATE: 04/16/2018 3:53 PM EDT AGE/SEX: 73 years / Male INDICATIONS: PICC placement. CLINICAL DATA: This is the patient's initial encounter. Patient reports that signs and symptoms have been present for 1 day and indicates a pain score of 0/10. MEDICAL/SURGICAL HISTORY: None. CABG. Pacemaker. COMPARISON: [facility], CHEST 1V SINGLE AP, 04/13/2018. . FINDINGS: Portable AP view of the chest demonstrates a stable mild enlargement of the cardiac silhouette. Media n sternotomy wires are present and clips related to prior CABG. Left chest wall cardiac pacing device is present. There is perihilar interstitial prominence, stable from the prior study. Right upper ext remity PICC is present. Distal aspect is difficult to visualize but the line is visualized up to at l east the proximal aspect of the SVC. No pneumothorax is identified. There is a possible small right p leural effusion. CONCLUSION: 1. Right upper extremity PICC remains present in distal tip is difficult to visualize but appears to be in the superior aspect of the SVC. 2. Perihilar interstitial changes similar to the prior study which could represent interstitial pulm onary edema. There is a questionable small right pleural effusion present. Electronically signed by: Pavan Araujo MD 04/16/2018 4:00 PM EDT
[2018-04-17] MEDS ORDERED: Pharmacy Ordered Lab Info OTHER ONE (17:45)
== END 2018-04-16 19:00 | disposition home health service (06) ==
LOC: HCIS 12:45 → HCPC 03-29 16:23 → HCVI 03-30 15:20 → HCPC 03-31 13:46 → HCVI 04-13 15:01 → HCPC 04-14 14:12
PROVIDERS: ADMIT Family Medicine; ATTEND Family Medicine